=== PATIENT | male | born 1970 | race Caucasian/White ===

== ENCOUNTER 2022-07-26 07:35 | Outpatient (REF) | payer OTHER, SELFPAY ==
[2022-07-26 11:38] LABS: Hemoglobin 18.6 g/dl (14.0-18.0); Mean Corpuscular HGB Conc 34.6 g/dl (31.0-36.0); SCAN SMEAR FLAG 1
[2022-07-26 11:39] LABS: Appearance Urine Turbid; Color Urine Yellow; Glucose Urine UA >=1000 mg/dL (Negative); Leukocyte Esterase Urine Negative (Negative); Nitrite Urine Negative (Negative); PH 5.5 (5.0-9.0); Specific Gravity - Urine 1.025 (1.005-1.025); UMIC TRIGGER UACC YES; Urine Blood Small (1+) (Negative); Urine Ketones Negative (Negative); Urine Protein 300 (3+) mg/dL (Neg-Trace)
[2022-07-26 11:40] LABS: Basophils Absolute Auto 0.1 X10*3/uL (0.0-0.2); Eosinophils Absolute Auto 0.3 X10*3/uL (0.0-0.4); Eosinophils Percent Auto 3.8 % (0-4); Hematocrit 53.8 % (42.0-52.0); Imm Gran Abs Auto 0.02 X10*3/uL (0.00-0.03); Imm Gran Pct Auto 0.3 % (0.0-0.4); Lymphocytes Absolute Auto 1.8 X10*3/uL (1.2-4.9); Lymphocytes Percent Auto 25.5 % (20-40); MANUAL DIFF FLAG SCAN; Mean Corpuscular Hemoglobin 31.7 pg (27.0-33.0); Mean Corpuscular Volume 91.7 fL (80.0-98.0); Mean Platelet Volume 13.7 fL (9.4-12.4); Monocytes Absolute Auto 0.5 X10*3/uL (0.1-1.2); Monocytes Percent Auto 7.2 % (2-11); Neutrophils Absolute Auto 4.4 x10*3/uL (2.0-8.3); Neutrophils Percent Auto 62.2 % (45-73); PLT ABN DIST 1; Red Blood Count 5.87 X10*6/uL (4.60-5.80); Red Cell Distribution Width 12.5 % (11.0-16.0); White Blood Count 7.1 X10*3/uL (4.8-10.8)
[2022-07-26 11:57] LABS: Bacteria Urine None Seen (None Seen); Hyaline Casts Urine 0-2 /LPF (0-2); Squamous Epithelial Cell Urine 0-2 /HPF (0-2); WBC Urine 0-5 /HPF (0-5)
[2022-07-26 12:00] LABS: Alanine Aminotransferase 26 U/L (0-40); Albumin Level 3.7 g/dL (3.5-5.0); Alkaline Phosphatase 102 U/L (39-117); Anion Gap 11 (12-20); Aspartate Amino Transferase 29 U/L (5-37); Bilirubin Total 0.6 mg/dL (0.0-1.0); Blood Urea Nitrogen 12 mg/dL (9-16); Calcium 8.4 mg/dL (8.4-10.2); Carbon Dioxide 27 mmol/L (22-29); Chloride 104 mmol/L (96-108); Cholesterol 245 mg/dL; Estimated Glomerular Filt Rate > 60; Glucose Fasting 275 mg/dL (60-99); HDL Cholesterol 38 mg/dL; LDL Cholesterol Calculated 136 mg/dl; Potassium 4.5 mmol/L (3.3-5.1); Sodium 137 mmol/L (135-145); Total Protein 6.1 g/dL (6.5-8.0); Triglycerides 359 mg/dL
[2022-07-26 12:01] LABS: Platelet Count 65 X10*3/uL (160-400)
[2022-07-26 12:02] LABS: SLIDE REVIEW VERIFIED
[2022-07-26 12:06] LABS: Estimated Average Glucose 289 mg/dL; Hemoglobin A1c % 11.7 %
[2022-07-26 12:22] LABS: Prostate Specific Antigen Scr 0.45 ng/mL (<0.05-4.0); TSH reflex Free T4 1.68 uIU/mL (0.32-4.0)
[2022-07-26 12:26] LABS: Creatinine Urine 138.64 mg/dL
[2022-07-26 12:43] LABS: Microalbum/Creatinine Ratio Ur 1442.5 ug/mg cr; Microalbumin Urine > 2000.0 mg/L
== END 2022-07-26 07:36 | disposition home or self-care (01) ==
LOC: HO.HMGCLDS 07:35
PROVIDERS: PCP Nurse Practitioner Family; Visit Provider Nurse Practitioner Family
DX: E11.65 Type 2 diabetes mellitus with hyperglycemia (principal); D58.2 Other hemoglobinopathies; R31.29 Other microscopic hematuria; Z12.5 Encounter for screening for malignant neoplasm of prostate
CPT/HCPCS: 36415; 80053; 80061; 81001; 82043; 83036; 84153; 84443; 85025

== ENCOUNTER 2022-08-06 11:18 | Outpatient (REF) | payer OTHER, SELFPAY ==
--- NOTE | ~2022-08-06 | US_ITS ---
EXAMINATION: US RETROPERITONEAL LIMITED (RENAL ONLY) CLINICAL INFORMATION: Other microscopic hematuria. COMPARISON: None TECHNIQUE: Real-time imaging of the kidneys. FINDINGS: RIGHT KIDNEY: 13.2 x 5.2 x 5.8 cm (SAG x AP x TRV). The kidney is normal in size, contour, and echogenicity. Renal cortical thickness is normal. No calculi or focal parenchymal lesions. No hydronephrosis. Mild right-sided pelviectasis without caliectasis. LEFT KIDNEY: 11.7 x 6.4 x 6.1 cm (SAG x AP x TRV). The kidney is normal in size, contour, and echogenicity. Renal cortical thickness is normal. No calculi or focal parenchymal lesions. No hydronephrosis. BLADDER: Bladder is under distended with suggestion of diffuse wall thickening and trabeculation. ADDITIONAL FINDINGS: Prostate volume 40.3 mL. There are at least 2 cystic appearing observations in the prostate gland measuring 0.9 x 0.8 x 0.7 cm and 0.3 x 0.5 x 0.6 cm. US/US renal BI IMPRESSION: 1. No nephrolithiasis or hydronephrosis. 2. Mild right-sided pelviectasis without caliectasis. 3. The urinary bladder is under distended with suggestion of diffuse wall thickening and trabeculation which could be related with chronic outlet obstruction in the setting of prostatomegaly. 4. There are at least 2 cystic appearing observations in the prostate gland, which are nonspecific and incompletely characterized in this examination. Correlation with PSA and physical examination recommended, and if indicated further evaluation with prostatic MRI or biopsy could be obtained.
== END 2022-08-06 11:19 | disposition home or self-care (01) ==
LOC: HO.HMGCX 11:18
PROVIDERS: PCP Nurse Practitioner Family; Visit Provider Nurse Practitioner Family
DX: R31.29 Other microscopic hematuria (principal)
CPT/HCPCS: 76775

== ENCOUNTER 2022-08-09 12:58 | Outpatient (REF) | payer OTHER, SELFPAY ==
--- NOTE | ~2022-08-09 | US_ITS ---
EXAMINATION: US PELVIS LIMITED (BLADDER) CLINICAL INFORMATION: Microscopic hematuria. COMPARISON: Ultrasound retroperitoneal limited (renal only) 08/06/2022. TECHNIQUE: Real-time imaging of the bladder. FINDINGS: BLADDER: The bladder wall appears slightly trabeculated and slightly irregular. No discrete bladder masses are seen. No bladder calculi are noted. Left ureteral jet is demonstrated; right is not. Prevoid bladder volume is 169 mL. Postvoid bladder volume is 13.1 mL. US/US bladder IMPRESSION: Bladder wall appears slightly trabeculated and slightly irregular. No stones or masses. Given the history of hematuria with no known cause, cystoscopy may be of value.
== END 2022-08-09 12:59 | disposition home or self-care (01) ==
LOC: HO.HMGCX 12:58
PROVIDERS: PCP Nurse Practitioner Family; Visit Provider Nurse Practitioner Family
DX: R31.29 Other microscopic hematuria (principal)
CPT/HCPCS: 76857

== ENCOUNTER → 2022-08-16 14:22 | Outpatient (BNVA) | payer OTHER, SELFPAY | PROVIDERS: PCP Nurse Practitioner Family; Visit Provider Urology | DX: Z13.9 Encounter for screening, unspecified (principal); N40.0 Benign prostatic hyperplasia without lower urinary tract symptoms; N32.89 Other specified disorders of bladder; R31.29 Other microscopic hematuria | CPT/HCPCS: 51798; 99202 ==

== ENCOUNTER 2022-11-01 10:32 | Outpatient (REF) | payer OTHER, SELFPAY ==
[2022-11-01 17:12] LABS: Urine Cytology See Pathology rpt
== END 2022-11-01 10:33 | disposition home or self-care (01) ==
LOC: HO.LAB 10:32
PROVIDERS: PCP Nurse Practitioner Family; Visit Provider Urology
DX: N40.0 Benign prostatic hyperplasia without lower urinary tract symptoms (principal); R31.29 Other microscopic hematuria; N32.9 Bladder disorder, unspecified; F17.290 Nicotine dependence, other tobacco product, uncomplicated; N52.9 Male erectile dysfunction, unspecified; N32.89 Other specified disorders of bladder; Z79.899 Other long term (current) drug therapy
CPT/HCPCS: 52000; 88112; 99212

== ENCOUNTER → 2022-11-13 09:02 | Day surgery (SDC) | payer OTHER, SELFPAY ==
[2022-11-08 13:15] VITALS: BMI 27.0
--- NOTE | 2022-11-12 09:53 | HO.ANESPROP2 ---
HPI - Anesthesia Eval Consult details Narrative: 52yo M for Cystoscopy & Bladder Biopsy [facility] Active Problems Active Problems: All Active Problems (Updated 11/08/22 @ 13:15 by Patrizia Brown RN) Physical exam (Acute) Screening PSA (prostate specific antigen) (Acute) Uncontrolled diabetes mellitus (Acute) Diabetic retinopathy (Acute) Microhematuria (Acute) Elevated hemoglobin (Acute) Microalbuminuria (Acute) Abnormal ultrasound of prostate (Acute) Abnormal radiologic findings on diagnostic imaging of renal pelvis, ureter, or bladder (Acute) Bladder wall thickening (Acute) BPH (benign prostatic hyperplasia) (Acute) Lesion of bladder (Acute) Hypertension (Acute) Past Medical History Medical History BPH (benign prostatic hyperplasia) Diabetic retinopathy Elevated cholesterol Hypertension Retinal hemorrhage Smoking history Type 2 diabetes mellitus Family History Family History Father Leukemia Mother No problems noted. Surgical History Surgical History Hx of tonsillectomy Social History Social History (Updated 11/08/22 @ 13:21 by Patrizia Brown RN) Are you a primary direct care provider to a significant other at home: No Do you presently have visiting nurse or other home services: No Alcohol intake: current Alcohol intake frequency: 3 or more drinks per day Alcohol type: beer and hard liquor Patient Tobacco Use Status: Current everyday Tobacco user Tobacco use type: Cigar Cigarettes Per Day: 0 (quit cigarettes ~ age 37-current cigars daily) Years Smoked: 25 Smoked in Last 30 Days: Yes e-Cigarette/Vaping Use: Never Used Use of substances other than those prescribed or required for medical reasons: No Have you been hit, kicked, punched, or otherwise hurt by someone within the past year? If so, by whom?: No Are you DNR?: No Advance Directives: No Advance Directives Information Provided: Yes (brochure mailed) Advance Directives on File: No Recently lost weight without trying: No Eating poorly because of decreased appetite: No Nutrition Risks: No Nutritional Risk Poor oral hygiene: No (upper full denture) service: No Current occupational status: employed Current occupation: [employer] Current occupational exposures/hazards: Yes Cognitive needs: No Hearing needs: No Vision needs: No Meds Allergies Allergy/AdvReac Type Severity Reaction Status Date / Time No Known Allergies Allergy Verified 11/13/22 09:16 Home Medications Medication Instructions Recorded Confirmed Last Taken Type metformin 500 mg tablet 1,000 mg PO BID 10/31/20 11/08/22 Unknown History Exam Exam Date and Time: November 12, 2022 0953 Height,Weight and Vital Signs: Height 5 ft 10 in Weight 85.275 kg Pertinent Lab Results Pertinent Lab Results: Laboratory Tests 07/26/22 07/26/22 07:45 07:45 WBC 7.1 Hgb 18.6 H Hct 53.8 H Plt Count 65 L Sodium 137 Potassium 4.5 Chloride 104 Carbon Dioxide 27 BUN 12 Creatinine 0.77 Assessment and Plan Assessment Anesthesia Assessment: Chart Reviewed
[2022-11-13] MEDS: Lactated Ringers 1,000 ML 100 ML IVCONT (09:31)
[2022-11-13 09:33] LABS: Glucose, Whole Blood 201 mg/dL (60-115)
[2022-11-13 09:34] LABS: Mean Corpuscular HGB Conc 36.1 g/dl (31.0-36.0); Mean Corpuscular Hemoglobin 32.3 pg (27.0-33.0); Mean Corpuscular Volume 89.6 fL (80.0-98.0); Red Blood Count 6.34 X10*6/uL (4.60-5.80); White Blood Count 7.8 X10*3/uL (4.8-10.8)
[2022-11-13 09:35] LABS: Hematocrit 56.8 % (42.0-52.0); Hemoglobin 20.5 g/dl (14.0-18.0); Platelet Count 69 X10*3/uL (160-400)
[2022-11-13 09:39] VITALS: BP 171/98; PULSE 83; RESP 18; TEMP 36.7; O2SAT 95
[2022-11-13 09:47] VITALS: BP 141/91
--- NOTE | 2022-11-13 09:54 | PC.NURSE ---
dr. figueredo updated that poc was 201 this a.m. no interventions at this time.
--- NOTE | 2022-11-13 10:26 | PC.NURSE ---
patient drinks alcohol daily. Had 2 beers and 2 hots hs. asymptomatic of withdrawal symptoms.
--- NOTE | 2022-11-13 12:17 | MHC.SHP ---
Pre-Procedural Eval Section A Date of Service: 11/13/22 The patient is an INPATIENT: No The History & Physical has been completed within 30 days and I have reviewed it.: Yes Section B Chief Complaint: Bladder disorder, unspecified Allergies: Allergies Allergy/AdvReac Type Severity Reaction Status Date / Time No Known Allergies Allergy Verified 11/13/22 09:16 Plan Diagnosis/Plan: Unchanged I have reviewed the history and physical and performed a pertinent physical examination on my patient. No changes have occurred unless specified. Cystoscopy bladder biopsies Time Spent With Patient Time: Total time managing care of this patient today ____ minutes.
--- NOTE | 2022-11-13 12:22 | PC.NURSE ---
dr. noriega reviewed labs that were drawn this a.m. given copy at bedside.
--- NOTE | 2022-11-13 12:44 | PC.NURSE ---
dr. louise morocho reviewed labs and decision was made to cancel procedure today. IV removed. patient aware to f/u with office as ordered by surgeon.
== END ==
PROVIDERS: Nurse Practitioner; PCP Nurse Practitioner Family; Visit Provider Urology
DX: N32.9 Bladder disorder, unspecified (principal); Z53.8 Procedure and treatment not carried out for other reasons; R79.89 Other specified abnormal findings of blood chemistry
CPT/HCPCS: 36415; 82947; 85027; J0690; J2250; J3010

== ENCOUNTER → 2022-11-19 09:17 | Outpatient (BNV) | payer OTHER, SELFPAY | PROVIDERS: PCP Nurse Practitioner Family; Visit Provider Internal Medicine Medical Oncology | DX: D75.1 Secondary polycythemia (principal) | CPT/HCPCS: 99204; 99213 ==

== ENCOUNTER 2022-11-20 09:06 | Outpatient (REF) | payer OTHER, SELFPAY | END 2022-11-20 09:07 | disposition home or self-care (01) | LOC: HO.BBR 09:06 | PROVIDERS: Visit Provider Internal Medicine Medical Oncology | DX: D75.1 Secondary polycythemia (principal) | CPT/HCPCS: 85018; 99195 ==

== ENCOUNTER 2022-12-20 09:56 | Outpatient (REF) | payer OTHER, SELFPAY | END 2022-12-20 09:57 | disposition home or self-care (01) | LOC: HO.BBR 09:56 | PROVIDERS: PCP Nurse Practitioner Family; Visit Provider Internal Medicine Medical Oncology | DX: D75.1 Secondary polycythemia (principal) | CPT/HCPCS: 85018; 99195 ==

== ENCOUNTER 2023-01-03 09:31 | Outpatient (AMB) | payer OTHER, SELFPAY ==
--- NOTE | 2023-01-03 09:37 | A.OFFPC_ITS ---
Vital Signs 01/03/23 09:38 Height 5 ft 10 in Weight 184 lb 4 oz BMI 26.4 BP 142/100 H Blood Pressure Location Lt brachial Position Sitting Pulse 93 Pulse Source Pulse Oximeter Pulse Oximetry (%) 98 Oxygen Delivery Method Room Air Intake Visit Reasons: 3 Month follow up Allergies No Known Allergies Allergy (Verified 01/03/23 09:43) Medication List - Last Reconciled 01/03/23 by BRIAN Sandoval atorvastatin 80 mg PO DAILY dapagliflozin propanediol (Farxiga) 5 mg PO DAILY 30 days FreeStyle Kayode 2 [place] (flash glucose scanning reader) tid NS FreeStyle Kayode 2 Sensor (flash glucose sensor) TID NS insulin glargine (Lantus Solostar U-100 Insulin) 60 units (0.6 mL) subcut QPM 50 days MDD 60 units lisinopril 20 mg PO BID 30 days metformin 1,000 mg PO BID metoprolol tartrate 100 mg PO BID semaglutide (Ozempic) 0.25 mg (0.368 mL) subcut QWEEK Tobacco use date assessed: 05/31/22 HPI 3 Month follow up HPI Details Pt is a diabetic, on an SASHA and a statin. A1c in office today is 11.7. Microalbumin is up to date (has been referred to nephrology, see notes). Denies polyuria, polydipsia, does report neuropathy. Pt denies any signs and symptoms of hypoglycemia and does know how to correct it. Will start farxiga 5mg. He reports not taking his insulin everyday, and has not started the ozempic. Explained to pt multiple times the risks of his uncontrolled diabetes, including the risk of . pt reported understanding this. He reports he knows how to get his sugars down, some days i feel like taking my meds, and sometimes i dont . See optometry, urology, and hematology. Bp meds not taken today, elevated. [facility] Medical History BPH (benign prostatic hyperplasia) Cervical spinal stenosis Degenerative disc disease, cervical Diabetic retinopathy Elevated cholesterol Hypertension Neuropathy Retinal hemorrhage Smoking history Type 2 diabetes mellitus Surgical History Hx of tonsillectomy Family History Father Leukemia Mother No problems noted. Social History Are you a primary primary care provider to a significant other at home: No Do you presently have visiting nurse or other home services: No Alcohol intake: current Alcohol intake frequency: 3 or more drinks per day Alcohol type: beer and hard liquor Patient Tobacco Use Status: Current everyday Tobacco user Tobacco use type: Cigar Years Smoked: 25 e-Cigarette/Vaping Use: Never Used service: No Current occupational status: employed Current occupation: [employer] Current occupational exposures/hazards: Yes Cognitive needs: No Hearing needs: No Vision needs: No Questionnaire Thrive Questionnaire Date Thrive assessed: 05/31/22 GIBSON-7 AMB Questionnaire GIBSON-7 Date GIBSON - 7 assessed: 05/31/22 Source: Developed by Drs. Solis Moore, Светлана Christy, Anant Romano and colleagues, with an educational kandy from [employer]. Review of Systems Const Reports as per HPI Physical exam (Primary Care) Vital Signs: Last Vital Signs Pulse 93 01/03/23 09:38 BP 142/100 H 01/03/23 09:38 Pulse Ox 98 01/03/23 09:38 Oxygen Delivery Method Room Air 01/03/23 09:38 BMI result Body Mass Index 26.4 Tobacco/Smoking Status: Tobacco use Status Tobacco use date assessed 05/31/22 01/03/23 09:37 Patient Tobacco Use Status Current everyday Tobacco 01/03/23 09:37 Tobacco use type Cigar 01/03/23 09:37 e-Cigarette/Vaping Use Never Used 01/03/23 09:37 Thrive Assessment: Date of Thrive Assessment Date Thrive assessed 05/31/22 01/03/23 09:37 Const General: cooperative Orientation/consciousness: patient oriented x3 Resp Other: lungs coarse Effort & Inspection: normal respiratory effort Cardio Rate: regular rate Rhythm: regular rhythm Heart sounds: S1 normal heart sound present and S2 normal heart sound present Neuro Other: refused foot exam General: patient oriented x3 Extrem Other: refused foot exam Psych Appearance: grossly normal Mental Status: mental status grossly normal Speech and movement: Normal speech and movement present Affect: normal affect Attitude: cooperative Thought process: Normal thought process present Thought content: Normal thought content present Insight: Good insight present (Psych) Judgement: Good judgement present (Psych) Results AMB Hemoglobin A1c AMB Hemoglobin A1c 11.7 % Last Edit by Nelli Kearney CMA on 01/03/23 10 :11 Results Reviewed Results Reviewed: Laboratory Last Values Hgb A1c (Clinic) 11.7 % (4.0-6.0) H 01/03/23 10:04 Assessment and Plan Assessment & Plan (1) Uncontrolled diabetes mellitus: Code(s): E11.65 - Type 2 diabetes mellitus with hyperglycemia Plan: Labs ordered, starting farxiga, reinforced severity of uncontrolled diabetes to pt multiple times. Plan The patient agreed to the use of a medical device assembler for this encounter. Scribed for BRIAN [place] by Nerissa Uriostegui medical device assembler, on 01/03/2023 at 10:20 EST. Orders: Orders Lipid Panel Today E11.65 - Type 2 diabetes mellitus with hyperglycemia AMB Hemoglobin A1c Today E11.65 - Type 2 diabetes mellitus with hyperglycemia Medications: New dapagliflozin propanediol (Farxiga) 5 mg PO DAILY 30 tabs 2RF 30 days Coding Level of Care Code Est Pt Level 3 (55222) Diagnoses Uncontrolled diabetes mellitus E11.65
[2023-01-03 09:38] VITALS: BP 142/100; PULSE 93; O2SAT 98; BMI 26.4
== END 2023-01-03 10:59 | disposition home or self-care (01) ==
PROVIDERS: Visit Provider Nurse Practitioner Family
DX: E11.65 Type 2 diabetes mellitus with hyperglycemia (principal)
CPT/HCPCS: 83036; 99213

== ENCOUNTER 2023-01-17 12:02 | Outpatient (REF) | payer OTHER, SELFPAY | END 2023-01-17 12:03 | disposition home or self-care (01) | LOC: HO.BBR 12:02 | PROVIDERS: PCP Nurse Practitioner Family; Visit Provider Internal Medicine Medical Oncology | DX: D75.1 Secondary polycythemia (principal) | CPT/HCPCS: 85018; 99195 ==

== ENCOUNTER 2023-12-25 09:53 | Inpatient (IN) | payer OTHER, SELFPAY ==
[2023-12-25] VITALS (9 sets, daily range): BP systolic 114–157; BP diastolic 78–100; PULSE 63–74; RESP 14–18; TEMP 36.8–37.2; O2SAT 88–95; BMI 30.5
--- NOTE | ~2023-12-25 | XR_ITS ---
EXAMINATION: XR CHEST CLINICAL INFORMATION: Chest pain and shortness of breath COMPARISON: None available. TECHNIQUE: Frontal view of the chest was obtained. FINDINGS: Abnormal. There is mild cardiomegaly with slight distention of the pulmonary vessels. Diffuse interstitial infiltrates likely reflect edema, although a viral pneumonitis superimposed could have such an appearance. XR/XR chest 1V IMPRESSION: Congestive changes with or without edema and/or interstitial infiltrate.
--- NOTE | ~2023-12-25 | CT_ITS ---
EXAMINATION: CT ANGIOGRAM OF THE CHEST WITH AND WITHOUT CONTRAST (CT PULMONARY ANGIOGRAM FOR PE) CLINICAL INFORMATION: Reason for Exam leg swelling positive ddimer COMPARISON: Chest x-ray 12/25/2023. TECHNIQUE: Prior to contrast administration, noncontrast localization images were obtained. Subsequently, multidetector volumetric imaging was performed from the thoracic inlet to below the diaphragms following the administration of 65 mL Omnipaque 350 intravenous contrast. No contrast reaction reported Sagittal, coronal, and MIP oblique sagittal reformatted images were obtained on the CT workstation, uploaded to PACS, and reviewed. This CT examination was performed using dose optimization techniques as appropriate, variously including the following: *Automated exposure control *Adjustment of mA and/or kV according to patient size (this includes techniques or standardized protocols for targeted exams where dose is matched to indication/reason for exam; i.e. extremities or head) *Use of iterative reconstruction technique Total exam dose-length product 331 mGy-cm FINDINGS: QUALITY OF STUDY/CONTRAST BOLUS: Satisfactory. PULMONARY ARTERIES: No filling defects are seen to suggest pulmonary embolism. AI concordance. THORACIC AORTA: No aneurysm. There is a 60% stenosis of the proximal left subclavian artery due to mixed soft and hard plaque proximal to the vertebral artery origin which may predispose to subclavian steal syndrome. LUNG: Diffuse airway wall thickening. Mosaic attenuation suggesting some degree of air trapping. There may be mild edema. There are scattered micronodules as well as a 6 mm nodule right upper lobe series 7 image 109 which is nonspecific. PLEURA: Small bilateral pleural effusions measuring simple density. MEDIASTINUM: The main pulmonary artery is dilated measuring 3.7 cm with a MPA to AO ratio of 1.1 consistent with pulmonary arterial hypertension. There is no reflux of contrast into the hepatic IVC or septal bowing. Adenopathy with right upper paratracheal node measuring 1.1 cm, right lower paratracheal node measuring 1.8 cm, right lower paratracheal node measuring 2.6 cm, AP window node measuring 2.3 cm, left lower paratracheal node measuring 2.2 cm. Findings are nonspecific. CORONARY ARTERY CALCIFICATION: Significant LAD, LCx, RCA calcium. CHEST WALL/AXILLA: Left axillary node measures 1.9 cm. OSSEOUS STRUCTURES: Severe degenerative disc disease at T9-T10. UPPER ABDOMEN: Unremarkable. No reflux of contrast into the hepatic veins to suggest elevated right heart pressures. CT/CT angio chest PE protocol IMPRESSION: Negative for pulmonary embolism. Mosaic attenuation and airway wall thickening suggesting airways disease with some degree of air trapping. There may be also be mild superimposed pulmonary edema. Small bilateral pleural effusions. Three-vessel coronary artery disease. Mediastinal and left axillary adenopathy, potentially reactive however the imaging appearance is nonspecific. Clinical correlation is necessary. 60% stenosis proximal left subclavian artery. This location could predispose to subclavian steal syndrome. This can be correlated clinically. 6 mm right upper lobe pulmonary nodule and additional scattered micronodules. 2017 Fleischner Society Recommendations for Lung Nodule(s): Follow-Up based on size (average of long- and short-axis diameters). Use most suspicious nodule for followup. Multiple Solid lung nodules 6-8 mm: Follow up management based on most suspicious nodule. In a low-risk patient, recommend a non-contrast Chest CT at 3-6 months, then consider another non-contrast Chest CT at 18-24 months. In a high-risk patient, recommend a non-contrast Chest CT at 3-6 months, then another non-contrast Chest CT at 18-24 months. These guidelines do not apply to patients younger than 35 years, immunocompromised patients, and patients with cancer. Follow up in patients with significant comorbidities as clinically warranted. For lung cancer screening, adhere to Lung-RADS guidelines. Reference: Radiology. 2017 Eren; 284(1):228-243
--- NOTE | 2023-12-25 09:54 | ECG_ITS ---
Test Reason : sob Blood Pressure : / mmHG Vent. Rate : 075 BPM Atrial Rate : 075 BPM P-R Int : 118 ms QRS Dur : 104 ms QT Int : 426 ms P-R-T Axes : 024 068 050 degrees QTc Int : 475 ms Normal sinus rhythm Anterior infarct , age undetermined Abnormal ECG No previous ECGs available Referred By: Generic ED Physician Electronically Signed By:Javier Estevez
[2023-12-25] MEDS: Furosemide 20 MG/2 ML VIAL IVPUSH (10:14)
[2023-12-25 10:15] LABS: MANUAL DIFF FLAG NO
[2023-12-25 10:19] LABS: Basophils Absolute Auto 0.1 X10*3/uL (0.0-0.2); Basophils Percent Auto 1.2 % (0-2); Eosinophils Absolute Auto 0.2 X10*3/uL (0.0-0.4); Eosinophils Percent Auto 3.6 % (0-4); Hematocrit 50.4 % (42.0-52.0); Hemoglobin 17.4 g/dl (14.0-18.0); Imm Gran Abs Auto 0.03 X10*3/uL (0.00-0.03); Imm Gran Pct Auto 0.5 % (0.0-0.4); Lymphocytes Absolute Auto 1.4 X10*3/uL (1.2-4.9); Lymphocytes Percent Auto 23.2 % (20-40); Mean Corpuscular HGB Conc 34.5 g/dl (31.0-36.0); Mean Corpuscular Hemoglobin 33.3 pg (27.0-33.0); Mean Corpuscular Volume 96.4 fL (80.0-98.0); Mean Platelet Volume 11.5 fL (9.4-12.4); Monocytes Absolute Auto 0.5 X10*3/uL (0.1-1.2); Neutrophils Absolute Auto 3.7 x10*3/uL (2.0-8.3); Neutrophils Percent Auto 62.5 % (45-73); Red Blood Count 5.23 X10*6/uL (4.60-5.80); Red Cell Distribution Width 13.2 % (11.0-16.0); White Blood Count 5.9 X10*3/uL (4.8-10.8)
--- NOTE | 2023-12-25 10:22 | PC.NURSE ---
a&ox4. vss and up to date aside from being hypertensive. nsr on the threat monitoring analyst. pt presents from triage d/t chest pain/sob/bilateral LE swelling/weakness x 3 weeks. sx increase when laying flat. crackles noted throughout upon auscultation. 2+ pitting edema in the LE bilaterally. pt verbalizes being noncompliant w/ meds - stating, i take them sometimes. ekg performed by tech. 18gIV placed in the right AC - labs obtained/sent to lab. no sob/sob noted. pt positioned upright to promote patent airway. medication administered per provider order. urinal placed bedside for convenience. chest xray being performed. family bedside for support. plan of care ongoing. call pérez placed within reach.
[2023-12-25 10:24] LABS: D Dimer High Sensitivity 332 NG/ML; Platelet Count 81 X10*3/uL (160-400)
[2023-12-25 10:43] LABS: Alanine Aminotransferase 26 U/L (0-40); Albumin Level 3.5 g/dL (3.5-5.0); Alkaline Phosphatase 106 U/L (39-117); Anion Gap 11 (12-20); Aspartate Amino Transferase 27 U/L (5-37); Bilirubin Total 0.9 mg/dL (0.0-1.0); Blood Urea Nitrogen 14 mg/dL (9-16); Calcium 9.4 mg/dL (8.4-10.2); Carbon Dioxide 30 mmol/L (22-29); Chloride 103 mmol/L (96-108); Creatinine Clr Calc Pharmacy 128.9; Estimated Glomerular Filt Rate > 60; Glucose Random 120 mg/dL (60-115); Potassium 4.2 mmol/L (3.3-5.1); Sodium 140 mmol/L (135-145); Total Protein 6.2 g/dL (6.5-8.0)
[2023-12-25 10:46] LABS: B Type Natriuretic Peptide 365 pg/mL (<100)
[2023-12-25 10:54] LABS: Troponin-I High Sensitivity 137.2 ng/L (<3.5-35.0)
[2023-12-25] MEDS: Nitroglycerin 2 % Oint 1 GM Packet 1 INCH TRANSDERMA (11:09)
[2023-12-25] MEDS: Aspirin Enteric Coated 325 MG TABLET.DR PO (11:09)
--- NOTE | 2023-12-25 11:16 | PC.NURSE ---
medication administered per provider order. pt to CT at this time.
[2023-12-25] MEDS: iohexoL 350 MG/ML 100 ML INFUS..BTL IV (11:28)
--- NOTE | 2023-12-25 12:22 | ED.SOB ---
HPI - SOB/Dyspnea General Chief Complaint: Dyspnea Stated Complaint: chest pain SOB Swelling Time Seen by Provider: 12/25/23 10:00 Source: patient and family Mode of arrival: ambulatory Limitations: no limitations History of Present Illness ED Provider: Dr. Dudley HPI Narrative: 10 days ago patient had a syncopal event and since then has had increasing leg swelling and shortness of breath. Patient denies chest pain MD elicited complaint: shortness of breath Pertinent past history: congestive heart failure Related Data Home Medications ?Medication ?Instructions ?Recorded ?Confirmed metformin 500 mg tablet 1,000 mg PO BID 10/31/20 01/31/23 Previous Rx's ?Medication ?Instructions ?Recorded lisinopril 20 mg tablet 20 mg PO BID 30 days #60 tabs 06/29/20 metoprolol tartrate 100 mg tablet 100 mg PO BID #180 tabs 09/07/20 insulin glargine 100 unit/mL (3 60 unit (0.6 mL) subcut QPM 02/21/22 mL) subcutaneous pen (Lantus diabetes 50 days #30 mL Solostar U-100 Insulin) FreeStyle Kayode 2 [place] (flash #1 ea 04/25/22 glucose scanning reader) atorvastatin 80 mg tablet 80 mg PO DAILY #90 tabs 07/26/22 semaglutide 0.25 mg or 0.5 mg (2 0.25 mg (0.368 mL) subcut QWEEK #3 09/27/22 mg/3 mL) subcutaneous pen injector mL (Ozempic) dapagliflozin propanediol 5 mg 5 mg PO DAILY 30 days #30 tabs 01/03/23 tablet (Farxiga) amoxicillin 875 mg-potassium 1 tab PO Q12H 10 days #20 tabs 01/30/23 clavulanate 125 mg tablet insulin lispro 100 unit/mL 8 unit (0.08 mL) subcut TID 01/31/23 subcutaneous pen diabetes 30 days #7.2 mL pen needle, diabetic 32 gauge x #100 ea 01/31/23 (Microdot Insulin Pen Needle) FreeStyle Kayode 2 Sensor (flash #6 ea 02/19/23 glucose sensor) amoxicillin 875 mg-potassium 1 tab PO BID 10 days #20 tabs 04/22/23 clavulanate 125 mg tablet Allergies Allergy/AdvReac Type Severity Reaction Status Date / Time No Known Allergies Allergy Verified 12/25/23 10:03 Review of Systems Review of Systems: Yes all other systems are reviewed and are negative Neurologic: Denies Sensory deficit (Neuro) [facility] Past Medical History Medical History Nicotine dependence, cigarettes, uncomplicated Degenerative disc disease, cervical Cervical spinal stenosis Neuropathy Smoking history Elevated cholesterol Diabetic retinopathy BPH (benign prostatic hyperplasia) Retinal hemorrhage Type 2 diabetes mellitus Hypertension Surgical History Hx of tonsillectomy Family History Family History Father Leukemia Mother No problems noted. Social History Social History Are you a primary home care aide to a significant other at home: No Do you presently have visiting nurse or other home services: No Alcohol intake: current Alcohol intake frequency: 3 or more drinks per day Alcohol type: beer and hard liquor Patient Tobacco Use Status: Current everyday Tobacco user Tobacco use type: Cigar Years Smoked: 25 e-Cigarette/Vaping Use: Never Used Advance Directives: No Do you have a plan to hurt others: No Plan service: No Current occupational status: employed Current occupation: [employer] Current occupational exposures/hazards: Yes Cognitive needs: No Hearing needs: No Vision needs: No Physical Exam Vital Signs: Vital Signs: Last Vital Signs Temp 98.9 F 12/25/23 12:45 Pulse 63 12/25/23 12:45 Resp 18 12/25/23 12:45 BP 114/78 12/25/23 12:45 Pulse Ox 92 12/25/23 12:45 O2 Del Method Room Air 12/25/23 12:45 BMI result Body Mass Index 30.5 Const: Other: Chronically ill appearing Nutritional Appearance: average body habitus Orientation/consciousness: oriented to person and patient oriented x3 Limitations: no limitations HEENT: Head: Yes normal to inspection Ears: external ears normal General nose exam: Normal external nose present Mouth: Normal oral and palatal mucosa present and oropharynx normal Throat: Yes posterior oropharynx normal Eyes: General: appearance normal, both eyes and all related structures Neck: Other: supple Neck: Yes normal visual inspection Chest: Chest palpation & inspection: normal inspection of the chest Resp: Other: bilateral rales Cardio: Jugular venous distension: no JVD Rate: regular rate Rhythm: regular rhythm Heart sounds: S1 normal heart sound present and S2 normal heart sound present GI: Inspection: Yes normal to inspection Palpation (GI): Soft to palpation, nontender and No hepatosplenomegaly present Auscultation: normal bowel sounds : General: Yes no CVA tenderness Back/Spine/Pelvis: Back: no CVA tenderness Skin: General skin exam: no rashes or lesions noted Neuro: General: oriented to person and patient oriented x3 Cranial nerves: Yes CN's II-XII intact bilaterally Motor exam (neuro): 5/5 motor strength present throughout Sensory Exam: No Sensory deficit (Neuro) Extrem: Other: bilateral edema 3+ Psych: Appearance: grossly normal Course Reevaluation(s) Reevaluation #1: Patient with increasing troponins and evidence of pulmonary edema, discussed with Herb will admit Time: 13:38 Reevaluation #2: I spent 60 minutes of critical care, with interventions, assessments, speaking to patient, consultants, and family. Time: 13:38 Medications Administered Discontinued Medications Generic Name Dose Route Start Last Admin Trade Name Freq PRN Reason Stop Dose Admin Aspirin 325 mg 12/25/23 11:03 12/25/23 11:09 Aspirin Enteric Coated 325 Mg Tablet.Dr ARMENTA 12/25/23 11:04 325 mg ONCE ONE Administration Furosemide 20 mg 12/25/23 10:02 12/25/23 10:14 Furosemide 20 Mg/2 Ml Vial IVPUSH 12/25/23 10:03 20 mg ONCE ONE Administration Protocol Iohexol 100 ml 12/25/23 11:27 12/25/23 11:28 Iohexol 350 Mg/Ml 100 Ml Infus..Btl IV 12/25/23 11:28 65 ml ONCE ONE Administration Nitroglycerin 1 inch 12/25/23 11:02 12/25/23 11:09 Nitroglycerin 2 % Oint 1 Gm Packet TRANSDERMA 12/25/23 11:03 1 inch ONCE ONE Administration Medical Decision Making Differential Diagnosis Differential Diagnoses: The differential diagnosis associated with the presentation includes (cardiac ischemia, pulmonary edema, pulmonary embolus, chf) Admission/Observation Consideration of admission/observation: Escalation of care including admission/observation considered (upon arrival patient considered for admission) Consult Healthcare Provider Management of the patient was discussed with: Hospitalist and Car Pincher (Dr. Estevez cardiology) Lab Data 12/25/23 10:08 12/25/23 10:08 Labs: Lab Results 12/25/23 12/25/23 Range/Units 10:08 12:32 WBC 5.9 (4.8-10.8) X10*3/uL RBC 5.23 (4.60-5.80) X10*6/uL Hgb 17.4 (14.0-18.0) g/dl Hct 50.4 (42.0-52.0) % MCV 96.4 (80.0-98.0) fL MCH 33.3 H (27.0-33.0) pg MCHC 34.5 (31.0-36.0) g/dl RDW 13.2 (11.0-16.0) % Plt Count 81 L (160-400) X10*3/uL MPV 11.5 (9.4-12.4) fL Immature Gran % (Auto) 0.5 H (0.0-0.4) % Neut % (Auto) 62.5 (45-73) % Lymph % (Auto) 23.2 (20-40) % Mccracken % (Auto) 9.0 (2-11) % Eos % (Auto) 3.6 (0-4) % Baso % (Auto) 1.2 (0-2) % Lymph # (Auto) 1.4 (1.2-4.9) X10*3/uL M[place]racken # (Auto) 0.5 (0.1-1.2) X10*3/uL Eos # (Auto) 0.2 (0.0-0.4) X10*3/uL Baso # (Auto) 0.1 (0.0-0.2) X10*3/uL Abs Immat Gran (auto) 0.03 (0.00-0.03) X10*3/uL Absolute Neuts (auto) 3.7 (2.0-8.3) x10*3/uL Absolute Nucleated RBC 0.000 (0.0-0.012) X10*3/uL Nucleated RBC % (auto) 0.0 (0.0-0.2) /100WBC D-Dimer High Sensitivty 332 NG/ML Sodium 140 (135-145) mmol/L Potassium 4.2 (3.3-5.1) mmol/L Chloride 103 (96-108) mmol/L Carbon Dioxide 30 H (22-29) mmol/L Anion Gap 11 L (12-20) BUN 14 (9-16) mg/dL Creatinine 0.74 (0.5-1.4) mg/dL Estim Creat Clear Calc 128.9 Estimated GFR > 60 Random Glucose 120 H (60-115) mg/dL Calcium 9.4 (8.4-10.2) mg/dL Total Bilirubin 0.9 (0.0-1.0) mg/dL AST 27 (5-37) U/L ALT 26 (0-40) U/L Alkaline Phosphatase 106 (39-117) U/L Troponin I High Sens 137.2 H* 152.3 H* (<3.5-35.0) ng/L B-Natriuretic Peptide 365 H (<100) pg/mL Total Protein 6.2 L (6.5-8.0) g/dL Albumin 3.5 (3.5-5.0) g/dL Independent Interpretation I performed an independent interpretation of an: EKG (sinus 75, poor r wave progression vs old anterior UT no acute st or twave changes) Independent Historian Clinical information obtained from an independent historian. History obtained from or confirmed by: Spouse Prescription Management I considered prescription management with: Antibiotic (no evidence of pneumonia will not start antibiotics) Chronic Conditions Patient?s care impacted by: Diabetes and Hypertension Discharge Plan Discharge Clinical Impression: Congestive heart failure, Elevated troponin Patient Disposition: Admitted As Inpatient Prescriptions: No Action lisinopril 20 mg tablet 20 mg PO BID 30 Days Qty: 60 4RF metoprolol tartrate 100 mg tablet 100 mg PO BID Qty: 180 0RF insulin glargine [Lantus Solostar U-100 Insulin] 100 unit/mL (3 mL) insulin pen 60 unit subcut QPM MDD 60 units 50 Days Qty: 30 4RF Rx Instructions: 60 units at night (DME) FreeStyle Kayode 2 [place] Misc See Rx Instructions .Route Qty: 1 2RF Rx Instructions: tid atorvastatin 80 mg tablet 80 mg PO DAILY Qty: 90 0RF amoxicillin-pot clavulanate 875-125 mg tablet 1 tab PO Q12H 10 Days Qty: 20 0RF insulin lispro 100 unit/mL insulin pen 8 unit subcut TID 30 Days Qty: 7.2 0RF Rx Instructions: please administer 8 units 15 minutes before a meal (DME) pen needle, diabetic [Microdot Insulin Pen Needle] 32 gauge x 5/32 needle See Rx Instructions .Route Qty: 100 0RF Rx Instructions: TID (DME) FreeStyle Kayode 2 Sensor Kit See Rx Instructions .Route Qty: 6 1RF Rx Instructions: test blood sugar 4 times per day amoxicillin-pot clavulanate 875-125 mg tablet 1 tab PO BID 10 Days Qty: 20 0RF metformin 500 mg tablet 1,000 mg PO BID Ozempic 0.25 mg or 0.5 mg (2 mg/3 mL) pen injector 0.25 mg subcut QWEEK Qty: 3 0RF Rx Instructions: for 4 weeks Farxiga 5 mg tablet 5 mg PO DAILY 30 Days Qty: 30 2RF Print Language: Indian
--- NOTE | 2023-12-25 12:40 | PC.NURSE ---
repeat troponin obtained/sent to lab.
[2023-12-25 13:04] LABS: Troponin-I High Sensitivity 152.3 ng/L (<3.5-35.0)
--- NOTE | 2023-12-25 14:03 | CA_ITS ---
Transthoracic Echocardiogram Patient (Last, First, Middle): Solis Casas, Gender: Male Date of : 1970 Age: 53 Procedure Date: 12/25/2023 Procedure Type: Transthoracic Echocardiogram Location: ER Height: 175.26 cm Weight: 92.08 kg BSA: 2.08 m2 Heart Rate: bpm BP: 138 / 87 mmHg Supervisor Drying And Softening: JADON Referring MD: Manpreet Dudley MD Symptoms: congestive heart failure Study Quality: Fair, contrast Conclusions: - Normal left ventricular cavity size. There is mildly increased left ventricular wall thickness. The left ventricular systolic function is moderately decreased. The visually estimated ejection fraction is between 30-35%. - E/E prime ratio is >15, consistent with elevated filling pressures. - The inferior wall, inferolateral wall, and mid anterolateral segment are akinetic. - Normal right ventricular cavity size. There is low normal right ventricular systolic function. - Significantly elevated right atrial pressure. Findings Procedure Information Contrast agent, definity, is being given per protocol without apparent complications. Left Ventricle Normal left ventricular cavity size. There is mildly increased left ventricular wall thickness. The left ventricular systolic function is moderately decreased. The visually estimated ejection fraction is between 30 35%. There is evidence of regional wall motion abnormalities. Abnormal diastolic function is noted. Spectral Doppler is indicative of a pseudonormal filling pattern. E/E prime ratio is >15, consistent with elevated filling pressures. Wall Motion Rest Echo Findings The inferior wall, inferolateral wall, and mid anterolateral segment are akinetic. Right Ventricle Normal right ventricular cavity size. There is low normal right ventricular systolic function. Atria The left atrium is mildly dilated. The right atrium is normal in size. Aortic Valve Normal aortic valve structure and function. There is no aortic valve stenosis. There is no aortic valve regurgitation. Mitral Valve The mitral valve appears normal. There is trace mitral valve regurgitation. There is no mitral valve stenosis. Pulmonic Valve Normal pulmonic valve structure and function. There is no pulmonic valve regurgitation. Tricuspid Valve Normal tricuspid valve structure. There is no tricuspid valve regurgitation. Tricuspid regurgitation envelope is inadequate for calculation of right ventricular systolic pressure. Significantly elevated right atrial pressure. Great Vessels All visible segments of the aorta are normal in size. The visualized portions of the pulmonary artery and branches are normal. Venous The inferior vena cava is dilated and collapses less than 50% with inspiration. Pericardium/Pleural There is no evidence of pericardial effusion. Measurements 2D Linear Measurements IVSd: 1.33 0.6-0.9/0.6-1.0 cm LVIDd: 4.86 3.9-5.3/4.2-5.9 cm LVIDd Index: 2.34 2.4-3.2/2.2-3.1 cm/m2 LVIDs: 3.72 2.0-3.6 cm LVPWd: 1.19 0.7-1.1 cm LA Diam: 4.30 2.7-3.8/3.0-4.0 cm LAIDs Index: 2.07 1.5-2.3 cm/m2 LV Mass: 298.64 67-162/88-224 g LV Mass Index: 143.58 43-95/49-115 g/m2 LVOT Diam: 2.10 3.0+(-)1.3 cm Mitral Valve MV Pk E: 1.11 MV PK A: 0.84 MV Decel Time: 258.00 E/A: 1.30 E'Lateral: 7.18 E'Medial: 5.11 E/E' Med: 21.70 E/E' Lat: 15.50 PHT: 75.00 MVA PHT: 2.93 Decel [place]: 4.32 Aortic Valve AoV Pk [place]: 1.21 AoV Mn [place]: 0.85 AoV VTI: 0.23 AoV Pk Grad: 6.00 Aov Mn Grad: 3.00 OSMAN Cont.VTI: 3.00 LVOT LVOT Pk [place]: 1.06 LVOT Mn [place]: 0.74 LVOT VTI: 0.20 LVOT Pk Grad: 4.00 LVOT Mn Grad: 2.00 LVOT Diam: 2.10 LVOT Area: 3.46 Diastolic Function MV Pk E: 1.11 MV Pk A: 0.84 E/A: 1.30 E'Medial: 5.11 E/E' Med: 21.70 E' Laterial: 7.18 E/E' Lat: 15.50 Right Ventricle TAPSE (mm): 19.40 TVS' [place]: 9.03 Tricuspid Valve TR Pk [place]: 2.84 TR Pk Grad: 32.00 Great Vessels Aorta Sinus of Valsalva: 3.50 2.0-3.5 cm Ao Asc: 3.40 2.1-3.4 cm Ao Arch: 3.60 Updated in Other Vendor System with Status of Final Javier Estevez MD electronically signed on 12/25/2023 6:27:54 PM with status of Final
--- NOTE | 2023-12-25 14:08 | P.CONCA_ITS ---
History of Present Illness History of Present Illness Date of Service: 12/25/23 Requesting physician: Manpreet Dudley Chief complaint: Chest pain, CHF Narrative: 53 year gentleman with known history of diabetes-uncontrolled, hypertension, erythrocytosis due to tobacco abuse and significant smoking history presenting for lower extremity edema, shortness of breath and chest discomfort ongoing for few weeks. He had a syncopal episode approximately 3-4 weeks ago. At that time he has sugars were 600. He said he was not taking his medication insulin regularly but started taking medications at that time. Subsequent to that he started noticing lower extremity edema and shortness of breath. He also has been experiencing chest tightness with activity and even carrying laundry gives him chest discomfort. He has shortness of breath but also has been a heavy smoker. He has orthopnea and PND. He underwent CTA to rule out PE. No pulmonary embolism was noted but there was pulmonary edema seen, 60% left subclavian stenosis was noted as well as multivessel calcification in the coronary arteries. He is currently pain-free. EKGs reviewed-concern for anterior infarct with Q-waves. No dynamic changes. [facility] Past Medical History Medical History Nicotine dependence, cigarettes, uncomplicated Degenerative disc disease, cervical Cervical spinal stenosis Neuropathy Smoking history Elevated cholesterol Diabetic retinopathy BPH (benign prostatic hyperplasia) Retinal hemorrhage Type 2 diabetes mellitus Hypertension Family History Family History Father Leukemia Mother No problems noted. Surgical History Surgical History Hx of tonsillectomy Social History Social History Are you a primary eye care professional to a significant other at home: No Do you presently have visiting nurse or other home services: No Alcohol intake: current Alcohol intake frequency: 3 or more drinks per day Alcohol type: beer and hard liquor Patient Tobacco Use Status: Current everyday Tobacco user Tobacco use type: Cigar Years Smoked: 25 e-Cigarette/Vaping Use: Never Used Advance Directives: No Do you have a plan to hurt others: No Plan service: No Current occupational status: employed Current occupation: [employer] Current occupational exposures/hazards: Yes Cognitive needs: No Hearing needs: No Vision needs: No Meds Allergies Allergy/AdvReac Type Severity Reaction Status Date / Time No Known Allergies Allergy Verified 12/25/23 10:03 Active Medications: Current Medications Heparin Sodium (Porcine) (Heparin Sodium,Porcine 5,000 Unit/Ml Vial) 3,700 unit 40 unit/kg (3700 unit) IVPUSH PROTOCOL BOLUS PRN; Protocol PRN Reason: 40 unit/kg - Heparin Protocol Heparin Sodium (Porcine) (Heparin Sodium,Porcine 5,000 Unit/Ml Vial) 7,500 unit 80 unit/kg (7500 unit) IVPUSH PROTOCOL BOLUS PRN; Protocol PRN Reason: 80 unit/kg - Heparin Protocol Heparin Sodium/Sodium Chloride (Heparin Sodium,Porcine/1/2ns) 25,000 unit in 250 mls @ 0 mls/hr IVCONT .Q0M CHITRA; Protocol Home Medications ?Medication ?Instructions ?Recorded ?Confirmed ?Last Taken ?Type metformin 500 mg tablet 1,000 mg PO BID 10/31/20 01/31/23 Unknown History ibuprofen 800 mg tablet 800 mg PO DAILY PRN paim 12/25/23 Unknown History insulin glargine 100 unit/mL (3 60 unit subcut BEDTIME diabetes 12/25/23 12/24/23 History mL) subcutaneous pen (Lantus Solostar U-100 Insulin) Physical Exam 2 Vital Signs: Vital Signs: Last Vital Signs Temp 98.9 F 12/25/23 12:45 Pulse 63 12/25/23 12:45 Resp 18 12/25/23 12:45 BP 114/78 12/25/23 12:45 Pulse Ox 92 12/25/23 12:45 O2 Del Method Room Air 12/25/23 12:45 BMI result Body Mass Index 30.5 GENERAL APPEARANCE: in no acute distress, pleasant. NECK: no carotid bruit, ++ jugular venous distention. SKIN: no suspicious lesions, warm and dry. HEART: no murmurs, regular rate and rhythm. LUNGS: Bibasilar crackles. ABDOMEN: soft, nontender. EXTREMITIES: +1 edema bilaterally. PERIPHERAL PULSES: equal. NEUROLOGIC: No gross deficits, AAO X 3 Objective Labs and Meds 12/25/23 10:08 12/25/23 10:08 Lab results: Laboratory Results - last 24 hr 12/25/23 12/25/23 10:08 12:32 WBC 5.9 RBC 5.23 Hgb 17.4 Hct 50.4 MCV 96.4 MCH 33.3 H MCHC 34.5 RDW 13.2 Plt Count 81 L MPV 11.5 Immature Gran % (Auto) 0.5 H Neut % (Auto) 62.5 Lymph % (Auto) 23.2 [place] % (Auto) 9.0 Eos % (Auto) 3.6 Baso % (Auto) 1.2 Lymph # (Auto) 1.4 [place] # (Auto) 0.5 Eos # (Auto) 0.2 Baso # (Auto) 0.1 Abs Immat Gran (auto) 0.03 Absolute Neuts (auto) 3.7 Absolute Nucleated RBC 0.000 Nucleated RBC % (auto) 0.0 D-Dimer High Sensitivty 332 Sodium 140 Potassium 4.2 Chloride 103 Carbon Dioxide 30 H Anion Gap 11 L BUN 14 Creatinine 0.74 Estim Creat Clear Calc 128.9 Estimated GFR > 60 Random Glucose 120 H Calcium 9.4 Total Bilirubin 0.9 AST 27 ALT 26 Alkaline Phosphatase 106 Troponin I High Sens 137.2 H* 152.3 H* B-Natriuretic Peptide 365 H Total Protein 6.2 L Albumin 3.5 Imaging Radiologist's impression: Impressions Chest X-Ray 12/25/23 10:25 IMPRESSION: Congestive changes with or without edema and/or interstitial infiltrate. Chest CTA 12/25/23 11:33 IMPRESSION: Negative for pulmonary embolism. Mosaic attenuation and airway wall thickening suggesting airways disease with some degree of air trapping. There may be also be mild superimposed pulmonary edema. Small bilateral pleural effusions. Three-vessel coronary artery disease. Mediastinal and left axillary adenopathy, potentially reactive however the imaging appearance is nonspecific. Clinical correlation is necessary. 60% stenosis proximal left subclavian artery. This location could predispose to subclavian steal syndrome. This can be correlated clinically. 6 mm right upper lobe pulmonary nodule and additional scattered micronodules. 2017 Fleischner Society Recommendations for Lung Nodule(s): Follow-Up based on size (average of long- and short-axis diameters). Use most suspicious nodule for followup. Multiple Solid lung nodules 6-8 mm: Follow up management based on most suspicious nodule. In a low-risk patient, recommend a non-contrast Chest CT at 3-6 months, then consider another non-contrast Chest CT at 18-24 months. In a high-risk patient, recommend a non-contrast Chest CT at 3-6 months, then another non-contrast Chest CT at 18-24 months. These guidelines do not apply to patients younger than 35 years, immunocompromised patients, and patients with cancer. Follow up in patients with significant comorbidities as clinically warranted. For lung cancer screening, adhere to Lung-RADS guidelines. Reference: Radiology. 2017 Nov; 284(1):228-243 Assessment and Plan (1) Elevated troponin: Status: Acute (2) Congestive heart failure: Status: Acute (3) Hypertension: Status: Acute Plan [age] gentleman with background history of erythrocytosis secondary to tobacco abuse, hypertension, uncontrolled diabetes who is now presenting with shortness of breath, chest pain and lower extremity edema. Clinically he is volume overloaded. Lasix 40 mg IV b.i.d.. Metoprolol should be held for now till we have blood pressure rechecked from the right arm. Please do not use left arm blood pressures because he has a 60% left subclavian stenosis based on the CT scan. Losartan 25 mg daily. Continue dapagliflozin 5 mg daily. Check echocardiogram to assess LV function. I suspect he has underlying ischemic cardiomyopathy. He has been experiencing chest discomfort with minimal activity, has triple- vessel calcification and mildly elevated troponin levels-we will treat him as NSTEMI for now. Start heparin drip. Continue baby aspirin. Complex issues and noncompliance for long time. I had a detailed discussion with the patient that I suspect he has underlying coronary disease and cardiomyopathy and he needs to take care of himself if he wants things to improve in the future. As he gets euvolemic he will need diagnostic cardiac catheterization. I am anticipating we do it by Saturday. Thank you for allowing me to participate in the care of your patient. Please feel free to contact me if you have any questions. Procedures Date of Service Date of Service: 12/25/23
--- NOTE | 2023-12-25 14:13 | PC.NURSE ---
height/weight updated for heparin drip to be initiated. glenna samayoa, pharmacist notified at this time.
--- NOTE | 2023-12-25 14:14 | PHA.MEDREC ---
Addendum entered by Daylin Jennings [facility] 12/25/23 14:29: had medication list from provider office that was seen by Nancie. Provider made aware Original Note: Pharmacy Consult ? Medication Reconciliation Pharmacy has completed the medication reconciliation. Spoke to patient and at bedside to confirm med list. Patient states he no longer takes Humalog 100mg/ml 8 units tid, and Trulicaty 0.25 mg QWEEK. patient says he is taking lantus 60 units at bedtime, Atorvastatin 80 mg daily, Farxiga 5 mg daily, Metformin 1,000 mg bid, and metoprolol tart 100 mg bid, however could not verify because there is no claims for patient filled this year. called [facility] for a med list, however they confirmed patient hasn't filled any medication with them since May and that was for pain medication.
[2023-12-25 14:28] LABS: Hematocrit 46.8 % (42.0-52.0); Hemoglobin 16.1 g/dl (14.0-18.0); Mean Corpuscular HGB Conc 34.4 g/dl (31.0-36.0); Mean Corpuscular Hemoglobin 33.3 pg (27.0-33.0); Mean Corpuscular Volume 96.9 fL (80.0-98.0); Mean Platelet Volume 11.6 fL (9.4-12.4); Platelet Count 80 X10*3/uL (160-400); Red Blood Count 4.83 X10*6/uL (4.60-5.80); Red Cell Distribution Width 13.2 % (11.0-16.0); White Blood Count 5.4 X10*3/uL (4.8-10.8)
[2023-12-25] MEDS: Heparin Sodium,Porcine 5,000 UNIT/ML VIAL 7500 UNIT IVPUSH (14:28)
[2023-12-25 14:35] LABS: Prothrombin Time 12.2 SEC (11.1-13.3)
[2023-12-25 14:37] LABS: PTT Heparin Drip 31.9 SEC (53-77.9)
[2023-12-25] MEDS: Empagliflozin 10 MG TABLET PO (14:39)
--- NOTE | 2023-12-25 14:50 | P.HPHOSP_ITS ---
<Statement entered by Mika Bowden MD - 01/01/24 17:10> the patient was seen and evaluated with ORLANDO Carter. I agree with her note, assessment and plan with the following. In summary, A 53-year-old male with history of alcohol use disorder, nicotine dependence, uncontrolled insulin-dependent type 2 diabetes, hypertension, hyperlipidemia with new CHF and ACS. # NSTEMI complicated with CHF EKG showing waves in anterior leads CTA showing pulm edema heparin drip per protocol Aspirin 81 mg daily , Atorvastatin 80 mg metoprolol 100 mg b.i.d. To do echo IV Lasix cardiology consult Rest of evaluations by ORLANDO note. History of Present Illness Date of Service: 12/25/23 Attending physician on admission: Mika Bowden Chief Complaint: sob, edema 53-year-old male with history of alcohol use disorder, nicotine dependence, uncontrolled insulin-dependent type 2 diabetes, hypertension, hyperlipidemia presented to the ED earlier today for evaluation of dyspnea on exertion, orthopnea, and bilateral lower extremity edema that has been worsening over the last 10 days. He reports 10 days ago had a syncopal episode witnessed by his with loss of consciousness lasting several seconds. He did have head strike but on a soft bag. Denies any prodrome leading up to the syncopal episode. He does also describe a general chest tightness that is nonradiating but denies any retrosternal chest pressure. He does follow regularly with PCP but has not had a hemoglobin A1c drawn in over 2 years and reports poorly controlled glucose levels. Following the syncopal episode, his glucose was checked and was registering greater than 600. He does report compliance with medications but not compliance with diabetic diet. He also reports sodium loading. Reports consuming at least 10 nips of fireball along with 4-5 beers on a daily basis. Denies any known history of alcohol withdrawal or withdrawal seizure. He smokes 5 cigarillos per day. Denies illicit substance or marijuana use. Since arrival, has been hypertensive with blood pressure 150/87 on admission, vitals otherwise stable. Hematology studies unremarkable except for [place] [id number] [place]. Renal function is normal, electrolyte levels normal set for CO2 30. Glucose 120. Initial troponin 137.2, repeat 152.3. BNP 365. D-dimer was also noted to be elevated at 332. Subsequent CTA of the chest negative for pulmonary embolism. However there is evidence of airways disease with some degree of air trapping and mild superimposed pulmonary edema with small bilateral pleural effusions. There is also noted to be three-vessel coronary artery disease and 60% stenosis of the proximal left subclavian artery. Incidentally noted is also mediastinal and left axillary adenopathy with nonspecific appearance but there is also 6 mm right upper lobe pulmonary nodule as well as scattered micro nodules and multiple other solid lung nodules measuring 6-8 mm. EKG shows NSR, rate 75 with possible q waves in anterior leads. In the ED, has been given 325 mg aspirin, 1 in nitroglycerin paste, 20 mg IV Lasix, 10 mg Jardiance and is being loaded with heparin with bolus and will have drip initiated. Case discussed with Cardiology and patient will be admitted for further management of new onset CHF with ACS. Review of Systems 2 Review of Systems: Yes all other systems are reviewed and are negative [facility] Medical History Nicotine dependence, cigarettes, uncomplicated Degenerative disc disease, cervical Cervical spinal stenosis Neuropathy Smoking history Elevated cholesterol Diabetic retinopathy BPH (benign prostatic hyperplasia) Retinal hemorrhage Type 2 diabetes mellitus Hypertension Family History Father Leukemia Mother No problems noted. Surgical History Hx of tonsillectomy Social History Are you a primary healthcare receptionist to a significant other at home: No Do you presently have visiting nurse or other home services: No Alcohol intake: current Alcohol intake frequency: 3 or more drinks per day Alcohol type: beer and hard liquor Patient Tobacco Use Status: Current everyday Tobacco user Tobacco use type: Cigar Years Smoked: 25 e-Cigarette/Vaping Use: Never Used Advance Directives: No Do you have a plan to hurt others: No Plan service: No Current occupational status: employed Current occupation: [employer] Current occupational exposures/hazards: Yes Cognitive needs: No Hearing needs: No Vision needs: No Meds Allergies Allergy/AdvReac Type Severity Reaction Status Date / Time No Known Allergies Allergy Verified 12/25/23 10:03 Active Medications: Current Medications Aspirin (Aspirin 81 Mg Tab.Chew) 81 mg PO DAILY [facility] Atorvastatin Calcium (Atorvastatin Calcium 80 Mg Tablet) 80 mg PO DAILY [facility] Empagliflozin (Empagliflozin 10 Mg Tablet) 10 mg PO DAILY [facility] Last Admin: 12/25/23 14:39 Dose: 10 mg Furosemide (Furosemide 40 Mg/4 Ml Vial) 40 mg IVPUSH BID CHITRA; Protocol Heparin Sodium (Porcine) (Heparin Sodium,Porcine 5,000 Unit/Ml Vial) 3,700 unit 40 unit/kg (3700 unit) IVPUSH PROTOCOL BOLUS PRN; Protocol PRN Reason: 40 unit/kg - Heparin Protocol Heparin Sodium (Porcine) (Heparin Sodium,Porcine 5,000 Unit/Ml Vial) 7,400 unit 80 unit/kg (7400 unit) IVPUSH PROTOCOL BOLUS PRN; Protocol PRN Reason: 80 unit/kg - Heparin Protocol Heparin Sodium/Sodium Chloride (Heparin Sodium,Porcine/1/2ns) 25,000 unit in 250 mls @ 0 mls/hr IVCONT .Q0M CHITRA; Protocol Home Medications ?Medication ?Instructions ?Recorded ?Confirmed ?Last Taken ?Type metformin 500 mg tablet 1,000 mg PO BID 10/31/20 12/25/23 12/25/23 History ibuprofen 800 mg tablet 800 mg PO DAILY PRN paim 12/25/23 12/25/23 Unknown History insulin glargine 100 unit/mL (3 60 unit subcut BEDTIME diabetes 12/25/23 12/25/23 12/24/23 History mL) subcutaneous pen (Lantus Solostar U-100 Insulin) Physical Exam 2 Vital Signs and Narrative: Vital Signs: Last Vital Signs Temp 98.3 F 12/25/23 14:43 Pulse 72 12/25/23 14:43 Resp 18 12/25/23 14:43 BP 150/87 H 12/25/23 14:43 Pulse Ox 92 12/25/23 14:43 O2 Del Method Room Air 12/25/23 14:43 BMI result Body Mass Index 30.0 Constitutional - Awake and Alert, No apparent distress Eyes - PERRLA, EOMI Cardiovascular - S1S2, RRR, 3+ ble edema Respiratory - Normal lung expansion, Normal respiratory effort, No respiratory distress, scattered crackles bilaterally Gastrointestinal - NT / ND; +BS; No rebound or guarding : +scrotal edema Extremities - no calf tenderness bilaterally, no swelling Skin - Warm/Dry Neurological - Alert & oriented x3 Psychological - Appropriate affect Results Labs 12/25/23 14:19 12/25/23 10:08 Labs: Laboratory Results - last 24 hr 12/25/23 12/25/23 12/25/23 10:08 12:32 14:19 MCV 96.4 96.9 MCH 33.3 H 33.3 H MCHC 34.5 34.4 RDW 13.2 13.2 Plt Count 81 L 80 L MPV 11.5 11.6 Immature Gran % (Auto) 0.5 H Neut % (Auto) 62.5 Lymph % (Auto) 23.2 [place] % (Auto) 9.0 Eos % (Auto) 3.6 Baso % (Auto) 1.2 Lymph # (Auto) 1.4 [place] # (Auto) 0.5 Eos # (Auto) 0.2 Baso # (Auto) 0.1 Abs Immat Gran (auto) 0.03 Absolute Neuts (auto) 3.7 Absolute Nucleated RBC 0.000 0.000 Nucleated RBC % (auto) 0.0 0.0 PT 12.2 INR 1.0 aPTT Heparin Protocol 31.9 L D-Dimer High Sensitivty 332 Anion Gap 11 L Estim Creat Clear Calc 128.9 Estimated GFR > 60 Random Glucose 120 H Calcium 9.4 Total Bilirubin 0.9 AST 27 ALT 26 Alkaline Phosphatase 106 Troponin I High Sens 137.2 H* 152.3 H* B-Natriuretic Peptide 365 H Total Protein 6.2 L Albumin 3.5 Imaging Radiologist's Impressions: Impressions Chest X-Ray 12/25/23 10:25 IMPRESSION: Congestive changes with or without edema and/or interstitial infiltrate. Chest CTA 12/25/23 11:33 IMPRESSION: Negative for pulmonary embolism. Mosaic attenuation and airway wall thickening suggesting airways disease with some degree of air trapping. There may be also be mild superimposed pulmonary edema. Small bilateral pleural effusions. Three-vessel coronary artery disease. Mediastinal and left axillary adenopathy, potentially reactive however the imaging appearance is nonspecific. Clinical correlation is necessary. 60% stenosis proximal left subclavian artery. This location could predispose to subclavian steal syndrome. This can be correlated clinically. 6 mm right upper lobe pulmonary nodule and additional scattered micronodules. 2017 Fleischner Society Recommendations for Lung Nodule(s): Follow-Up based on size (average of long- and short-axis diameters). Use most suspicious nodule for followup. Multiple Solid lung nodules 6-8 mm: Follow up management based on most suspicious nodule. In a low-risk patient, recommend a non-contrast Chest CT at 3-6 months, then consider another non-contrast Chest CT at 18-24 months. In a high-risk patient, recommend a non-contrast Chest CT at 3-6 months, then another non-contrast Chest CT at 18-24 months. These guidelines do not apply to patients younger than 35 years, immunocompromised patients, and patients with cancer. Follow up in patients with significant comorbidities as clinically warranted. For lung cancer screening, adhere to Lung-RADS guidelines. Reference: Radiology. 2017 Nov; 284(1):228-243 Assessment and Plan (1) Congestive heart failure: Status: Acute (2) ACS (acute coronary syndrome): Status: Acute Plan 53-year-old male with history of alcohol use disorder, nicotine dependence, uncontrolled insulin-dependent type 2 diabetes, hypertension, hyperlipidemia admitted for further management of acs and new onset chf #ACS -initial trop 137, repeat 152. Repeat q6 until peak -EKG with possible q waves in anterior leads -has nitro paste in place -heparin drip per protocol with boluses as ordered -given 325 mg aspirin in the ED, continue 81 mg daily -continue metoprolol 100 mg b.i.d. -lipid panel pending. Continue atorvastatin 80 mg daily -echo -cardiac diet, monitor on telemetry -cardiology consult #New onset congestive heart failure -BNP 365, chest CTA with pulmonary edema and bilateral pleural effusions -IV lasix 40mg BID per cardiology -strict I&O -cardiac diet -daily weights -echo -cardiology consult # alcohol use disorder with impending withdrawal -monitor on CIWA q.4h -initiate phenobarbital per protocol -IV thiamine and IV folic acid -addiction medicine consult # poorly controlled insulin-dependent type 2 diabetes -hemoglobin A1c pending -dose adjusted basal insulin, Humalog sliding scale -POC glucose, diabetic diet # hypertension -continue lisinopril, metoprolol # hyperlipidemia -lipid panel pending, continue atorvastatin #? Underlying COPD -CTA chest shows airways disease with air trapping -albuterol p.r.n. -outpatient follow-up # left subclavian artery stenosis -seen on CTA chest, blood pressure is right arm only # pulmonary nodules/mediastinal and left axillary adenopathy -outpatient follow-up # chronic thrombocytopenia -due to alcohol use disorder -monitor platelets closely # nicotine dependence -smokes 5 cigarillos daily. cessation strongly advised -patch and gum for nrt DVT prophylaxis-on heparin drip/boluses per protocol in setting of ACS Full code Patient requires inpatient stay at least 2 midnights for management of new onset CHF with significant volume overload which will require IV diuresis and close monitoring of renal function electrolyte levels as well as monitoring of intake and output. He will also be managed with heparin drip per protocol for coexisting ACS with expert consultation and eventual transfer to tertiary care facility for cardiac catheterization Quality Stroke Does the patient have a stroke diagnosis?: No VTE Prior VTE?: No VTE Risk Level:: Medical - moderate - high VTE Device Contraindication: Treatment Not Indicated VTE Drug Contraindication: N/A - Med Ordered
[2023-12-25] MEDS: Heparin Sodium,Porcine/1/2NS 25,000 UNIT/250 ML IV.SOLN 12.92 UNIT IVCONT (14:57)
--- NOTE | 2023-12-25 15:11 | PC.NURSE ---
heparin drip started at 14units/kg/hr (12.92mls/hr) at this time. ptt heparin drip redraw due at 2056. new 20gIV placed in the pt's right hand in case anything else needs to be administered. pt currently having echocardiogram completed. pt noted to be at 88% on RA - unaware if he has a hx of asthma/copd. pt placed on 2L via NC - 92%. pt tolerating well. no sob/wob noted. respirations even/unlabored. repositioned upright to promote patent airway. pt waiting for bed assignment at this time. plan of care ongoing. call pérez placed within reach.
[2023-12-25 15:23] LABS: Cholesterol 166 mg/dL (<200); HDL Cholesterol 56 mg/dL (>40); LDL Cholesterol Calculated 92 mg/dL (<100); Triglycerides 91 mg/dL (<150)
[2023-12-25] MEDS: PHENobarbitaL sodium 130 MG/ML IM ONCE 340 MG IM (15:46)
--- NOTE | 2023-12-25 15:51 | PC.NURSE ---
CIWA = 1. phenobarbitol protocol initiated. medication administered at this time. plan of care ongoing.
--- NOTE | 2023-12-25 16:09 | PC.NURSE ---
pt verbalizes feeling increasingly diaphoretic. POC obtained displaying 56mg/dL. pt provided w/ pb &j, crackers & gingerale. will reassess POC shortly. admitting provider notified/aware of POC.
[2023-12-25 16:16] LABS: Estimated Average Glucose 260 mg/dL; Hemoglobin A1c % 10.7 % (<6.0)
[2023-12-25 16:25] LABS: Glucose, Whole Blood 56 mg/dL (60-115)
--- NOTE | 2023-12-25 16:27 | PC.NURSE ---
critical lab value - troponin of 139.2 received at this time. admitting provider (ORLANDO Prakash) notified/aware at this time.
[2023-12-25 16:29] LABS: Troponin-I High Sensitivity 139.2 ng/L (<3.5-35.0)
--- NOTE | 2023-12-25 16:33 | PC.NURSE ---
repeat POC = 72 mg/dL. admitting provider notified/aware. per ORLANDO Prakash, no insulin coverage until after dinner when pt is due for lantus.
[2023-12-25 16:36] LABS: Glucose, Whole Blood 72 mg/dL (60-115)
[2023-12-25] MEDS: PHENobarbitaL sodium 130 MG/ML VIAL IM Q3Hx2 254 MG IM ×2 (19:00→21:29)
[2023-12-25 21:15] LABS: PTT Heparin Drip 51.8 SEC (53-77.9)
[2023-12-25 21:20] LABS: Glucose, Whole Blood 154 mg/dL (60-115)
[2023-12-25] MEDS: Insulin Lispro 100 UNIT/ML 3 ML VIAL SUBCUT (21:26)
[2023-12-25] MEDS: Insulin Glargine,Hum.rec.anlog 100 UNIT/ML 10 ML VIAL 45 UNIT SUBCUT (21:26)
[2023-12-25] MEDS: Furosemide 40 MG/4 ML VIAL IVPUSH (21:27)
[2023-12-25] MEDS: Metoprolol Tartrate 50 MG TABLET PO (21:28)
[2023-12-25] MEDS: Atorvastatin Calcium 80 MG TABLET PO (21:29)
[2023-12-25] MEDS: Heparin Sodium,Porcine 5,000 UNIT/ML VIAL 3700 UNIT IVPUSH (21:57)
--- NOTE | 2023-12-25 22:01 | PC.NURSE ---
Patient is alert and oriented x3. He denies chest pain/SOB. Patient medicated per JUL. PTT HD 51.8, heparin drip flow increased to 16 units/kg/hr with bolus of 3,700 units of heparin IV. Patient tolerated well, no s/s of active bleeding noted. Patient currently resting in a stretcher bed, call pérez in reach, plan of care ongoing.
[2023-12-26] VITALS (8 sets, daily range): BP systolic 116–152; BP diastolic 75–91; PULSE 60–70; RESP 16–20; TEMP 36.2–36.9; O2SAT 94–96
[2023-12-26] MEDS: Dextrose 10 % 250 ML 750 ML IV (03:43)
[2023-12-26 04:03] LABS: Glucose, Whole Blood 48 mg/dL (60-115)
[2023-12-26 04:03] LABS: Glucose, Whole Blood 113 mg/dL (60-115)
--- NOTE | 2023-12-26 04:03 | PC.NURSE ---
Patient noted to be diaphoretic, POC 48. Patient given 10% dextrose IV with improvement noted, repeat POC 113 in 15 min. VSS P 63, RR 20, BP 130/85. Patient placed on O2 at 2 LPM NC, O2 Sat has been dropping to 88-89 on RA while asleep. Patient maintaining stable O2 Sat 93-96% supplemental O2.
[2023-12-26 04:20] LABS: Glucose, Whole Blood 124 mg/dL (60-115)
[2023-12-26 04:41] LABS: Imm Gran Abs Auto 0.02 X10*3/uL (0.00-0.03); Imm Gran Pct Auto 0.3 % (0.0-0.4); MANUAL DIFF FLAG SCAN; Mean Corpuscular HGB Conc 35.2 g/dl (31.0-36.0); Mean Corpuscular Hemoglobin 33.5 pg (27.0-33.0); PLT CLUMP 1; Red Cell Distribution Width 13.2 % (11.0-16.0); SCAN SMEAR FLAG 1
[2023-12-26 04:43] LABS: Basophils Percent Auto 0.7 % (0-2); Eosinophils Absolute Auto 0.2 X10*3/uL (0.0-0.4); Eosinophils Percent Auto 2.8 % (0-4); Hematocrit 44.6 % (42.0-52.0); Hemoglobin 15.7 g/dl (14.0-18.0); Lymphocytes Absolute Auto 1.3 X10*3/uL (1.2-4.9); Lymphocytes Percent Auto 21.9 % (20-40); Mean Corpuscular Volume 95.3 fL (80.0-98.0); Mean Platelet Volume 11.5 fL (9.4-12.4); Monocytes Absolute Auto 0.7 X10*3/uL (0.1-1.2); Monocytes Percent Auto 10.8 % (2-11); Neutrophils Absolute Auto 3.8 x10*3/uL (2.0-8.3); Neutrophils Percent Auto 63.5 % (45-73); Red Blood Count 4.68 X10*6/uL (4.60-5.80)
[2023-12-26 04:44] LABS: Platelet Count 71 X10*3/uL (160-400)
[2023-12-26 04:46] LABS: Prothrombin Time 11.9 SEC (11.1-13.3)
[2023-12-26 04:49] LABS: PTT Heparin Drip 59.3 SEC (53-77.9)
[2023-12-26 04:53] LABS: Anion Gap 12 (12-20); Blood Urea Nitrogen 14 mg/dL (9-16); Carbon Dioxide 27 mmol/L (22-29); Chloride 106 mmol/L (96-108); Creatinine Clr Calc Pharmacy 150.4; Estimated Glomerular Filt Rate > 60; Glucose Random 115 mg/dL (60-115); Potassium 3.2 mmol/L (3.3-5.1); Sodium 142 mmol/L (135-145)
[2023-12-26 05:12] LABS: SLIDE REVIEW VERIFIED
[2023-12-26 07:24] LABS: Glucose, Whole Blood 65 mg/dL (60-115)
[2023-12-26] MEDS: Nicotine 21 MG PATCH.TD24 TRANSDERMA (08:02)
[2023-12-26] MEDS: Potassium Chloride Packet 20 MEQ PACKET 40 MEQ PO (08:02)
[2023-12-26] MEDS: Metoprolol Tartrate 50 MG TABLET PO (08:03)
[2023-12-26] MEDS: Empagliflozin 10 MG TABLET PO (08:03)
[2023-12-26] MEDS: Aspirin 81 MG TAB.CHEW PO (08:03)
[2023-12-26] MEDS: Losartan Potassium 25 MG TABLET PO (08:04)
[2023-12-26] MEDS: PHENobarbitaL 15 MG TABLET 45 MG PO (08:05)
[2023-12-26] MEDS: Thiamine HCL 100 MG in 0.9 % Sodium Chloride 100 ML 202 MG IV (08:05)
[2023-12-26] MEDS: Furosemide 40 MG/4 ML VIAL IVPUSH (08:06)
[2023-12-26] MEDS: 0.9 % Sodium Chloride Flush 3 ML SYRINGE IVFLUSH (08:08)
[2023-12-26 08:18] LABS: Magnesium 1.8 mg/dL (1.6-2.6)
--- NOTE | 2023-12-26 08:29 | PC.NURSE ---
Upon arrival Heparin bag was almost empty; this RN checked with pharmacy as too soon to hang another bag. Rate is the same at 16ux/kg/hr. pharmacy verified that if bag is empty to hang another bag now. verified with another rn.
[2023-12-26] MEDS: Atorvastatin Calcium 80 MG TABLET PO (08:33)
--- NOTE | 2023-12-26 08:55 | PC.NURSE ---
700cc of clear yellow urine obtained.
--- NOTE | 2023-12-26 09:12 | MHC.CM.PN ---
CM met with Patient and his /Wanda at bedside. Patient lives in an apartment with his and 2 Sons ages 16 & 17 years of age. Home/self care is the goal and CM has initiated and will follow for dc planning. PCP is Dr. Kobi Day.
[2023-12-26] MEDS: Heparin Sodium,Porcine/1/2NS 25,000 UNIT/250 ML IV.SOLN 14.77 UNIT IVCONT (09:30)
[2023-12-26] MEDS: Folic Acid 1 MG in 0.9 % Sodium Chloride 50 ML 100.4 MG IV (09:58)
[2023-12-26 11:05] LABS: PTT Heparin Drip 52.7 SEC (53-77.9)
[2023-12-26 11:10] LABS: Glucose, Whole Blood 82 mg/dL (60-115)
[2023-12-26] MEDS: Heparin Sodium,Porcine 5,000 UNIT/ML VIAL 3700 UNIT IVPUSH (11:46)
[2023-12-26] MEDS: Spironolactone 25 MG TABLET PO (11:54)
--- NOTE | 2023-12-26 12:31 | PM.DS ---
DS: Providers Provider Date of Service: 12/26/23 Date of admission: 12/25/23 14:46 Date of discharge: 12/26/23 Primary care physician: KASSY Alvarado Consults: 12/25/23 13:44 Consult to Cardiology Routine Consulting Provider: [facility] Reason for consultation: CHF 12/25/23 14:44 Addiction Medicine Routine Consulting Provider: Addiction Covering Reason for consultation: etoh dependence Consult to Cardiology Routine Consulting Provider: [facility] Reason for consultation: acs, chf Attending physician on discharge: Cam Dawson Discharging clinician: Nelli Petersen DS: Diagnosis Discharge Diagnosis (1) Congestive heart failure: Status: Acute (2) ACS (acute coronary syndrome): Status: Acute DS: Summary Hospital Course Hospital Course: From H&P on the day of admission 53-year-old male with history of alcohol use disorder, nicotine dependence, uncontrolled insulin-dependent type 2 diabetes, hypertension, hyperlipidemia presented to the ED earlier today for evaluation of dyspnea on exertion, orthopnea, and bilateral lower extremity edema that has been worsening over the last 10 days. He reports 10 days ago had a syncopal episode witnessed by his with loss of consciousness lasting several seconds. He did have head strike but on a soft bag. Denies any prodrome leading up to the syncopal episode. He does also describe a general chest tightness that is nonradiating but denies any retrosternal chest pressure. He does follow regularly with PCP but has not had a hemoglobin A1c drawn in over 2 years and reports poorly controlled glucose levels. Following the syncopal episode, his glucose was checked and was registering greater than 600. He does report compliance with medications but not compliance with diabetic diet. He also reports sodium loading. Reports consuming at least 10 nips of fireball along with 4-5 beers on a daily basis. Denies any known history of alcohol withdrawal or withdrawal seizure. He smokes 5 cigarillos per day. Denies illicit substance or marijuana use. Since arrival, has been hypertensive with blood pressure 150/87 on admission, vitals otherwise stable. Hematology studies unremarkable except for [place] [id number] [place]. Renal function is normal, electrolyte levels normal set for CO2 30. Glucose 120. Initial troponin 137.2, repeat 152.3. BNP 365. D-dimer was also noted to be elevated at 332. Subsequent CTA of the chest negative for pulmonary embolism. However there is evidence of airways disease with some degree of air trapping and mild superimposed pulmonary edema with small bilateral pleural effusions. There is also noted to be three-vessel coronary artery disease and 60% stenosis of the proximal left subclavian artery. Incidentally noted is also mediastinal and left axillary adenopathy with nonspecific appearance but there is also 6 mm right upper lobe pulmonary nodule as well as scattered micro nodules and multiple other solid lung nodules measuring 6-8 mm. EKG shows NSR, rate 75 with possible q waves in anterior leads. In the ED, has been given 325 mg aspirin, 1 in nitroglycerin paste, 20 mg IV Lasix, 10 mg Jardiance and is being loaded with heparin with bolus and will have drip initiated. Case discussed with Cardiology and patient will be admitted for further management of new onset CHF with ACS. #ACS initial trop 137, has remained flat EKG with possible q waves in anterior leads heparin drip started given 325 mg aspirin in the ED, continue 81 mg daily continue metoprolol 50 mg b.i.d. lipid panel pending, LDL 92 Continue atorvastatin 80 mg daily echo - EF 30-35% with inferior wall, inferolateral wall and mid anterolateral segment akinesis cardiology following #New onset congestive heart failure -BNP 365, chest CTA with pulmonary edema and bilateral pleural effusions -IV lasix 40mg BID per cardiology Echo as above # alcohol use disorder with impending withdrawal started on phenobarbital per protocol -IV thiamine and IV folic acid -addiction medicine consult # poorly controlled insulin-dependent type 2 diabetes -hemoglobin A1c 10.7 -dose adjusted basal insulin, Humalog sliding scale -POC glucose, diabetic diet # hypertension -continue losartan, metoprolol # hyperlipidemia -lipid panel pending, continue atorvastatin #? Underlying COPD -CTA chest shows airways disease with air trapping -albuterol p.r.n. -outpatient follow-up # left subclavian artery stenosis -seen on CTA chest, blood pressure is right arm only # pulmonary nodules/mediastinal and left axillary adenopathy -outpatient follow-up # chronic thrombocytopenia -due to alcohol use disorder -monitor platelets closely # nicotine dependence -smokes 5 cigarillos daily. cessation strongly advised -patch and gum for nrt Time Attestation Discharge Coordination Time (in mins): 40 Quality: Safe Use of Opioids Does Pt have an Active Cancer Diagnosis on the Problem List?: No Quality: Stroke Does the patient have a stroke diagnosis?: No Physical Exam Vital Signs: Vital Signs: Last Vital Signs Temp 97.1 F 12/26/23 11:08 Pulse 60 12/26/23 11:08 Resp 20 12/26/23 11:08 BP 127/75 12/26/23 11:08 Pulse Ox 96 12/26/23 11:08 O2 Del Method Nasal Cannula 12/26/23 11:08 O2 Flow Rate 4 12/26/23 11:08 BMI result Body Mass Index 30.0 Const: General: cooperative, no acute distress, alert and awake Nutritional Appearance: average body habitus Orientation/consciousness: patient oriented x3 Resp: Effort & Inspection: normal respiratory effort and able to speak in complete sentences Cardio: Rate: regular rate GI: Inspection: No distended Palpation (GI): Soft to palpation and nontender Neuro: General: patient oriented x3 Extrem: Other: 1+ b/l leg edema DS: Data Data Completed and Pending Labs on day of discharge: Laboratory Results - last 24 hr 12/25/23 12/25/23 12/25/23 10:08 12:32 14:19 WBC 5.4 RBC 4.83 Hgb 16.1 Hct 46.8 MCV 96.9 MCH 33.3 H MCHC 34.4 RDW 13.2 Plt Count 80 L MPV 11.6 Immature Gran % (Auto) Neut % (Auto) Lymph % (Auto) [place] % (Auto) Eos % (Auto) Baso % (Auto) Lymph # (Auto) [place] # (Auto) Eos # (Auto) Baso # (Auto) Abs Immat Gran (auto) Absolute Neuts (auto) Absolute Nucleated RBC 0.000 Nucleated RBC % (auto) 0.0 Smear Tech's Comments Hold Purple Top PT 12.2 INR 1.0 aPTT Heparin Protocol 31.9 L Sodium Potassium Chloride Carbon Dioxide Anion Gap BUN Creatinine Estim Creat Clear Calc Estimated GFR POC Glucose Random Glucose Estimat Average Glucose Hemoglobin A1c % Calcium Magnesium Troponin I High Sens 152.3 H* Triglycerides 91 Cholesterol 166 LDL Cholesterol, Calc 92 HDL Cholesterol 56 Hold Yellow Top 12/25/23 12/25/23 12/25/23 15:55 16:00 16:32 WBC RBC Hgb Hct MCV MCH MCHC RDW Plt Count MPV Immature Gran % (Auto) Neut % (Auto) Lymph % (Auto) [place] % (Auto) Eos % (Auto) Baso % (Auto) Lymph # (Auto) [place] # (Auto) Eos # (Auto) Baso # (Auto) Abs Immat Gran (auto) Absolute Neuts (auto) Absolute Nucleated RBC Nucleated RBC % (auto) Smear Tech's Comments Hold Purple Top PT INR aPTT Heparin Protocol Sodium Potassium Chloride Carbon Dioxide Anion Gap BUN Creatinine Estim Creat Clear Calc Estimated GFR POC Glucose 56 L* 72 Random Glucose Estimat Average Glucose 260 Hemoglobin A1c % 10.7 H Calcium Magnesium Troponin I High Sens 139.2 H* Triglycerides Cholesterol LDL Cholesterol, Calc HDL Cholesterol Hold Yellow Top 12/25/23 12/25/23 12/26/23 20:58 21:15 03:40 WBC RBC Hgb Hct MCV MCH MCHC RDW Plt Count MPV Immature Gran % (Auto) Neut % (Auto) Lymph % (Auto) [place] % (Auto) Eos % (Auto) Baso % (Auto) Lymph # (Auto) [place] # (Auto) Eos # (Auto) Baso # (Auto) Abs Immat Gran (auto) Absolute Neuts (auto) Absolute Nucleated RBC Nucleated RBC % (auto) Smear Tech's Comments Hold Purple Top PT INR aPTT Heparin Protocol 51.8 L D Sodium Potassium Chloride Carbon Dioxide Anion Gap BUN Creatinine Estim Creat Clear Calc Estimated GFR POC Glucose 154 H 48 L* Random Glucose Estimat Average Glucose Hemoglobin A1c % Calcium Magnesium Troponin I High Sens Triglycerides Cholesterol LDL Cholesterol, Calc HDL Cholesterol Hold Yellow Top 12/26/23 12/26/23 12/26/23 03:52 04:14 04:35 WBC 6.0 RBC 4.68 Hgb 15.7 Hct 44.6 MCV 95.3 MCH 33.5 H MCHC 35.2 RDW 13.2 Plt Count 71 L MPV 11.5 Immature Gran % (Auto) 0.3 Neut % (Auto) 63.5 Lymph % (Auto) 21.9 [place] % (Auto) 10.8 Eos % (Auto) 2.8 Baso % (Auto) 0.7 Lymph # (Auto) 1.3 [place] # (Auto) 0.7 Eos # (Auto) 0.2 Baso # (Auto) 0.0 Abs Immat Gran (auto) 0.02 Absolute Neuts (auto) 3.8 Absolute Nucleated RBC 0.000 Nucleated RBC % (auto) 0.0 Smear Tech's Comments VERIFIED Hold Purple Top PT 11.9 INR 1.0 aPTT Heparin Protocol 59.3 Sodium 142 Potassium 3.2 L D Chloride 106 Carbon Dioxide 27 Anion Gap 12 BUN 14 Creatinine 0.63 Estim Creat Clear Calc 150.4 Estimated GFR > 60 POC Glucose 113 124 H Random Glucose 115 Estimat Average Glucose Hemoglobin A1c % Calcium 9.0 Magnesium 1.8 Troponin I High Sens Triglycerides Cholesterol LDL Cholesterol, Calc HDL Cholesterol Hold Yellow Top 12/26/23 12/26/23 12/26/23 07:21 10:39 11:01 WBC RBC Hgb Hct MCV MCH MCHC RDW Plt Count MPV Immature Gran % (Auto) Neut % (Auto) Lymph % (Auto) [place] % (Auto) Eos % (Auto) Baso % (Auto) Lymph # (Auto) [place] # (Auto) Eos # (Auto) Baso # (Auto) Abs Immat Gran (auto) Absolute Neuts (auto) Absolute Nucleated RBC Nucleated RBC % (auto) Smear Tech's Comments Hold Purple Top SEE NOTE PT INR aPTT Heparin Protocol 52.7 L Sodium Potassium Chloride Carbon Dioxide Anion Gap BUN Creatinine Estim Creat Clear Calc Estimated GFR POC Glucose 65 82 Random Glucose Estimat Average Glucose Hemoglobin A1c % Calcium Magnesium Troponin I High Sens Triglycerides Cholesterol LDL Cholesterol, Calc HDL Cholesterol Hold Yellow Top See Note Discharge Plan Discharge Anticipated Discharge Date/Time: 12/26/23 12:51 Patient Disposition: Xfer Acute Care Hospital Discharge Diagnosis: ACS acute CHF etoh use disorder Referrals: Kobi Day, [facility] [Primary Care Provider] - 1 Week Discharge Medications: New furosemide 10 mg/mL Solution 40 mg IVPUSH BID Qty: 40 0RF Protocol: Hold for SBP< HOLD for SBP < : 90 aspirin 81 mg Tablet,Delayed Release (Dr/Ec) 81 mg PO DAILY Qty: 1 0RF spironolactone 25 mg Tablet 25 mg PO DAILY Qty: 1 0RF Protocol: Hold for SBP< HOLD for SBP < : 90 losartan 25 mg Tablet 25 mg PO BID Qty: 1 0RF Protocol: Hold for SBP< HOLD for SBP < : 90 metoprolol tartrate 50 mg Tablet 50 mg PO BID Qty: 1 0RF Protocol: Hold for SBP/HR < HOLD for SBP < : 90 HOLD for HR < : 60 folic acid 1 mg Tablet 1 mg PO DAILY Qty: 30 0RF heparin(porcine) in 0.45% NaCl 25,000 unit/250 mL Parenteral Solution 25,000 unit continuous IV infusion .Q0M Qty: 6000 0RF thiamine mononitrate (vit B1) 100 mg Tablet 100 mg PO DAILY Qty: 1 0RF Continued atorvastatin 80 mg tablet 80 mg PO DAILY Qty: 90 0RF insulin glargine [Lantus Solostar U-100 Insulin] 100 unit/mL (3 mL) insulin pen 60 unit subcut BEDTIME MDD 60 units Rx Instructions: 60 units at night Farxiga 5 mg tablet 5 mg PO DAILY 30 Days Qty: 30 2RF Held metformin 500 mg tablet 1,000 mg PO BID Hold Instructions: held during hospitalization Discontinued lisinopril 20 mg tablet 20 mg PO BID 30 Days Qty: 60 4RF metoprolol tartrate 100 mg tablet 100 mg PO BID Qty: 180 0RF ibuprofen [Motrin] 800 mg Tablet 800 mg PO DAILY PRN (Reason: paim) No Action (DME) FreeStyle Kayode 2 Willis Misc See Rx Instructions .Route Qty: 1 2RF Rx Instructions: tid (DME) pen needle, diabetic [Microdot Insulin Pen Needle] 32 gauge x 5/32 needle See Rx Instructions .Route Qty: 100 0RF Rx Instructions: TID (DME) FreeStyle Kayode 2 Sensor Kit See Rx Instructions .Route Qty: 6 1RF Rx Instructions: test blood sugar 4 times per day Discharge Orders: Discharge Order (Routine); Ordered 12/26/23 Ordered By: Nelli Petersen Activity on Discharge: As tolerated Stand Alone Forms: Patient Portal Discharge page Print Language: Slovenian Care Plan Goals: See below Health Concerns: ACS Acute CHF Alcohol use disorder with high risk for withdrawal Tobacco use disorder Plan of Treatment: Transfer to tertiary care facility for cardiac catheterization Started on heparin drip, metoprolol 50 b.i.d. (decreased from home dose 100 bid), aspirin, high-dose statin Lisinopril stopped transitioned to losartan 25 b.i.d. Started on thiamine, folic acid, phenobarbital protocol, has completed IM dosing, currently on oral dosing Assessment: See discharge summary
--- NOTE | 2023-12-26 12:50 | P.PNCA_ITS ---
Subjective Subjective Date of Service: 12/26/23 Interval history: Seen and examined at bedside. Clinically improving. Diuresing well. Physical Exam Vital Signs: Last Vital Signs Temp 97.1 F 12/26/23 11:08 Pulse 60 12/26/23 11:08 Resp 20 12/26/23 11:08 BP 127/75 12/26/23 11:08 Pulse Ox 96 12/26/23 11:08 O2 Del Method Nasal Cannula 12/26/23 11:08 O2 Flow Rate 4 12/26/23 11:08 BMI result Body Mass Index 30.0 GENERAL APPEARANCE: in no acute distress, pleasant. NECK: no carotid bruit, + jugular venous distention. SKIN: no suspicious lesions, warm and dry. HEART: no murmurs, regular rate and rhythm. LUNGS: Clear to auscultation. ABDOMEN: soft, nontender. EXTREMITIES: +1 edema bilaterally. PERIPHERAL PULSES: equal. NEUROLOGIC: No gross deficits, AAO X 3 Objective Labs and Meds 12/26/23 04:35 12/26/23 04:35 Lab results: Laboratory Results - last 24 hr 12/25/23 12/25/23 12/25/23 10:08 12:32 14:19 WBC 5.4 RBC 4.83 Hgb 16.1 Hct 46.8 MCV 96.9 MCH 33.3 H MCHC 34.4 RDW 13.2 Plt Count 80 L MPV 11.6 Immature Gran % (Auto) Neut % (Auto) Lymph % (Auto) [place] % (Auto) Eos % (Auto) Baso % (Auto) Lymph # (Auto) [place] # (Auto) Eos # (Auto) Baso # (Auto) Abs Immat Gran (auto) Absolute Neuts (auto) Absolute Nucleated RBC 0.000 Nucleated RBC % (auto) 0.0 Smear Tech's Comments Hold Purple Top PT 12.2 INR 1.0 aPTT Heparin Protocol 31.9 L Sodium Potassium Chloride Carbon Dioxide Anion Gap BUN Creatinine Estim Creat Clear Calc Estimated GFR POC Glucose Random Glucose Estimat Average Glucose Hemoglobin A1c % Calcium Magnesium Troponin I High Sens 152.3 H* Triglycerides 91 Cholesterol 166 LDL Cholesterol, Calc 92 HDL Cholesterol 56 Hold Yellow Top 12/25/23 12/25/23 12/25/23 15:55 16:00 16:32 WBC RBC Hgb Hct MCV MCH MCHC RDW Plt Count MPV Immature Gran % (Auto) Neut % (Auto) Lymph % (Auto) [place] % (Auto) Eos % (Auto) Baso % (Auto) Lymph # (Auto) [place] # (Auto) Eos # (Auto) Baso # (Auto) Abs Immat Gran (auto) Absolute Neuts (auto) Absolute Nucleated RBC Nucleated RBC % (auto) Smear Tech's Comments Hold Purple Top PT INR aPTT Heparin Protocol Sodium Potassium Chloride Carbon Dioxide Anion Gap BUN Creatinine Estim Creat Clear Calc Estimated GFR POC Glucose 56 L* 72 Random Glucose Estimat Average Glucose 260 Hemoglobin A1c % 10.7 H Calcium Magnesium Troponin I High Sens 139.2 H* Triglycerides Cholesterol LDL Cholesterol, Calc HDL Cholesterol Hold Yellow Top 12/25/23 12/25/23 12/26/23 20:58 21:15 03:40 WBC RBC Hgb Hct MCV MCH MCHC RDW Plt Count MPV Immature Gran % (Auto) Neut % (Auto) Lymph % (Auto) [place] % (Auto) Eos % (Auto) Baso % (Auto) Lymph # (Auto) [place] # (Auto) Eos # (Auto) Baso # (Auto) Abs Immat Gran (auto) Absolute Neuts (auto) Absolute Nucleated RBC Nucleated RBC % (auto) Smear Tech's Comments Hold Purple Top PT INR aPTT Heparin Protocol 51.8 L D Sodium Potassium Chloride Carbon Dioxide Anion Gap BUN Creatinine Estim Creat Clear Calc Estimated GFR POC Glucose 154 H 48 L* Random Glucose Estimat Average Glucose Hemoglobin A1c % Calcium Magnesium Troponin I High Sens Triglycerides Cholesterol LDL Cholesterol, Calc HDL Cholesterol Hold Yellow Top 12/26/23 12/26/23 12/26/23 03:52 04:14 04:35 WBC 6.0 RBC 4.68 Hgb 15.7 Hct 44.6 MCV 95.3 MCH 33.5 H MCHC 35.2 RDW 13.2 Plt Count 71 L MPV 11.5 Immature Gran % (Auto) 0.3 Neut % (Auto) 63.5 Lymph % (Auto) 21.9 [place] % (Auto) 10.8 Eos % (Auto) 2.8 Baso % (Auto) 0.7 Lymph # (Auto) 1.3 [place] # (Auto) 0.7 Eos # (Auto) 0.2 Baso # (Auto) 0.0 Abs Immat Gran (auto) 0.02 Absolute Neuts (auto) 3.8 Absolute Nucleated RBC 0.000 Nucleated RBC % (auto) 0.0 Smear Tech's Comments VERIFIED Hold Purple Top PT 11.9 INR 1.0 aPTT Heparin Protocol 59.3 Sodium 142 Potassium 3.2 L D Chloride 106 Carbon Dioxide 27 Anion Gap 12 BUN 14 Creatinine 0.63 Estim Creat Clear Calc 150.4 Estimated GFR > 60 POC Glucose 113 124 H Random Glucose 115 Estimat Average Glucose Hemoglobin A1c % Calcium 9.0 Magnesium 1.8 Troponin I High Sens Triglycerides Cholesterol LDL Cholesterol, Calc HDL Cholesterol Hold Yellow Top 12/26/23 12/26/23 12/26/23 07:21 10:39 11:01 WBC RBC Hgb Hct MCV MCH MCHC RDW Plt Count MPV Immature Gran % (Auto) Neut % (Auto) Lymph % (Auto) [place] % (Auto) Eos % (Auto) Baso % (Auto) Lymph # (Auto) [place] # (Auto) Eos # (Auto) Baso # (Auto) Abs Immat Gran (auto) Absolute Neuts (auto) Absolute Nucleated RBC Nucleated RBC % (auto) Smear Tech's Comments Hold Purple Top SEE NOTE PT INR aPTT Heparin Protocol 52.7 L Sodium Potassium Chloride Carbon Dioxide Anion Gap BUN Creatinine Estim Creat Clear Calc Estimated GFR POC Glucose 65 82 Random Glucose Estimat Average Glucose Hemoglobin A1c % Calcium Magnesium Troponin I High Sens Triglycerides Cholesterol LDL Cholesterol, Calc HDL Cholesterol Hold Yellow Top See Note Imaging Radiologist's impression: Impressions Chest X-Ray 12/25/23 10:25 IMPRESSION: Congestive changes with or without edema and/or interstitial infiltrate. Chest CTA 12/25/23 11:33 IMPRESSION: Negative for pulmonary embolism. Mosaic attenuation and airway wall thickening suggesting airways disease with some degree of air trapping. There may be also be mild superimposed pulmonary edema. Small bilateral pleural effusions. Three-vessel coronary artery disease. Mediastinal and left axillary adenopathy, potentially reactive however the imaging appearance is nonspecific. Clinical correlation is necessary. 60% stenosis proximal left subclavian artery. This location could predispose to subclavian steal syndrome. This can be correlated clinically. 6 mm right upper lobe pulmonary nodule and additional scattered micronodules. 2017 Fleischner Society Recommendations for Lung Nodule(s): Follow-Up based on size (average of long- and short-axis diameters). Use most suspicious nodule for followup. Multiple Solid lung nodules 6-8 mm: Follow up management based on most suspicious nodule. In a low-risk patient, recommend a non-contrast Chest CT at 3-6 months, then consider another non-contrast Chest CT at 18-24 months. In a high-risk patient, recommend a non-contrast Chest CT at 3-6 months, then another non-contrast Chest CT at 18-24 months. These guidelines do not apply to patients younger than 35 years, immunocompromised patients, and patients with cancer. Follow up in patients with significant comorbidities as clinically warranted. For lung cancer screening, adhere to Lung-RADS guidelines. Reference: Radiology. 2017 Nov; 284(1):228-243 Progress Note: A&P Assessment and plan (1) ACS (acute coronary syndrome): Status: Acute (2) Congestive heart failure: Status: Acute (3) Ischemic cardiomyopathy: Status: Acute Plan Pleasant 53-year-old gentleman who is presenting for congestive heart failure. This is a new diagnosis. Clinically volume overloaded and is being diuresed. Responding well to treatment. He also has been experiencing chest discomfort with activity and has elevated troponin levels. Echocardiography is showing EF of 30 35% with inferior wall motion abnormality. He has uncontrolled diabetes and hypertension and has been a heavy smoker. They are also concerned about left subclavian stenosis on the CTA which was done to rule out PE. We will monitor right arm blood pressures only. He is on heparin drip for acute coronary syndrome. He is able to lay flat and can not tolerate angiography. I have discussed this with him in detail and he is agreeable. We will transfer to [facility] and potentially do this by tomorrow. Thank you for allowing me to participate in the care of your patient. Please feel free to contact me if you have any questions. Time Spent With Patient Time: Total time managing care of this patient today ____ minutes. Progress Note: Quality Stroke Does the patient have a stroke diagnosis?: No Procedures Date of Service Date of Service: 12/26/23
--- NOTE | 2023-12-26 13:36 | MHC.CM.PN ---
Patient will be transferred to [facility] today.
--- NOTE | 2023-12-26 14:28 | MHC.RECOVRN ---
AUDIT-C Brief Intervention Pt had positive screen for unhealthy alcohol use on admission, subsequently attempted to meet with t/w to discuss alcohol use and recovery supports/options. Pt however, currently being transferred to [facility]. Pt was provided with written resources as he was being discharged from [facility].
== END 2023-12-26 13:53 | disposition short-term general hospital (02) | DRG 194 ==
LOC: HO.ED 14:09 → HO.EDOVER 14:54 → HO.IMC 12-26 07:27
PROVIDERS: Student in an Organized Health Care Education/Training Program; Admitting Provider Physician Assistant; Emergency Provider Emergency Medicine; PCP Nurse Practitioner Family; Visit Provider Physician Assistant Medical
DX: I11.0 Hypertensive heart disease with heart failure (principal); D69.59 Other secondary thrombocytopenia; I24.9 Acute ischemic heart disease, unspecified; E11.40 Type 2 diabetes mellitus with diabetic neuropathy, unspecified; D75.1 Secondary polycythemia; E11.65 Type 2 diabetes mellitus with hyperglycemia; F17.210 Nicotine dependence, cigarettes, uncomplicated; I50.9 Heart failure, unspecified; F10.90 Alcohol use, unspecified, uncomplicated; J44.9 Chronic obstructive pulmonary disease, unspecified; I77.1 Stricture of artery; R59.0 Localized enlarged lymph nodes; R91.8 Other nonspecific abnormal finding of lung field; I25.5 Ischemic cardiomyopathy; Z71.6 Tobacco abuse counseling; Z79.4 Long term (current) use of insulin; Z79.82 Long term (current) use of aspirin; Z79.899 Other long term (current) drug therapy
CPT/HCPCS: 36415; 71045; 71275; 80048; 80053; 80061; 82947; 83036; 83735; 83880; 84484; 85025; 85027; 85379; 85610; 85730; 93005; 93306; 99285; J1644; J1940; J2560; J3411; Q9957; Q9967

== ENCOUNTER → 2023-12-25 10:29 | Outpatient (BNV) | payer OTHER, SELFPAY | PROVIDERS: Emergency Provider Emergency Medicine; PCP Nurse Practitioner Family; Visit Provider Internal Medicine Cardiovascular Disease | DX: I11.0 Hypertensive heart disease with heart failure (principal); I50.9 Heart failure, unspecified; R79.89 Other specified abnormal findings of blood chemistry; R94.31 Abnormal electrocardiogram [ECG] [EKG]; R93.1 Abnormal findings on diagnostic imaging of heart and coronary circulation | CPT/HCPCS: 93010; 93306; 99223; 99233 ==

== ENCOUNTER → 2023-12-25 14:46 | Outpatient (BNV) | payer OTHER, SELFPAY | PROVIDERS: Admitting Provider Physician Assistant; Emergency Provider Emergency Medicine; PCP Nurse Practitioner Family; Visit Provider Physician Assistant Medical | DX: I50.9 Heart failure, unspecified (principal); I24.9 Acute ischemic heart disease, unspecified | CPT/HCPCS: 99223; 99239 ==

== ENCOUNTER → 2023-12-27 23:59 | Outpatient (BNV) | payer OTHER, SELFPAY | PROVIDERS: PCP Nurse Practitioner Family; Visit Provider Internal Medicine Cardiovascular Disease | DX: I21.4 Non-ST elevation (NSTEMI) myocardial infarction (principal); I77.1 Stricture of artery | CPT/HCPCS: 36215; 75710; 93458; 99152 ==

== ENCOUNTER 2024-01-15 13:54 | Outpatient (AMB) | payer OTHER, SELFPAY ==
--- NOTE | 2024-01-15 13:59 | MHC.PC.OV ---
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 Required: No Accompanied by: Self / Same As Patient Allergies No Known Allergies Allergy (Verified 01/15/24 14:01) Medication List - Last Reviewed 01/15/24 by Dereck Caba CMA aspirin 81 mg PO DAILY atorvastatin 80 mg PO DAILY clopidogrel 75 mg PO DAILY dapagliflozin propanediol (Farxiga) 5 mg PO DAILY 90 days folic acid 1 mg PO DAILY FreeStyle Kayode 2 [place] (flash glucose scanning reader) tid NS FreeStyle Kayode 2 Sensor (flash glucose sensor) test blood sugar 4 times per day NS furosemide 40 mg PO DAILY insulin glargine 60 units subcut QPM insulin lispro 8 units subcut TID losartan 25 mg See Protocol PO BID metformin 1,000 mg PO BID metoprolol tartrate 50 mg See Protocol PO BID nicotine apply 1-21 mg NICOTINE PATCH daily for 28 days; follow with 1-14 mg PATCH daily for 14 days, then 1-7mg PATCH daily for 14 days transdermal pen needle, diabetic (Microdot Insulin Pen Needle) TID spironolactone 25 mg See Protocol PO DAILY thiamine mononitrate (vit B1) 100 mg PO DAILY Tobacco use date assessed: 01/15/24 Dental Screening Dental Screen Date: 01/15/24 Did you have a dental visit in the last 12 months?: Yes Did you have a dental problem in the last 6 months where you did not have access to dental care?: No Was dental information given to patient?: Patient has dentist HPI PE HPI Details Pt was seen in the ER on 12/24 after a syncopal event with shortness of breath and leg swelling. Labs were unremarkable except [place] [id number]. Renal function was normal, electrolyte levels were normal, CO2 30. Glucose 120. Initial troponin 137.2, repeat 152.3. BNP 365. D-dimer was also noted to be elevated at 332. Chest CTA was negative for PE. There was evidence of airways disease with some degree of air trapping and mild superimposed pulmonary edema with small bilateral pleural effusions. There was also noted to be three-vessel coronary artery disease and 60% stenosis of the proximal left subclavian artery. Incidentally noted is also mediastinal and left axillary adenopathy with nonspecific appearance but there is also 6 mm right upper lobe pulmonary nodule as well as scattered micro nodules and multiple other solid lung nodules measuring 6-8 mm. EKG showed NSR, rate 75 with possible q waves in anterior leads. He was given aspirin, nitroglycerin paste, IV lasix, and jardiance. Pt was started on a heparin drip. Echo showed EF 30-35% with inferior wall, inferolateral wall and mid anterolateral segment akinesis. Pt was also admitted to [facility] recently, missing discharge summary. Pt reportedly had 2 heart attacks. He is being followed by cardiology. Pt is a diabetic, on an ARB and a statin. A1C in office today is 10.4, this is going down. Due for microalbumin. Denies polyuria, polydipsia, does report neuropathy. Pt denies any signs and symptoms of hypoglycemia and does know how to correct it. Pt's blood sugar at home is ranging from 70-110 on average (see photocopy of BS). Due for eye exam, will refer. [facility] Medical History NSTEMI (non-ST elevated myocardial infarction) Nicotine dependence, cigarettes, uncomplicated Degenerative disc disease, cervical Cervical spinal stenosis Neuropathy Smoking history Elevated cholesterol Diabetic retinopathy BPH (benign prostatic hyperplasia) Retinal hemorrhage Type 2 diabetes mellitus Hypertension Surgical History Hx of tonsillectomy Family History Father Leukemia Mother No problems noted. Social History Household Members: Family Housing: Apartment Are you a primary property caretaker to a significant other at home: No Do you presently have visiting nurse or other home services: No Alcohol intake: current Alcohol intake frequency: 3 or more drinks per day Alcohol type: beer and hard liquor Patient Tobacco Use Status: Current everyday Tobacco user Tobacco use type: Cigar Years Smoked: 25 e-Cigarette/Vaping Use: Never Used service: No Current occupational status: employed Current occupation: [employer] Current occupational exposures/hazards: Yes Cognitive needs: No Hearing needs: No Vision needs: No Questionnaire PHQ-9 Over the last 2 weeks, how often have you been bothered by any of the following problems? 1. Little interest or pleasure in doing things: not at all 2. Feeling down, depressed, or hopeless: not at all 3. Trouble falling or staying asleep, or sleeping too much: not at all 4. Feeling tired or having little energy: several days 5. Poor appetite or overeating: not at all 6. Feeling bad about yourself - or that you are a failure or have let yourself or your family down: not at all 7. Trouble concentrating on things, such as reading the newspaper or watching television: not at all 8. Moving or speaking so slowly that other people could have noticed. Or the opposite - being so fidgety or restless that you have been moving around a lot more than usual: not at all 9. Thoughts that you would be better off or of hurting yourself in some way: not at all Total score: 1 Depression Screening Interpretation: Negative Depression Screening Done: Yes 31972 - PHQ-9 Billing: Yes Source: Developed by Drs. Solis Moore, Светлана Christy, Anant Romano and colleagues, with an educational kandy from [employer]. Thrive Questionnaire Date Thrive assessed: 01/15/24 I am a: Patient What is your living situation today?: I have a steady place to live Within the past 12 months, did the food you bought not last and you didn't have the money to get more?: Never true Within the past 12 months, did you worry whether your food would run out before you got money to buy more?: Never true Do you have trouble paying for medicines?: No Do you have trouble getting transportation to medical appointments?: No Do you have trouble paying your heating and electricity bill?: No Do you have trouble taking care of your child, family member or friend?: No Do you have trouble with day-to-day activities such as bathing, preparing meals, shopping, managing finances, etc.?: No Are you currently unemployed and looking for a job?: No Are you interested in more education?: No Please select the resources that you would like help with: None Currently or been in a relationship where the following occur: No concerns reported THRIVE Score: 0 AUDIT C Alcohol Use Questionnaire (AUDIT-C) 1. How often do you have a drink containing alcohol?: Never 3. How often do you have six or more drinks on one occasion?: Never Total Score: 0 Score Reviewed/Action Taken: Yes GIBSON-7 AMB Questionnaire GIBSON-7 Date GIBSON - 7 assessed: 01/15/24 Feeling nervous, anxious, or on edge: 1 = Several days Not being able to stop or control worryin = Several days Worrying too much about different things: 0 = Not at all Trouble relaxin = Several days Being so restless that it is hard to sit still: 0 = Not at all Becoming easily annoyed or irritable: 0 = Not at all Feeling afraid as if something awful might happen: 0 = Not at all Total GIBSON-7 score (0-4 normal; 5-9 mild; 10-14 moderate; 15-21 severe): 3 Source: Developed by Drs. Solis Moore, Светлана Christy, Anant Romano and colleagues, with an educational kandy from [employer]. GIBSON-7 Assessment Billing GIBSON-7 Assessment Tool: GIBSON-7 Assessment 11660 Review of Systems Const Reports as per HPI Physical exam (Primary Care) Vital Signs: Last Vital Signs Pulse 72 01/15/24 14:01 BP 122/76 01/15/24 14:01 Pulse Ox 95 01/15/24 14:01 Oxygen Delivery Method Room Air 01/15/24 14:01 BMI result Body Mass Index 25.7 Tobacco/Smoking Status: Tobacco use Status Tobacco use date assessed 01/15/24 01/15/24 14:06 Patient Tobacco Use Status Current everyday Tobacco 01/15/24 14:06 Tobacco use type Cigar 01/15/24 14:06 e-Cigarette/Vaping Use Never Used 01/15/24 14:06 PHQ-9: PHQ-9 Score PHQ-9: Total score 1 01/15/24 16:48 Depression Screening Interpretation: Negative Thrive Assessment: Date of Thrive Assessment Date Thrive assessed 01/15/24 01/15/24 14:06 Currently or been in a relationship where the following occur: No concerns reported Const General: cooperative Orientation/consciousness: patient oriented x3 Resp Other: lungs clear, slightly diminished Effort & Inspection: normal respiratory effort Cardio Rate: regular rate Rhythm: regular rhythm Heart sounds: S1 normal heart sound present and S2 normal heart sound present Neuro General: patient oriented x3 Extrem Other: bilat feet: no sensation with use of monofilament, feet intact Psych Appearance: grossly normal Mental Status: mental status grossly normal Speech and movement: Normal speech and movement present Affect: normal affect Attitude: cooperative Thought process: Normal thought process present Thought content: Normal thought content present Insight: Good insight present (Psych) Judgement: Good judgement present (Psych) Results AMB Hemoglobin A1c AMB Hemoglobin A1c 10.4 % Last Edit by Dereck Caba CMA on 01/15/24 14:46 Results Reviewed Results Reviewed: Laboratory Last Values Hgb A1c (Clinic) 10.4 % (4.0-6.0) H 01/15/24 14:46 Assessment and Plan Assessment & Plan (1) Diabetic retinopathy: Code(s): E11.319 - Type 2 diabetes mellitus with unspecified diabetic retinopathy without macular edema Plan: Referred for eye exam (2) Uncontrolled diabetes mellitus: Code(s): E11.65 - Type 2 diabetes mellitus with hyperglycemia Plan: Labs ordered (3) Lung nodules: Code(s): R91.8 - Other nonspecific abnormal finding of lung field Plan: follow up ct scan ordered for 3 months from now. Plan The patient agreed to the use of a medical stenographer for this encounter. Scribed for BRIAN [place] by Nerissa Uriostegui medical stenographer, on 01/15/2024 at 14:30 EST. Orders: Orders AMB Hemoglobin A1c Today Z13.9 - Encounter for screening, unspecified Complete Blood Count Auto Diff Today E11.319 - Type 2 diabetes mellitus with unspecified diabetic retinopathy without macular edema, E11.65 - Type 2 diabetes mellitus with hyperglycemia Comprehensive [place]. Panel Fast Today E11.319 - Type 2 diabetes mellitus with unspecified diabetic retinopathy without macular edema, E11.65 - Type 2 diabetes mellitus with hyperglycemia TSH reflex Free T4 Today E11.319 - Type 2 diabetes mellitus with unspecified diabetic retinopathy without macular edema, E11.65 - Type 2 diabetes mellitus with hyperglycemia UA CC w/rflx Micro + Cult Today E11.319 - Type 2 diabetes mellitus with unspecified diabetic retinopathy without macular edema, E11.65 - Type 2 diabetes mellitus with hyperglycemia CT chest wo IV con 3 Months R91.8 - Other nonspecific abnormal finding of lung field Lipid Panel Today E11.319 - Type 2 diabetes mellitus with unspecified diabetic retinopathy without macular edema, E11.65 - Type 2 diabetes mellitus with hyperglycemia Microalbumin, Random (w Creat) Today E11.319 - Type 2 diabetes mellitus with unspecified diabetic retinopathy without macular edema, E11.65 - Type 2 diabetes mellitus with hyperglycemia Coding Level of Care Code Est Pt Level 4 (89136) Diagnoses Diabetic retinopathy E11.319 Uncontrolled diabetes mellitus E11.65 Lung nodules R91.8 Additional Codes GIBSON-7 Assessment Billing - GIBSON-7 Assessment Tool: GIBSON-7 Assessment 68206 ([id number])
[2024-01-15 14:01] VITALS: BP 122/76; PULSE 72; O2SAT 95; BMI 25.7
== END 2024-01-15 15:04 | disposition home or self-care (01) ==
PROVIDERS: PCP Nurse Practitioner Family; Visit Provider Nurse Practitioner Family
DX: Z00.00 Encounter for general adult medical examination without abnormal findings (principal); E11.65 Type 2 diabetes mellitus with hyperglycemia; E11.319 Type 2 diabetes mellitus with unspecified diabetic retinopathy without macular edema; R91.8 Other nonspecific abnormal finding of lung field
CPT/HCPCS: 83036; 99214; 99396

== ENCOUNTER 2024-03-19 11:28 | Outpatient (AMB) | payer OTHER, SELFPAY ==
[2024-03-19 11:29] VITALS: BP 120/70; PULSE 71; BMI 26.6
--- NOTE | 2024-03-19 11:29 | MHC.OFFVIS ---
Vital Signs 03/19/24 11:29 Height 5 ft 9 in Weight 179 lb 14.355 oz BMI 26.6 BP 120/70 Blood Pressure Location Rt brachial Position Sitting Pulse 71 Pulse Source Pulse Oximeter Intake Visit Reasons: [facility] f/u Intake Note: [facility] F/up Regional Account Executive Required: No Accompanied by: Spouse Allergies No Known Allergies Allergy (Verified 01/15/24 14:01) Medication List - Last Reconciled 03/19/24 by Javier Estevez MD aspirin 81 mg PO DAILY atorvastatin 80 mg PO DAILY blood-glucose sensor (Dexcom G7 Sensor device) Test blood sugar 3 times per day and PRN, change sensor every 10 days clopidogrel 75 mg PO DAILY dapagliflozin propanediol (Farxiga) 10 mg PO DAILY FreeStyle Kayode 2 [place] (flash glucose scanning reader) tid NS FreeStyle Kayode 2 Sensor (flash glucose sensor) test blood sugar 4 times per day NS furosemide 40 mg PO DAILY insulin glargine (Lantus Solostar U-100 Insulin) 35 units subcut QPM insulin lispro 8 units subcut TID losartan 25 mg PO BID metoprolol tartrate 25 mg PO BID pen needle, diabetic (Microdot Insulin Pen Needle) TID spironolactone 25 mg See Protocol PO DAILY HPI Comments Details: [age] year gentleman who is here for follow-up. He was seen in the hospital when he presented with NSTEMI and heart failure. He was transferred to [facility] and underwent cardiac catheterization which showed severe multivessel disease. He was referred for surgery. Given elevated hemoglobin A1c he was advised to make some lifestyle changes and be compliant with medications and subsequently underwent surgery. He successfully has gone undergone surgery at this point. He has been doing well. No chest pains or any significant shortness of breath. He is starting cardiac rehabilitation soon. Taking medications regularly. [facility] Medical History (Updated 03/19/24 @ 11:35 by Fiona Johnson CMA) Bypass graft stenosis NSTEMI (non-ST elevated myocardial infarction) Nicotine dependence, cigarettes, uncomplicated Degenerative disc disease, cervical Cervical spinal stenosis Neuropathy Smoking history Elevated cholesterol Diabetic retinopathy BPH (benign prostatic hyperplasia) Retinal hemorrhage Type 2 diabetes mellitus Hypertension Surgical History Hx of tonsillectomy Family History Father Leukemia Mother No problems noted. Social History Household Members: Family Housing: Apartment Are you a primary assisted living care manager to a significant other at home: No Do you presently have visiting nurse or other home services: No Alcohol intake: current Alcohol intake frequency: 3 or more drinks per day Alcohol type: beer and hard liquor Patient Tobacco Use Status: Current everyday Tobacco user Tobacco use type: Cigar Years Smoked: 25 e-Cigarette/Vaping Use: Never Used service: No Current occupational status: employed Current occupation: [employer] Current occupational exposures/hazards: Yes Cognitive needs: No Hearing needs: No Vision needs: No Review of Systems Const Denies chills, Denies fatigue, Denies fever(s), Denies frequent falls, Denies weakness, Denies weight gain and Denies weight loss ENT Denies dizziness Card Denies chest pain, Denies leg edema, Denies lightheadedness, Denies palpitations, Denies dyspnea and Denies dyspnea on exertion Resp Denies cough, Denies dyspnea and Denies dyspnea on exertion GI Denies hematochezia Musc Denies abnormal gait, Denies muscle weakness, Denies numbness, Denies radiating pain into limb and Denies tingling Neuro Denies abnormal gait, Denies dizziness, Denies frequent falls, Denies numbness, Denies tingling and Denies weakness Endo Denies fatigue and Denies palpitations Physical Exam Vital Signs: Last Vital Signs Pulse 71 03/19/24 11:29 BP 120/70 03/19/24 11:29 BMI result Body Mass Index 26.6 GENERAL APPEARANCE: in no acute distress, pleasant. NECK: no carotid bruit, no jugular venous distention. SKIN: no suspicious lesions, warm and dry. HEART: no murmurs, regular rate and rhythm. LUNGS: clear to auscultation bilaterally. ABDOMEN: soft, nontender. EXTREMITIES: no edema. PERIPHERAL PULSES: equal. NEUROLOGIC: No gross deficits, AAO X 3 Assessment & Plan Assessment & Plan (1) Ischemic cardiomyopathy: Code(s): I25.5 - Ischemic cardiomyopathy Category: Medical (2) Status post coronary artery bypass graft: Code(s): Z95.1 - Presence of aortocoronary bypass graft Category: Medical Plan Pleasant 53 year gentleman who is here for follow-up. He has history of ischemic cardiomyopathy underwent coronary artery bypass surgery. He has done well with surgery and is doing well at this point. He is starting cardiac rehabilitation soon. He is taking guideline directed medical therapy. Clinically euvolemic and stable. Same medications for now. He will be starting cardiac rehabilitation. We will repeat echocardiography before his next visit. Thank you for allowing me to participate in the care of your patient. Please feel free to contact me if you have any questions. Orders: Orders CA echo transthoracic complete 2 Months Javier Estevez MD I25.5 - Ischemic cardiomyopathy Medications: New dapagliflozin propanediol (Farxiga) 10 mg (2 x 5 mg) PO DAILY 100 tabs 4RF Javier Estevez MD I25.5 - Ischemic cardiomyopathy metoprolol succinate ER (Toprol XL) 50 mg PO DAILY 90 tabs 4RYary Estevez MD I25.5 - Ischemic cardiomyopathy spironolactone 25 mg PO DAILY 90 tabs 4RYary Estevez MD I25.5 - Ischemic cardiomyopathy clopidogrel 75 mg PO DAILY 90 tabs 4RYary Estevez MD I25.5 - Ischemic cardiomyopathy furosemide 40 mg PO DAILY 90 tabs 4RF Javier Estevez MD I25.5 - Ischemic cardiomyopathy Changed From Lantus Solostar U-100 Insulin (insulin glargine) 60 units (0.6 mL) subcut QPM 60 mL 1RF NS To insulin glargine (Lantus Solostar U-100 Insulin) 35 units subcut QPM Kobi Day, [facility]- Refilled atorvastatin 80 mg PO DAILY 90 tabs JANA Estevez MD losartan 25 mg PO BID 180 tabs JANA Estevez MD I25.5 - Ischemic cardiomyopathy Coding Level of Care Code Est Pt Level 4 (82892) Diagnoses Ischemic cardiomyopathy I25.5 Status post coronary artery bypass graft Z95.1
== END 2024-03-19 11:51 | disposition home or self-care (01) ==
PROVIDERS: PCP Nurse Practitioner Family; Visit Provider Internal Medicine Cardiovascular Disease
DX: I25.5 Ischemic cardiomyopathy (principal); Z95.1 Presence of aortocoronary bypass graft
CPT/HCPCS: 99214

== ENCOUNTER → 2024-03-19 11:28 | Outpatient (BNVA) | payer OTHER, SELFPAY | PROVIDERS: PCP Nurse Practitioner Family; Visit Provider Internal Medicine Cardiovascular Disease | DX: I25.5 Ischemic cardiomyopathy (principal); I25.2 Old myocardial infarction; I50.9 Heart failure, unspecified; Z95.1 Presence of aortocoronary bypass graft | CPT/HCPCS: 99212 ==

== ENCOUNTER 2024-04-17 12:56 | Outpatient (REF) | payer OTHER, SELFPAY ==
--- NOTE | ~2024-04-17 | CT_ITS ---
EXAMINATION: CT CHEST WITHOUT CONTRAST CLINICAL INFORMATION: Prior abnormal imaging. COMPARISON: CTA chest December 25, 2023 TECHNIQUE: Multidetector volumetric CT imaging of the chest was done. Axial MIP volume rendering provided. Sagittal and coronal reformatted images were obtained. This CT examination was performed using dose optimization techniques as appropriate, variously including the following: *Automated exposure control *Adjustment of mA and/or kV according to patient size (this includes techniques or standardized protocols for targeted exams where dose is matched to indication/reason for exam; i.e. extremities or head) *Use of iterative reconstruction technique DLP: 181 mGy-cm FINDINGS: LUNGS: 5 mm nodule right upper lobe on image 162 of series 5. 3 mm nodule along the right major fissure on image 233 of series 5. 3 mm lingular nodule on image 350 of series 5. 4 mm lingular nodule on image 255 of series 5. 3 mm lingular nodule on image 372 of series 5. MEDIASTINUM: Imaged thyroid gland is unremarkable. Stable pretracheal lymph node measures 1.9 x 2.0 cm. Heart is enlarged. Moderate pericardial effusion. CORONARY ARTERY CALCIFICATION: Severe. PLEURA: Small bilateral pleural effusions, left greater than right. AXILLA: No axillary lymphadenopathy. UPPER ABDOMEN: Unremarkable. OSSEOUS STRUCTURES: Median sternotomy. CT/CT chest wo IV con IMPRESSION: Stable bilateral pulmonary nodules measuring up to 5 mm. If patient is considered low risk for malignancy, no routine follow-up imaging is required. If patient is considered high risk for malignancy, noncontrast chest CT in 12 months is optional. Moderate pericardial effusion. Small bilateral pleural effusions decreased from prior. Fleischner guidelines were followed. Electronically signed by: Ramon Vaca MD 04/20/2024 10:40 AM MICHELLE
== END 2024-04-17 12:57 | disposition home or self-care (01) ==
LOC: HO.CT 12:56
PROVIDERS: PCP Nurse Practitioner Family; Visit Provider Nurse Practitioner Family
DX: R91.8 Other nonspecific abnormal finding of lung field (principal)
CPT/HCPCS: 71250

== ENCOUNTER 2024-04-21 10:53 | Outpatient (AMB) | payer OTHER, SELFPAY ==
--- NOTE | 2024-04-21 11:54 | AM.OFFWIN_ITS ---
Intake Vital Signs 04/21/24 11:55 Height 5 ft 9 in Weight 192 lb BMI 28.4 BP 126/88 Blood Pressure Location Lt brachial Position Sitting Pulse 86 Pulse Source Pulse Oximeter Temp 98.6 F Temp Source Oral Pulse Oximetry (%) 96 Oxygen Delivery Method Room Air Intake Visit Reasons: EP-rt ear infection Intake Note: Patient here for right ear pain that has been present for about 3 weeks. Patient Tobacco Use Status: Current everyday Tobacco user Allergies No Known Allergies Allergy (Verified 04/21/24 11:56) Do you need a note to return to daycare/school/sports/work: No HPI HPI Comments History of Present Illness Details Patient is a 53-year-old male complaining of bilateral ear pain for the last 3 weeks. He denies any fevers, head congestion sinus pain or cough. And denies any change in his hearing. He tells me he got ear infections as a child but he has not had 1 in many years. [facility] Medical History (Updated 04/21/24 @ 12:49 by Netta Duval PA-C) Bypass graft stenosis NSTEMI (non-ST elevated myocardial infarction) Nicotine dependence, cigarettes, uncomplicated Degenerative disc disease, cervical Cervical spinal stenosis Neuropathy Smoking history Elevated cholesterol Diabetic retinopathy BPH (benign prostatic hyperplasia) Retinal hemorrhage Type 2 diabetes mellitus Hypertension Surgical History Hx of tonsillectomy Family History Father Leukemia Mother No problems noted. Social History Household Members: Family Housing: Apartment Are you a primary progressive care manager to a significant other at home: No Do you presently have visiting nurse or other home services: No Alcohol intake: current Alcohol intake frequency: 3 or more drinks per day Alcohol type: beer and hard liquor Patient Tobacco Use Status: Current everyday Tobacco user Tobacco use type: Cigar Years Smoked: 25 e-Cigarette/Vaping Use: Never Used service: No Current occupational status: employed Current occupation: [employer] Current occupational exposures/hazards: Yes Cognitive needs: No Hearing needs: No Vision needs: No Review of Systems Const All systems reviewed & are unremarkable except as noted in HPI and below Physical Exam Vital Signs: Last Vital Signs Temp 98.6 F 04/21/24 11:55 Pulse 86 04/21/24 11:55 BP 126/88 04/21/24 11:55 Pulse Ox 96 04/21/24 11:55 Oxygen Delivery Method Room Air 04/21/24 11:55 BMI result Body Mass Index 28.4 Const General: cooperative, healthy appearing, comfortable and no acute distress Orientation/consciousness: patient oriented x3 HEENT Head: Yes normal to inspection, Yes No palpable skull fracture present and Yes normocephalic Ears: hearing grossly normal bilaterally, external ears normal, EAC's normal, mastoids normal (no TTP) bilaterally and TM abnormal General nose exam: Normal external nose present Face and sinus: Yes normal facial exam Eyes General: appearance normal, both eyes and all related structures Neck Neck: Yes normal visual inspection, Yes full ROM, Yes no lymphadenopathy, Yes no meningeal signs, Yes trachea midline and Yes supple Resp Effort & Inspection: normal respiratory effort and able to speak in complete sentences Skin General skin exam: no rashes or lesions noted Neuro General: patient oriented x3 and no meningeal signs Assessment & Plan Assessment & Plan (1) Otitis media: Code(s): H66.90 - Otitis media, unspecified, unspecified ear Qualifiers: Otitis media type: suppurative Chronicity: acute Laterality: left Recurrence: non-recurrent Spontaneous tympanic membrane rupture: without spontaneous rupture Qualified Code(s): H66.002 - Acute suppurative otitis media without spontaneous rupture of ear drum, left ear Plan: Sent antibiotics to pharmacy, recommended [id number] eardrops with itch relief. Medications: New amoxicillin 875 mg PO Q12H 10 tabs 0RF Coding Level of Care Code Est Pt Level 3 (33445) Diagnoses Non-recurrent acute suppurative otitis media of left ear without spontaneous rupture of tympanic membrane H66.002 Otitis media type: suppurative Chronicity: acute Laterality: left Recurrence: non-recurrent Spontaneous tympanic membrane rupture: without spontaneous rupture
[2024-04-21 11:55] VITALS: BP 126/88; PULSE 86; TEMP 37; O2SAT 96; BMI 28.4
== END 2024-04-21 13:52 | disposition home or self-care (01) ==
PROVIDERS: PCP Nurse Practitioner Family; Visit Provider Physician Assistant
DX: H66.002 Acute suppurative otitis media without spontaneous rupture of ear drum, left ear (principal)

== ENCOUNTER → 2024-04-21 10:53 | Outpatient (BNVA) | payer OTHER, SELFPAY | PROVIDERS: PCP Nurse Practitioner Family; Visit Provider Physician Assistant | DX: H66.002 Acute suppurative otitis media without spontaneous rupture of ear drum, left ear (principal) | CPT/HCPCS: 99212 ==

== ENCOUNTER 2024-06-01 14:10 | Outpatient (REF) | payer OTHER, SELFPAY ==
[2024-06-01 15:17] LABS: MANUAL DIFF FLAG NO
--- NOTE | 2024-06-01 15:23 | CA_ITS ---
Transthoracic Echocardiogram Patient (Last, First, Middle): Solis Casas, Gender: Male Date of : 1970 Age: 53 Procedure Date: 06/01/2024 Procedure Type: Transthoracic Echocardiogram Location: OP Height: 177.8 cm Weight: 86.18 kg BSA: 2.04 m2 Heart Rate: bpm BP: 150 / 100 mmHg Electric Golf Cart Repairers: KENDRA/JAMEY Referring MD: Javier Estevez MD Symptoms: I25.5 - Ischemic cardiomyopathy Study Quality: Fair ECG Rhythm: Sinus Conclusions: - Normal left ventricular cavity size. There is mildly increased left ventricular wall thickness. The left ventricular systolic function is borderline reduced. The visually estimated ejection fraction is between 45-50%. - Elevated filling pressures. Findings Procedure Information Contrast agent, definity, is being given per protocol without apparent complications. Left Ventricle Normal left ventricular cavity size. There is mildly increased left ventricular wall thickness. The left ventricular systolic function is borderline reduced. The visually estimated ejection fraction is between 45 50%. There is evidence of regional wall motion abnormalities. There is paradoxical septal motion consistent with post-operative status. Abnormal diastolic function is noted. Spectral Doppler is indicative of an impaired relaxation filling pattern. Elevated filling pressures. Wall Motion Rest Echo Findings The basal inferior and mid inferior segments are hypokinetic. Right Ventricle Normal right ventricular cavity size and systolic function. Atria The left atrium is normal in size. The right atrium is normal in size. Aortic Valve Normal aortic valve structure and function. There is no aortic valve stenosis. There is no aortic valve regurgitation. Mitral Valve The posterior mitral leaflet has restricted mobility. There is trace mitral valve regurgitation. There is no mitral valve stenosis. Pulmonic Valve The pulmonic valve is likely normal. Tricuspid Valve Normal tricuspid valve structure. There is trace tricuspid valve regurgitation. Normal right atrial pressure. There is no evidence of pulmonary hypertension. Great Vessels All visible segments of the aorta are normal in size. Venous The inferior vena cava is normal in size and collapses greater than 50% with inspiration. Pericardium/Pleural Prominent epicardial adipose tissue noted. There is no evidence of pericardial effusion. Prior Study Comparison Changes noted compared to prior study dated: 12/25/2023. EF improved 45 to 50% Measurements 2D Linear Measurements IVSd: 1.25 0.6-0.9/0.6-1.0 cm LVIDd: 5.50 3.9-5.3/4.2-5.9 cm LVIDd Index: 2.70 2.4-3.2/2.2-3.1 cm/m2 LVIDs: 4.75 2.0-3.6 cm LVPWd: 1.04 0.7-1.1 cm Ao Root: 3.30 2.1-3.5 cm LA Diam: 4.00 2.7-3.8/3.0-4.0 cm LAIDs Index: 1.96 1.5-2.3 cm/m2 LV Mass: 318.61 67-162/88-224 g LV Mass Index: 156.18 43-95/49-115 g/m2 LVOT Diam: 2.10 3.0+(-)1.3 cm 2D Systolic Function EF 4C: 46.70 >55% EF 2C: 44.30 >55% EF BiP: 45.30 >55% Mitral Valve MV Pk E: 0.75 MV PK A: 1.00 MV Decel Time: 172.00 E/A: 0.70 E'Lateral: 5.33 E'Medial: 4.35 E/E' Med: 17.10 E/E' Lat: 14.00 PHT: 50.00 MVA PHT: 4.40 Decel Knox: 4.34 Aortic Valve AoV Pk Jarocho: 1.11 AoV Mn Jarocho: 0.77 AoV VTI: 0.24 AoV Pk Grad: 5.00 Aov Mn Grad: 3.00 OSMAN Cont.VTI: 2.93 LVOT LVOT Pk Jarocho: 0.99 LVOT Mn Jarocho: 0.63 LVOT VTI: 0.20 LVOT Pk Grad: 4.00 LVOT Mn Grad: 2.00 LVOT Diam: 2.10 LVOT Area: 3.46 Diastolic Function MV Pk E: 0.75 MV Pk A: 1.00 E/A: 0.70 E'Medial: 4.35 E/E' Med: 17.10 E' Laterial: 5.33 E/E' Lat: 14.00 Right Ventricle TAPSE (mm): 22.00 Tricuspid Valve TR Pk Jarocho: 1.78 TR Pk Grad: 13.00 RA Press: 3.00 RVSP: 16.00 Great Vessels Aorta Ao Root-2D: 3.30 2.0-3.7 cm Ao Asc: 3.40 2.1-3.4 cm Pulmonary Valve PV Pk Jarocho: 0.60 Peak PV Grad: 1.00 Updated in Other Vendor System with Status of Final Javier Estevez MD electronically signed on 06/02/2024 8:54:59 PM with status of Final
[2024-06-01 15:41] LABS: Basophils Absolute Auto 0.1 X10*3/uL (0.0-0.2); Basophils Percent Auto 1.5 % (0-2); Eosinophils Absolute Auto 0.2 X10*3/uL (0.0-0.4); Eosinophils Percent Auto 3.8 % (0-4); Hematocrit 45.6 % (42.0-52.0); Imm Gran Abs Auto 0.02 X10*3/uL (0.00-0.03); Imm Gran Pct Auto 0.4 % (0.0-0.4); Lymphocytes Absolute Auto 1.8 X10*3/uL (1.2-4.9); Lymphocytes Percent Auto 33.1 % (20-40); Mean Corpuscular HGB Conc 35.1 g/dl (31.0-36.0); Mean Corpuscular Hemoglobin 30.4 pg (27.0-33.0); Mean Corpuscular Volume 86.5 fL (80.0-98.0); Monocytes Absolute Auto 0.6 X10*3/uL (0.1-1.2); Monocytes Percent Auto 11.3 % (2-11); Neutrophils Absolute Auto 2.7 x10*3/uL (2.0-8.3); Neutrophils Percent Auto 49.9 % (45-73); Red Blood Count 5.27 X10*6/uL (4.60-5.80); Red Cell Distribution Width 14.7 % (11.0-16.0); White Blood Count 5.5 X10*3/uL (4.8-10.8)
[2024-06-01 15:42] LABS: Platelet Count 91 X10*3/uL (160-400)
[2024-06-01 15:52] LABS: B Type Natriuretic Peptide 106 pg/mL (<100)
[2024-06-01 16:11] LABS: Albumin Level 4.2 g/dL (3.5-5.0); Anion Gap 12 (12-20); Aspartate Amino Transferase 39 U/L (5-37); Bilirubin Total 0.6 mg/dL (0.0-1.0); Blood Urea Nitrogen 24 mg/dL (9-16); Calcium 9.7 mg/dL (8.4-10.2); Carbon Dioxide 29 mmol/L (22-29); Chloride 100 mmol/L (96-108); Cholesterol 216 mg/dL (<200); Estimated Glomerular Filt Rate > 60; Glucose Fasting 202 mg/dL (60-99); Glucose Random 201 mg/dL (60-115); HDL Cholesterol 41 mg/dL (>40); Potassium 4.8 mmol/L (3.3-5.1); Sodium 136 mmol/L (135-145); Total Protein 7.6 g/dL (6.5-8.0); Triglycerides 429 mg/dL (<150)
[2024-06-01 16:17] LABS: Appearance Urine Clear; Color Urine Yellow; Glucose Urine UA >=1000 mg/dL (Negative); Leukocyte Esterase Urine Negative (Negative); Nitrite Urine Negative (Negative); UMIC TRIGGER UACC YES; Urine Blood Trace (Negative); Urine Ketones Negative (Negative); Urine Protein 100 (2+) mg/dL (Neg-Trace)
[2024-06-01 16:22] LABS: Alanine Aminotransferase 54 U/L (0-40); TSH reflex Free T4 1.84 uIU/mL (0.32-4.0)
[2024-06-01 16:49] LABS: Creatinine Urine 62.72 mg/dL; Microalbum/Creatinine Ratio Ur 623.4 ug/mg cr (<30)
[2024-06-01 16:50] LABS: Alkaline Phosphatase 134 U/L (39-117)
[2024-06-01 16:55] LABS: Bacteria Urine None Seen (None Seen); Hyaline Casts Urine 0-2 /LPF (0-2); RBC Urine 0-2 /HPF (0-2); Squamous Epithelial Cell Urine 0-2 /HPF (0-2); WBC Urine 0-5 /HPF (0-5)
[2024-06-01 16:57] LABS: Specific Gravity - Urine >= 1.030 (1.005-1.025)
--- OUTSIDE RECORDS SUMMARY | 2024-06-01 17:04 | XMS_ITS | Continuity of Care Document ---
Author Organization [facility] ter Address [address] [place] [id number]- Care Team Providers Care Hammer Fitter Name Role Phone Shay ELLIS, Kobi Randall Primary Care Physician [phone] [facility] ACCT R [id number] Date(s): 03/23/24 - 05/21/[address] [address] Encounter Diagnosis Atherosclerotic heart disease of [place] coronary artery without angina pectoris (Final) - Presence of aortocoronary bypass graft(Final) - Discharge Disposition: A-D/C Home Attending Physician: Luis E Powell MD Admitting Physician: Luis E Powell MD Referring Physician: Luis E Powell MD Encounter Type: Disch Recurring OP Allergies, Adverse Reactions, Alerts No Known Allergies Immunizations Given and Recorded Vaccine Date Status Refusal Reason influenza virus vaccine, inactivated 03/19/14 Give n influenza virus vaccine, inactivated 06/05/13 Give n diphtheria-tetanus toxoids (DT) 1 11/19/09 Given 1Admin Note: [facility] Medications amiodarone 200 mg oral tablet 200 mg, By Mouth, 2 times a day, # 30 tablet, Refills 0, Tot. Refills 0, Maintenance, 03/03/24 2:46:00 PM EDT, Route to Pharmacy Electronically, [facility], Partial fill upon patient request if the prescription is for a schedule II opioid drug., 178, cm, 03/03/24 11:40:00 EDT, Height, 80.5, kg, 02/17/24 10:19:00 EDT, Dry Weight Start Date: 03/03/24 Stop Date: 03/18/24 Status: Ordered Quantity: 30.0 Unit: tablet Repeat number: 1 aspirin 81 mg oral delayed release tablet 81 mg, By Mouth, Daily, # 30 tablet, Refills 0, Tot. Refills 0, Maintenance, 03/03/24 2:38:00 PM EDT, Route to Pharmacy Electronically, [facility], Partial fill upon patient request if the prescription is for a schedule II opioid drug., 178, cm, 03/03/24 11:40:00 EDT, Height, 80.5, kg,02/17/24 10:19:00 EDT, Dry Weight Start Date: 03/03/24 Status: Ordered Quantity: 30.0 Unit: tablet Repeat number: 1 atorvastatin 80 mg oral tablet 1 tablet = 80 mg, By Mouth, Daily, # 30 tablet, 0 Refills, Maintenance, 03/03/24 2:39:00 PM EDT, [facility] upon patient request if the prescription is for a schedule II opioid drug., 178, cm, 03/03/24 11:40:00 EDT, Height, 80.5, kg, 02/17/24 10:19:00 EDT, Dry Weight Start Date: 03/03/24 Status: Ordered Quantity: 30.0 Unit: tablet Repeat number: 1 dapagliflozin 10 mg oral tablet = 10 mg, By Mouth, Daily, # 30 tablet, 0 Refills, Maintenance, 03/03/24 2:39:00 PM EDT, [facility] upon patient request if the prescription is for a schedule II opioid drug., 178, cm, 03/03/24 11:40:00 EDT, Height, 80.5, kg, 02/17/24 10:19:00 EDT, Dry Weight Start Date: 03/03/24 Status: Ordered Quantity: 30.0 Unit: tablet Repeat number: 1 insulin lispro 100 u/ml subcutaneous injection 5-10 units, Subcutaneous Injection, 3 times a day before meals, << Sliding Scale Comments >> 150 - 199 2 units Call if less than 70 200 - 249 4 units 250 - 299 6 units 300 - 349 8 units 350 - 399 10 units Call if greater than 400 << Sliding Scale Comments >>, # 15 mL, 0 Refills, Maintenance, 01/01/24 12:33:00 PM EDT, Injection, [facility], Partial fill upon patient request if the prescription is for a schedule II opioid drug., 177, cm, 01/01/24 11:19:00 EDT, Height, 77.9, kg, 12/31/23 4:25:00 EDT, Dry Weight Start Date: 01/01/24 Status: Ordered Quantity: 15.0 Unit: mL Repeat number: 1 Lantus Solostar Pen 100 units/mL subcutaneous solution = 35 units, Subcutaneous Injection, Daily at bedtime, # 15 mL, 4 Refills, Maintenance, 05/06/15 12:15:56 PM EST, [facility] Start Date: 05/06/15 Stop Date: 10/03/15 Status: Ordered Quantity: 15.0 Unit: mL Repeat number: 5 Lasix 40 mg oral tablet 40 mg, By Mouth, Daily, # 30 tablet, Refills 0, Tot. Refills 0, Maintenance, 03/03/24 2:39:00 PM EDT, Route to Pharmacy Electronically, [facility], Partial fill upon patient request if the prescription is for a schedule II opioid drug., 178, cm, 03/03/24 11:40:00 EDT, Height, 80.5, kg,02/17/24 10:19:00 EDT, Dry Weight Start Date: 03/03/24 Status: Ordered Quantity: 30.0 Unit: tablet Repeat number: 1 losartan 25 mg oral tablet 25 mg, By Mouth, Daily, # 30 tablet, Refills 0, Tot. Refills 0, Maintenance, 03/03/24 2:44:00 PM EDT, Route to Pharmacy Electronically, [facility], Partial fill upon patient request if the prescription is for a schedule II opioid drug., 178, cm, 03/03/24 11:40:00 EDT, Height, 80.5, kg,02/17/24 10:19:00 EDT, Dry Weight Start Date: 03/03/24 Status: Ordered Quantity: 30.0 Unit: tablet Repeat number: 1 metoprolol 25 mg oral tablet 25 mg, By Mouth, 2 times a day, # 60 tablet, Refills 0, Tot. Refills 0, Maintenance, 03/03/24 2:45:00 PM EDT, Route to Pharmacy Electronically, [facility], Partial fill upon patient request if the prescription is for a schedule II opioid drug., 178, cm, 03/03/24 11:40:00 EDT, Height, 80.5, kg, 02/17/24 10:19:00 EDT, Dry Weight Start Date: 03/03/24 Status: Ordered Quantity: 60.0 Unit: tablet Repeat number: 1 spironolactone 25 mg oral tablet 25 mg, By Mouth, Daily, # 30 tablet, Refills 0, Tot. Refills 0, Maintenance, 03/03/24 2:46:00 PM EDT, [facility], Partial fill upon patient request if the prescription is for a schedule II opioid drug., 178, cm, 03/03/24 11:40:00 EDT, Height, 80.5, kg,02/17/24 10:19:00 EDT, Dry Weight Start Date: 03/03/24 Status: Ordered Quantity: 30.0 Unit: tablet Repeat number: 1 Vashe Topical Solution 475 mL, Topically, Every 12 hours, 0 Refills, Maintenance, Solution Start Date: 03/03/24 Status: Ordered Repeat number: 1 Problem List Condition Confirmation Course Effective Dates Status Health Status Informant Clinical depression Confirmed Active DM (diabetes mellitus) type 2, uncontrolled, with ketoacidosis Confirmed Active S/P CABG x 2 Confirmed Active HTN, goal below 130/80 Confirmed Active Hypercholesterolemia Confirmed Active Social History Social History Type Response Smoking Status Current every day sm dominik entered on: 12/17/17 Sex Sex Representation Male (finding) Note * Event Display: Cardiac Rehab Telemetry Report Authored Date: * Event Display: Cardiac Rehab Telemetry Report Authored Date: * Event Display: Cardiac Rehab Telemetry Report Authored Date: Patient Care team information Care Team Personnel Name: Maisha Dickey Position: [facility] Supv Member Role: Primary Care Nurse Name: Mignon Self RN Position: S RN Member Role: Primary Care Nurse Name: Kobi Day NP Position: Reference Physician Member Role: PCP Address: [address] [place] [address]- Telecom: Name: Evon Gonzalez RN Position: S RN Member Role: Primary Care Nurse Name: Socorro Sue RN Position: S RN Member Role: Primary Care Nurse Name: Gianni Romero MD Position: [facility] Renal MD Member Role: Lifetime Consulting Physician Address: [address] [facility] [place] [place] [address]- Telecom: Name: Enma Orozco RN Position: [facility] RN Grecia Member Role: Primary Care Nurse Name: Nigel Azul RN Position: [facility] Rad RN Member Role: Primary Care Nurse Name: Yola Barnett RN Position: S RN Member Role: Primary Care Nurse Name: Diaz Pollock RN Position: S RN Member Role: Primary Care Nurse Name: Aminta Ramos RN Position: S RN Member Role: Primary Care Nurse Name: Agus Jeffery RN Position: S RN Member Role: Primary Care Nurse Care Team Related Persons Name: SAUNDRA HERNANDEZ Insurance Providers Guarantor name: SAUNDRA HERNANDEZ Health Plan Information #: 1 Payer: [employer] Member Number: [id number] Policy Number: NA Group Number: NA Health Plan Information #: 2 Payer: [employer] Member Number: [id number] Policy Number: NA Group Number: NA
== END 2024-06-01 14:11 | disposition home or self-care (01) ==
LOC: HO.LAB 14:10
PROVIDERS: PCP Nurse Practitioner Family; Referring Provider Nurse Practitioner Family; Visit Provider Internal Medicine Cardiovascular Disease
DX: I25.5 Ischemic cardiomyopathy (principal); E11.319 Type 2 diabetes mellitus with unspecified diabetic retinopathy without macular edema; E11.65 Type 2 diabetes mellitus with hyperglycemia
CPT/HCPCS: 36415; 80048; 80053; 80061; 81001; 81003; 82043; 82570; 83880; 84443; 85025; 85027; 93306

== ENCOUNTER 2024-06-01 14:10 | Outpatient (AMB) | payer OTHER, SELFPAY ==
[2024-06-01 14:22] VITALS: BP 130/62; PULSE 60; BMI 28.1
--- NOTE | 2024-06-01 14:22 | MHC.OFFVIS ---
Vital Signs 06/01/24 14:22 Height 5 ft 9 in Weight 190 lb 7.67 oz BMI 28.1 BP 130/62 Blood Pressure Location Lt brachial Position Sitting Pulse 60 Pulse Source Pulse Oximeter Intake Visit Reasons: [id number] Allergies No Known Allergies Allergy (Verified 04/21/24 11:56) Medication List - Last Reconciled 06/01/24 by Javier Estevez MD amoxicillin 875 mg PO Q12H aspirin 81 mg PO DAILY atorvastatin 80 mg PO DAILY blood-glucose meter,continuous (Dexcom G7 Supervisor Last Model Department) As directed blood-glucose sensor (Dexcom G7 Sensor device) Test blood sugar 3 times per day and PRN, change sensor every 10 days clopidogrel 75 mg PO DAILY dapagliflozin propanediol (Farxiga) 10 mg (2 x 5 mg) PO DAILY FreeStyle Kayode 2 [place] (flash glucose scanning reader) tid NS FreeStyle Kayode 2 Sensor (flash glucose sensor) test blood sugar 4 times per day NS furosemide 40 mg PO DAILY insulin glargine (Lantus Solostar U-100 Insulin) 35 units subcut QPM insulin lispro 8 units subcut TID losartan 25 mg PO BID metoprolol succinate ER (Toprol XL) 50 mg PO DAILY pen needle, diabetic (Microdot Insulin Pen Needle) TID spironolactone 25 mg PO DAILY HPI Comments Details: [age] year gentleman who is here for follow-up. He was seen in the hospital when he presented with NSTEMI and heart failure. He was transferred to [facility] and underwent cardiac catheterization which showed severe multivessel disease. He was referred for surgery. Given elevated hemoglobin A1c he was advised to make some lifestyle changes and be compliant with medications and subsequently underwent surgery. He successfully has gone undergone surgery at this point. He has been doing well. No chest pains or any significant shortness of breath. He is starting cardiac rehabilitation soon. Taking medications regularly. 06/01/2024. He returns after 3 months. He is c/o SOB over the last few weeks. No CP. No orthopnea or PND. He has been taken off the oxygen 1 month ago. [facility] Medical History (Updated 06/02/24 @ 16:42 by Javier Estevez MD) Bypass graft stenosis NSTEMI (non-ST elevated myocardial infarction) Nicotine dependence, cigarettes, uncomplicated Degenerative disc disease, cervical Cervical spinal stenosis Neuropathy Smoking history Elevated cholesterol Diabetic retinopathy BPH (benign prostatic hyperplasia) Retinal hemorrhage Type 2 diabetes mellitus Hypertension Surgical History Hx of tonsillectomy Family History Father Leukemia Mother No problems noted. Social History Household Members: Family Housing: Apartment Are you a primary intensive care ambulance paramedic to a significant other at home: No Do you presently have visiting nurse or other home services: No Alcohol intake: current Alcohol intake frequency: 3 or more drinks per day Alcohol type: beer and hard liquor Patient Tobacco Use Status: Current everyday Tobacco user Tobacco use type: Cigar Years Smoked: 25 e-Cigarette/Vaping Use: Never Used service: No Current occupational status: employed Current occupation: [employer] Current occupational exposures/hazards: Yes Cognitive needs: No Hearing needs: No Vision needs: No Review of Systems Const Denies chills, Denies fatigue, Denies fever(s), Denies frequent falls, Denies weakness, Denies weight gain and Denies weight loss ENT Denies dizziness Card Denies chest pain, Denies leg edema, Denies lightheadedness, Denies palpitations, Denies dyspnea and Denies dyspnea on exertion Resp Denies cough, Denies dyspnea and Denies dyspnea on exertion GI Denies hematochezia Musc Denies abnormal gait, Denies muscle weakness, Denies numbness, Denies radiating pain into limb and Denies tingling Neuro Denies abnormal gait, Denies dizziness, Denies frequent falls, Denies numbness, Denies tingling and Denies weakness Endo Denies fatigue and Denies palpitations Physical Exam Vital Signs: Last Vital Signs Pulse 60 06/01/24 14:22 BP 130/62 06/01/24 14:22 BMI result Body Mass Index 28.1 GENERAL APPEARANCE: in no acute distress, pleasant. NECK: no carotid bruit, no jugular venous distention. SKIN: no suspicious lesions, warm and dry. HEART: no murmurs, regular rate and rhythm. LUNGS: clear to auscultation bilaterally. ABDOMEN: soft, nontender. EXTREMITIES: no edema. PERIPHERAL PULSES: equal. NEUROLOGIC: No gross deficits, AAO X 3 Assessment & Plan Assessment & Plan (1) Pericardial effusion: Code(s): I31.39 - Other pericardial effusion (noninflammatory) Category: Medical (2) Ischemic cardiomyopathy: Code(s): I25.5 - Ischemic cardiomyopathy Category: Medical (3) HAYNES (dyspnea on exertion): Code(s): R06.09 - Other forms of dyspnea Category: Medical Plan 53 male with cardiomyopathy s/p CABG. He had moderate pericardial effusion before and was referred for echo but he has not done it yet. We will try to do it today. Will do basic labs including CBC and BNP. Clinically not overloaded. No obvious signs of infection. f/u in few months. Orders: Orders Complete Blood Count no Diff 06/01/24 I25.5 - Ischemic cardiomyopathy Basic Metabolic Panel 06/01/24 I25.5 - Ischemic cardiomyopathy B Type Natriuretic Peptide 06/01/24 I25.5 - Ischemic cardiomyopathy Coding Level of Care Code Est Pt Level 4 (44284) Diagnoses Pericardial effusion I31.39 Ischemic cardiomyopathy I25.5 HAYNES (dyspnea on exertion) R06.09
== END 2024-06-01 14:55 | disposition home or self-care (01) ==
PROVIDERS: PCP Nurse Practitioner Family; Visit Provider Internal Medicine Cardiovascular Disease
DX: I25.5 Ischemic cardiomyopathy (principal); I31.39 Other pericardial effusion (noninflammatory); Z98.890 Other specified postprocedural states; R06.09 Other forms of dyspnea
CPT/HCPCS: 93306; 99214

== ENCOUNTER → 2024-06-01 | Outpatient (REF) | payer OTHER, SELFPAY ==
--- OUTSIDE RECORDS SUMMARY | 2024-07-13 10:15 | XMS_ITS | CCD ---
Author Name Interface, [id number] lity Address [address] [facility] [address] [place] [address] [facility] Address [address] [facility] [address] [place] [address] Care Team Providers Care Chemical Reclamation Equipment Operator Name Role Phone CatKobi Unavailable Allergies and Adverse Reactions Medication/Group Name Reaction Severity Date No known allergies Reason for Visit OV Encounters Date Name 05/16/2021 Thrombocytopenia Functional Status Date Name Score 05/16/2021 ECOG performance status - grade 0 0 Medications Date Name Route Dose Frequency Instructions Start Date End Date Status Atorvastatin Oral active Insulin Glargine Subcutaneous 100 unit/mL active Metformin Oral ac tive Lisinopril Oral a ctive Semaglutide Subcutaneous Pen Injector active Social History Date Name Value 05/03/2021 Sex Male
--- OUTSIDE RECORDS SUMMARY | 2024-07-13 10:15 | XMS_ITS | Encounter Summary ---
Author Organization [facility] Address [address] [place] [address] Phone Care Team Providers Care Cotton Opener Name Role Phone Kobi Day NP Primary Care Provider [phone] Encounter Details Date Type Department Care Team (Late st Contact Info) Description 08/15/2022 Documentation Only [facility] [place], [address] [place] [address] Kobi aDy NP [address] [place] [address] Social History Tobacco Use Types Packs/Day Years [...] on filedocumented in this encounter Care Teams Cotton Opener Relationship Specialty Start Date End Date Kobi Day NP [address] [place] [address] PCP - General Nurse Practitioner 08/15/22 documented as of this encounter
--- OUTSIDE RECORDS SUMMARY | 2024-07-13 10:15 | XMS_ITS ---
Author Name Interface, [id number] lity Address [address] [facility] [address] [place] [address] [facility] Address [address] [facility] [address] [place] [address] Care Team Providers Care Visual Designer Name Role Phone Cat, Kobi Navarro Unavailable [...]
--- OUTSIDE RECORDS SUMMARY | 2024-07-13 10:15 | XMS_ITS | Clinical Summary ---
Author Organization [facility], Address [address] [place] [address] [place] [address] Phone Care Team Providers Care Revenue Accounting Manager Name Role Phone Kobi Day NP Primary Care Provider Allergies No known active allergies Medications atorvastatin [...] Vaccine (#1) 2024 Insurance ) Care Teams Revenue Accounting Manager Relationship Specialty Start Date End Date Kobi Day NP [address] [facility] [place] [address] PCP - General Nurse Practitioner 08/15/22
--- OUTSIDE RECORDS SUMMARY | 2024-07-13 10:15 | XMS_ITS ---
Author Name Interface, [id number] lity Address [address] [facility] [address] [place] [address] [facility] Address [address] [facility] [address] [place] [address] Care Team Providers Care Summer Law Associate Name Role Phone Cat, Kobi Navarro Unavailable [...]
--- OUTSIDE RECORDS SUMMARY | 2024-07-13 10:16 | XMS_ITS | CCD ---
Author Name Interface, [id number] lity Address [address] [facility] [address] [place] [address] [facility] Address [address] [facility] [address] [place] [address] Care Team Providers Care Development Engineer Name Role Phone CatKobi Unavailable Allergies and [...]
== END ==
LOC: HO.CARD
PROVIDERS: Visit Provider Internal Medicine Cardiovascular Disease
DX: I25.5 Ischemic cardiomyopathy (principal); I31.39 Other pericardial effusion (noninflammatory); R06.09 Other forms of dyspnea
CPT/HCPCS: 99212; Q9957

== ENCOUNTER 2024-06-04 13:06 | Outpatient (AMB) | payer OTHER, SELFPAY ==
[2024-06-04 13:16] VITALS: BP 120/72; PULSE 94; O2SAT 97; BMI 28.6
--- NOTE | 2024-06-04 13:16 | A.OFFPC_ITS ---
Vital Signs 06/04/24 13:16 Height 5 ft 9 in Weight 194 lb BMI 28.6 BP 120/72 Blood Pressure Location Rt brachial Position Sitting Pulse 94 Pulse Source Pulse Oximeter Pulse Oximetry (%) 97 Oxygen Delivery Method Room Air Intake Visit Reasons: 4 months Intake Note: pt is here for 4 month f/up Specimen Processor Required: No Accompanied by: Self / Same As Patient Allergies No Known Allergies Allergy (Verified 06/04/24 15:25) Medication List - Last Reconciled 06/04/24 by LISA Sandoval-RUBI aspirin 81 mg PO DAILY atorvastatin 80 mg PO DAILY blood-glucose meter,continuous (Dexcom G7 Ops Manager) As directed blood-glucose sensor (Dexcom G7 Sensor device) Test blood sugar 3 times per day and PRN, change sensor every 10 days clopidogrel 75 mg PO DAILY dapagliflozin propanediol (Farxiga) 10 mg (2 x 5 mg) PO DAILY fenofibrate 54 mg PO DAILY FreeStyle Kayode 2 Berry (flash glucose scanning reader) tid NS FreeStyle Kayode 2 Sensor (flash glucose sensor) test blood sugar 4 times per day NS furosemide 40 mg PO DAILY insulin glargine (Lantus Solostar U-100 Insulin) 45 units subcut QPM insulin lispro 10 units (0.1 mL) subcut TID losartan 25 mg PO BID metoprolol succinate ER (Toprol XL) 50 mg PO DAILY pen needle, diabetic (Microdot Insulin Pen Needle) TID spironolactone 25 mg PO DAILY Tobacco use date assessed: 06/04/24 Dental Screening Dental Screen Date: 06/04/24 Did you have a dental visit in the last 12 months?: Yes Did you have a dental problem in the last 6 months where you did not have access to dental care?: No Was dental information given to patient?: Patient has dentist HPI 4 months HPI Details Chief Complaint The patient presents for management of uncontrolled diabetes and evaluation of associated complications. History of Present Illness The patient is a 53-year-old male presenting with diabetes follow-up. He has a history of uncontrolled Diabetes Mellitus currently managed with Lantus insulin, adjusted from 35 to 45 units at night (today), and Lispro insulin, increased from 8 units to 10 units three times a day (today). The patient's hemoglobin A1c value of 11.1%. He experiences severe diabetic neuropathy, also weak/absent pedal pulses in both extremities, as well as a dusky hue to bilateral feet. There are also changes of onychomycosis on the toenails. Neuropathy was noted with the absence of sensation using a monofilament test on both feet. The patient reports a history of diabetic retinopathy for which surgery was performed, and he notes slight improvement in vision since the procedure (missing notes on this). Additionally, there is a history of microalbuminuria, hyperlipidemia with elevated triglycerides, and depression. The patient is on Farxiga and atorvastatin, with atorvastatin adjusted to 80 mg at night rather than during the day. He reports past consultations with a liver specialist regarding elevated liver enzymes, but details are unavailable. The patient denies symptoms such as increased dyspnea, nausea, vomiting, and constipation but reports chest discomfort which has been communicated to his flight radio operator. Social History - The patient no longer smokes cigarette s. Health Maintenance - Evaluate and manage diabetes with insu lane adjustments and monitoring of glucose levels. - Cholesterol management with atorvastat in, fenofibrate, and adding ezetimibe. - Address diabetic complications includi ng neuropathy, retinopathy, and nephropathy. - Follow-up with podiatry for foot care including onychomycosis. - Follow-up with nephrology for microalb uminuria. - Adjustment of mental health medication with the initiation of citalopram. Review of Systems - Cardiovascular: Reports intermittent c hest discomfort. Denies increased shortness of breath. - Gastrointestinal: Denies nausea, vomit ing, diarrhea, and constipation. Physical Exam General: Cooperative, healthy appearing, comfortable, no acute distress and well developed Orientation: Patient oriented x3 Limitations: No limitations Head: Normal to inspection Ears: Hearing grossly normal bilaterally Nose: Normal external nose present Face and sinus: Normal facial exam Neck: Normal visual inspection and Yes full ROM Respiratory: Slightly diminished lung sounds, but fairly clear bilaterally. Able to speak in complete sentences. Cardiovascular: Regular rate and rhythm. Normal S1 and S2. Reports intermittent chest discomfort. GI: Normal to inspection. Soft to palpation and nontender. Denies any nausea, vomiting, diarrhea, or constipation. Skin: Dusky hue noted on bilateral extremities. Onychomycosis and elongated toenails observed. Neuro: Severe neuropathy noted. No sensation with use of monofilament to bilateral feet and toes. Extremities: Dusky hue noted on bilateral feet. weak/Absent pedal pulses. Positive capillary refill. Results - Labs: Hemoglobin A1C at 11.1%. - Imaging/Test orders: Arterial ultrasou nds of bilateral extremities pending. Plan - Adjust Lantus to 45 units at night for diabetes management. - Increase Lispro to 10 units three time s daily. - Initiate arterial ultrasound for asses sing peripheral artery disease. - Refer to bookkeeping clerks supervisor for foot care conc erning neuropathic changes and overgrown toenails. - Schedule referral to nephrology to man age microalbuminuria. - Adjust atorvastatin regimen to nightti me dosing and add fenofibrate and ezetimibe for hyperlipidemia. - Start citalopram at 10 mg for depressi on. - Plan abdominal ultrasound regarding el evated liver enzymes. - Encourage diabetes follow-up in two mo nths with repeated labs for cholesterol, liver, and kidney function. Patient was informed and verbally consented to the use of an ambient scribe for clinic note documentation during this visit. Discussion Notes I discussed with the patient the importance of optimizing his glycemic control through adjustments in both basal and mealtime insulin. We explored the continuation of foot care emphasizing neuropathy monitoring and the necessity of arterial ultrasound due to weak pedal pulses. Regarding his hyperlipidemia, I explained the rationale for starting fenofibrate and adding ezetimibe and the adjustment of atorvastatin to nighttime dosing for better cholesterol control. I stressed the significance of consulting with the nephrology and podiatry services for the comprehensive management of his complications. The potential side effects and risk-benefit profile of starting citalopram were also communicated. Highly encouraged continuous follow ups with cardiology Patient Instructions - Continue with the adjusted insulin dos ing and monitor blood glucose levels regularly. - Attend scheduled follow-up appointment s with the bookkeeping clerks supervisor and salmon gillnet vessel operator. - Take atorvastatin at night and add alessia timibe as directed. - Begin citalopram as prescribed for dep ression. - Undergo ordered abdominal ultrasound f or liver assessment and arterial ultrasound for leg examination. - Report any new or worsening symptoms t o medical personnel. - Follow up in two months with repeated laboratory studies for cholesterol and organ function monitoring. [facility] Medical History Bypass graft stenosis NSTEMI (non-ST elevated myocardial infarction) Nicotine dependence, cigarettes, uncomplicated Degenerative disc disease, cervical Cervical spinal stenosis Neuropathy Smoking history Elevated cholesterol Diabetic retinopathy BPH (benign prostatic hyperplasia) Retinal hemorrhage Type 2 diabetes mellitus Hypertension Surgical History Hx of tonsillectomy Family History Father Leukemia Mother No problems noted. Social History Household Members: Family Housing: Apartment Are you a primary hemodialysis patient care specialist to a significant other at home: No Do you presently have visiting nurse or other home services: No Alcohol intake: current Alcohol intake frequency: 3 or more drinks per day Alcohol type: beer and hard liquor Patient Tobacco Use Status: Current everyday Tobacco user Tobacco use type: Cigar Years Smoked: 25 e-Cigarette/Vaping Use: Never Used service: No Current occupational status: employed Current occupation: [employer] Current occupational exposures/hazards: Yes Cognitive needs: No Hearing needs: No Vision needs: No Questionnaire PHQ-9 Over the last 2 weeks, how often have you been bothered by any of the following problems? 1. Little interest or pleasure in doing things: more than half the days 2. Feeling down, depressed, or hopeless: nearly every day 3. Trouble falling or staying asleep, or sleeping too much: more than half the days 4. Feeling tired or having little energy: more than half the days 5. Poor appetite or overeating: not at all 6. Feeling bad about yourself - or that you are a failure or have let yourself or your family down: not at all 7. Trouble concentrating on things, such as reading the newspaper or watching television: not at all 8. Moving or speaking so slowly that other people could have noticed. Or the opposite - being so fidgety or restless that you have been moving around a lot more than usual: not at all 9. Thoughts that you would be better off or of hurting yourself in some way: not at all Total score: 9 Depression Screening Interpretation: Positive Depression Screening Done: Yes 42795 - PHQ-9 Billing: Yes Source: Developed by Drs. Solis Moore, Светлана B.WAnant Garcia and colleagues, with an educational kandy from [email or web address]. Thrive Questionnaire Date Thrive assessed: 06/04/24 I am a: Patient What is your living situation today?: I have a steady place to live Within the past 12 months, did the food you bought not last and you didn't have the money to get more?: Never true Within the past 12 months, did you worry whether your food would run out before you got money to buy more?: Never true Do you have trouble paying for medicines?: No Do you have trouble getting transportation to medical appointments?: No Do you have trouble paying your heating and electricity bill?: No Do you have trouble taking care of your child, family member or friend?: No Do you have trouble with day-to-day activities such as bathing, preparing meals, shopping, managing finances, etc.?: No Are you currently unemployed and looking for a job?: I choose not to answer this question Are you interested in more education?: No Please select the resources that you would like help with: None Currently or been in a relationship where the following occur: No concerns reported THRIVE Score: 0 AUDIT C Alcohol Use Questionnaire (AUDIT-C) 1. How often do you have a drink containing alcohol?: Monthly or less 2. How many drinks containing alcohol do you have on a typical day when you are drinking?: 1 or 2 3. How often do you have six or more drinks on one occasion?: Never Total Score: 1 Score Reviewed/Action Taken: Yes GIBSON-7 AMB Questionnaire GIBSON-7 Date GIBSON - 7 assessed: 06/04/24 Feeling nervous, anxious, or on edge: 1 = Several days Not being able to stop or control worryin = Several days Worrying too much about different things: 1 = Several days Trouble relaxin = Several days Being so restless that it is hard to sit still: 1 = Several days Becoming easily annoyed or irritable: 1 = Several days Feeling afraid as if something awful might happen: 1 = Several days Total GIBSON-7 score (0-4 normal; 5-9 mild; 10-14 moderate; 15-21 severe): 7 Source: Developed by Drs. Solis Moore, Anant Hampton and colleagues, with an educational kandy from [email or web address]. GIBSON-7 Assessment Billing GIBSON-7 Assessment Tool: GIBSON-7 Assessment 81731 Physical exam (Primary Care) Vital Signs: Last Vital Signs Pulse 94 06/04/24 13:16 BP 120/72 06/04/24 13:16 Pulse Ox 97 06/04/24 13:16 Oxygen Delivery Method Room Air 06/04/24 13:16 BMI result Body Mass Index 28.6 Tobacco/Smoking Status: Tobacco use Status Tobacco use date assessed 06/04/24 06/04/24 13:21 Patient Tobacco Use Status Current everyday Tobacco 06/04/24 13:21 Tobacco use type Cigar 06/04/24 13:21 e-Cigarette/Vaping Use Never Used 06/04/24 13:21 PHQ-9: PHQ-9 Score PHQ-9: Total score 9 06/04/24 13:55 Depression Screening Interpretation: Positive Thrive Assessment: Date of Thrive Assessment Date Thrive assessed 06/04/24 06/04/24 13:21 Currently or been in a relationship where the following occur: No concerns reported Office Procedures Flu Questionnaire Does the patient have a severe egg allergy?: No Does the patient have severe life threatening allergies?: No Does the patient have a fever or illness today?: No Has the patient ever had Guillain-Mccarley Syndrome?: No Has the patient ever had any past reaction to a flu shot?: No Results AMB Hemoglobin A1c AMB Hemoglobin A1c 11.1 % Last Edit by Dereck Caba CMA on 06/04/24 13 :51 Immunizations Fluarix Triv [id number] (PF) 45 mcg (15 mcg x 3)/0.5 mL IM syringe Performing Provider: BRINA Sandoval Performing Location: [facility] Administered by: Dereck Caba CMA on 06/04/24 14:21 Dose Route Admin Location Dispensed Lot Number Expiration Date [facility] Tax Services Specialist 0.5 mL IM Right Deltoid 0.5 mL [id number] 11/23/24 [id number] Vendormate VIS Given Date VIS Provided VIS Publication Date 06/04/24 Single Vaccine 20 Eligibility Eligibility Date Funding Source Not [facility] Eligible 06/04/24 Private pneumoc 20-vinay conj-dip cr(PF) 0.5 mL IM syringe Performing Provider: KASSY Sandoval Performing Location: [facility] Administered by: Dereck Caba CMA on 06/04/24 14:21 Dose Route Admin Location Dispensed Lot Number Expiration Date [place] Tax Services Specialist 0.5 mL IM Left Deltoid 0.5 mL [id number] 09/13/25 [id number] WYETH/PFIZER VIS Given Date VIS Provided VIS Publication Date 06/04/24 Single Vaccine 21 Eligibility Eligibility Date Funding Source Not [facility] Eligible 06/04/24 Private Results Reviewed Results Reviewed: Laboratory Last Values Hgb A1c (Clinic) 11.1 % (4.0-6.0) H 06/04/24 13:51 Coding Level of Care Code Est Pt Level 4 (66013) Diagnoses Elevated liver enzymes R74.8 Dusky feet R23.8 Absent pedal pulses R09.89 Uncontrolled diabetes mellitus E11.65 Overgrown toenails L60.2 Microhematuria R31.29 Diabetic retinopathy E11.319 Additional Codes GIBSON-7 Assessment Billing - GIBSON-7 Assessment Tool: GIBSON-7 Assessment 24895 ([id number]) PHQ-9 - 24222 - PHQ-9 Billing: Yes ([id number]) Assessment & Plan Assessment & Plan (1) Elevated liver enzymes: Code(s): R74.8 - Abnormal levels of other serum enzymes Category: Medical (2) Dusky feet: Code(s): R23.8 - Other skin changes Category: Medical (3) Absent pedal pulses: Code(s): R09.89 - Other specified symptoms and signs involving the circulatory and resp iratory systems Category: Medical (4) Uncontrolled diabetes mellitus: Code(s): E11.65 - Type 2 diabetes mellitus with hyperglycemia Category: Medical (5) Overgrown toenails: Code(s): L60.2 - Onychogryphosis Category: Medical (6) Microhematuria: Code(s): R31.29 - Other microscopic hematuria Category: Medical (7) Uncontrolled diabetes mellitus: Code(s): E11.65 - Type 2 diabetes mellitus with hyperglycemia Category: Medical (8) Diabetic retinopathy: Code(s): E11.319 - Type 2 diabetes mellitus with unspecified diabetic retinopathy without macular edema Category: Medical Plan . Orders: Orders AMB Hemoglobin A1c Today Z13.9 - Encounter for screening, unspecified Hepatitis A,B,C Profile Today R74.8 - Abnormal levels of other serum enzymes Comprehensive Curtis. Panel Fast 2 Months E11. - Type 2 diabetes mellitus with hyperglycemia TSH reflex Free T4 2 Months E11. - Type 2 diabetes mellitus with hyp erglycemia UA CC w/rflx Micro + Cult 2 Months E11. - Type 2 diabetes mellitus with hyperglycemia US abdomen complete Today R74.8 - Abnormal levels of other serum enzymes US arterial duplex LE BI Today R09.89 - Other specified symptoms and signs involving the circulatory and respiratory systems, R23.8 - Other skin changes Complete Blood Count Auto Diff 2 Months E11. - Type 2 diabetes mellitus with hyperglycemia Lipid Panel 2 Months E11. - Type 2 diabetes mellitus with hyperglycemia Influenza [id number] Immunization Today Z23 - Encounter for immunization Pneumococcal 20 Immunization Today Z23 - Encounter for immunization Referrals Podiatry Referral E11. - Type 2 diabetes mellitus with hyperglycemia, L60.2 - Onychogryphosis Nephrology Referral R31.29 - Other microscopic hematuria Medications: New insulin lispro 10 units (0.1 mL) subcut TID 15 mL 0RF diabetes mellitus ezetimibe 10 mg PO DAILY 90 days 90 tabs 0RF fenofibrate 54 mg PO DAILY 90 tabs 0RF citalopram 10 mg PO DAILY 90 tabs 0RF Refilled FreeStyle Kayode 2 Berry (flash glucose scanning reader) tid 1 ea 2RF NS E11.65 - Type 2 diabetes mellitus with hyperglycemia FreeStyle Kayode 2 Sensor (flash glucose sensor) test blood sugar 4 times per day 6 ea 1RF NS E11.65 - Type 2 diabetes mellitus with hyperglycemia
--- OUTSIDE RECORDS SUMMARY | 2024-06-04 14:35 | XMS_ITS | Continuity of Care Document ---
Author Organization [facility] Address [address] [place] [address]- Care Team Providers Care Computer Console Operator Name Role Phone Shay ELLIS, Kobi Randall Primary Care Physician Encounter [facility] NBR [id number] Date(s): 05/04/24 - 06/03/24 [facility] [address] [place] [id number] Attending Physician: AdmLois edmondson Admitting Physician: AdmtrLois Referring Physician: Admtr, Ar8 Encounter Type: Triage Allergies, Adverse Reactions, Alerts No Known Allergies Immunizations Given and Recorded Vaccine Date Status Refusal Reason influenza virus vaccine, inactivated 03/19/14 Give n influenza virus vaccine, inactivated 06/05/13 Give n diphtheria-tetanus toxoids (DT) 1 11/19/09 Given 1Admin Note: [facility] amiodarone 200 mg oral tablet 200 mg, By Mouth, 2 times a day, # 30 tablet, Refills 0, Tot. Refills 0, Maintenance, 03/03/24 2:46:00 PM EDT, Route to Pharmacy Electronically, [facility], Partial fill upon patient [...] 2:38:00 PM EDT, Route to Pharmacy Electronically, [facility], Partial fill upon patient request [...] Refills, Maintenance, 03/03/24 2:39:00 PM EDT, Tablet, [facility] 3, Partial fill upon patient request [...] Refills, Maintenance, 03/03/24 2:39:00 PM EDT, Tablet, [facility] 3, Partial fill upon patient request [...] Refills, Maintenance, 01/01/24 12:33:00 PM EDT, Injection, [facility], Partial fill upon patient request if the prescription is for a schedule II opioid drug., 177, cm, 01/01/24 11:19:00 EDT, Height, 77.9, kg, 12/31/23 4:25:00 EDT, Dry Weight Start Date: 01/01/24 Status: Ordered Quantity: 15.0 Unit: mL Repeat number: 1 Lant Solostar Pen 100 units/mL subcutaneous solution = 35 units, Subcutaneous Injection, Daily at bedtime, # 15 mL, 4 Refills, Maintenance, 05/06/15 12:15:56 PM [facility] 5278 Start Date: 05/06/15 Stop Date: 10/03/15 Status: Ordered Quantity: 15.0 Unit: mL Repeat number: 5 Lasix 40 mg oral tablet 40 mg, By Mouth, Daily, # 30 tablet, Refills 0, Tot. Refills 0, Maintenance, 03/03/24 2:39:00 PM EDT, Route to Pharmacy Electronically, [facility], Partial fill upon patient request if [...] 2:44:00 PM EDT, Route to Pharmacy Electronically, [facility], Partial fill upon patient request [...] 2:45:00 PM EDT, Route to Pharmacy Electronically, [facility], Partial fill upon patient request [...] 2:46:00 PM EDT, Route to Pharmacy Electronically, [facility], Partial fill upon patient [...] Type Response Smoking Status Current every day tea dominik entered on: 12/17/17 Sex Sex Representation Male (finding) Laboratory * Event Display: Non Lab Results Authored Date: Patient Care team information Care Team Personnel Name: Maisha Dickey Position: S RN Supv Member Role: Primary Care Nurse Name: Mignon Self RN Position: S RN Member Role: Primary Care Nurse Name: Kobi Day NP Position: Reference Physician Member Role: PCP Address: [address] [place] [id number] Telecom: Name: Evon Gonzalez RN Position: S RN Member Role: Primary Care Nurse Name: Socorro Sue RN Position: S RN Member Role: Primary Care Nurse Name: Gianni Romero MD Position: [facility] Renal MD Member Role: Lifetime Consulting Physician Address: [address] [place], [place] [address] [place], [place] [id number] Telecom: Name: Enma Orozco RN Position: [facility] RN Supv Member Role: Primary Care Nurse Name: Nigel Azul RN Position: [facility] Rad RN Member Role: Primary Care Nurse Name: Yola Barnett RN Position: [facility] RN Member Role: Primary Care Nurse Name: Diaz Pollock RN Position: S RN Member Role: Primary Care Nurse Name: Aminta Ramos RN Position: [facility] RN Member Role: Primary Care Nurse Name: Agus Jeffery RN Position: [facility] RN Member Role: Primary Care Nurse Care Team Related Persons Name: SAUDNRA HERNANDEZ Insurance Providers Guarantor name: SAUNDRA HuffYLER Health Plan Information #: 1 Payer: [employer] Member Number: NA Policy Number: NA Group Number: NA
== END 2024-06-04 14:27 | disposition home or self-care (01) ==
PROVIDERS: PCP Nurse Practitioner Family; Visit Provider Nurse Practitioner Family
DX: E11.65 Type 2 diabetes mellitus with hyperglycemia (principal); E11.319 Type 2 diabetes mellitus with unspecified diabetic retinopathy without macular edema; R74.8 Abnormal levels of other serum enzymes; R23.8 Other skin changes; R09.89 Other specified symptoms and signs involving the circulatory and respiratory systems; L60.2 Onychogryphosis; R31.29 Other microscopic hematuria; Z23 Encounter for immunization

== ENCOUNTER → 2024-06-04 13:06 | Outpatient (BNVA) | payer OTHER, SELFPAY | PROVIDERS: PCP Nurse Practitioner Family; Visit Provider Nurse Practitioner Family | DX: Z23 Encounter for immunization (principal); R74.8 Abnormal levels of other serum enzymes; R23.8 Other skin changes; R09.89 Other specified symptoms and signs involving the circulatory and respiratory systems; E11.65 Type 2 diabetes mellitus with hyperglycemia; L60.2 Onychogryphosis; R31.29 Other microscopic hematuria; E11.319 Type 2 diabetes mellitus with unspecified diabetic retinopathy without macular edema | CPT/HCPCS: 83036; 90471; 90472; 90656; 90677; 96127; 99212 ==

== ENCOUNTER 2024-06-17 09:02 | Outpatient (REF) | payer OTHER, SELFPAY ==
--- NOTE | ~2024-06-17 | US_ITS ---
CLINICAL HISTORY: R74.8 - Abnormal levels of other serum enzymes US abdomen complete Comparison: None Findings: The visualized pancreas is normal. The aorta and inferior vena cava are normal caliber. Increased echotexture throughout the liver without focal lesion or intrahepatic biliary ductal dilatation. The common duct is 3.3 mm in diameter. Echogenic sludge within the gallbladder. Small gallstone is also evident. No gallbladder wall thickening or pericholecystic fluid. There is no sonographic Silva sign. The right kidney is 11.5 cm in length. The left kidney is 11.9 cm in length. Spleen is enlarged measuring 15.2 cm in long axis. No focal splenic lesions. No ascites. IMPRESSION: 1. Echogenic liver. This can be seen with fatty infiltration or medical liver disease. 2. Stones and sludge within the gallbladder without findings of cholecystitis. 3. Splenomegaly. This document has been electronically signed by: Randal Storm MD on 06/17/2024 10:20:38
--- OUTSIDE RECORDS SUMMARY | 2024-06-17 09:25 | XMS_ITS | CCD ---
Author Name Interface, [id number] lity Address [address] [facility] [address] [place] [address] [facility] Address [address] [facility] [address] [facility] [address] [place] [address] Care Team Providers Care Aircraft Log Clerk Name Role Phone CatKobi Unavailable Allergies and Adverse Reactions Reason for Visit Encounters Functional Status Medications Social History
--- OUTSIDE RECORDS SUMMARY | 2024-06-17 09:25 | XMS_ITS ---
Author Name Interface, [id number] lity Address [address] [facility] [address] [place] [address] [facility] Address [address] [facility] [address] [place] [address] Care Team Providers Care Head And Neck Surgeon Name Role Phone Cat, Kobi Navarro Unavailable Allergies and Adverse Reactions Medication/Group Name Reaction Severity Date No known allergies Plan Date Type Value 05/16/2021 APPOINTMENT OV Reason for Visit OV Encounters Date Name 05/16/2021 Erythrocytosis 05/16/2021 Thrombocytopenia Medications Date Name Route Dose Frequency Instructions Start Date End Date Status Insulin Glargine Subcutaneous 100 unit/mL active Atorvastatin Oral active Metformin Oral ac tive Lisinopril Oral a ctive Semaglutide Subcutaneous Pen Injector active Problems Diagnosis Status Date of Diagnosi s Thrombocytopenia Active 2020 Erythrocytosis Active 2020 Vital Signs Date Type Value 05/16/2021 Body Temperature 96.80 05/16/2021 Heart Beat 87.00 05/16/2021 Oxygen Saturation 97.00 05/16/2021 Intravascular Systolic 190 05/16/2021 Intravascular Diastolic 117 05/16/2021 BSA 2.11 05/16/2021 Weight 199.80 05/16/2021 Height 70.00 05/16/2021 BMI 28.67 05/16/2021 Pain Scale 0.00
--- OUTSIDE RECORDS SUMMARY | 2024-06-17 09:25 | XMS_ITS | CCD ---
Author Name Interface, [id number] lity Address [address] [facility] [address] [place] [address] [facility] Address [address] [facility] [address] [place] [address] Care Team Providers Care Video Presentation Operator Name Role Phone CatKobi Unavailable Allergies and Adverse Reactions Reason for Visit Encounters Functional Status Medications Social History
--- OUTSIDE RECORDS SUMMARY | 2024-06-17 09:25 | XMS_ITS | Encounter Summary ---
Author Organization [facility] Address [address] [place] [address] Phone Care Team Providers Care Control Panel Assembler Name Role Phone Kobi Day NP Primary Care Provider [phone] Encounter Details Date Type Department Care Team (Late st Contact Info) Description 08/15/2022 Documentation Only [facility] [place], [address] [place] [address] Kobi Day NP [address] [place] [address] Social History Tobacco Use Types Packs/Day Years Used Date Smoking Tobacco: Smoker, Current Status Unknown Alcohol Use Standard Drinks/Week Comments Yes 0 (1 standard drink = 0.6 oz pure alcohol) Alcoholic Drinks/day: 1-2 drinks per day Sex and Gender Information Value Date Recorded Sex Assigned at Not on file Legal Sex Male 4:43 PM EST Gender Identity Not on file Sexual Orientation Not on file documented as of this encounter Plan of Treatment Not on file documented as of this encounter Visit Diagnoses Not on filedocumented in this encounter Care Teams Control Panel Assembler Relationship Specialty Start Date End Date Kobi Day NP [address] [place] [address] PCP - General Nurse Practitioner 08/15/22 documented as of this encounter
--- OUTSIDE RECORDS SUMMARY | 2024-06-17 09:25 | XMS_ITS ---
Author Name Interface, [id number] lity Address [address] [facility] [address] [place] [address] [facility] Address [address] [facility] [address] [place] [address] Care Team Providers Care Foot Worker Name Role Phone Cat, Kobi Navarro Unavailable [...]
--- OUTSIDE RECORDS SUMMARY | 2024-06-17 09:25 | XMS_ITS | Clinical Summary ---
Author Organization [facility], Address [address] [place] [address] [place] [address] Phone Care Team Providers Care Solution Coordinator Name Role Phone Kobi Day NP Primary Care Provider [phone] Allergies No known active allergies Medications atorvastatin (LIPITOR) 80 MG tablet Take 80 mg by mouth 1 (one) time each day 3 Active diazePAM (VALIUM) 5 MG tablet TAKE 1 TABLET BY MOUTH AT THE OFFICE 15 MINUTES PRIOR TO CYSTOSCOPY PROCEDURE 3 Active Lantus SoloStar 100 UNIT/ML injection 3 Active lisinopril 40 MG tablet Take 1 tablet (40 mg total) by mouth 1 (one) time each day 30 tablet 11 3 Active Active Problems Problem Noted Date Diagnosed Date Hypertensive heart and renal disease with (congestive) heart failure 09/27/2022 Microalbuminuria 09/27/2022 Renal disorder due to type 2 diabetes mellitus 0 09/27/2022 Family History Relation Status Comments Father Mother Social History Tobacco Use Types Packs/Day Years [...] on file Sexual Orientation Not on file Plan of Treatment Health Maintenance Due Date Last Done Comments Pneumococcal Vaccine: Pediat rics (0 to 5 Years) and At-Risk Patients (6 to 64 Years) (1 of 2 - PCV) 08/05/1975 Hepatitis B Vaccine (1 of 3 - 19+ 3-dose series) 08/04 Colorectal Cancer Screening: Annual FOBT 2018 Colorectal Cancer Screening: Colonoscopy 2018 Colorectal Cancer Screening: Sigmoidoscopy 2018 Diabetes: Hemoglobin A1C 06/26/2020 Diabetes: Ophthalmology Exam 06/26/2020 09/17/2008 Diabetes: Pedal Pulse Checked 06/26/2020 Diabetes: Sensory Foot Exam 06/26/2020 Diabetes: Visual Foot Exam 06/26/2020 Influenza Vaccine (#1) 2024 Insurance ) Care Teams Solution Coordinator Relationship Specialty Start Date End Date Kobi Day NP [address] [place] [address] PCP - General Nurse Practitioner 08/15/22
== END 2024-06-17 09:03 | disposition home or self-care (01) ==
LOC: HO.HMGCX 09:02
PROVIDERS: PCP Nurse Practitioner Family; Visit Provider Nurse Practitioner Family
DX: R74.8 Abnormal levels of other serum enzymes (principal)
CPT/HCPCS: 76700

== ENCOUNTER → 2024-06-17 09:04 | Outpatient (BNV) | payer OTHER, SELFPAY | PROVIDERS: PCP Nurse Practitioner Family; Visit Provider Radiology Diagnostic Radiology | DX: R74.01 Elevation of levels of liver transaminase levels (principal) | CPT/HCPCS: 76700 ==

== ENCOUNTER 2024-06-24 14:28 | Outpatient (REF) | payer OTHER, SELFPAY ==
--- NOTE | ~2024-06-24 | US_ITS ---
EXAMINATION: COLOR-FLOW DUPLEX IMAGING OF THE BILATERAL LOWER EXTREMITY ARTERIAL SYSTEM. VELOCITY MEASUREMENTS THROUGHOUT THE FEMORAL ARTERIES. CLINICAL INFORMATION: Skin changes lower extremities. Absent dorsalis pedis pulses. FINDINGS: -Plaque seen bilaterally, moderate in degree. RIGHT FEMORAL RUNOFF PEAK SYSTOLIC VELOCITIES: The right common femoral artery measures 185 cm/s with biphasic waveforms. The right profunda femoral artery is 65 cm/s with biphasic waveforms. Right proximal superficial femoral artery measures 125 cm/s with triphasic waveforms. Mid superficial femoral artery is 133 cm/s with triphasic waveforms. Distal right superficial femoral artery measures 148 cm/s with triphasic waveforms. An Arterial collateral is also present measuring 178 cm/s. Right popliteal velocity measures 68 cm/s with biphasic waveforms. The posterior tibial artery velocity measures 62 cm/s with biphasic waveforms. The right anterior tibial artery demonstrates mildly diminished flow velocity of 53 cm/s with monophasic waveform. The right peroneal artery demonstrates diminished flow with velocity measurements of 26 cm/s, with monophasic waveform. The dorsalis pedis artery demonstrates complete reversal of diastolic and arterial flow. LEFT FEMORAL RUNOFF PEAK SYSTOLIC VELOCITIES: The left common femoral artery measures 1.8 cm/s and is biphasic. The left profunda femoral artery is 105 cm/s and is biphasic. Left proximal superficial femoral artery measures 125 cm/s and is triphasic. Mid superficial femoral artery is 142 cm/s and is triphasic. Distal left superficial femoral artery measures 123 cm/s and is triphasic. Left popliteal velocity measures 126 cm/s and is biphasic. The posterior tibial artery velocity measures 104 cm/s and is biphasic. The left anterior tibial artery demonstrates diminished flow velocity with measurements of 33 cm/s, and monophasic waveforms. The left peroneal artery demonstrates diminished flow velocity with measurements of 44 cm/s, and monophasic waveforms. The left dorsalis pedis velocity demonstrates complete reversal of arterial and diastolic flow. US/US arterial duplex LE BI IMPRESSION: 1. Findings consistent with moderate peripheral arterial vascular disease. Scattered moderate predominantly soft atherosclerotic disease is present. 2. Monophasic waveforms and diminished flow velocities bilaterally in the anterior tibial arteries and peroneal arteries. 2. Complete reversal of systolic and diastolic arterial flow in the dorsalis pedis arteries bilaterally. This typically indicates a high-grade stenosis causing collateral supply to the dorsalis pedis arteries. Consider further investigation with CTA runoff. 3. No definite occlusion is identified. Electronically signed by: Rahul Vargas MD 06/25/2024 08:[address] [facility]
--- OUTSIDE RECORDS SUMMARY | 2024-06-24 16:42 | XMS_ITS | CCD ---
Author Name Interface, [id number] lity Address [address] [facility] [address] [place] [address] [facility] Address [address] [facility] [address] [place] [address] Care Team Providers Care Briquette Maker Name Role Phone CatKobi duncan Unavailable Allergies and Adverse Reactions Reason for Visit Encounters Functional Status Medications Social History
--- OUTSIDE RECORDS SUMMARY | 2024-06-24 16:42 | XMS_ITS | CCD ---
Author Name Interface, [id number] lity Address [address] [facility] [address] [place] [address] [facility] Address [address] [facility] [address] [place] [address] Care Team Providers Care Etl Lead Name Role Phone CatKobi Unavailable Allergies and Adverse Reactions Medication/Group Name Reaction Severity Date No known allergies Reason for Visit OV Encounters Date Name 05/16/2021 Erythrocytosis Functional Status Date Name Score 05/16/2021 ECOG performance status - grade 0 0 Medications Date Name Route Dose Frequency Instructions Start Date End Date Status Atorvastatin Oral active Insulin Glargine Subcutaneous 100 unit/mL active Metformin Oral ac tive Lisinopril Oral a ctive Semaglutide Subcutaneous Pen Injector active Social History Date Name Value 05/03/2021 Sex Male
--- OUTSIDE RECORDS SUMMARY | 2024-06-24 16:42 | XMS_ITS | Encounter Summary ---
Author Organization [facility] Address [address] [place] [address] Phone Care Team Providers Care Service Tester Name Role Phone Kobi Day NP Primary Care Provider [phone] Encounter Details Date Type Department Care Team (Late st Contact Info) Description 08/15/2022 Documentation Only [facility] [place], [address] [place] [address] Kobi Day NP [address] [place] [address] Social History Tobacco Use Types Packs/Day Years [...] on filedocumented in this encounter Care Teams Service Tester Relationship Specialty Start Date End Date Kobi Day NP [address] [place] [address] PCP - General Nurse Practitioner 08/15/22 documented as of this encounter
--- OUTSIDE RECORDS SUMMARY | 2024-06-24 16:42 | XMS_ITS ---
Author Name Interface, [id number] lity Address [address] [facility] [address] [place] [address] [facility] Address [address] [facility] [address] [place] [address] Care Team Providers Care Manager Store Name Role Phone Cat, Kobi Navarro Unavailable [...]
--- OUTSIDE RECORDS SUMMARY | 2024-06-24 16:42 | XMS_ITS ---
Author Name Interface, [id number] lity Address [address] [facility] [address] [place] [address] [facility] Address [address] [facility] [address] [place] [address] Care Team Providers Care Steward/Stewardess Third Class Name Role Phone Cat, Kobi Navarro Unavailable [...]
--- OUTSIDE RECORDS SUMMARY | 2024-06-24 16:42 | XMS_ITS | Clinical Summary ---
Author Organization [facility], Address [address] [place] [address] [place] [address] Phone Care Team Providers Care Budget Officer Name Role Phone Kobi Day NP Primary Care Provider [phone] Allergies No known active allergies Medications atorvastatin [...] Vaccine (#1) 2024 Insurance ) Care Teams Budget Officer Relationship Specialty Start Date End Date Kobi Day NP [address] [place] [address] PCP - General Nurse Practitioner 08/15/22
== END 2024-06-24 14:29 | disposition home or self-care (01) ==
LOC: HO.US 14:28
PROVIDERS: PCP Nurse Practitioner Family; Visit Provider Nurse Practitioner Family
DX: R23.8 Other skin changes (principal); R09.89 Other specified symptoms and signs involving the circulatory and respiratory systems
CPT/HCPCS: 93925

== ENCOUNTER → 2024-06-24 14:32 | Outpatient (BNV) | payer OTHER, SELFPAY | PROVIDERS: PCP Nurse Practitioner Family; Visit Provider Radiology Diagnostic Radiology | DX: I73.9 Peripheral vascular disease, unspecified (principal); R09.89 Other specified symptoms and signs involving the circulatory and respiratory systems | CPT/HCPCS: 93925 ==

== ENCOUNTER 2024-07-14 11:59 | Outpatient (AMB) | payer OTHER, SELFPAY ==
--- NOTE | 2024-07-14 12:06 | HO.NEPHOV_ITS ---
Vital Signs 07/14/24 12:10 Height 5 ft 9 in Weight 203 lb BMI 30.0 BP 118/70 Blood Pressure Location Rt brachial Position Sitting Intake Visit Reasons: INP: Other microscopic hematuria/ Conf [place] Required: No Accompanied by: Spouse Allergies No Known Allergies Allergy (Verified 07/14/24 12:09) HPI Comments Details: Thank you for referring [facility] for CKD with proteinuria. He is a 53-year-old male with H/O uncontrolled diabetes in the past. His hemoglobin A1c was 11.1%. He experiences severe diabetic neuropathy, also weak/absent pedal pulses in both extremities, as well as a dusky hue to bilateral feet. He has H/O retinopathy, CAD needing CABG. He also has hyperlipidemia with elevated triglycerides, and depression. The patient is on Farxiga as well as ARB in addition to his regular medications. He denies symptoms such as increased dyspnea, nausea, vomiting, PND, orthopnea, chest pain or syncope. He has H/O alcohol use disorder and has been abstinent for a long time. He has H/O thrombocytopenia( ? bone marrow suppression from alcohol vs hypersplenism/increased portal pressure- even though he does not carry a diagnosis of cirrhosis). He has H/O microscopic hematuria and has seen Urology. His serum creatinine has been fairly stable [facility] Medical History Bypass graft stenosis NSTEMI (non-ST elevated myocardial infarction) Nicotine dependence, cigarettes, uncomplicated Degenerative disc disease, cervical Cervical spinal stenosis Neuropathy Smoking history Elevated cholesterol Diabetic retinopathy BPH (benign prostatic hyperplasia) Retinal hemorrhage Type 2 diabetes mellitus Hypertension Surgical History Hx of tonsillectomy Family History Father Leukemia Mother No problems noted. Social History Household Members: Family Housing: Apartment Are you a primary transition of care specialist to a significant other at home: No Do you presently have visiting nurse or other home services: No Alcohol intake: current Alcohol intake frequency: 3 or more drinks per day Alcohol type: beer and hard liquor Patient Tobacco Use Status: Current everyday Tobacco user Tobacco use type: Cigar Years Smoked: 25 e-Cigarette/Vaping Use: Never Used service: No Current occupational status: employed Current occupation: [employer] Current occupational exposures/hazards: Yes Cognitive needs: No Hearing needs: No Vision needs: No Review of Systems Const All systems reviewed & are unremarkable except as noted in HPI and below Physical Exam Vital Signs: Last Vital Signs BP 118/70 07/14/24 12:10 BMI result Body Mass Index 30.0 Const General: comfortable and no acute distress Orientation/consciousness: patient oriented x3 HEENT Head: Yes normocephalic Mouth: Normal oral and palatal mucosa present Eyes EOM: EOMs intact bilaterally Neck Neck: Yes supple Resp Auscultation: clear to auscultation bilaterally Cardio Jugular venous distension: no JVD Rate: regular rate GI Palpation (GI): Soft to palpation Auscultation: normal bowel sounds General: Yes no CVA tenderness Back/Spine/Pelvis Back: no CVA tenderness Skin General skin exam: no rashes or lesions noted Neuro General: patient oriented x3 and moves all extremities Extrem General: Yes no pedal edema Results Reviewed Nephrology Results: Hgb 16.0 g/dl (14.0-18.0) 06/01/24 WBC 5.5 X10*3/uL (4.8-10.8) 06/01/24 Plt Count 91 X10*3/uL (160-400) L 06/01/24 Sodium 136 mmol/L (135-145) 06/01/24 Potassium 4.8 mmol/L (3.3-5.1) 06/01/24 Chloride 100 mmol/L (96-108) 06/01/24 Carbon Dioxide 29 mmol/L (22-29) 06/01/24 BUN 24 mg/dL (9-16) H 06/01/24 Creatinine 1.16 mg/dL (0.5-1.4) 06/01/24 Calcium 9.7 mg/dL (8.4-10.2) 06/01/24 Urine Protein 100 (2+) mg/dL (Neg-Trace) H 06/01/24 Urine Creatinine 62.72 mg/dL 06/01/24 Assessment & Plan Assessment & Plan (1) Hypertension: Code(s): I10 - Essential (primary) hypertension Category: Medical Qualifiers: Hypertension type: primary hypertension Qualified Code(s): I10 - Essential (primary) hypertension (2) CKD stage 2 due to type 2 diabetes mellitus: Code(s): E11.22 - Type 2 diabetes mellitus with diabetic chronic kidney disease; N18.2 - Chronic kidney disease, stage 2 (mild) Category: Medical Plan [facility] has Diabetic nephropathy. He has CKD due to DM with likely contribution from vascular disease given H/O CAD needing CABG as well as PAD. He will need Doppler of renal arteries . He is on ARB as well as SGLT2i. I shall increase ARB with time depending on evolving data. He needs to keep his blood sugar better. His BP is at goal. All these have been explained in detail. Answered all his and his 's questions. F/U labs ordered Orders: Orders Immunofixation, Random Urine 3 Months E11.21 - Type 2 diabetes mellitus with diabetic nephropathy, E11.22 - Type 2 diabetes mellitus with diabetic chronic kidney disease, I10 - Essential (primary) hypertension, N18.2 - Chronic kidney disease, stage 2 (mild) Immunofixation Pnl, Serum 3 Months E11.21 - Type 2 diabetes mellitus with diabetic nephropathy, E11.22 - Type 2 diabetes mellitus with diabetic chronic kidney disease, I10 - Essential (primary) hypertension, N18.2 - Chronic kidney disease, stage 2 (mild) Blood Urea Nitrogen 3 Months E11.21 - Type 2 diabetes mellitus with diabetic nephropathy, E11.22 - Type 2 diabetes mellitus with diabetic chronic kidney disease, I10 - Essential (primary) hypertension, N18.2 - Chronic kidney disease, stage 2 (mild) Electrolytes 3 Months E11.21 - Type 2 diabetes mellitus with diabetic nephropathy, E11.22 - Type 2 diabetes mellitus with diabetic chronic kidney disease, I10 - Essential (primary) hypertension, N18.2 - Chronic kidney disease, stage 2 (mild) Protein Creatinine Ratio, Ur 3 Months E11.21 - Type 2 diabetes mellitus with diabetic nephropathy, E11.22 - Type 2 diabetes mellitus with diabetic chronic kidney disease, I10 - Essential (primary) hypertension, N18.2 - Chronic kidney disease, stage 2 (mild) Creatinine 3 Months E11.21 - Type 2 diabetes mellitus with diabetic nephropathy, E11.22 - Type 2 diabetes mellitus with diabetic chronic kidney disease, I10 - Essential (primary) hypertension, N18.2 - Chronic kidney disease, stage 2 (mild) Calcium 3 Months E11.21 - Type 2 diabetes mellitus with diabetic nephropathy, E11.22 - Type 2 diabetes mellitus with diabetic chronic kidney disease, I10 - Essential (primary) hypertension, N18.2 - Chronic kidney disease, stage 2 (mild) Coding Level of Care Code New Pt Level 4 (39933) Diagnoses Primary hypertension I10 Hypertension type: primary hypertension CKD stage 2 due to type 2 diabetes mellitus E11.22; N18.2
[2024-07-14 12:10] VITALS: BP 118/70
--- OUTSIDE RECORDS SUMMARY | 2024-07-14 13:06 | XMS_ITS | CCD ---
Author Name Interface, [id number] lity Address [address] [facility] [address] [place] [address] [facility] Address [address] [facility] [address] [place] [address] Care Team Providers Care Band Head Saw Operator Name Role Phone CatKobi duncan Unavailable Allergies and Adverse Reactions Reason for Visit Encounters Functional Status Medications Social History
--- OUTSIDE RECORDS SUMMARY | 2024-07-14 13:06 | XMS_ITS ---
Author Name Interface, [id number] lity Address [address] [facility] [address] [place] [address] [facility] Address [address] [facility] [address] [place] [address] Care Team Providers Care Job Molder Name Role Phone Cat, Kobi Navarro Unavailable [...]
--- OUTSIDE RECORDS SUMMARY | 2024-07-14 13:06 | XMS_ITS | Clinical Summary ---
Author Organization [facility], Address [address] [place] [address] [place] [address] Phone Care Team Providers Care Computer Installation Engineer Name Role Phone Kobi Day NP Primary Care Provider [phone] Allergies No known active allergies Medications atorvastatin [...] Vaccine (#1) 2024 Insurance ) Care Teams Computer Installation Engineer Relationship Specialty Start Date End Date Kobi Day NP [address] [facility] [place] [address] PCP - General Nurse Practitioner 08/15/22
--- OUTSIDE RECORDS SUMMARY | 2024-07-14 13:06 | XMS_ITS | Encounter Summary ---
Author Organization [facility] Address [address] [place] [address] Phone Care Team Providers Care Senior Credit Officer Name Role Phone Kobi Day NP Primary Care Provider [phone] Encounter Details Date Type Department Care Team (Late st Contact Info) Description 08/15/2022 Documentation Only [facility] [place], [address] [place] [address] Kobi Day NP [address] [place] [address] Social History Tobacco Use Types Packs/Day Years [...] on filedocumented in this encounter Care Teams Senior Credit Officer Relationship Specialty Start Date End Date Kobi Day NP [address] [place] [address] PCP - General Nurse Practitioner 08/15/22 documented as of this encounter
--- OUTSIDE RECORDS SUMMARY | 2024-07-14 13:06 | XMS_ITS ---
Author Name Interface, [id number] lity Address [address] [facility] [address] [place] [address] [facility] Address [address] [facility] [address] [place] [address] Care Team Providers Care Visitor Services Technician Name Role Phone Cat, Kobi Navarro Unavailable [...]
--- OUTSIDE RECORDS SUMMARY | 2024-07-14 13:07 | XMS_ITS | CCD ---
Author Name Interface, [id number] lity Address [address] [facility] [address] [place] [address] [facility] Address [address] [facility] [address] [place] [address] Care Team Providers Care Job Captain Name Role Phone CatKobi Unavailable Allergies and [...]
== END 2024-07-14 12:41 | disposition home or self-care (01) ==
PROVIDERS: PCP Nurse Practitioner Family; Referring Provider Nurse Practitioner Family; Visit Provider Internal Medicine Nephrology
DX: I12.9 Hypertensive chronic kidney disease with stage 1 through stage 4 chronic kidney disease, or unspecified chronic kidney disease (principal); E11.22 Type 2 diabetes mellitus with diabetic chronic kidney disease; N18.2 Chronic kidney disease, stage 2 (mild)
CPT/HCPCS: 99204

== ENCOUNTER → 2024-07-14 11:59 | Outpatient (BNVA) | payer OTHER, SELFPAY | PROVIDERS: PCP Nurse Practitioner Family; Referring Provider Nurse Practitioner Family; Visit Provider Internal Medicine Nephrology | DX: E11.22 Type 2 diabetes mellitus with diabetic chronic kidney disease (principal); E11.40 Type 2 diabetes mellitus with diabetic neuropathy, unspecified; E11.21 Type 2 diabetes mellitus with diabetic nephropathy; I12.9 Hypertensive chronic kidney disease with stage 1 through stage 4 chronic kidney disease, or unspecified chronic kidney disease; R80.9 Proteinuria, unspecified; N18.2 Chronic kidney disease, stage 2 (mild) | CPT/HCPCS: 99202 ==

== ENCOUNTER 2024-07-21 09:19 | Outpatient (AMB) | payer OTHER, SELFPAY ==
--- NOTE | 2024-07-21 09:22 | MHC.OFFVIS ---
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 Does have diabetic neuropathy but does notice cramping at nighttime. States it has been happening for years. States PCP and circuits engineer had difficulty palpating pedal pulses. Also had recent cardiac bypass surgery. 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 He had been seen and examined by his primary care team along with his circuits engineer who was unable to really appreciate any pedal pulses. He reports that he has had significant pain and numbness in both lower extremities. Can not walk any significant distances. Upon discussion with him he quit smoking approximately 6 months ago. He has been a diabetic for greater than 18 years. reports that he has been fairly poorly controlled. Last hemoglobin A1c was 11.1. Of note he most recently underwent CABG in January of 2024. He now presents for vascular evaluation. [facility] Medical History Bypass graft stenosis NSTEMI (non-ST elevated myocardial infarction) Nicotine dependence, cigarettes, uncomplicated Degenerative disc disease, cervical Cervical spinal stenosis Neuropathy Smoking history Elevated cholesterol Diabetic retinopathy BPH (benign prostatic hyperplasia) Retinal hemorrhage Type 2 diabetes mellitus Hypertension Surgical History Hx of tonsillectomy Family History Father Leukemia Mother No problems noted. Social History (Updated 07/21/24 @ 09:32 by BELKYS Ellsworth) Household Members: Family Housing: Apartment Are you a primary manager care management to a significant other at home: No Do you presently have visiting nurse or other home services: No Alcohol intake: current Alcohol intake frequency: 0-2 drinks per day Alcohol type: beer and hard liquor Patient Tobacco Use Status: Former Tobacco user Tobacco use type: Cigar Years Smoked: 25 e-Cigarette/Vaping Use: Never Used service: No Current occupational status: employed Current occupation: [employer] Current occupational exposures/hazards: Yes Cognitive needs: No Hearing needs: No Vision needs: No Review of Systems Const All systems reviewed & are unremarkable except as noted in HPI and below Reports no additional complaints ENT Reports Normal hearing present Card Denies chest pain, Denies chest pain at rest, Denies chest pain with activity and Denies pedal edema Resp Denies cough GI Denies abdominal pain Musc Denies abnormal gait, Denies muscle cramps and Denies radiating pain into limb Skin/Breast Denies skin ulcer and Denies wounds Neuro Reports Normal hearing present and Denies abnormal gait Psych Reports no additional complaints Physical Exam Vital Signs: BMI result Body Mass Index 30.0 Const General: cooperative, healthy appearing and comfortable Orientation/consciousness: oriented to person, oriented to place and oriented to time HEENT Head: Yes normal to inspection Neck Neck: Yes normal visual inspection Carotids: no bruits Chest Chest palpation & inspection: normal inspection of the chest Resp Effort & Inspection: normal respiratory effort and able to speak in complete sentences Auscultation: clear to auscultation bilaterally, no crackles, no rales, no rhonchi and no wheezes Cardio Other: Bilateral DP signals Rate: regular rate Rhythm: regular rhythm Heart sounds: S1 normal heart sound present and S2 normal heart sound present Bruits: no carotid bruits Peripheral pulses: Peripheral pulses 2+ throughout GI Inspection: Yes normal to inspection Skin Wounds: no wounds Hair: normal Neuro General: oriented to person, oriented to place and oriented to time Cranial nerves: Yes CN's II-XII intact bilaterally and Yes Normal hearing present Cognition (Neuro): normal cognition Motor exam (neuro): 5/5 motor strength present throughout Extrem Other: venous exam: No significant superficial varicosities or spider telangiectasias, minimal edema General: No clubbing, No cyanosis and No edema Psych Appearance: grossly normal Mental Status: mental status grossly normal Speech and movement: Normal speech and movement present Results Reviewed Results Reviewed: Lower extremity ultrasound performed 06/24/2024 demonstrates bilateral tibial disease. Assessment & Plan Assessment & Plan (1) PAD (peripheral artery disease): Code(s): I73.9 - Peripheral vascular disease, unspecified Category: Medical Plan: Patient notes leg pain when walking distances. I have discussed the pathophysiology of peripheral vascular disease with the patient. I have also discussed risk factor modification. I have reviewed the patient's arterial testing which reveals left leg tibial disease. the patient would benefit from a left leg endovascular peripheral angiogram with possible angioplasty, stent, and/or atherectomy. This has been discussed in detail with the patient along with risks, benefits, and complications. This includes but is not limited to bleeding, infection, heart attack, need for emergent surgical repair, limb ischemia, blood vessel damage, bleeding, puncture, kidney injury, bruising, allergic reaction, and skin reaction. The patient demonstrates a clear understanding. We will schedule for tomorrow. Thank you for allowing us to assist in this patient's care. Patient is on Farxiga. Risk of being on this was discussed with the patient and due to the pain he would like to move forward as quickly as possible. We will schedule for tomorrow. Coding Level of Care Code New Pt Level 4 (01057) Complex EM visit Add On G2211 Diagnoses PAD (peripheral artery disease) I73.9
--- OUTSIDE RECORDS SUMMARY | 2024-07-21 10:15 | XMS_ITS | CCD ---
Author Name Interface, [id number] lity Address [address] [facility] [address] [place] [address] [facility] Address [address] [facility] [address] [place] [address] Care Team Providers Care Surveillance Sensor Officer Name Role Phone CatKobi duncan Unavailable Allergies and Adverse Reactions Reason for Visit Encounters Functional Status Medications Social History
--- OUTSIDE RECORDS SUMMARY | 2024-07-21 10:15 | XMS_ITS ---
Author Name Interface, [id number] lity Address [address] [facility] [address] [place] [address] [facility] Address [address] [facility] [address] [place] [address] Care Team Providers Care Lead Database Administrator Name Role Phone Cat, Kobi Navarro Unavailable [...]
--- OUTSIDE RECORDS SUMMARY | 2024-07-21 10:15 | XMS_ITS | Clinical Summary ---
Author Organization [facility], Address [address] [place] [address] [place] [address] Phone Care Team Providers Care Straddle Carrier Operator Name Role Phone Kobi Day NP Primary Care Provider [phone] Allergies No known active allergies Medications atorvastatin [...] Vaccine (#1) 2024 Insurance ) Care Teams Straddle Carrier Operator Relationship Specialty Start Date End Date Kobi Day NP 1962 [facility] [place] [address] PCP - General Nurse Practitioner 08/15/22
--- OUTSIDE RECORDS SUMMARY | 2024-07-21 10:15 | XMS_ITS | Encounter Summary ---
Author Organization [facility] Address [address] [place] [address] Phone Care Team Providers Care Manager Medical Name Role Phone Kobi Day NP Primary Care Provider [phone] Encounter Details Date Type Department Care Team (Late st Contact Info) Description 08/15/2022 Documentation Only [facility], [address] [place] [address] Kobi Day NP 1962 [place] [address] Social History Tobacco Use Types Packs/Day Years [...] on filedocumented in this encounter Care Teams Manager Medical Relationship Specialty Start Date End Date Kobi Day NP 1962 [place] [address] PCP - General Nurse Practitioner 08/15/22 documented as of this encounter
== END 2024-07-21 10:11 | disposition home or self-care (01) ==
PROVIDERS: PCP Nurse Practitioner Family; Visit Provider Surgery Vascular Surgery
DX: I73.9 Peripheral vascular disease, unspecified (principal)
CPT/HCPCS: 99204; G2211

== ENCOUNTER → 2024-07-21 09:19 | Outpatient (BNVA) | payer OTHER, SELFPAY | PROVIDERS: PCP Nurse Practitioner Family; Visit Provider Surgery Vascular Surgery | DX: I73.9 Peripheral vascular disease, unspecified (principal) | CPT/HCPCS: 99202 ==

== ENCOUNTER 2024-07-22 07:54 | Day surgery (SDC) | payer OTHER, SELFPAY ==
--- OUTSIDE RECORDS SUMMARY | 2024-07-21 12:16 | XMS_ITS | CCD ---
Author Name Interface, [id number] lity Address [address] [facility] [address] [place] [address] [facility] Address [address] [facility] [address] [place] [address] Care Team Providers Care Tick Sewer Name Role Phone CatKobi duncan Unavailable Allergies and Adverse Reactions Reason for Visit Encounters Functional Status Medications Social History
--- OUTSIDE RECORDS SUMMARY | 2024-07-21 12:16 | XMS_ITS ---
Author Name Interface, [id number] lity Address [address] [facility] [address] [place] [address] [facility] Address [address] [facility] [address] [place] [address] Care Team Providers Care Bartender Server Name Role Phone Act, Kobi Navarro Unavailable Allergies and Adverse Reactions [...]
--- OUTSIDE RECORDS SUMMARY | 2024-07-21 12:16 | XMS_ITS | CCD ---
Author Name Interface, [id number] lity Address [address] [facility] [address] [place] [address] [facility] Address [address] [facility] [address] [place] [address] Care Team Providers Care Publicity Expert Name Role Phone CatKobi duncan Unavailable Allergies and Adverse Reactions Reason for Visit Encounters Functional Status Medications Social History
--- OUTSIDE RECORDS SUMMARY | 2024-07-21 12:16 | XMS_ITS | Clinical Summary ---
Author Organization [facility], Address [address] [place] [address] [place] [phone] Phone Care Team Providers Care Firesetter Name Role Phone Kobi Day NP Primary Care Provider [phone] Allergies No known active allergies Medications atorvastatin [...] Vaccine (#1) 2024 Insurance ) Care Teams Firesetter Relationship Specialty Start Date End Date Kobi Day NP [address] [place] [id number] PCP - General Nurse Practitioner 08/15/22
--- OUTSIDE RECORDS SUMMARY | 2024-07-21 12:16 | XMS_ITS | Encounter Summary ---
Author Organization [facility] Address [address] [place] [address] Phone Care Team Providers Care School Bus Operator Name Role Phone Kobi Day NP Primary Care Provider [phone] Encounter Details Date Type Department Care Team (Late st Contact Info) Description 08/15/2022 Documentation Only [facility] [place], [address] [place] [address] Kobi Day NP 1962 [place] [address] Social History Tobacco Use Types Packs/Day Years [...] on filedocumented in this encounter Care Teams School Bus Operator Relationship Specialty Start Date End Date Kobi Day NP 1962 [place] [address] PCP - General Nurse Practitioner 08/15/22 documented as of this encounter
--- OUTSIDE RECORDS SUMMARY | 2024-07-21 12:16 | XMS_ITS ---
Author Name Interface, [id number] lity Address [address] [facility] [address] [place] [address] [facility] Address [address] [facility] [address] [place] [address] Care Team Providers Care Process Technician Name Role Phone Cat, Kobi Navarro [...]
[2024-07-22] VITALS (25 sets, daily range): BP systolic 104–178; BP diastolic 68–104; PULSE 78–86; RESP 12–19; TEMP 36–36.6; O2SAT 93–100; BMI 29.5
[2024-07-22 08:50] LABS: Glucose, Whole Blood 153 mg/dL (60-115)
[2024-07-22 08:52] LABS: MANUAL DIFF FLAG NO
[2024-07-22 08:56] LABS: Basophils Absolute Auto 0.1 X10*3/uL (0.0-0.2); Eosinophils Absolute Auto 0.2 X10*3/uL (0.0-0.4); Eosinophils Percent Auto 2.8 % (0-4); Hematocrit 42.7 % (42.0-52.0); Hemoglobin 15.2 g/dl (14.0-18.0); Imm Gran Abs Auto 0.03 X10*3/uL (0.00-0.03); Imm Gran Pct Auto 0.5 % (0.0-0.4); Lymphocytes Absolute Auto 1.4 X10*3/uL (1.2-4.9); Lymphocytes Percent Auto 22.9 % (20-40); Mean Corpuscular HGB Conc 35.6 g/dl (31.0-36.0); Mean Corpuscular Hemoglobin 32.3 pg (27.0-33.0); Mean Corpuscular Volume 90.7 fL (80.0-98.0); Mean Platelet Volume 12.1 fL (9.4-12.4); Monocytes Absolute Auto 0.8 X10*3/uL (0.1-1.2); Monocytes Percent Auto 13.7 % (2-11); Neutrophils Absolute Auto 3.6 x10*3/uL (2.0-8.3); Neutrophils Percent Auto 59.1 % (45-73); Red Blood Count 4.71 X10*6/uL (4.60-5.80); Red Cell Distribution Width 13.4 % (11.0-16.0); White Blood Count 6.1 X10*3/uL (4.8-10.8)
[2024-07-22 08:57] LABS: Platelet Count 83 X10*3/uL (160-400)
[2024-07-22 09:08] LABS: Blood Urea Nitrogen 22 mg/dL (9-16); Creatinine Clr Calc Pharmacy 81.7; Estimated Glomerular Filt Rate > 60
[2024-07-22] MEDS: Midazolam HCl 2 MG/2 ML VIAL 0.5 MG IVPUSH (09:38)
[2024-07-22] MEDS: fentaNYL citrate/PF 100 MCG/2 ML VIAL 25 MCG IVPUSH (09:38)
[2024-07-22] MEDS: Heparin Sodium,Porcine 10,000 UNIT/10 ML VIAL 7000 UNIT IVPUSH (09:59)
--- NOTE | 2024-07-22 11:50 | P.OP_ITS ---
Operative Note Operative Note Date of Service: 07/22/24 Narrative: Angiogram report from [facility] Preoperative diagnosis: Atherosclerosis of left lower extremity with activity limiting claudication Postoperative diagnosis: Same Procedure: 1. Ultrasound-guided right common femoral access 2. Aortogram with bilateral lower extremity runoff 3. Left distal SFA atherectomy and plasty Surgeon:Grey Ansari M.D., FACS, RPVI Certification And Selection Specialist:None Anesthesia: Local with moderate conscious sedation. Total intraservice moderate sedation time was 60 minutes. I monitored the patient's level of consciousness and physiologic status continuously throughout the procedure. Specimens:none Drains:none Estimated blood loss: Less than 10 ml Implant: Medtronic Impact DCB 6 x 40 Indications: Very pleasant 53-year-old gentleman presents for evaluation regarding peripheral vascular disease. Had noninvasive testing that was concerning. He now presents for endovascular intervention. The patient has signed the informed consent after reviewing risks, complications, benefits, and alternatives previously discussed with the patient. The patient was given the opportunity to ask any additional questions or voice any concerns. All questions were answered to the patient's satisfaction. Procedure in detail: Patient was brought to the angiography suite prior to which a time-out was called for patient identification and site verification. Bilateral groins were prepped and draped in the standard surgical fashion. Under ultrasound guidance right common femoral was punctured with micro puncture needle and wire. Subsequently a precision 5 Qatari sheath was then placed. Bentson wire was advanced to the level of the aorta. 5 Qatari Flush catheter was brought up and parked at the level of the renal arteries. Aortogram was then undertaken. Catheter was brought down to the level of the iliac bifurcation. Iliacs were subsequently imaged. We did a runoff study with a power injection from the iliac bifurcation. Catheter was then brought in up and over to the left side SFA. Runoff study was then undertaken. It was recognized that he had a moderate stenosis in the distal SFA P1 segment of the popliteal. At this time 8000 units of systemic heparin was administered. After 5 minutes of circulation time up and over 6 Qatari sheath was then placed. We placed a Glidewire advantage through this lesion and confirmed true lumen with a trail Blazer catheter. Once this was accomplished we exchanged out for a 6 Qatari spider wire. And over this we did a Hawk 1 atherectomy device on the distal SFA lesion. Multiple unidirectional passes was then undertaken. Patient did extremely well with this. There was some residual stenosis. At this time decision was made to place a 6 by 40 drug coated balloon. This was brought into position in under 3 minutes and insufflated for a total of 3 minutes in duration. Once this was accomplished completion angiogram demonstrated excellent result. We then exchanged out for a short 6 Qatari sheath. Through this right lower extremity study was then undertaken. A CELT closure device was then placed. Patient tolerated the procedure well. Returned to recovery with stable vitals. Interpretation of films: 1. Ultrasound demonstrates appropriate femoral access site. Vessel was patent with minimal stenosis. Needle entry was visualized. Image of ultrasound was saved. 2. Aortogram demonstrates appropriate caliber aorta. Minimal disease. Appropriate take-off of the renals. 3. Iliac images demonstrate no significant disease 4. Left Leg Common femoral artery: No significant disease Profundus Femoris: No significant disease Superficial femoral artery: Moderate stenosis at the distal ask Popliteal artery (p1,p2,p3): Moderate stenosis at the P1 segment collaterals noted Anterior tibial artery: Occludes Peroneal artery: No significant disease Posterior tibial artery: No significant disease Dorsalis pedis/plantar arch: Incomplete 4. Right Leg Common femoral artery: No significant disease Profundus Femoris: No significant disease Superficial femoral artery: No significant Popliteal artery (p1,p2,p3): No significant disease Anterior tibial artery: Occludes Peroneal artery: No significant disease Posterior tibial artery: No significant disease Dorsalis pedis/plantar arch: Incomplete Conclusion: 1. Successful left SFA atherectomy and plasty. 2. Anticoagulation status: 6 months of aspirin and Plavix This note is constructed using voice recognition software. While every effort has been made to ensure accuracy, global regulatory affairs manager errors may have been included. Thank you for allowing me to participate in the care of your patient. Yours sincerely, Grey Ansari MD, FACS, R.P.V.I.
[2024-07-24 08:12] LABS: ACT 293 Celite s (79-173)
== END 2024-07-22 13:05 | disposition home or self-care (01) ==
PROVIDERS: PCP Nurse Practitioner Family; Visit Provider Surgery Vascular Surgery
DX: E11.51 Type 2 diabetes mellitus with diabetic peripheral angiopathy without gangrene (principal); I70.212 Atherosclerosis of native arteries of extremities with intermittent claudication, left leg; E11.40 Type 2 diabetes mellitus with diabetic neuropathy, unspecified; M79.662 Pain in left lower leg; R26.2 Difficulty in walking, not elsewhere classified; Z79.84 Long term (current) use of oral hypoglycemic drugs
CPT/HCPCS: 36415; 37225; 76937; 82565; 82947; 84520; 85025; 85347; 99152; 99153; C1714; C1760; C1769; C1887; C1894; C2623; J1644; J2250; J3010; Q9967

== ENCOUNTER → 2024-07-22 07:54 | Outpatient (BNV) | payer OTHER, SELFPAY | PROVIDERS: PCP Nurse Practitioner Family; Visit Provider Surgery Vascular Surgery | DX: I70.212 Atherosclerosis of native arteries of extremities with intermittent claudication, left leg (principal) | CPT/HCPCS: 37225; 75625; 75716; 76937; 99152 ==

== ENCOUNTER 2024-08-06 08:56 | Outpatient (AMB) | payer OTHER, SELFPAY ==
--- NOTE | 2024-08-06 08:58 | MHC.OFFVIS ---
Intake Visit Reasons: 2 week follow up L leg angio 07/22/24 Intake Note: 2 week follow up Left Leg angio 07/22/24. Pt states he is starting to get feeling in his foot. Accompanied by: Spouse Allergies No Known Allergies Allergy (Verified 08/06/24 09:06) HPI HPI 2 week follow up L leg angio 07/22/24: Details: Solis is presenting today for a 2 week follow up status post left leg angio on 07/22/2024. He states he is feeling much better. He is having less numbness in his left foot. He denies any pain at this time. He does continue with a daily aspirin and Plavix. He has no new concerns today. [facility] Medical History (Updated 08/06/24 @ 09:09 by BELKYS Ellsworth) S/P angiogram of extremity (07/22/24) Bypass graft stenosis NSTEMI (non-ST elevated myocardial infarction) Nicotine dependence, cigarettes, uncomplicated Degenerative disc disease, cervical Cervical spinal stenosis Neuropathy Smoking history Elevated cholesterol Diabetic retinopathy BPH (benign prostatic hyperplasia) Retinal hemorrhage Type 2 diabetes mellitus Hypertension Surgical History Hx of heart bypass surgery Hx of tonsillectomy Family History Father Leukemia Mother No problems noted. Social History Household Members: Family Housing: Apartment Are you a primary health care legal assistant to a significant other at home: No Do you presently have visiting nurse or other home services: No Alcohol intake: current Alcohol intake frequency: 0-2 drinks per day Alcohol type: beer and hard liquor Patient Tobacco Use Status: Former Tobacco user Tobacco use type: Cigar Years Smoked: 25 e-Cigarette/Vaping Use: Never Used service: No Current occupational status: employed Current occupation: [employer] Current occupational exposures/hazards: Yes Cognitive needs: No Hearing needs: No Vision needs: No Review of Systems Const Reports as per HPI and Denies weakness ENT Reports Normal hearing present and Denies dizziness Card Reports as per HPI, Denies chest pain, Denies chest pain at rest, Denies chest pain with activity, Denies dyspnea and Denies dyspnea on exertion Resp Reports as per HPI, Denies cough, Denies dyspnea and Denies dyspnea on exertion GI Reports as per HPI, Denies abdominal pain, Denies nausea and Denies vomiting Musc Denies numbness Skin/Breast Reports as per HPI, Denies erythema and Denies wounds Neuro Reports Normal hearing present, Denies dizziness, Denies numbness, Denies Sensory deficit (Neuro) and Denies weakness Psych Reports no additional complaints Endo Reports no additional complaints Physical Exam Const General: healthy appearing and no acute distress Orientation/consciousness: patient oriented x3 HEENT Head: Yes normal to inspection Ears: hearing grossly normal bilaterally Mouth: Normal oral and palatal mucosa present Resp Effort & Inspection: normal respiratory effort and able to speak in complete sentences Auscultation: clear to auscultation bilaterally Cardio Jugular venous distension: no JVD Rate: regular rate Rhythm: regular rhythm Heart sounds: S1 normal heart sound present and S2 normal heart sound present Bruits: no abdominal aortic bruits, no carotid bruits, no femoral bruits and no renal bruits Peripheral pulses: Peripheral pulses 2+ throughout GI Inspection: Yes normal to inspection Palpation (GI): No Abdominal aortic bruit present Skin General skin exam: no rashes or lesions noted Wounds: no wounds Hair: normal Neuro General: patient oriented x3 Cranial nerves: Yes Normal hearing present Cognition (Neuro): normal cognition Gait exam (Neuro): Normal gait present Motor exam (neuro): 5/5 motor strength present throughout Sensory Exam: No Sensory deficit (Neuro) Extrem Other: Bilateral lower extremities: Palpable DP pulses. Feet warm to the touch. Right groin: Incision clean, dry, and intact General: Yes normal to inspection, Yes full ROM, Yes capillary refill normal and Yes normal gait Assessment & Plan Assessment & Plan (1) PAD (peripheral artery disease): Code(s): I73.9 - Peripheral vascular disease, unspecified Category: Medical Plan: Victor Manuel is presenting today status post left lower extremity angio on 07/22/2024. He states he has been doing well since. He says the incision site in his groin has healed and the scab fell off yesterday. He states he is having some decreased numbness in his bilateral feet. He states the pain has gone away as well. We will have him follow up in 3 months with an arterial duplex with ABIs. We discussed that it can take a while for the pain and numbness to completely go away, if it does go away. We discussed the importance of continuing with a healthy well-balanced diet. We discussed if he has any other concerns or worsening symptoms to reach back out to our office. He states he is going in for a dental extraction at some point and the surgeon is concerned about the aspirin and Plavix. I did discuss with him that he can continue with Plavix with the dental extraction. Thank you for allowing us participate in the patient's care. If there are any questions or concerns, please do not hesitate to reach out to us. Please note a longitudinal relationship has been created with the patient and we have been following and surveillance this chronic condition. Orders: Orders US SAGRARIO complete 3 Months I73.9 - Peripheral vascular disease, unspecified Coding Level of Care Code Est Pt Level 4 (83638) Global (49622) Diagnoses PAD (peripheral artery disease) I73.9
== END 2024-08-06 09:21 | disposition home or self-care (01) ==
LOC: HO.HVS 08:56
PROVIDERS: PCP Nurse Practitioner Family; Visit Provider Physician Assistant Surgical
DX: I73.9 Peripheral vascular disease, unspecified (principal)
CPT/HCPCS: 99214

== ENCOUNTER → 2024-08-06 08:56 | Outpatient (BNVA) | payer SELFPAY | PROVIDERS: PCP Nurse Practitioner Family; Visit Provider Physician Assistant Surgical | DX: I73.9 Peripheral vascular disease, unspecified (principal); Z87.891 Personal history of nicotine dependence | CPT/HCPCS: 99212 ==

== ENCOUNTER 2024-09-28 14:09 | Outpatient (AMB) | payer OTHER, SELFPAY ==
[2024-09-28 14:27] VITALS: BP 112/74; PULSE 84; O2SAT 94; BMI 32.0
--- NOTE | 2024-09-28 14:27 | A.OFFPC_ITS ---
Vital Signs 09/28/24 14:27 Height 5 ft 9 in Weight 217 lb BMI 32.0 BP 112/74 Blood Pressure Location Lt brachial Position Sitting Pulse 84 Pulse Source Pulse Oximeter Pulse Oximetry (%) 94 Oxygen Delivery Method Room Air Intake Visit Reasons: 4 month follow up Intake Note: a1c attempted to be done but reading was to high for machine to read Tail Ripper Required: No Accompanied by: Self / Same As Patient Allergies No Known Allergies Allergy (Verified 09/28/24 14:27) Medication List - Last Reconciled 09/28/24 by Kobi Day CATERPILLAR OPERATOR- aspirin 81 mg PO DAILY atorvastatin 80 mg PO DAILY blood-glucose sensor (Dexcom G7 Sensor device) Test blood sugar 3 times per day and PRN, change sensor every 10 days blood-glucose,occupancy specialist,cont (Dexcom G7 Supervisor Landscape) As directed citalopram 10 mg PO DAILY clopidogrel 75 mg PO DAILY dapagliflozin propanediol (Farxiga) 10 mg (2 x 5 mg) PO DAILY ezetimibe 10 mg PO DAILY 90 days fenofibrate 54 mg PO DAILY FreeStyle Kayode 2 Kimper (flash glucose scanning reader) tid NS FreeStyle Kayode 2 Sensor (flash glucose sensor) test blood sugar 4 times per day NS furosemide 40 mg PO DAILY insulin glargine (Lantus Solostar U-100 Insulin) 55 units (0.55 mL) subcut QPM insulin lispro 10 units (0.1 mL) subcut TID losartan 25 mg PO BID metoprolol succinate ER (Toprol XL) 50 mg PO DAILY pen needle, diabetic (Microdot Insulin Pen Needle) TID spironolactone 25 mg PO DAILY Tobacco use date assessed: 06/04/24 Dental Screening Dental Screen Date: 06/04/24 HPI 4 month follow up HPI Details Chief Complaint Missed diabetes medication for a prolonged period History of Present Illness The patient is a 54-year-old male presenting for a diabetes follow-up. He has not taken his diabetes medications for approximately six to eight weeks, which has resulted in elevated blood glucose levels. When previously stable, he used up to 65 units of insulin but recently reduced to 45 units. His insulin dosage has been adjusted to 55 units to address morning blood glucose levels in the 200s. The patient shows an awareness of hypoglycemia symptoms and management. Significant neuropathy has been confirmed by objective testing and affects both legs. In addition, the patient has a continuous history of congestive heart failure under a dehydrator tender's care and had coronary artery bypass surgery in 2023, reporting overall wellness with no new cardiac symptoms. Although he is non- compliant with colorectal cancer screening, he does follow-up regularly with eye examinations for his retinopathy with a specialist. He declined administration of the pneumonia vaccine during this visit, consistent with past refusals. Social History Health Maintenance - Declined pneumonia vaccination - Not compliant with colorectal cancer s creenings; declined Cologuard and colon oscopy Review of Systems - Cardiovascular: Denies chest pain or i ncreased shortness of breath. - Gastrointestinal: Denies colorectal ca ncer screening, refuses Cologuard and colonoscopy. - Hematologic: Declined pneumonia vaccin ation. - Neurologic: Reports significant neurop athy in bilateral extremities. - Ophthalmologic: Reports regular visits with a retinal specialist. Physical Exam General: Cooperative, healthy appearing, comfortable, no acute distress and well developed Orientation: Patient oriented x3 Limitations: No limitations Head: Normal to inspection Ears: Hearing grossly normal bilaterally Nose: Normal external nose present Face and sinus: Normal facial exam Eyes: Appearance normal, both eyes and all related structures Neck: Normal visual inspection and Yes full ROM Respiratory: Normal respiratory effort and able to speak in complete sentences. Diminished though clear to auscultation bilaterally Cardiovascular: Regular rate and rhythm. Diminished S1 and S2 GI: Normal to inspection. Soft to palpation and nontender Skin: No rashes or lesions noted Neuro: Patient oriented x3 Extremities: Clubbing to fingernails, significant neuropathy to bilateral extremities, no sensation with use of monofilament, though intact. No edema noted Results Plan I have increased the patient's insulin dosage from 45 to 55 units to manage the elevated morning glucose levels reported. Blood work, particularly for A1c, is planned shortly to assess diabetes control, and the patient is advised to remain compliant with medication and lab testing. There are no changes to the current m anagement of congestive heart failure, with regular follow-up with their dehydrator tender in place, and the same applies to retinopathy, with consistent follow-ups with the retinal specialist. Despite the current refusal for colorectal screening and pneumonia vaccination, I will continue discussions about these preventative measures in future visits. Discussion Notes During the visit, I discussed the current uncontrolled diabetes due to a lapse in medication. The increase in insulin dosage was explained as necessary to bring blood glucose levels under tighter control. I emphasized the importance of returning for blood work to assess the A1c level and adjust treatment plans as needed. For congestive heart failure, I acknowledged the patient's current stability under cardiology care and reinforced the need for continued regular follow-ups. Regarding retinopathy, I endorsed the ongoing evaluation by a retinal specialist. We discussed the significance of colorectal cancer screening and pneumonia vaccination, although the patient declined these at this time. I will revisit these discussions in future appointments for preventative health measures. Patient Instructions - Increase insulin dosage to 55 units. - Schedule and complete lab work, especi ally A1c, as soon as possible. - Follow up with a laboratory visit for blood work. - Continue routine dehydrator tender appointm ents. - Keep retinal specialist appointment fo eye care. - Consider future discussions on colorec ankit screening and pneumonia vaccination. - Report any signs of hypoglycemia or ne w symptoms promptly. [facility] Medical History S/P angiogram of extremity (07/22/24) Bypass graft stenosis NSTEMI (non-ST elevated myocardial infarction) Nicotine dependence, cigarettes, uncomplicated Degenerative disc disease, cervical Cervical spinal stenosis Neuropathy Smoking history Elevated cholesterol Diabetic retinopathy BPH (benign prostatic hyperplasia) Retinal hemorrhage Type 2 diabetes mellitus Hypertension Surgical History Hx of heart bypass surgery Hx of tonsillectomy Family History Father Leukemia Mother No problems noted. Social History Household Members: Family Housing: Apartment Are you a primary care transitions manager to a significant other at home: No Do you presently have visiting nurse or other home services: No Alcohol intake: current Alcohol intake frequency: 0-2 drinks per day Alcohol type: beer and hard liquor Patient Tobacco Use Status: Former Tobacco user Tobacco use type: Cigar Years Smoked: 25 e-Cigarette/Vaping Use: Never Used service: No Current occupational status: employed Current occupation: [employer] Current occupational exposures/hazards: Yes Cognitive needs: No Hearing needs: No Vision needs: No Questionnaire Thrive Questionnaire Date Thrive assessed: 09/28/24 I am a: Patient What is your living situation today?: I have a steady place to live Within the past 12 months, did the food you bought not last and you didn't have the money to get more?: Never true Within the past 12 months, did you worry whether your food would run out before you got money to buy more?: Never true Do you have trouble paying for medicines?: No Do you have trouble getting transportation to medical appointments?: No Do you have trouble paying your heating and electricity bill?: No Do you have trouble taking care of your child, family member or friend?: No Do you have trouble with day-to-day activities such as bathing, preparing meals, shopping, managing finances, etc.?: No Are you currently unemployed and looking for a job?: I choose not to answer this question Are you interested in more education?: No Please select the resources that you would like help with: None Currently or been in a relationship where the following occur: No concerns re ported THRIVE Score: 0 GIBSON-7 AMB Questionnaire GIBSON-7 Date GIBSON - 7 assessed: 06/04/24 Source: Developed by Drs. Solis Moore, Светлана Christy, Anant Romano and colleagues, with an educational kandy from [employer]. Physical exam (Primary Care) Vital Signs: Last Vital Signs Pulse 84 09/28/24 14:27 BP 112/74 09/28/24 14:27 Pulse Ox 94 09/28/24 14:27 Oxygen Delivery Method Room Air 09/28/24 14:27 BMI result Body Mass Index 32.0 Tobacco/Smoking Status: Tobacco use Status Tobacco use date assessed 06/04/24 09/28/24 14:28 Patient Tobacco Use Status Former Tobacco user 09/28/24 14:28 Tobacco use type Cigar 09/28/24 14:28 e-Cigarette/Vaping Use Never Used 09/28/24 14:28 Thrive Assessment: Date of Thrive Assessment Date Thrive assessed 09/28/24 09/28/24 14:28 Currently or been in a relationship where the following occur: No concerns reported Coding Level of Care Code Est Pt Level 4 (59365) Diagnoses Diabetic nephropathy associated with type 2 diabetes mellitus E11.21 Screening PSA (prostate specific antigen) Z12.5 Uncontrolled diabetes mellitus E11.65 Assessment & Plan Assessment & Plan (1) Diabetic nephropathy associated with type 2 diabetes mellitus: Code(s): E11.21 - Type 2 diabetes mellitus with diabetic nephropathy Category: Medical (2) Screening PSA (prostate specific antigen): Code(s): Z12.5 - Encounter for screening for malignant neoplasm of prostate Category: Medical (3) Uncontrolled diabetes mellitus: Code(s): E11.65 - Type 2 diabetes mellitus with hyperglycemia Category: Medical Plan . Orders: Orders Hemoglobin A1c Today E11.21 - Type 2 diabetes mellitus with diabetic nephropathy Complete Blood Count Auto Diff Today E11.65 - Type 2 diabetes mellitus with hyperglycemia Comprehensive [place]. Panel Fast Today E11.65 - Type 2 diabetes mellitus with hyperglycemia Lipid Panel Today E11.65 - Type 2 diabetes mellitus with hyperglycemia Prostate Specific Antigen Scr Today Z12.5 - Encounter for screening for malignant neoplasm of prostate TSH reflex Free T4 Today E11.65 - Type 2 diabetes mellitus with hyperglycemia UA CC w/rflx Micro + Cult Today E11.65 - Type 2 diabetes mellitus with hyperglycemia Medications: New insulin glargine (Lantus Solostar U-100 Insulin) 55 units (0.55 mL) subcut QPM 15 mL 0RF Changed From citalopram 10 mg PO DAILY 90 tabs 0RF To citalopram 20 mg PO DAILY 90 tabs 0RF
--- OUTSIDE RECORDS SUMMARY | 2024-09-28 15:42 | XMS_ITS | CCD ---
Author Name Interface, N3Fevtgyb lity Address [address] [facility] [address] [place] [address] [facility] Address [address] [facility] [address] [place] [address] Care Team Providers Care Cable Operator Name Role Phone CatKobi Unavailable Allergies and Adverse Reactions Reason for Visit Encounters Functional Status Medications Social History
--- OUTSIDE RECORDS SUMMARY | 2024-09-28 15:42 | XMS_ITS | Clinical Summary ---
Author Organization [facility], Address [address] [place] [address] [place] [address] Phone Care Team Providers Care Manager Training And Development Name Role Phone Kobi Day NP Primary Care Provider [phone] Allergies No known active allergies Medications atorvastatin [...] Health Maintenance Due Date Last Done Comments Hepatitis B Vaccine (1 of 3 - 19+ 3-dose series) 08/04 Pneumococcal Vaccine: 50+ Years (1 of 2 - PCV) 989 Colorectal Cancer Screening: Annual FOBT 2018 Colorectal Cancer Screening: Colonoscopy 2018 Colorectal Cancer Screening: Sigmoidoscopy 2018 Diabetes: Hemoglobin A1C 06/26/2020 Diabetes: Ophthalmology Exam 06/26/2020 09/17/2008 Diabetes: Pedal Pulse Checked 06/26/2020 Diabetes: Sensory Foot Exam 06/26/2020 Diabetes: Visual Foot Exam 06/26/2020 Influenza Vaccine (Season Ended) 2025 Insurance [facility] Plan ([id number]) Care Teams Manager Training And Development Relationship Specialty Start Date End Date Kobi Day NP [address] [place] [address] PCP - General Nurse Practitioner 08/15/22
--- OUTSIDE RECORDS SUMMARY | 2024-09-28 15:42 | XMS_ITS | CCD ---
Author Name Interface, S4Xquacpr lity Address [address] [facility] [address] [place] [address] [facility] Address [address] [facility] [address] [place] [address] Care Team Providers Care Stress Test Technician Name Role Phone CatKobi Unavailable Allergies and Adverse Reactions Reason for Visit Encounters Functional Status Medications Social History
--- OUTSIDE RECORDS SUMMARY | 2024-09-28 15:42 | XMS_ITS | Encounter Summary ---
Author Organization [facility] Address [address] [place] [address] Phone Care Team Providers Care Bridge Manager Name Role Phone Kobi Day NP Primary Care Provider [phone] Encounter Details Date Type Department Care Team (Late st Contact Info) Description 08/15/2022 Documentation Only [facility], [address] [place] [address] Kobi Day NP [address] [place] [address] Social History Tobacco Use Types Packs/Day Years [...] on filedocumented in this encounter Care Teams Bridge Manager Relationship Specialty Start Date End Date Kobi Day NP [address] [place] [address] PCP - General Nurse Practitioner 08/15/22 documented as of this encounter
--- OUTSIDE RECORDS SUMMARY | 2024-09-28 15:42 | XMS_ITS ---
Author Name Interface, N3Wmojzks lity Address [address] [facility] [address] [place] [address] [facility] Address [address] [facility] [address] [place] [address] Care Team Providers Care Real Estate Administrative Assistant Name Role Phone Cat, Kobi Navarro Unavailable [...]
--- OUTSIDE RECORDS SUMMARY | 2024-09-28 15:42 | XMS_ITS ---
Author Name Interface, [id number] lity Address [address] [facility] [address] [place] [address] [facility] Address [address] [facility] [address] [place] [address] Care Team Providers Care Sales Agent Fire Insurance Name Role Phone Cta, Kobi Navarro Unavailable Allergies and Adverse Reactions [...]
== END 2024-09-28 15:45 | disposition home or self-care (01) ==
PROVIDERS: PCP Nurse Practitioner Family; Visit Provider Nurse Practitioner Family
DX: E11.21 Type 2 diabetes mellitus with diabetic nephropathy (principal); Z12.5 Encounter for screening for malignant neoplasm of prostate; E11.65 Type 2 diabetes mellitus with hyperglycemia

== ENCOUNTER → 2024-09-28 14:09 | Outpatient (BNVA) | payer OTHER, SELFPAY | PROVIDERS: PCP Nurse Practitioner Family; Visit Provider Nurse Practitioner Family | DX: E11.21 Type 2 diabetes mellitus with diabetic nephropathy (principal); E11.65 Type 2 diabetes mellitus with hyperglycemia; I50.9 Heart failure, unspecified; Z79.4 Long term (current) use of insulin; Z95.1 Presence of aortocoronary bypass graft | CPT/HCPCS: 99212 ==

== ENCOUNTER 2024-10-07 10:36 | Outpatient (AMB) | payer OTHER, SELFPAY ==
[2024-10-07 11:09] VITALS: BP 116/78; PULSE 84; RESP 16; TEMP 36.8; O2SAT 96; BMI 32.2
--- NOTE | 2024-10-07 11:09 | MHC.PC.OV ---
Vital Signs 10/07/24 11:09 Height 5 ft 9 in Weight 218 lb BMI 32.2 BP 116/78 Blood Pressure Location Rt brachial Position Sitting Respiration 16 Pulse 84 Pulse Source Pulse Oximeter Temp 98.2 F Temp Source Oral Pulse Oximetry (%) 96 Oxygen Delivery Method Room Air Intake Visit Reasons: Diabetic foot visit, Priyanka pt Intake Note: Pt is here today for his DM foot visit (Priyanka G patient) Allergies No Known Allergies Allergy (Verified 10/19/24 15:43) Medication List - Last Reconciled 10/07/24 by Jody Gomes MD aspirin 81 mg PO DAILY atorvastatin 80 mg PO DAILY blood-glucose sensor ([employer] G7 Sensor device) Test blood sugar 3 times per day and PRN, change sensor every 10 days blood-glucose,bridal gown fitter,cont (Dexcom G7 Building Carpenter Helper) As directed citalopram 20 mg PO DAILY clopidogrel 75 mg PO DAILY dapagliflozin propanediol (Farxiga) 10 mg (2 x 5 mg) PO DAILY ezetimibe 10 mg PO DAILY 90 days fenofibrate 54 mg PO DAILY FreeStyle Kayode 2 Jackson (flash glucose scanning reader) tid NS FreeStyle Kayode 2 Sensor (flash glucose sensor) test blood sugar 4 times per day NS furosemide 40 mg PO DAILY insulin glargine (Lantus Solostar U-100 Insulin) 55 units (0.55 mL) subcut QPM insulin lispro 10 units (0.1 mL) subcut TID losartan 25 mg PO BID metoprolol succinate ER (Toprol XL) 50 mg PO DAILY pen needle, diabetic (Microdot Insulin Pen Needle) TID spironolactone 25 mg PO DAILY Tobacco use date assessed: 10/07/24 Dental Screening Dental Screen Date: 10/07/24 Did you have a dental visit in the last 12 months?: No Did you have a dental problem in the last 6 months where you did not have access to dental care?: No Was dental information given to patient?: No HPI Diabetic foot visit, Priyanka pt HPI Details 54-year-old male with history of chronic kidney disease, peripheral vascular disease, diabetes mellitus with neuropathy currently on Farxiga, Lantus insulin and insulin lispro, here today for his diabetes foot exam. He had a lapse in his medication causing his diabetes to be uncontrolled. Continues to have intermittent numbness tingling in both feet. [facility] Medical History Diabetic peripheral neuropathy associated with type 2 diabetes mellitus S/P angiogram of extremity (07/22/24) Bypass graft stenosis NSTEMI (non-ST elevated myocardial infarction) Nicotine dependence, cigarettes, uncomplicated Degenerative disc disease, cervical Cervical spinal stenosis Neuropathy Smoking history Elevated cholesterol Diabetic retinopathy BPH (benign prostatic hyperplasia) Retinal hemorrhage Type 2 diabetes mellitus Hypertension Surgical History Hx of heart bypass surgery Hx of tonsillectomy Family History Father Leukemia Mother No problems noted. Social History Household Members: Family Housing: Apartment Are you a primary day care director to a significant other at home: No Do you presently have visiting nurse or other home services: No Alcohol intake: current Alcohol intake frequency: 0-2 drinks per day Alcohol type: beer and hard liquor Patient Tobacco Use Status: Former Tobacco user Tobacco use type: Cigar Years Smoked: 25 e-Cigarette/Vaping Use: Never Used service: No Current occupational status: unemployed Current occupation: [employer] Current occupational exposures/hazards: Yes Cognitive needs: No Hearing needs: No Vision needs: Yes Questionnaire Thrive Questionnaire Date Thrive assessed: 06/01/24 I am a: Patient What is your living situation today?: I have a steady place to live Within the past 12 months, did the food you bought not last and you didn't have the money to get more?: Never true Within the past 12 months, did you worry whether your food would run out before you got money to buy more?: Never true Do you have trouble paying for medicines?: No Do you have trouble getting transportation to medical appointments?: No Do you have trouble paying your heating and electricity bill?: No Do you have trouble taking care of your child, family member or friend?: No Do you have trouble with day-to-day activities such as bathing, preparing meals, shopping, managing finances, etc.?: No Are you currently unemployed and looking for a job?: I choose not to answer this question Are you interested in more education?: No Please select the resources that you would like help with: None Currently or been in a relationship where the following occur: No concerns reported THRIVE Score: 0 GIBSON-7 AMB Questionnaire GIBSON-7 Date GIBSON - 7 assessed: 06/04/24 Source: Developed by Drs. Solis Moore, Светлана Christy, Anant Romano and colleagues, with an educational kandy from [employer]. Review of Systems Const All systems reviewed & are unremarkable except as noted in HPI and below Physical exam (Primary Care) Vital Signs: Last Vital Signs Temp 98.2 F 10/07/24 11:09 Pulse 84 10/07/24 11:09 Resp 16 10/07/24 11:09 BP 116/78 10/07/24 11:09 Pulse Ox 96 10/07/24 11:09 Oxygen Delivery Method Room Air 10/07/24 11:09 BMI result Body Mass Index 32.2 Tobacco/Smoking Status: Tobacco use Status Tobacco use date assessed 10/07/24 10/07/24 11:12 Patient Tobacco Use Status Former Tobacco user 10/07/24 11:12 Tobacco use type Cigar 10/07/24 11:12 e-Cigarette/Vaping Use Never Used 10/07/24 11:12 Thrive Assessment: Date of Thrive Assessment Date Thrive assessed 06/01/24 10/07/24 11:12 Currently or been in a relationship where the following occur: No concerns reported Const Other: Alert oriented x3, distress Neck Neck: Yes full ROM, Yes no lymphadenopathy and Yes supple Resp Auscultation: clear to auscultation bilaterally Cardio Other: S1-S2 present regular rate and rhythm Extrem Other: Unable to palpate dorsalis pedis or posterior tibial pulses bilaterally, plantar calluses noted bilaterally, absent sensation on monofilament testing, both feet cool to touch, thickened discolored toenails in both feet Coding Level of Care Code Est Pt Level 4 (88326) Diagnoses Diabetic peripheral neuropathy associated with type 2 diabetes mellitus E11.42 Diabetic nephropathy associated with type 2 diabetes mellitus E11.21 CKD stage 2 due to type 2 diabetes mellitus E11.22; N18.2 PAD (peripheral artery disease) I73.9 Ischemic cardiomyopathy I25.5 Diabetic retinopathy E11.319 Assessment & Plan Assessment & Plan (1) Diabetic peripheral neuropathy associated with type 2 diabetes mellitus: Code(s): E11.42 - Type 2 diabetes mellitus with diabetic polyneuropathy Category: Medical Plan: Currently on Farxiga, Lantus and insulin lispro, reinforced compliance with taking medications as directed and adherence to recommended diet. Currently being followed by at [facility], (2) Diabetic nephropathy associated with type 2 diabetes mellitus: Code(s): E11.21 - Type 2 diabetes mellitus with diabetic nephropathy Category: Medical Plan: Followed by Nephrology (3) CKD stage 2 due to type 2 diabetes mellitus: Code(s): E11.22 - Type 2 diabetes mellitus with diabetic chronic kidney disease; N18.2 - Chronic kidney disease, stage 2 (mild) Category: Medical Plan: Followed by Nephrology (4) PAD (peripheral artery disease): Code(s): I73.9 - Peripheral vascular disease, unspecified Category: Medical Plan: Currently followed by vascular surgery, currently on atorvastatin and clopidogrel (5) Ischemic cardiomyopathy: Code(s): I25.5 - Ischemic cardiomyopathy Category: Medical Plan: Followed by cardiology, sees Dr. Estevez (6) Diabetic retinopathy: Code(s): E11.319 - Type 2 diabetes mellitus with unspecified diabetic retinopathy without macular edema Category: Medical Plan: Up-to-date with diabetes retinopathy screening, sees Dr. Giron
--- OUTSIDE RECORDS SUMMARY | 2024-10-07 11:39 | XMS_ITS | CCD ---
Author Name Interface, P3Jsubknc lity Address [address] [facility] [address] [place] [address] [facility] Address [address] [facility] [address] [place] [address] Care Team Providers Care Backbreaker Name Role Phone CatKobi Unavailable Allergies and [...]
--- OUTSIDE RECORDS SUMMARY | 2024-10-07 11:39 | XMS_ITS ---
Author Name Interface, [id number] lity Address [address] [facility] [address] [place] [address] [facility] Address [address] [facility] [address] [place] [address] Care Team Providers Care Cad Administrator Name Role Phone Cat, Kobi Navarro [...]
--- OUTSIDE RECORDS SUMMARY | 2024-10-07 11:39 | XMS_ITS | Encounter Summary ---
Author Organization [facility] Address [address] [place] [address] Phone Care Team Providers Care Data Software Engineer Name Role Phone Kobi Day NP Primary Care Provider [phone] Encounter Details Date Type Department Care Team (Late st Contact Info) Description 08/15/2022 Documentation Only [facility] [place], [address] [place] [address] Kobi Day NP [address] [place] [address] Social History Tobacco Use Types Packs/Day Years [...] on filedocumented in this encounter Care Teams Data Software Engineer Relationship Specialty Start Date End Date Kobi Day NP [address] [place] [address] PCP - General Nurse Practitioner 08/15/22 documented as of this encounter
--- OUTSIDE RECORDS SUMMARY | 2024-10-07 11:39 | XMS_ITS | Clinical Summary ---
Author Organization [facility], Address [address] [place] [address] [place] [address] Phone Care Team Providers Care Creative Consultant Name Role Phone Kobi Day NP Primary Care Provider [phone] Allergies No known active allergies Medications atorvastatin [...] 06/26/2020 Influenza Vaccine (Season Ended) 2025 Insurance [facility] Plan ([id number]) Care Teams Creative Consultant Relationship Specialty Start Date End Date Kobi Day NP 1962 [place] [address] PCP - General Nurse Practitioner 08/15/22
--- OUTSIDE RECORDS SUMMARY | 2024-10-07 11:39 | XMS_ITS | CCD ---
Author Name Interface, [id number] lity Address [address] [facility] [address] [place] [address] [facility] Address [address] [facility] [address] [place] [address] Care Team Providers Care Insurance Broker Name Role Phone CatKobi Unavailable Allergies and [...]
--- OUTSIDE RECORDS SUMMARY | 2024-10-07 11:39 | XMS_ITS ---
Author Name Interface, [id number] lity Address [address] [facility] [address] [place] [address] [facility] Address [address] [facility] [address] [place] [address] Care Team Providers Care Journeyman Level Acoustic Analyst Name Role Phone Cat, Kobi Navarro Unavailable [...]
== END 2024-10-07 12:35 | disposition home or self-care (01) ==
LOC: HO.HMCC 10:36
PROVIDERS: PCP Nurse Practitioner Family; Visit Provider Internal Medicine
DX: E11.42 Type 2 diabetes mellitus with diabetic polyneuropathy (principal); E11.21 Type 2 diabetes mellitus with diabetic nephropathy; E11.22 Type 2 diabetes mellitus with diabetic chronic kidney disease; E11.319 Type 2 diabetes mellitus with unspecified diabetic retinopathy without macular edema; N18.2 Chronic kidney disease, stage 2 (mild); I73.9 Peripheral vascular disease, unspecified; I25.5 Ischemic cardiomyopathy

== ENCOUNTER → 2024-10-07 10:36 | Outpatient (BNVA) | payer OTHER, SELFPAY | PROVIDERS: PCP Nurse Practitioner Family; Visit Provider Internal Medicine | DX: E11.22 Type 2 diabetes mellitus with diabetic chronic kidney disease (principal); E11.42 Type 2 diabetes mellitus with diabetic polyneuropathy; E11.51 Type 2 diabetes mellitus with diabetic peripheral angiopathy without gangrene; E11.21 Type 2 diabetes mellitus with diabetic nephropathy; N18.2 Chronic kidney disease, stage 2 (mild); I25.5 Ischemic cardiomyopathy; E11.319 Type 2 diabetes mellitus with unspecified diabetic retinopathy without macular edema; Z76.89 Persons encountering health services in other specified circumstances; Z79.899 Other long term (current) drug therapy; Z79.4 Long term (current) use of insulin | CPT/HCPCS: 99212 ==

== ENCOUNTER 2024-10-10 06:50 | Outpatient (REF) | payer OTHER, SELFPAY ==
[2024-10-10 11:16] LABS: MANUAL DIFF FLAG NO
[2024-10-10 11:34] LABS: Basophils Absolute Auto 0.1 X10*3/uL (0.0-0.2); Basophils Percent Auto 1.9 % (0-2); Eosinophils Absolute Auto 0.2 X10*3/uL (0.0-0.4); Eosinophils Percent Auto 5.2 % (0-4); Hemoglobin 15.3 g/dl (14.0-18.0); Imm Gran Abs Auto 0.02 X10*3/uL (0.00-0.03); Imm Gran Pct Auto 0.5 % (0.0-0.4); Lymphocytes Absolute Auto 1.3 X10*3/uL (1.2-4.9); Lymphocytes Percent Auto 30.5 % (20-40); Mean Corpuscular HGB Conc 34.8 g/dl (31.0-36.0); Mean Corpuscular Hemoglobin 32.2 pg (27.0-33.0); Mean Corpuscular Volume 92.6 fL (80.0-98.0); Mean Platelet Volume 12.7 fL (9.4-12.4); Monocytes Absolute Auto 0.5 X10*3/uL (0.1-1.2); Monocytes Percent Auto 11.3 % (2-11); Neutrophils Absolute Auto 2.2 x10*3/uL (2.0-8.3); Neutrophils Percent Auto 50.6 % (45-73); Red Blood Count 4.75 X10*6/uL (4.60-5.80); Red Cell Distribution Width 13.5 % (11.0-16.0); White Blood Count 4.3 X10*3/uL (4.8-10.8)
[2024-10-10 11:35] LABS: Appearance Urine Clear; Color Urine Yellow; Glucose Urine UA >=1000 mg/dL (Negative); Leukocyte Esterase Urine Negative (Negative); Nitrite Urine Negative (Negative); PH 5.5 (5.0-9.0); Specific Gravity - Urine >= 1.030 (1.005-1.025); UMIC TRIGGER UACC YES; Urine Blood Trace (Negative); Urine Ketones Negative (Negative); Urine Protein 100 (2+) mg/dL (Neg-Trace)
[2024-10-10 11:36] LABS: Platelet Count 75 X10*3/uL (160-400)
[2024-10-10 11:39] LABS: Bacteria Urine None Seen (None Seen); Hyaline Casts Urine 0-2 /LPF (0-2); RBC Urine 0-2 /HPF (0-2); Squamous Epithelial Cell Urine 0-2 /HPF (0-2); WBC Urine 0-5 /HPF (0-5)
[2024-10-10 11:41] LABS: Estimated Average Glucose 249 mg/dL; Hemoglobin A1c % 10.3 % (<6.0); Total Hemoglobin (HGBA1C) 3961.9617 umol/L
[2024-10-10 11:55] LABS: Creatinine Urine 62.52 mg/dL; Protein/Creatinine Ratio, Ur 0.93 (<0.2); Total Protein Urine Random 58 mg/dL (<12)
[2024-10-10 11:56] LABS: HBc Num1 0.08 S/CO (0.00-0.79); HBsAGNum1 0.44 S/CO (0.00-0.99); Hepatitis A Antibody IgM 0.15 Index (0-0.79); Hepatitis B Core Antibody Nonreactive (Nonreactive); Hepatitis B Surface Antigen Negative (Negative); TSH reflex Free T4 2.13 uIU/mL (0.32-4.0); ~HepC Num1 0.12 S/CO (0.00-0.79); ~Hepatitis A Antibody IgM Nonreactive (Nonreactive); ~Hepatitis B Surface Antibody NONREACTIVE (Nonreactive); ~Hepatitis C Antibody Nonreactive (Nonreactive)
[2024-10-10 12:02] LABS: Alanine Aminotransferase 26 U/L (0-40); Albumin Level 4.3 g/dL (3.5-5.0); Alkaline Phosphatase 118 U/L (39-117); Anion Gap 15 (12-20); Aspartate Amino Transferase 32 U/L (5-37); Bilirubin Total 0.7 mg/dL (0.0-1.0); Blood Urea Nitrogen 25 mg/dL (9-16); Calcium 9.5 mg/dL (8.4-10.2); Carbon Dioxide 28 mmol/L (22-29); Chloride 101 mmol/L (96-108); Cholesterol 198 mg/dL (<200); Estimated Glomerular Filt Rate 54; Glucose Fasting 347 mg/dL (60-99); HDL Cholesterol 39 mg/dL (>40); Potassium 4.7 mmol/L (3.3-5.1); Sodium 139 mmol/L (135-145); Total Protein 7.3 g/dL (6.5-8.0); Triglycerides 458 mg/dL (<150)
[2024-10-13 15:33] LABS: IgA 380 mg/dL (47-310); IgG 965 mg/dL (600-1640); IgM 52 mg/dL (50-300)
== END 2024-10-10 06:51 | disposition home or self-care (01) ==
LOC: HO.HMGCLDS 06:50
PROVIDERS: Internal Medicine Nephrology; PCP Nurse Practitioner Family; Visit Provider Nurse Practitioner Family
DX: E11.22 Type 2 diabetes mellitus with diabetic chronic kidney disease (principal); N18.2 Chronic kidney disease, stage 2 (mild); I12.9 Hypertensive chronic kidney disease with stage 1 through stage 4 chronic kidney disease, or unspecified chronic kidney disease; E11.21 Type 2 diabetes mellitus with diabetic nephropathy; R74.8 Abnormal levels of other serum enzymes; E11.65 Type 2 diabetes mellitus with hyperglycemia; Z12.5 Encounter for screening for malignant neoplasm of prostate
CPT/HCPCS: 36415; 80053; 80061; 81001; 82570; 82784; 83036; 84153; 84156; 84443; 85025; 86334; 86335; 86704; 86706; 86709; 86803; 87340

== ENCOUNTER 2024-10-13 09:19 | Outpatient (AMB) | payer OTHER, SELFPAY ==
[2024-10-13 09:23] VITALS: BP 152/90; PULSE 82; O2SAT 91; BMI 31.9
--- NOTE | 2024-10-13 09:23 | HO.NEPHOV ---
Vital Signs 10/13/24 09:23 Height 5 ft 9 in Weight 216 lb BMI 31.9 BP 152/90 H Blood Pressure Location Lt brachial Position Sitting Pulse 82 Pulse Source Pulse Oximeter Pulse Oximetry (%) 91 L Oxygen Delivery Method Room Air Intake Visit Reasons: 3mon follow-up w/labs Gasoline Tractor Operator Required: No Accompanied by: Spouse Allergies No Known Allergies Allergy (Verified 10/13/24 09:25) HPI Comments Details: Solis was seen in follow up for CKD with proteinuria. He is a 54-year-old male with H/O uncontrolled diabetes in the past. His hemoglobin A1c was 11.1% which has improved , though not much. He experiences severe diabetic neuropathy, also weak/absent pedal pulses in both extremities, as well as a dusky hue to bilateral feet & underwent stenting on LLE. He has H/O retinopathy, CAD needing CABG. He also has hyperlipidemia with elevated triglycerides, and depression. The patient is on Farxiga as well as ARB in addition to his regular medications. He denies symptoms such as increased dyspnea, nausea, vomiting, PND, orthopnea, chest pain or syncope. He has H/O alcohol use disorder and has been abstinent for a long time. He has H/O thrombocytopenia( ? bone marrow suppression from alcohol vs hypersplenism/increased portal pressure- even though he does not carry a diagnosis of cirrhosis). He has H/O microscopic hematuria and has seen Urology. His serum creatinine has been fairly stable [facility] Medical History (Updated 10/13/24 @ 09:51 by Luis Tapia MD) Diabetic peripheral neuropathy associated with type 2 diabetes mellitus S/P angiogram of extremity (07/22/24) Bypass graft stenosis NSTEMI (non-ST elevated myocardial infarction) Nicotine dependence, cigarettes, uncomplicated Degenerative disc disease, cervical Cervical spinal stenosis Neuropathy Smoking history Elevated cholesterol Diabetic retinopathy BPH (benign prostatic hyperplasia) Retinal hemorrhage Type 2 diabetes mellitus Hypertension Surgical History Hx of heart bypass surgery Hx of tonsillectomy Family History Father Leukemia Mother No problems noted. Social History Household Members: Family Housing: Apartment Are you a primary acute care nurse practitioner to a significant other at home: No Do you presently have visiting nurse or other home services: No Alcohol intake: current Alcohol intake frequency: 0-2 drinks per day Alcohol type: beer and hard liquor Patient Tobacco Use Status: Former Tobacco user Tobacco use type: Cigar Years Smoked: 25 e-Cigarette/Vaping Use: Never Used service: No Current occupational status: unemployed Current occupation: [employer] Current occupational exposures/hazards: Yes Cognitive needs: No Hearing needs: No Vision needs: Yes Review of Systems Const All systems reviewed & are unremarkable except as noted in HPI and below Physical Exam Vital Signs: Last Vital Signs Pulse 82 10/13/24 09:23 BP 152/90 H 10/13/24 09:23 Pulse Ox 91 L 10/13/24 09:23 Oxygen Delivery Method Room Air 10/13/24 09:23 BMI result Body Mass Index 31.9 Const General: comfortable and no acute distress Orientation/consciousness: patient oriented x3 HEENT Head: Yes normocephalic Mouth: Normal oral and palatal mucosa present Eyes EOM: EOMs intact bilaterally Neck Neck: Yes supple Resp Auscultation: clear to auscultation bilaterally Cardio Jugular venous distension: no JVD Rate: regular rate GI Palpation (GI): Soft to palpation Auscultation: normal bowel sounds General: Yes no CVA tenderness Back/Spine/Pelvis Back: no CVA tenderness Skin General skin exam: no rashes or lesions noted Neuro General: patient oriented x3 and moves all extremities Results Reviewed Nephrology Results: Hgb 15.3 g/dl (14.0-18.0) 10/10/24 WBC 4.3 X10*3/uL (4.8-10.8) L 10/10/24 Plt Count 75 X10*3/uL (160-400) L 10/10/24 Sodium 139 mmol/L (135-145) 10/10/24 Potassium 4.7 mmol/L (3.3-5.1) 10/10/24 Chloride 101 mmol/L (96-108) 10/10/24 Carbon Dioxide 28 mmol/L (22-29) 10/10/24 BUN 25 mg/dL (9-16) H 10/10/24 Creatinine 1.37 mg/dL (0.5-1.4) 10/10/24 Calcium 9.5 mg/dL (8.4-10.2) 10/10/24 Urine Protein 100 (2+) mg/dL (Neg-Trace) H 10/10/24 Urine Creatinine 62.52 mg/dL 10/10/24 Protein/Creatinin Ratio 0.93 (<0.2) H 10/10/24 Assessment & Plan Assessment & Plan (1) CKD stage 3 secondary to diabetes: Code(s): E11.22 - Type 2 diabetes mellitus with diabetic chronic kidney disease; N18.30 - Chronic kidney disease, stage 3 unspecified Category: Medical (2) Diabetic nephropathy associated with type 2 diabetes mellitus: Code(s): E11.21 - Type 2 diabetes mellitus with diabetic nephropathy Category: Medical (3) Hypertension: Code(s): I10 - Essential (primary) hypertension Category: Medical Qualifiers: Hypertension type: primary hypertension Qualified Code(s): I10 - Essential (primary) hypertension Plan Solis has Diabetic nephropathy. He has CKD due to DM with likely contribution from vascular disease given H/O CAD needing CABG as well as PAD. He will need Doppler of renal arteries with time . He is on ARB as well as SGLT2i. I shall increase ARB with time depending on evolving data. He needs to keep his blood sugar better. His BP is at goal. All these have been explained in detail. Answered all his and his 's questions. F/U labs ordered Orders: Orders Blood Urea Nitrogen 4 Months E11.22 - Type 2 diabetes mellitus with diabetic chronic kidney disease, N18.30 - Chronic kidney disease, stage 3 unspecified Creatinine 4 Months E11.22 - Type 2 diabetes mellitus with diabetic chronic kidney disease, N18.30 - Chronic kidney disease, stage 3 unspecified Electrolytes 4 Months E11.22 - Type 2 diabetes mellitus with diabetic chronic kidney disease, N18.30 - Chronic kidney disease, stage 3 unspecified Protein Creatinine Ratio, Ur 4 Months E11.22 - Type 2 diabetes mellitus with diabetic chronic kidney disease, N18.30 - Chronic kidney disease, stage 3 unspecified Coding Level of Care Code Est Pt Level 4 (82299) Diagnoses CKD stage 3 secondary to diabetes E11.22; N18.30 Diabetic nephropathy associated with type 2 diabetes mellitus E11.21 Primary hypertension I10 Hypertension type: primary hypertension
--- OUTSIDE RECORDS SUMMARY | 2024-10-13 10:05 | XMS_ITS ---
Author Name Interface, [id number] lity Address [address] [facility] [address] [place] [address] [facility] Address [address] [facility] [address] [place] [address] Care Team Providers Care Jig Boring Machine Operator For Metal Name Role Phone Cat, Kobi Navarro Unavailable [...]
--- OUTSIDE RECORDS SUMMARY | 2024-10-13 10:05 | XMS_ITS | Encounter Summary ---
Author Organization [facility] Address [address] [place] [address] Phone Care Team Providers Care Traffic Safety Administrator Name Role Phone Kobi Day NP Primary Care Provider [phone] Encounter Details Date Type Department Care Team (Late st Contact Info) Description 08/15/2022 Documentation Only [facility] [place], [address] [place] [address] Kobi Day NP [address] [place] [address] Social History Tobacco Use Types Packs/Day Years [...] on filedocumented in this encounter Care Teams Traffic Safety Administrator Relationship Specialty Start Date End Date Kobi Day NP [address] [place] [address] PCP - General Nurse Practitioner 08/15/22 documented as of this encounter
--- OUTSIDE RECORDS SUMMARY | 2024-10-13 10:05 | XMS_ITS ---
Author Name Interface, [id number] lity Address [address] [facility] [address] [place] [address] [facility] Address [address] [facility] [address] [place] [address] Care Team Providers Care Bus Steward Name Role Phone Cat, Kobi Navarro Unavailable [...]
--- OUTSIDE RECORDS SUMMARY | 2024-10-13 10:05 | XMS_ITS | CCD ---
Author Name Interface, [id number] lity Address [address] [facility] [address] [place] [address] [facility] Address [address] [facility] [address] [place] [address] Care Team Providers Care Motorcycle Repair Shop Supervisor Name Role Phone CatKobi Unavailable Allergies and Adverse Reactions Reason for Visit Encounters Functional Status Medications Social History
--- OUTSIDE RECORDS SUMMARY | 2024-10-13 10:05 | XMS_ITS | CCD ---
Author Name Interface, [id number] lity Address [address] [facility] [address] [place] [address] [facility] Address [address] [facility] [address] [place] [address] Care Team Providers Care Underwear Finisher Name Role Phone CatKobi Unavailable Allergies and Adverse Reactions Reason for Visit Encounters Functional Status Medications Social History
--- OUTSIDE RECORDS SUMMARY | 2024-10-13 10:05 | XMS_ITS | Clinical Summary ---
Author Organization [facility], Address [address] [place] [address] [place] [address] Phone Care Team Providers Care Planning Manager Name Role Phone Kobi Day NP Primary Care Provider [phone] Allergies No known active allergies Medications atorvastatin [...] 06/26/2020 Influenza Vaccine (Season Ended) 2025 Insurance [facility] Plan ([id number]) Care Teams Planning Manager Relationship Specialty Start Date End Date Kobi Day NP 1962 [place] [address] PCP - General Nurse Practitioner 08/15/22
== END 2024-10-13 09:57 | disposition home or self-care (01) ==
LOC: HO.HKAS 09:20
PROVIDERS: PCP Nurse Practitioner Family; Visit Provider Internal Medicine Nephrology
DX: E11.22 Type 2 diabetes mellitus with diabetic chronic kidney disease (principal); N18.30 Chronic kidney disease, stage 3 unspecified; E11.21 Type 2 diabetes mellitus with diabetic nephropathy; I10 Essential (primary) hypertension
CPT/HCPCS: 99214

== ENCOUNTER → 2024-10-13 09:19 | Outpatient (BNVA) | payer OTHER, SELFPAY | PROVIDERS: PCP Nurse Practitioner Family; Visit Provider Internal Medicine Nephrology | DX: E11.22 Type 2 diabetes mellitus with diabetic chronic kidney disease (principal); I12.9 Hypertensive chronic kidney disease with stage 1 through stage 4 chronic kidney disease, or unspecified chronic kidney disease; N18.30 Chronic kidney disease, stage 3 unspecified; E11.21 Type 2 diabetes mellitus with diabetic nephropathy | CPT/HCPCS: 99212 ==

== ENCOUNTER 2024-10-23 08:25 | Outpatient (AMB) | payer OTHER, SELFPAY ==
--- NOTE | 2024-10-23 08:28 | A.OFFVIS_ITS ---
Vital Signs 10/23/24 08:31 Height 5 ft 9 in Weight 222 lb 10.67 oz BMI 32.9 BP 146/86 H Blood Pressure Location Rt brachial Position Sitting Pulse 82 Pulse Source Pulse Oximeter Pulse Oximetry (%) 96 Oxygen Delivery Method Room Air Intake Visit Reasons: Type 2 diabetes mellitus with diabetic polyneuro Intake Note: Patient present today for Type 2 Diabetes Mellitus Last Diabetic eye exam: Within the last 6-7 months, [facility] Last Podiatry Visit: October 20, [address]. [facility] Random Glucose: 101 mg/dl HgA1C: 10.3% 10/10/24 Kapok Machine Operator Required: No Accompanied by: Spouse Allergies No Known Allergies Allergy (Verified 10/23/24 08:33) Medication List - Last Reconciled 10/23/24 by Vee Mclaughlin PA-C aspirin 81 mg PO DAILY atorvastatin 80 mg PO DAILY citalopram 20 mg PO DAILY clopidogrel 75 mg PO DAILY empagliflozin (Jardiance) 10 mg PO QAM ezetimibe 10 mg PO DAILY 90 days fenofibrate 160 mg PO DAILY furosemide 40 mg PO DAILY glucagon 3 mg/actuation 3 mg intranasal ONCE PRN insulin glargine (Lantus Solostar U-100 Insulin) 55 units (0.55 mL) subcut QPM insulin lispro 10 units (0.1 mL) subcut TID lancets (CardioDx Delica Plus Lancet) As directed lancing device with lancets (CardioDx Delica Plus Lancing Device kit) As directed losartan 25 mg PO BID metoprolol succinate ER (Toprol XL) 50 mg PO DAILY omega-3 acid ethyl esters 1 cap PO BID 90 days pen needle, diabetic (Microdot Insulin Pen Needle) TID spironolactone 25 mg PO DAILY HPI HPI Type 2 diabetes mellitus with diabetic polyneuro: Details: Patient is a 54-year-old male with a significant past medical history of chronic kidney disease, peripheral are very disease, ischemic cardiomyopathy, CHF, hypertension, type 2 diabetes, microalbuminuria and retinopathy presenting today to establish care regarding his diabetes. Endo: He was diagnosed with diabetes 2005. He states 15 years ago he was dx with DKA and they did do antibody testing at that time that confirmed t2dm. His last A1c was 10.3. He is currently managed with Jardiance 10 mg, Lantus 55 units nightly, lispro 10 units 3 times a day with meals. -He has not started the jardiance yet. He just got the message as he was pulling in today from pharmacy that it was ready. States his A1c was high because he was off of medications due to insurance changes. In the past he has tried-farxiga (stopped due to insurance), metformin was d/c after PR, trulicity (caused n/v/d), ozempic (nausea then insurance declined) CGM- does not currently have due to moreno from insurance He did follow at one point with an boning room worker 10 years ago. He has had diabetic education and engine manager appointment. he follows with Podiatry and Ophthalmology CV: Blood pressure today in the office is 146/86. He is currently on losartan 25 mg twice a day, metoprolol 50 mg daily, spironolactone 25 mg daily, furosemide 40 mg daily. He is on Plavix and aspirin. Cholesterol is controlled with atorvastatin 80 mg, fenofibrate 160 mg and Zetia 10 mg. He follows with cardiology. Nephro: Has CKD and microalbuminuria. Follows with Nephrology and was last seen 10/13/24. Vasc: utd with visit for PAD, recent left leg angio 06/2024. [facility] Medical History Diabetic peripheral neuropathy associated with type 2 diabetes mellitus S/P angiogram of extremity (07/22/24) Bypass graft stenosis NSTEMI (non-ST elevated myocardial infarction) Nicotine dependence, cigarettes, uncomplicated Degenerative disc disease, cervical Cervical spinal stenosis Neuropathy Smoking history Elevated cholesterol Diabetic retinopathy BPH (benign prostatic hyperplasia) Retinal hemorrhage Type 2 diabetes mellitus Hypertension Surgical History Hx of heart bypass surgery Hx of tonsillectomy Family History Father Leukemia Mother No problems noted. Social History Household Members: Family Housing: Apartment Are you a primary client care consultant to a significant other at home: No Do you presently have visiting nurse or other home services: No Alcohol intake: current Alcohol intake frequency: 0-2 drinks per day Alcohol type: beer and hard liquor Patient Tobacco Use Status: Former Tobacco user Tobacco use type: Cigar Years Smoked: 25 e-Cigarette/Vaping Use: Never Used service: No Current occupational status: unemployed Current occupation: [employer] Current occupational exposures/hazards: Yes Cognitive needs: No Hearing needs: No Vision needs: Yes Physical Exam Vital Signs: Last Vital Signs Pulse 82 10/23/24 08:31 BP 146/86 H 10/23/24 08:31 Pulse Ox 96 10/23/24 08:31 Oxygen Delivery Method Room Air 10/23/24 08:31 BMI result Body Mass Index 32.9 Const Orientation/consciousness: patient oriented x3 Neck Neck: Yes no lymphadenopathy Thyroid: Thyroid normal Carotids: no bruits Resp Auscultation: clear to auscultation bilaterally Cardio Rate: regular rate Rhythm: regular rhythm Heart sounds: S1 normal heart sound present, S2 normal heart sound present and Murmur heart sound present Bruits: carotid bruit on the left Peripheral pulses: dorsalis pedis present (weak bilaterally, good cap refill) Neuro General: patient oriented x3, gait normal and no focal motor deficits Extrem Other: Monofilament sensation absent bilaterally. Vibratory sensation absent bilaterally. Skin intact. General: Yes normal to inspection Results Reviewed Results Reviewed: Laboratory Last Values Glucose (Clinic) 101 mg/dL (60-115) 10/23/24 08:42 Laboratory Tests 10/10/24 07:05 Estimated GFR 54 Fasting Glucose 347 H Estimat Average Glucose 249 Hemoglobin A1c % 10.3 H AST 32 ALT 26 Triglycerides 458 H Cholesterol 198 LDL Cholesterol, Calc TNP HDL Cholesterol 39 L Assessment & Plan Assessment & Plan (1) Diabetic nephropathy associated with type 2 diabetes mellitus: Code(s): E11.21 - Type 2 diabetes mellitus with diabetic nephropathy Category: Medical Plan: We spent 1 hour today in [id number] time reviewing the pathophysiology of diabetes, the differences between type 1 and type 2 diabetes, complications associated with diabetes including but not limited to blindness, heart attack, stroke, worsening kidney function, amputations etc.. starting jardiance today. We discussed risks and benefits and adverse effects of this medication at length. We will rechecked BMP in 2 weeks. Continue Lantus 55 units nightly and lispro 10 units before meals. Provided a Kayode 3+ today in office. I showed them the [place] that he would need to download. He does not have his phone with him and states that he will do this at home and that he has used the Kayode in the past and is familiar with this. We reviewed signs and symptoms of hyper and hypoglycemia that would require emergent medical treatment. Reviewed rule of 15. Glucagon spray ordered. Has glucose tabs at home. Advised short term follow up in 2-3 weeks with labs prior to appointment. (2) CKD stage 3 secondary to diabetes: Code(s): E11.22 - Type 2 diabetes mellitus with diabetic chronic kidney disease; N18.30 - Chronic kidney disease, stage 3 unspecified Category: Medical Plan: As above. Following with Nephrology (3) Hypertension: Code(s): I10 - Essential (primary) hypertension Category: Medical Qualifiers: Hypertension type: primary hypertension Qualified Code(s): I10 - Essential (primary) hypertension Plan: Elevated above goal today. Reports blood pressures are usually normal. (4) Left carotid bruit: Code(s): R09.89 - Other specified symptoms and signs involving the circulatory and respiratory systems Plan: Carotid ultrasound ordered. We will follow up pending test results. Orders: Orders C Peptide Today E11.21 - Type 2 diabetes mellitus with diabetic nephropathy, E11.22 - Type 2 diabetes mellitus with diabetic chronic kidney disease, N18.30 - Chronic kidney disease, stage 3 unspecified US carotid duplex BI Today R09.89 - Other specified symptoms and signs involving the circulatory and respiratory systems Glutamic acid decarboxylase Ab Today E11.21 - Type 2 diabetes mellitus with diabetic nephropathy, E11.22 - Type 2 diabetes mellitus with diabetic chronic kidney disease, N18.30 - Chronic kidney disease, stage 3 unspecified Islet Cell Antibody Scrn/Titer Today E11.21 - Type 2 diabetes mellitus with diabetic nephropathy, E11.22 - Type 2 diabetes mellitus with diabetic chronic kidney disease, N18.30 - Chronic kidney disease, stage 3 unspecified Basic Metabolic Panel Today E11.21 - Type 2 diabetes mellitus with diabetic nephropathy, E11.22 - Type 2 diabetes mellitus with diabetic chronic kidney disease, N18.30 - Chronic kidney disease, stage 3 unspecified Medications: New glucagon 3 mg/actuation 3 mg intranasal ONCE PRN 2 ea 0RF hypoglycemia blood-glucose sensor (FreeStyle Kayode 3 Plus Sensor device) Use daily As directed to monitor glucose 2 ea 5RF E08.29 - Diabetes mellitus due to underlying condition with other diabetic kidney complication, R80.9 - Proteinuria, unspecified, Z79.4 - intermediate frame tender (current) use of insulin Discontinued blood-glucose sensor (Dexcom G7 Sensor device) Discontinued Reason: Doctor's Order Test blood sugar 3 times per day and PRN, change sensor every 10 days 9 ea 1RF E11.65 - Type 2 diabetes mellitus with hyperglycemia blood-glucose,pl sql programmer,cont (Dexcom G7 Reeling Machine Setup Operator) Discontinued Reason: Doctor's Order As directed 1 ea 0RF E11.65 - Type 2 diabetes mellitus with hyperglycemia dapagliflozin propanediol (Farxiga) Discontinued Reason: Doctor's Order 10 mg (2 x 5 mg) PO DAILY 180 tabs 3RF I25.5 - Ischemic cardiomyopathy FreeStyle Kayode 2 [place] (flash glucose scanning reader) Discontinued Reason: Doctor's Order tid 1 ea 2RF NS E11.65 - Type 2 diabetes mellitus with hyperglycemia FreeStyle Kayode 2 Sensor (flash glucose sensor) Discontinued Reason: Doctor's Order test blood sugar 4 times per day 6 ea 1RF NS E11.65 - Type 2 diabetes mellitus with hyperglycemia Coding Level of Care Code New Pt Level 5 (21142) Complex EM visit Add On G2211 Diagnoses Diabetic nephropathy associated with type 2 diabetes mellitus E11.21 CKD stage 3 secondary to diabetes E11.22; N18.30 Primary hypertension I10 Hypertension type: primary hypertension Left carotid bruit R09.89
--- OUTSIDE RECORDS SUMMARY | 2024-10-23 08:28 | XMS_ITS | CCD ---
Author Name Interface, S1Iyiepve lity Address [address] [facility] [address] [place] [address] [facility] Address [address] [facility] [address] [place] [address] Care Team Providers Care Rn Complex Care Name Role Phone CatKobi Unavailable Allergies and Adverse Reactions Reason for Visit Encounters Functional Status Medications Social History
[2024-10-23 08:31] VITALS: BP 146/86; PULSE 82; O2SAT 96; BMI 32.9
[2024-10-23 08:45] LABS: Glucose, Whole Blood 101 mg/dL (60-115)
== END 2024-10-23 09:26 | disposition home or self-care (01) ==
LOC: HO.ENCR 08:26
PROVIDERS: PCP Nurse Practitioner Family; Visit Provider Physician Assistant
DX: E11.21 Type 2 diabetes mellitus with diabetic nephropathy (principal); E11.22 Type 2 diabetes mellitus with diabetic chronic kidney disease; N18.30 Chronic kidney disease, stage 3 unspecified; I10 Essential (primary) hypertension; R09.89 Other specified symptoms and signs involving the circulatory and respiratory systems

== ENCOUNTER → 2024-10-23 08:25 | Outpatient (BNVA) | payer OTHER, SELFPAY | PROVIDERS: PCP Nurse Practitioner Family; Visit Provider Physician Assistant | DX: E11.21 Type 2 diabetes mellitus with diabetic nephropathy (principal); E11.22 Type 2 diabetes mellitus with diabetic chronic kidney disease; I12.9 Hypertensive chronic kidney disease with stage 1 through stage 4 chronic kidney disease, or unspecified chronic kidney disease; N18.30 Chronic kidney disease, stage 3 unspecified; E11.319 Type 2 diabetes mellitus with unspecified diabetic retinopathy without macular edema; R09.89 Other specified symptoms and signs involving the circulatory and respiratory systems; Z79.4 Long term (current) use of insulin | CPT/HCPCS: 82947; 99202 ==

== ENCOUNTER 2024-10-26 08:08 | Outpatient (AMB) | payer OTHER, SELFPAY ==
--- OUTSIDE RECORDS SUMMARY | 2024-10-26 08:13 | XMS_ITS | Encounter Summary ---
Author Organization [facility] Address [address] [place] [address] Phone Care Team Providers Care Merchandising Execution Manager Name Role Phone Kobi Day NP Primary Care Provider [phone] Encounter Details Date Type Department Care Team (Late st Contact Info) Description 08/15/2022 Documentation Only [facility] [place], [address] [place] [address] Kobi Day NP [address] [place] [address] Social History Tobacco Use Types Packs/Day Years [...] on filedocumented in this encounter Care Teams Merchandising Execution Manager Relationship Specialty Start Date End Date Kobi Day NP [address] [place] [address] PCP - General Nurse Practitioner 08/15/22 documented as of this encounter
[2024-10-26 08:18] VITALS: BP 122/80; PULSE 78; BMI 31.9
--- NOTE | 2024-10-26 08:18 | A.OFFVIS_ITS ---
Vital Signs 10/26/24 08:18 Height 5 ft 9 in Weight 216 lb 0.848 oz BMI 31.9 BP 122/80 Blood Pressure Location Lt brachial Position Sitting Pulse 78 Intake Visit Reasons: R/s-4mth f/up echo Intake Note: Follow-up after echo still feeling weird with the breathing Cement Cutter Required: No Electronics Design Engineer: Electronics Design Engineer Present Accompanied by: Spouse Allergies No Known Allergies Allergy (Verified 10/23/24 08:33) Medication List - Last Reconciled 10/26/24 by TIMOTHY Cisneros aspirin 81 mg PO DAILY atorvastatin 80 mg PO DAILY blood-glucose sensor (TelxStyle Kayode 3 Plus Sensor device) Use daily As directed to monitor glucose citalopram 20 mg PO DAILY clopidogrel 75 mg PO DAILY empagliflozin (Jardiance) 10 mg PO QAM ezetimibe 10 mg PO DAILY 90 days fenofibrate 160 mg PO DAILY furosemide 40 mg PO DAILY glucagon 3 mg/actuation 3 mg intranasal ONCE PRN insulin glargine (Lantus Solostar U-100 Insulin) 55 units (0.55 mL) subcut QPM insulin lispro 10 units (0.1 mL) subcut TID lancets ([employer] Delica Plus Lancet) As directed lancing device with lancets ([employer] Delica Plus Lancing Device kit) As directed losartan 25 mg PO BID metoprolol succinate ER (Toprol XL) 50 mg PO DAILY omega-3 acid ethyl esters 1 cap PO BID 90 days pen needle, diabetic (Microdot Insulin Pen Needle) TID spironolactone 25 mg PO DAILY HPI HPI R/s-4mth f/up echo: Details: Solis is a 54-year-old male with past medical history of hypertension, hyperlipidemia, diabetes, prior smoking, heart failure with reduced EF, NSTEMI, coronary atherosclerosis, coronary artery bypass grafting x2 02/18/2024 who presents for follow-up. Today he reports he has been doing generally well since his last visit in May. He has not had any chest discomfort brought on by physical exertion. He does get periodic muscle soreness in his chest at times. He has some mild shortness of breath with activity. He says he has gained 30 lb since his surgery but admits to being mostly sedentary. He does light activities around the house but no routine exercises. He has no PND, orthopnea or edema. His tells me she has witnessed apnea during sleeping and he admits to taking a nap each daytime. No heart palpitations, lightheadedness, presyncope, syncope. Compliant with all medications. Has not smoked since diagnosis of CAD. Tells me his proof clerk has ordered a carotid ultrasound on him. He is working on good blood sugar control. is present. [facility] Medical History (Updated 10/26/24 @ 11:35 by Wanda Shi NP-C) Diabetic peripheral neuropathy associated with type 2 diabetes mellitus S/P angiogram of extremity (07/22/24) Bypass graft stenosis NSTEMI (non-ST elevated myocardial infarction) Nicotine dependence, cigarettes, uncomplicated Degenerative disc disease, cervical Cervical spinal stenosis Neuropathy Smoking history Elevated cholesterol Diabetic retinopathy BPH (benign prostatic hyperplasia) Retinal hemorrhage Type 2 diabetes mellitus Hypertension Surgical History (Updated 10/26/24 @ 12:09 by Wanda Shi NP-C) Hx of heart bypass surgery Hx of tonsillectomy Family History Father Leukemia Mother No problems noted. Social History Household Members: Family Housing: Apartment Are you a primary medicare insurance specialist to a significant other at home: No Do you presently have visiting nurse or other home services: No Alcohol intake: current Alcohol intake frequency: 0-2 drinks per day Alcohol type: beer and hard liquor Patient Tobacco Use Status: Former Tobacco user Tobacco use type: Cigar Years Smoked: 25 e-Cigarette/Vaping Use: Never Used service: No Current occupational status: unemployed Current occupation: [employer] Current occupational exposures/hazards: Yes Cognitive needs: No Hearing needs: No Vision needs: Yes Review of Systems Const All systems reviewed & are unremarkable except as noted in HPI and below Denies chills, Reports fatigue, Denies fever(s), Denies frequent falls, Denies weakness, Reports weight gain and Denies weight loss ENT Denies dizziness Card Denies chest pain, Denies leg edema, Denies lightheadedness, Denies palpitations, Reports dyspnea, Denies dyspnea on exertion, Denies orthopnea and Denies other (loss of consciousness) Resp Denies cough, Reports dyspnea and Denies dyspnea on exertion GI Denies hematochezia and Denies change in stool character Musc Denies abnormal gait, Denies muscle weakness, Denies numbness, Denies radiating pain into limb and Denies tingling Neuro Denies abnormal gait, Denies dizziness, Denies frequent falls, Denies numbness, Denies tingling and Denies weakness Endo Reports fatigue and Denies palpitations Physical Exam Vital Signs: Last Vital Signs Pulse 78 10/26/24 08:18 BP 122/80 10/26/24 08:18 BMI result Body Mass Index 31.9 Const General: cooperative, healthy appearing, comfortable and no acute distress Orientation/consciousness: patient oriented x3 Neck Neck: Yes normal visual inspection Resp Effort & Inspection: normal respiratory effort Auscultation: clear to auscultation bilaterally, no rales, no rhonchi and no wheezes Cardio Jugular venous distension: no JVD Rate: regular rate Rhythm: regular rhythm Heart sounds: S1 normal heart sound present, S2 normal heart sound present, no gallops, no murmurs and no rubs Neuro General: patient oriented x3 Extrem General: Yes normal to inspection, No no pedal edema and No calf tenderness Psych Appearance: grossly normal Mental Status: mental status grossly normal Speech and movement: Normal speech and movement present Assessment & Plan Assessment & Plan (1) Coronary atherosclerosis: Code(s): I25.10 - Atherosclerotic heart disease of [place] coronary artery without angina pectoris Category: Medical Plan: History of CAD, NSTEMI, cardiac catheterization 12/27/2023 with proximal RCA CARDIOPULMONARY SPECIALIST and severe mid LAD stenosis. He underwent a 2 vessel coronary artery bypass grafting on 02/18/2024. He has done generally well since that time and reports compliance with meds. Echocardiogram 06/01/2024 showed EF 45-50%, mild LVH. Continue aspirin indefinitely. Continue Plavix uninterrupted for 1 year following surgery. Continue high-dose atorvastatin and Zetia with ideal LDL goal less than 70. Continue metoprolol XL and losartan for neurohormonal modulation. Continue Lasix and Aldactone as diuretics. No med changes made at this time. Signs and symptoms of angina reviewed. Cardiology follow-up 4 months, sooner if needed. (2) Status post coronary artery bypass graft: Comment: 02/18/2024 mann to LAD, GSV to right PDA Code(s): Z95.1 - Presence of aortocoronary bypass graft Category: Surgical (3) Congestive heart failure: Code(s): I50.9 - Heart failure, unspecified Category: Medical Plan: Last EF 45-50%. No clinical signs of fluid overload on exam today. Signs and symptoms of heart failure reviewed with him. No med changes made. (4) Hypertension: Code(s): I10 - Essential (primary) hypertension Category: Medical Qualifiers: Hypertension type: primary hypertension Qualified Code(s): I10 - Essential (primary) hypertension Plan: Blood pressure goal less than 130/80, well controlled. Continue losartan, metoprolol, Aldactone, Lasix. (5) Hyperlipidemia: Code(s): E78.5 - Hyperlipidemia, unspecified Category: Medical Plan: [place] LDL goal less than 70. Recent labs show triglycerides 458 and LDL not performed. His hemoglobin A1c is 10.3. Discuss the importance of good blood sugar control and how it affects his cholesterol levels. Will have him continue atorvastatin and Zetia. Plan recheck of lipids once A1c is in a better range. (6) Uncontrolled diabetes mellitus: Code(s): E11.65 - Type 2 diabetes mellitus with hyperglycemia Category: Medical Plan: Hemoglobin A1c goal less than 7. Uncontrolled at 10.3. He is following with endocrinology. He admits to not using his injectable insulins as directed. (7) CKD stage 3 secondary to diabetes: Code(s): E11.22 - Type 2 diabetes mellitus with diabetic chronic kidney disease; N18.30 - Chronic kidney disease, stage 3 unspecified Category: Medical Plan: Following with Nephrology. Labs 10/10/2024 shows creatinine 1.37. (8) PAD (peripheral artery disease): Code(s): I73.9 - Peripheral vascular disease, unspecified Category: Medical Plan: History of PI CAD with left lower extremity stent placement. Follows with Dr. Ansari. (9) S/P angiogram of extremity: Onset Date: 07/22/24 Comment: Left LE plasty Code(s): Z98.890 - Other specified postprocedural states Category: Medical (10) Hypersomnia: Code(s): G47.10 - Hypersomnia, unspecified Category: Medical Plan: Reports of daily napping and fatigue. reports witnessed apnea. Sleep study being ordered. Plan I discussed with the patient the importance of closely managing his diabetes to prevent further complications related to his cardiovascular health. I elaborated on the potential link between poor glycemic control and elevated lipid levels, encouraging improvements in dietary habits and physical activity post-recovery from his infections. The risks of untreated obstructive sleep apnea were mentioned, suggesting a future diagnostic sleep study. The patient was informed of the rationale behind the upcoming carotid ultrasound to investigate any arterial blockages, with an understanding of the possible interventions contingent on the results. We stressed the need for adherence to medications, routine monitoring, and follow-up appointments. Orders: Orders RT home sleep study Today G47.10 - Hypersomnia, unspecified Patient Instructions: - Continue with prescribed diuretics and cardiovascular medications. - Follow insulin administration as discussed with the proof clerk. - Incorporate more physical activity as recovery allows. Begin with walking. - Monitor blood sugar regularly and maintain a consistent eating schedule. - Look out for signs of shortness of breath or unexplained fatigue and report them. - Attend upcoming carotid ultrasound appointment. - Home sleep study will be ordered - Return for follow-up in approximately four months or sooner if symptoms worsen. - Educate self on the impact of diabetes and make lifestyle adjustments accordingly. - Stay informed about potential symptoms of fluid overload. Patient was informed and verbally consented to the use of an ambient scribe for clinic note documentation during this visit. Visit time spent on chart review, interview, assessment, orders, documentation. Coding Level of Care Code Est Pt Level 4 (93232) Complex EM visit Add On G2211 Diagnoses Coronary atherosclerosis I25.10 Status post coronary artery bypass graft Z95.1 Congestive heart failure I50.9 Primary hypertension I10 Hypertension type: primary hypertension Hyperlipidemia E78.5 Uncontrolled diabetes mellitus E11.65 CKD stage 3 secondary to diabetes E11.22; N18.30 PAD (peripheral artery disease) I73.9 S/P angiogram of extremity Z98.890 Hypersomnia G47.10 Time Spent (min) 32
== END 2024-10-26 08:48 | disposition home or self-care (01) ==
LOC: HO.HCS 08:09
PROVIDERS: PCP Nurse Practitioner Family; Visit Provider Nurse Practitioner Family
DX: I25.10 Atherosclerotic heart disease of native coronary artery without angina pectoris (principal); Z95.1 Presence of aortocoronary bypass graft; I50.9 Heart failure, unspecified; I10 Essential (primary) hypertension; E78.5 Hyperlipidemia, unspecified; E11.65 Type 2 diabetes mellitus with hyperglycemia; E11.22 Type 2 diabetes mellitus with diabetic chronic kidney disease; N18.30 Chronic kidney disease, stage 3 unspecified; I73.9 Peripheral vascular disease, unspecified; Z98.890 Other specified postprocedural states; G47.10 Hypersomnia, unspecified
CPT/HCPCS: 99214; G2211

== ENCOUNTER → 2024-10-26 08:08 | Outpatient (BNVA) | payer OTHER, SELFPAY | PROVIDERS: PCP Nurse Practitioner Family; Visit Provider Nurse Practitioner Family | DX: I25.10 Atherosclerotic heart disease of native coronary artery without angina pectoris (principal); I13.0 Hypertensive heart and chronic kidney disease with heart failure and stage 1 through stage 4 chronic kidney disease, or unspecified chronic kidney disease; I50.9 Heart failure, unspecified; E11.22 Type 2 diabetes mellitus with diabetic chronic kidney disease; N18.30 Chronic kidney disease, stage 3 unspecified; E11.51 Type 2 diabetes mellitus with diabetic peripheral angiopathy without gangrene; E11.65 Type 2 diabetes mellitus with hyperglycemia; G47.10 Hypersomnia, unspecified; E78.5 Hyperlipidemia, unspecified; Z98.890 Other specified postprocedural states; Z95.1 Presence of aortocoronary bypass graft | CPT/HCPCS: 99212 ==

== ENCOUNTER 2024-11-02 09:55 | Outpatient (REF) | payer OTHER, SELFPAY ==
--- NOTE | ~2024-11-02 | US_ITS ---
EXAMINATION: Noninvasive assessment of the bilateral lower extremities with ARTERIAL DUPLEX, ANKLE BRACHIAL INDICES (ABIs), and PULSE VOLUME RECORDINGS (PVRs). CLINICAL INFORMATION: Peripheral vascular disease, unspecified. Status post endarterectomy and angioplasty left lower extremity. TECHNIQUE: Duplex Doppler techniques with waveform analysis and measurement of velocities in the bilateral common femoral, profunda femoris, superficial femoral, popliteal and tibial arteries were performed. Additionally, ankle pulse volume recordings, ankle pressure measurements and ankle brachial indices were obtained of the lower extremity arterial system bilaterally. The study was performed only at rest. COMPARISON: November 22, 2024. FINDINGS: DIRECT DUPLEX DOPPLER FINDINGS: RIGHT LEG: Common femoral artery: 224 cm/s, phasicity: Biphasic. Profunda femoris artery: 139 cm/s, phasicity: Biphasic. Superficial femoral artery (proximal): 137 cm/s, phasicity: Biphasic. Superficial femoral artery (mid): 135 cm/s, phasicity: Biphasic. Superficial femoral artery (distal): 85 cm/s, phasicity: Right face. Popliteal artery: 104 cm/s, phasicity: Biphasic. Posterior tibial artery: 84 cm/s, phasicity: Biphasic. Peroneal artery: No color Doppler flow registered. Anterior tibial artery: 24 cm/s, phasicity: Biphasic. Dorsalis pedis artery: 12 cm/s, phasicity:Reversed flow. LEFT LEG: Common femoral artery: 155 cm/s, phasicity: Triphasic. Profunda femoris artery: 63 cm/s, phasicity: Biphasic. Superficial femoral artery (proximal): 165 cm/s, phasicity: Biphasic. Superficial femoral artery (mid): 187 cm/s, phasicity: Biphasic. Superficial femoral artery (distal): 119 cm/s, phasicity: Biphasic. Popliteal artery: 75 cm/s, phasicity: Biphasic. Posterior tibial artery: 94 cm/s, phasicity: Biphasic. Peroneal artery: No color Doppler flow are registered. Anterior tibial artery: 14 cm/s, phasicity: Biphasic. Dorsalis pedis artery: 21 cm/s, phasicity: Reversed flow. BRACHIAL PRESSURES: Right: More than 200 Left: More than 200 ANKLE PRESSURES: Right: PT 178, DP 175 Left: PT more than 200, DP more than 200 ANKLE-BRACHIAL INDEX: Right: Not applicable Left: Not applicable ANKLE PVR WAVEFORMS: Right: Abnormal. Left: Abnormal US/US arterial duplex BI w/ SAGRARIO IMPRESSION: Right leg: Severe inflow disease/diseased dorsalis pedis artery. Mild to moderate inflow disease throughout the interrogated arteries. Concerning occluded peroneal artery. Left leg: Severe inflow disease/diseased dorsalis pedis artery. Mild to moderate inflow disease throughout the interrogated arteries. Concerning peroneal artery occlusion. SAGRARIO Reference: - >1.4 = calcified vessels - 0.9 - 1.4 = normal - no significant arterial disease - 0.7 - 0.89 = mild peripheral arterial disease - 0.51 - 0.69 = moderate peripheral arterial disease - d 0.50 = severe peripheral arterial disease - < .30 = critical arterial disease Electronically signed by: Jin Davis MD 11/05/2024 08:29 AM EDT
--- OUTSIDE RECORDS SUMMARY | 2024-11-02 10:44 | XMS_ITS ---
Author Name Interface, [id number] lity Address [address] [facility] [address] [place] [address] [facility] Address [address] [facility] [facility] [address] [place] [address] Care Team Providers Care Hot Car Operator Name Role Phone Cat, Kobi Navarro Unavailable [...]
== END 2024-11-02 09:56 | disposition home or self-care (01) ==
LOC: HO.US 09:55
PROVIDERS: PCP Nurse Practitioner Family; Visit Provider Physician Assistant Surgical
DX: I73.9 Peripheral vascular disease, unspecified (principal)
CPT/HCPCS: 93922; 93925

== ENCOUNTER → 2024-11-02 09:57 | Outpatient (BNV) | payer OTHER, SELFPAY | PROVIDERS: PCP Nurse Practitioner Family; Visit Provider Radiology Diagnostic Radiology | DX: I73.9 Peripheral vascular disease, unspecified (principal) | CPT/HCPCS: 93922; 93925 ==

== ENCOUNTER → 2024-11-09 13:58 | Outpatient (REF) | payer OTHER, SELFPAY ==
--- OUTSIDE RECORDS SUMMARY | 2024-11-09 15:38 | XMS_ITS | CCD ---
Author Name Interface, [id number] lity Address [address] [facility] [address] [place] [address] [facility] Address [address] [facility] [address] [place] [address] Care Team Providers Care Rougher For Cement Name Role Phone CatKobi Unavailable Allergies and [...]
== END ==
LOC: HO.SL 13:58
PROVIDERS: PCP Nurse Practitioner Family; Visit Provider Nurse Practitioner Family
DX: G47.33 Obstructive sleep apnea (adult) (pediatric) (principal); G47.10 Hypersomnia, unspecified
CPT/HCPCS: 95806

== ENCOUNTER → 2024-11-09 14:11 | Outpatient (BNV) | payer OTHER, SELFPAY | PROVIDERS: PCP Nurse Practitioner Family; Visit Provider Internal Medicine | DX: G47.33 Obstructive sleep apnea (adult) (pediatric) (principal) | CPT/HCPCS: 95806 ==

== ENCOUNTER 2024-11-11 09:11 | Outpatient (REF) | payer OTHER, SELFPAY ==
--- OUTSIDE RECORDS SUMMARY | 2024-11-11 09:59 | XMS_ITS | CCD ---
Author Name Interface, [id number] lity Address [address] [facility] [address] [place] [address] [facility] Address [address] [facility] [address] [place] [address] Care Team Providers Care Partner Cco Name Role Phone Kobi Shelton Unavailable Allergies and Adverse Reactions Reason for Visit Encounters Functional Status Medications Social History
[2024-11-11 10:21] LABS: Appearance Urine Clear; Color Urine Yellow; Glucose Urine UA >=1000 mg/dL (Negative); Leukocyte Esterase Urine Negative (Negative); Nitrite Urine Negative (Negative); PH 6.5 (5.0-9.0); Specific Gravity - Urine >= 1.030 (1.005-1.025); UMIC TRIGGER UACC YES; Urine Blood Trace (Negative); Urine Ketones Negative (Negative); Urine Protein 300 (3+) mg/dL (Neg-Trace)
[2024-11-11 10:26] LABS: Bacteria Urine None Seen (None Seen); Hyaline Casts Urine 0-2 /LPF (0-2); Squamous Epithelial Cell Urine 0-2 /HPF (0-2); WBC Urine 0-5 /HPF (0-5)
[2024-11-11 10:49] LABS: Alanine Aminotransferase 28 U/L (0-40); Albumin Level 4.4 g/dL (3.5-5.0); Alkaline Phosphatase 104 U/L (39-117); Anion Gap 14 (12-20); Aspartate Amino Transferase 32 U/L (5-37); Bilirubin Total 0.8 mg/dL (0.0-1.0); Blood Urea Nitrogen 24 mg/dL (9-16); Calcium 9.5 mg/dL (8.4-10.2); Carbon Dioxide 29 mmol/L (22-29); Chloride 103 mmol/L (96-108); Cholesterol 183 mg/dL (<200); Estimated Glomerular Filt Rate > 60; Glucose Fasting 166 mg/dL (60-99); HDL Cholesterol 43 mg/dL (>40); LDL Cholesterol Calculated 88 mg/dL (<100); Potassium 4.6 mmol/L (3.3-5.1); Sodium 141 mmol/L (135-145); Total Protein 7.1 g/dL (6.5-8.0); Triglycerides 263 mg/dL (<150)
[2024-11-11 13:02] LABS: Anion Gap 14 (12-20); Blood Urea Nitrogen 24 mg/dL (9-16); Calcium 9.5 mg/dL (8.4-10.2); Carbon Dioxide 28 mmol/L (22-29); Chloride 103 mmol/L (96-108); Estimated Glomerular Filt Rate > 60; Glucose Random 166 mg/dL (60-115); Potassium 4.6 mmol/L (3.3-5.1); Sodium 140 mmol/L (135-145)
[2024-11-11 13:19] LABS: TSH reflex Free T4 1.74 uIU/mL (0.32-4.0)
[2024-11-12 14:38] LABS: C Peptide 1.02 ng/mL (0.80-3.85)
[2024-11-12 17:09] LABS: LDL Cholesterol Direct 100 mg/dL (<100)
[2024-11-16 17:08] LABS: Glutamic acid decarboxylase Ab <5 IU/mL (<5)
[2024-11-17 23:18] LABS: Islet Cell Antibody Screen NEGATIVE (NEGATIVE)
== END 2024-11-11 09:12 | disposition home or self-care (01) ==
LOC: HO.HMGCLDS 09:11
PROVIDERS: Internal Medicine Nephrology; PCP Nurse Practitioner Family; Visit Provider Physician Assistant
DX: E78.1 Pure hyperglyceridemia (principal); N18.30 Chronic kidney disease, stage 3 unspecified; E11.65 Type 2 diabetes mellitus with hyperglycemia; E11.21 Type 2 diabetes mellitus with diabetic nephropathy; E11.22 Type 2 diabetes mellitus with diabetic chronic kidney disease
CPT/HCPCS: 36415; 80048; 80053; 80061; 81001; 83721; 84443; 84681; 86341

== ENCOUNTER 2024-11-13 08:24 | Outpatient (AMB) | payer OTHER, SELFPAY ==
[2024-11-13 08:27] VITALS: BP 114/80; PULSE 79; O2SAT 97; BMI 32.9
--- NOTE | 2024-11-13 08:27 | MHC.OFFVIS ---
Vital Signs 11/13/24 08:27 Height 5 ft 9 in Weight 222 lb 10.67 oz BMI 32.9 BP 114/80 Blood Pressure Location Lt brachial Position Sitting Pulse 79 Pulse Source Pulse Oximeter Pulse Oximetry (%) 97 Oxygen Delivery Method Room Air Intake Visit Reasons: T2DM Intake Note: Patient present today for Type 2 Diabetes Mellitus Last Diabetic eye exam: Within the last 6 months Last Podiatry Visit: 09/2024 Random Glucose: 150 mg/dl HgA1C: 10.3% 10/10/24 Structural Metal Worker Required: No Accompanied by: Spouse Allergies No Known Allergies Allergy (Verified 11/13/24 08:34) Medication List - Last Reconciled 11/13/24 by Vee Mclaughlin PA-C aspirin 81 mg PO DAILY atorvastatin 80 mg PO DAILY blood-glucose sensor ([employer] Kayode 3 Plus Sensor device) Use daily As directed to monitor glucose citalopram 20 mg PO DAILY clopidogrel 75 mg PO DAILY ezetimibe 10 mg PO DAILY 90 days fenofibrate 160 mg PO DAILY furosemide 40 mg PO DAILY glucagon 3 mg/actuation 3 mg intranasal ONCE PRN insulin lispro 10 units (0.1 mL) subcut TID lancets ([employer] Delica Plus Lancet) As directed lancing device with lancets ([employer] Delica Plus Lancing Device kit) As directed losartan 25 mg PO BID metoprolol succinate ER (Toprol XL) 50 mg PO DAILY omega-3 acid ethyl esters 1 cap PO BID 90 days pen needle, diabetic (Microdot Insulin Pen Needle) TID spironolactone 25 mg PO DAILY HPI HPI T2DM: Details: Patient is a 54-year-old male with a significant past medical history of chronic kidney disease, peripheral are very disease, ischemic cardiomyopathy, CHF, hypertension, type 2 diabetes, microalbuminuria and retinopathy presenting today For a follow up regarding his diabetes. Endo: He was diagnosed with diabetes 2005. He states 15 years ago he was dx with DKA and they did do antibody testing at that time that confirmed t2dm. His last A1c was 10.3. He is currently managed with Jardiance 10 mg, Lantus 55 units nightly, lispro 10 units 3 times a day with meals. he states that he is tolerating the Jardiance without difficulty. He does notice sometimes when he injects a Lantus he is getting bubbles /pain at the injection site. He does not want to split the dose to twice a day. He does not always remember to take the lispro. In the past he has tried-farxiga (stopped due to insurance), metformin was d/c after DC, trulicity (caused n/v/d), ozempic (nausea then insurance declined) CGM- Usage 95%, G mi 9.3%, average glucose 251, variability 30%. Very hyperglycemic 43%, hyperglycemic 37%, in range 20%, hypoglycemia 0% Has a lot of testing supplies from [employer] at home for one touch He did follow at one point with an tar distillation supervisor 10 years ago. He has had diabetic education and cnc specialist appointment. he follows with Podiatry and Ophthalmology CV: Blood pressure today in the office is 114/80. He is currently on losartan 25 mg twice a day, metoprolol 50 mg daily, spironolactone 25 mg daily, furosemide 40 mg daily. He is on Plavix and aspirin. Cholesterol is controlled with atorvastatin 80 mg, fenofibrate 160 mg and Zetia 10 mg. He follows with cardiology. Nephro: Has CKD and microalbuminuria. Follows with Nephrology and was last seen 10/13/24. Vasc: utd with visit for PAD, recent left leg angio 06/2024. [facility] Medical History (Updated 10/26/24 @ 11:35 by TIMOTHY Cisneros) Diabetic peripheral neuropathy associated with type 2 diabetes mellitus S/P angiogram of extremity (07/22/24) Bypass graft stenosis NSTEMI (non-ST elevated myocardial infarction) Nicotine dependence, cigarettes, uncomplicated Degenerative disc disease, cervical Cervical spinal stenosis Neuropathy Smoking history Elevated cholesterol Diabetic retinopathy BPH (benign prostatic hyperplasia) Retinal hemorrhage Type 2 diabetes mellitus Hypertension Surgical History Hx of heart bypass surgery Hx of tonsillectomy Family History Father Leukemia Mother No problems noted. Social History Household Members: Family Housing: Apartment Are you a primary rn transitional care to a significant other at home: No Do you presently have visiting nurse or other home services: No Alcohol intake: current Alcohol intake frequency: 0-2 drinks per day Alcohol type: beer and hard liquor Patient Tobacco Use Status: Former Tobacco user Tobacco use type: Cigar Years Smoked: 25 e-Cigarette/Vaping Use: Never Used service: No Current occupational status: unemployed Current occupation: [employer] Current occupational exposures/hazards: Yes Cognitive needs: No Hearing needs: No Vision needs: Yes Physical Exam Vital Signs: Last Vital Signs Pulse 79 11/13/24 08:27 BP 114/80 11/13/24 08:27 Pulse Ox 97 11/13/24 08:27 Oxygen Delivery Method Room Air 11/13/24 08:27 BMI result Body Mass Index 32.9 Const Orientation/consciousness: patient oriented x3 Neck Neck: Yes no lymphadenopathy Thyroid: Thyroid normal Carotids: no bruits Resp Auscultation: clear to auscultation bilaterally Cardio Rate: regular rate Rhythm: regular rhythm Heart sounds: S1 normal heart sound present and S2 normal heart sound present Peripheral pulses: dorsalis pedis present Neuro General: patient oriented x3, gait normal and no focal motor deficits Extrem Other: Monofilament sensation intact bilaterally. Vibratory sensation intact bilaterally. Skin intact. General: Yes normal to inspection Results Reviewed Results Reviewed: Laboratory Tests 11/11/24 11/13/24 09:21 08:36 Creatinine 1.07 Estimated GFR > 60 Glucose (Clinic) 150 H Fasting Glucose 166 H AST 32 ALT 28 Triglycerides 263 H Cholesterol 183 LDL Cholesterol Direct 100 H LDL Cholesterol, Calc 88 HDL Cholesterol 43 Assessment & Plan Assessment & Plan (1) Uncontrolled diabetes mellitus: Code(s): E11.65 - Type 2 diabetes mellitus with hyperglycemia Category: Medical Plan: we will start patient on Mounjaro. Discussed risks and benefits and adverse effects of this medication including nausea, vomiting, increased risk of pancreatitis. Increase Jardiance to 25 mg daily. Switch from Lantus to Toujeo. Increase Toujeo to 65 units daily continue with lispro 10 units with meals he has backup testing supplies he has treatment for hypoglycemia if needed at home he has had no issues picking up the sensors and has a access to one spare sensor short term follow up in 1 month or sooner if needed. Advised to repeat BMP prior to appointment. (2) Diabetic nephropathy associated with type 2 diabetes mellitus: Code(s): E11.21 - Type 2 diabetes mellitus with diabetic nephropathy Category: Medical Plan: As above. Reviewed labs today (3) Hypertension: Code(s): I10 - Essential (primary) hypertension Category: Medical Qualifiers: Hypertension type: primary hypertension Qualified Code(s): I10 - Essential (primary) hypertension Plan: wnl continue current plan (4) Hyperlipidemia: Code(s): E78.5 - Hyperlipidemia, unspecified Category: Medical Plan: continue with atorvastatin, Zetia and fenofibrate we will recheck in a couple months Medications: New insulin glargine U-300 conc (Toujeo Max U-300 SoloStar) 65 units (0.2167 mL) subcut DAILY 6 mL 5RF tirzepatide (Mounjaro) 2.5 mg (0.5 mL) subcut QWEEK 2 mL 3RF empagliflozin (Jardiance) 25 mg PO QAM 90 tabs 1RF pen needle, diabetic Use QID As directed 100 ea 3RF Refilled insulin lispro 10 units (0.1 mL) subcut TID 30 mL 1RF diabetes mellitus Discontinued pen needle, diabetic (Microdot Insulin Pen Needle) Discontinued Reason: Duplicate TID 100 ea 0RF E11.65 - Type 2 diabetes mellitus with hyperglycemia Coding Level of Care Code Est Pt Level 4 (20082) Complex EM visit Add On G2211 Diagnoses Uncontrolled diabetes mellitus E11.65 Diabetic nephropathy associated with type 2 diabetes mellitus E11.21 Primary hypertension I10 Hypertension type: primary hypertension Hyperlipidemia E78.5
--- OUTSIDE RECORDS SUMMARY | 2024-11-13 08:33 | XMS_ITS ---
Author Name Interface, [id number] lity Address [address] [facility] [address] [place] [address] [facility] Address [address] [facility] [address] [place] [address] Care Team Providers Care Swine Nutritionist Name Role Phone Cat, Kobi Navarro Unavailable [...]
[2024-11-13 08:41] LABS: Glucose, Whole Blood 150 mg/dL (60-115)
== END 2024-11-13 09:25 | disposition home or self-care (01) ==
LOC: HO.ENCR 08:25
PROVIDERS: PCP Nurse Practitioner Family; Visit Provider Physician Assistant
DX: E11.65 Type 2 diabetes mellitus with hyperglycemia (principal); E11.21 Type 2 diabetes mellitus with diabetic nephropathy; I10 Essential (primary) hypertension; E78.5 Hyperlipidemia, unspecified

== ENCOUNTER → 2024-11-13 08:24 | Outpatient (BNVA) | payer OTHER, SELFPAY | PROVIDERS: PCP Nurse Practitioner Family; Visit Provider Physician Assistant | DX: E11.65 Type 2 diabetes mellitus with hyperglycemia (principal); E11.22 Type 2 diabetes mellitus with diabetic chronic kidney disease; I12.9 Hypertensive chronic kidney disease with stage 1 through stage 4 chronic kidney disease, or unspecified chronic kidney disease; N18.9 Chronic kidney disease, unspecified; E78.5 Hyperlipidemia, unspecified; Z79.4 Long term (current) use of insulin; Z79.899 Other long term (current) drug therapy | CPT/HCPCS: 82947; 99212 ==

== ENCOUNTER 2024-11-23 14:29 | Outpatient (REF) | payer OTHER, SELFPAY ==
--- NOTE | ~2024-11-23 | US_ITS ---
EXAMINATION: US EXTRACRANIAL CAROTID DUPLEX, BILATERAL CLINICAL INFORMATION: Other specified symptoms and signs involving the circulation. COMPARISON: None available. TECHNIQUE: Real-time ultrasound and Doppler techniques (integrating B-mode 2-D vascular images, Doppler spectral analysis and color-flow Doppler imaging) were utilized to interrogate the extracranial carotid arteries, the vertebral arteries and proximal subclavian arteries bilaterally. The degree of stenosis is determined by criteria similar to NASCET. FINDINGS: Right Side: 1. There is smooth and calcified atherosclerotic plaque seen in the bifurcation/proximal ICA region. 2. The common carotid artery PSV proximally is 90 cm/s and distally 59 cm/s. 3. The proximal internal carotid artery velocities are 120 cm/s systolic and 36 cm/s diastolic. 4. The proximal external carotid artery PSV is 76 cm/s. 5. The vertebral artery shows antegrade flow. 6. The subclavian artery waveforms are triphasic. Left Side: 1. There is smooth and calcified atherosclerotic plaque seen in the bifurcation/proximal ICA region. 2. The common carotid artery PSV proximally is 85 cm/s and distally 71 cm/s. 3. The proximal internal carotid artery velocities are 65 cm/s systolic and 24 cm/s diastolic. 4. The proximal external carotid artery PSV is 117 cm/s. 5. The vertebral artery shows antegrade flow. 6. The subclavian artery waveforms are triphasic. US/US carotid duplex BI IMPRESSION: 1. RIGHT: 0-49% stenosis by ultrasound criteria. 2. LEFT: 0-49% stenosis by ultrasound criteria. Electronically signed by: Jin Davis MD 11/23/2024 03:21 PM EDT
--- OUTSIDE RECORDS SUMMARY | 2024-11-23 14:58 | XMS_ITS | Encounter Summary ---
Author Organization [facility] Address [address] [place] [address] Phone Care Team Providers Care Ticket Marker Name Role Phone Kobi Day NP Primary Care Provider [phone] Encounter Details Date Type Department Care Team (Late st Contact Info) Description 08/15/2022 Documentation Only [facility] [place], [address] [place] [address] Kobi Day NP [address] [place] [address] Social History Tobacco Use Types Packs/Day Years [...] on filedocumented in this encounter Care Teams Ticket Marker Relationship Specialty Start Date End Date Kobi Day NP [address] [place] [address] PCP - General Nurse Practitioner 08/15/22 documented as of this encounter
--- OUTSIDE RECORDS SUMMARY | 2024-11-23 14:58 | XMS_ITS ---
Author Name Interface, [id number] lity Address [address] [facility] [address] [place] [address] [facility] Address [address] [facility] [address] [place] [address] Allergies and Adverse Reactions Plan Reason for Visit Encounters Medications Problems Vital Signs
== END 2024-11-23 14:30 | disposition home or self-care (01) ==
LOC: HO.HMGCX 14:29
PROVIDERS: PCP Nurse Practitioner Family; Visit Provider Physician Assistant
DX: R09.89 Other specified symptoms and signs involving the circulatory and respiratory systems (principal)
CPT/HCPCS: 93880

== ENCOUNTER → 2024-11-23 14:34 | Outpatient (BNV) | payer OTHER, SELFPAY | PROVIDERS: PCP Nurse Practitioner Family; Visit Provider Radiology Diagnostic Radiology | DX: I65.23 Occlusion and stenosis of bilateral carotid arteries (principal) | CPT/HCPCS: 93880 ==

== ENCOUNTER 2024-12-01 14:05 | Outpatient (AMB) | payer OTHER, SELFPAY ==
--- NOTE | 2024-12-01 14:09 | MHC.OFFVIS ---
Intake Visit Reasons: 3m follow up s/p Arterial US 11/02/24 Intake Note: Patient presents for arterial US follow up . No complaints. Accompanied by: Spouse Allergies No Known Allergies Allergy (Verified 12/01/24 14:11) HPI HPI 3m follow up s/p Arterial US 11/02/24: Details: The patient is a 54-year-old male presenting for routine arterial surveillance follow-up after endovascular intervention. He underwent an endovascular intervention on July 22, 2024, which included left distal superficial femoral artery atherectomy and angioplasty. Post-procedure, he reports doing fairly well with noninvasive arterial ultrasound showing good results. The patient describes significant improvement in his ability to walk, noting that he was able to walk barefoot outside for the first time in 15 years, feeling warmth from the ground. He can walk one to two blocks but experiences leg fatigue and shortness of breath, which limits his walking distance. He is currently on aspirin and clopidogrel (Plavix), with the latter to be discontinued after six months from the procedure date. He will continue on aspirin indefinitely. [facility] Medical History Diabetic peripheral neuropathy associated with type 2 diabetes mellitus S/P angiogram of extremity (07/22/24) Bypass graft stenosis NSTEMI (non-ST elevated myocardial infarction) Nicotine dependence, cigarettes, uncomplicated Degenerative disc disease, cervical Cervical spinal stenosis Neuropathy Smoking history Elevated cholesterol Diabetic retinopathy BPH (benign prostatic hyperplasia) Retinal hemorrhage Type 2 diabetes mellitus Hypertension Surgical History Hx of heart bypass surgery Hx of tonsillectomy Family History Father Leukemia Mother No problems noted. Social History Household Members: Family Housing: Apartment Are you a primary school childcare attendant to a significant other at home: No Do you presently have visiting nurse or other home services: No Alcohol intake: current Alcohol intake frequency: 0-2 drinks per day Alcohol type: beer and hard liquor Patient Tobacco Use Status: Former Tobacco user Tobacco use type: Cigar Years Smoked: 25 e-Cigarette/Vaping Use: Never Used service: No Current occupational status: unemployed Current occupation: [employer] Current occupational exposures/hazards: Yes Cognitive needs: No Hearing needs: No Vision needs: Yes Review of Systems Const All systems reviewed & are unremarkable except as noted in HPI and below Reports no additional complaints ENT Reports Normal hearing present Card Denies chest pain, Denies chest pain at rest, Denies chest pain with activity and Denies pedal edema Resp Denies cough GI Denies abdominal pain Musc Denies abnormal gait, Denies muscle cramps and Denies radiating pain into limb Skin/Breast Denies skin ulcer and Denies wounds Neuro Reports Normal hearing present and Denies abnormal gait Psych Reports no additional complaints Physical Exam Const General: cooperative, healthy appearing and comfortable Orientation/consciousness: oriented to person, oriented to place and oriented to time HEENT Head: Yes normal to inspection Neck Neck: Yes normal visual inspection Carotids: no bruits Chest Chest palpation & inspection: normal inspection of the chest Resp Effort & Inspection: normal respiratory effort and able to speak in complete sentences Auscultation: clear to auscultation bilaterally, no crackles, no rales, no rhonchi and no wheezes Cardio Other: Bilateral DP signals Rate: regular rate Rhythm: regular rhythm Heart sounds: S1 normal heart sound present and S2 normal heart sound present Bruits: no carotid bruits GI Inspection: Yes normal to inspection Skin Wounds: no wounds Hair: normal Neuro General: oriented to person, oriented to place and oriented to time Cranial nerves: Yes CN's II-XII intact bilaterally and Yes Normal hearing present Cognition (Neuro): normal cognition Motor exam (neuro): 5/5 motor strength present throughout Extrem Other: venous exam: No significant superficial varicosities or spider telangiectasias, minimal edema General: No clubbing, No cyanosis and No edema Psych Appearance: grossly normal Mental Status: mental status grossly normal Speech and movement: Normal speech and movement present Results Reviewed Results Reviewed: Noninvasive arterial testing dated 11/02/2024 demonstrates biphasic and triphasic flow all the way down. Left SFA appears to be patent. Written report and images were reviewed. I disagree with radiology read Assessment & Plan Assessment & Plan (1) PAD (peripheral artery disease): Comment: 07/22/2024 left distal SFA atherectomy and plasty Code(s): I73.9 - Peripheral vascular disease, unspecified Category: Medical Plan: In short patient has stable claudication. I did review the pathophysiology of peripheral vascular disease with the patient. In addition we did discuss routine conservative measures including a healthy diet and the importance of exercise and ambulation. We did discuss risk factor modification. The patient will continue to to follow-up with surveillance follow-up in approximately 6 months. Thank you for allowing us to participate in this patient's care. If there are any questions or concerns please do not hesitate to contact us. Orders: Orders US arterial duplex LE BI 6 Months I73.9 - Peripheral vascular disease, unspecified Coding Level of Care Code Est Pt Level 4 (82764) Complex EM visit Add On G2211 Diagnoses PAD (peripheral artery disease) I73.9
--- OUTSIDE RECORDS SUMMARY | 2024-12-01 14:56 | XMS_ITS ---
Author Name Interface, [id number] lity Address [address] [facility] [address] [place] [address] [facility] Address [address] [facility] [address] [place] [address] Allergies and Adverse Reactions Medication/Group Name Reaction [...] Injector active Problems Diagnosis Status Date of Diagnosis Resolution Date Thrombocytopenia Active 2020 Erythrocytosis Active 2020 Vital Signs Date Type Value 05/16/2021 Body Temperature 96.80 05/16/2021 Heart Beat 87.00 05/16/2021 Oxygen Saturation 97.00 05/16/2021 Intravascular Systolic 190 05/16/2021 Intravascular Diastolic 117 05/16/2021 BSA 2.11 05/16/2021 Weight 199.80 05/16/2021 Height 70.00 05/16/2021 BMI 28.67 05/16/2021 Pain Scale 0.00
--- OUTSIDE RECORDS SUMMARY | 2024-12-01 14:56 | XMS_ITS | Encounter Summary ---
Author Organization [facility] Address [address] [place] [address] Phone Care Team Providers Care Sorter Operator Name Role Phone Kobi Day NP Primary Care Provider [phone] Encounter Details Date Type Department Care Team (Late st Contact Info) Description 08/15/2022 Documentation Only [facility] [place], [address] [place] [address] Kobi Day NP [address] [place] [address] Social History Tobacco Use Types Packs/Day Years [...] on filedocumented in this encounter Care Teams Sorter Operator Relationship Specialty Start Date End Date Kobi Day NP [address] [place] [address] PCP - General Nurse Practitioner 08/15/22 documented as of this encounter
== END 2024-12-01 14:33 | disposition home or self-care (01) ==
LOC: HO.HVS 14:06
PROVIDERS: PCP Nurse Practitioner Family; Visit Provider Surgery Vascular Surgery
DX: I73.9 Peripheral vascular disease, unspecified (principal)
CPT/HCPCS: 99214; G2211

== ENCOUNTER → 2024-12-01 14:05 | Outpatient (BNVA) | payer OTHER, SELFPAY | PROVIDERS: PCP Nurse Practitioner Family; Visit Provider Surgery Vascular Surgery | DX: Z71.2 Person consulting for explanation of examination or test findings (principal); I73.9 Peripheral vascular disease, unspecified | CPT/HCPCS: 99212 ==

== ENCOUNTER → 2024-12-10 19:30 | Outpatient (REF) | payer OTHER, SELFPAY ==
--- OUTSIDE RECORDS SUMMARY | 2024-12-10 20:53 | XMS_ITS | Encounter Summary ---
Author Organization [facility] Address [address] [place] [address] Phone Care Team Providers Care Produce Assistant Name Role Phone Kobi Day NP Primary Care Provider [phone] Encounter Details Date Type Department Care Team (Late st Contact Info) Description 08/15/2022 Documentation Only [facility] [place], [address] [place] [address] Kobi Day NP [address] [place] [address] Social History Tobacco Use Types Packs/Day Years [...] on filedocumented in this encounter Care Teams Produce Assistant Relationship Specialty Start Date End Date Kobi Day NP [address] [place], [place] PCP - General Nurse Practitioner 08/15/22 documented as of this encounter
== END ==
LOC: HO.SL 19:30
PROVIDERS: PCP Nurse Practitioner Family; Visit Provider Nurse Practitioner Family
DX: G47.33 Obstructive sleep apnea (adult) (pediatric) (principal)
CPT/HCPCS: 95811

== ENCOUNTER 2024-12-14 08:17 | Outpatient (AMB) | payer OTHER, SELFPAY ==
--- OUTSIDE RECORDS SUMMARY | 2024-12-14 08:22 | XMS_ITS | Encounter Summary ---
Author Organization [facility] Address [address] [place] [address] Phone Care Team Providers Care Mushroom Spawn Maker Name Role Phone Kobi Day NP Primary Care Provider [phone] Encounter Details Date Type Department Care Team (Late st Contact Info) Description 08/15/2022 Documentation Only [facility] [place], [address] [place] [address] Kobi Day NP [address] [place] [address] Social History Tobacco Use Types Packs/Day Years [...] on filedocumented in this encounter Care Teams Mushroom Spawn Maker Relationship Specialty Start Date End Date Kobi Day NP [address] [place], [place] PCP - General Nurse Practitioner 08/15/22 documented as of this encounter
--- OUTSIDE RECORDS SUMMARY | 2024-12-14 08:22 | XMS_ITS ---
Author Name Interface, [id number] lity Address [address] [facility] [address] [place] [address] [facility] Address [address] [facility] [address] [place] [address] Allergies and Adverse Reactions Plan Reason for Visit Encounters Medications Problems Vital Signs
[2024-12-14 08:23] VITALS: BP 166/96; PULSE 80; O2SAT 98; BMI 33.5
--- NOTE | 2024-12-14 08:23 | A.OFFVIS_ITS ---
Vital Signs 12/14/24 08:23 Height 5 ft 9 in Weight 227 lb 1.218 oz BMI 33.5 BP 166/96 H Blood Pressure Location Rt brachial Position Sitting Pulse 80 Pulse Source Pulse Oximeter Pulse Oximetry (%) 98 Oxygen Delivery Method Room Air Intake Visit Reasons: dm Intake Note: Patient present today for Type 2 Diabetes Mellitus Last Diabetic eye exam: 06/12/24 Last Podiatry Visit: 07/20/24 Random Glucose: 145 mg/dL HgA1C: 8.7%, 12/14/2024 Productivity Engineer Required: No Accompanied by: Significant Other Allergies No Known Allergies Allergy (Verified 12/14/24 08:41) Medication List - Last Reconciled 12/14/24 by Vee Mclaughlin PA-C aspirin 81 mg PO DAILY atorvastatin 80 mg PO DAILY blood-glucose sensor (Tira WirelessStyle Kayode 3 Plus Sensor device) Use daily As directed to monitor glucose citalopram 20 mg PO DAILY clopidogrel 75 mg PO DAILY empagliflozin (Jardiance) 25 mg PO QAM ezetimibe 10 mg PO DAILY 90 days fenofibrate 160 mg PO DAILY furosemide 40 mg PO DAILY glucagon 3 mg/actuation 3 mg intranasal ONCE PRN insulin glargine U-300 conc (Toujeo Max U-300 SoloStar) 65 units (0.2167 mL) subcut DAILY insulin lispro 10 units (0.1 mL) subcut TID lancets (Repairogen Delica Plus Lancet) As directed lancing device with lancets (Repairogen Delica Plus Lancing Device kit) As directed losartan 25 mg PO BID metoprolol succinate ER (Toprol XL) 50 mg PO DAILY omega-3 acid ethyl esters 1 cap PO BID 90 days pen needle, diabetic Use QID As directed spironolactone 25 mg PO DAILY HPI HPI dm: Details: Patient is a 54-year-old male with a significant past medical history of chronic kidney disease, peripheral are very disease, ischemic cardiomyopathy, CHF, hypertension, type 2 diabetes, microalbuminuria and retinopathy presenting today For a follow up regarding his diabetes. Endo: He was diagnosed with diabetes 2005. He states 15 years ago he was dx with DKA and they did do antibody testing at that time that confirmed t2dm. His A1c is 8.7. He is currently managed with Jardiance 25 mg, toujeo 65 units nightly, lispro 10 units 3 times a day with meals and mounjaro 2.5 mg weekly. he states that he is tolerating the Jardiance and Mounjaro without difficulty. He is still forgetting to take the lispro as directed In the past he has tried-farxiga (stopped due to insurance), metformin was d/c after ND, trulicity (caused n/v/d), ozempic (nausea then insurance declined), Lantus cause injection site pain CGM- Usage 85%, G mi 8%, average glucose 194, variability 30%. Very hyperglycemic 18%, hyperglycemic 39%, in range 43%, hypoglycemia 0% Has a lot of testing supplies from [employer] at home for one touch He did follow at one point with an drawing in hand 10 years ago. He has had diabetic education and dry end tester appointment. he follows with Podiatry and Ophthalmology CV: Blood pressure today in the office is 166/96- did not take his medication yet, asymptomatic. He is currently on losartan 25 mg twice a day, metoprolol 50 mg daily, spironolactone 25 mg daily, furosemide 40 mg daily. He is on Plavix and aspirin. Cholesterol is controlled with atorvastatin 80 mg, fenofibrate 160 mg and Zetia 10 mg. He follows with cardiology. Nephro: Has CKD and microalbuminuria. Follows with Nephrology and was last seen 10/13/24. Vasc: utd with visit for PAD, recent left leg angio 06/2024. [facility] Medical History Diabetic peripheral neuropathy associated with type 2 diabetes mellitus S/P angiogram of extremity (07/22/24) Bypass graft stenosis NSTEMI (non-ST elevated myocardial infarction) Nicotine dependence, cigarettes, uncomplicated Degenerative disc disease, cervical Cervical spinal stenosis Neuropathy Smoking history Elevated cholesterol Diabetic retinopathy BPH (benign prostatic hyperplasia) Retinal hemorrhage Type 2 diabetes mellitus Hypertension Surgical History Hx of heart bypass surgery Hx of tonsillectomy Family History Father Leukemia Mother No problems noted. Social History Household Members: Family Housing: Apartment Are you a primary hospice care transitions coordinator to a significant other at home: No Do you presently have visiting nurse or other home services: No Alcohol intake: current Alcohol intake frequency: 0-2 drinks per day Alcohol type: beer and hard liquor Patient Tobacco Use Status: Former Tobacco user Tobacco use type: Cigar Years Smoked: 25 e-Cigarette/Vaping Use: Never Used service: No Current occupational status: unemployed Current occupation: [employer] Current occupational exposures/hazards: Yes Cognitive needs: No Hearing needs: No Vision needs: Yes Physical Exam Vital Signs: Last Vital Signs Pulse 80 12/14/24 08:23 BP 166/96 H 12/14/24 08:23 Pulse Ox 98 12/14/24 08:23 Oxygen Delivery Method Room Air 12/14/24 08:23 BMI result Body Mass Index 33.5 Const Orientation/consciousness: patient oriented x3 HEENT Ears: hearing grossly normal bilaterally Neck Thyroid: Thyroid normal Lymphatic: no lymphadenopathy noted Resp Auscultation: clear to auscultation bilaterally Cardio Rate: regular rate Rhythm: regular rhythm Heart sounds: S1 normal heart sound present and S2 normal heart sound present Skin General skin exam: no rashes or lesions noted Neuro General: patient oriented x3, gait normal and no focal motor deficits Results AMB Hemoglobin A1c AMB Hemoglobin A1c 8.7 % Last Edit by BELKYS Hoover on 12/14/24 08:40 Results Reviewed Results Reviewed: Laboratory Last Values Glucose (Clinic) 145 mg/dL (60-115) H 12/14/24 08:31 Hgb A1c (Clinic) 8.7 % (4.0-6.0) H 12/14/24 08:38 US/US carotid duplex BI IMPRESSION: 1. RIGHT: 0-49% stenosis by ultrasound criteria. 2. LEFT: 0-49% stenosis by ultrasound criteria. Assessment & Plan Assessment & Plan (1) Diabetic nephropathy associated with type 2 diabetes mellitus: Code(s): E11.21 - Type 2 diabetes mellitus with diabetic nephropathy Category: Medical Plan: We will continue to monitor. Increase Mounjaro 2 5 mg weekly. Continue Toujeo to 65 units daily Encouraged compliance with the lispro as directed. His states that she will be better reminding him. Continue Jardiance 25 mg daily Return in 3 months. Labs prior. Follow up sooner if needed. Patient understands and agrees with the plan. (2) Hypertension: Code(s): I10 - Essential (primary) hypertension Category: Medical Qualifiers: Hypertension type: primary hypertension Qualified Code(s): I10 - Essential (primary) hypertension Plan: Advised to take medication once he is health. (3) Hyperlipidemia: Code(s): E78.5 - Hyperlipidemia, unspecified Category: Medical Plan: Continue current regimen Orders: Orders AMB Hemoglobin A1c Today E11.65 - Type 2 diabetes mellitus with hyperglycemia Hemoglobin A1c Today E11.21 - Type 2 diabetes mellitus with diabetic nephropathy, R73.01 - Impaired fasting glucose Microalbumin, Random (w Creat) Today E11.21 - Type 2 diabetes mellitus with di abetic nephropathy Medications: New tirzepatide (Mounjaro) 5 mg (0.5 mL) subcut QWEEK 2 mL 5RF lancets (OneTouch UltraSoft 2 Lancet) use daily As directed to monitor blood sugars 100 ea 2RF blood sugar diagnostic (OneTouch Ultra Test strips) Use daily As directed to monitor blood glucose 100 ea 3RF E11.65 - Type 2 diabetes mellitus with hyperglycemia Coding Level of Care Code Est Pt Level 4 (54093) Complex EM visit Add On G2211 Diagnoses Diabetic nephropathy associated with type 2 diabetes mellitus E11.21 Primary hypertension I10 Hypertension type: primary hypertension Hyperlipidemia E78.5
[2024-12-14 08:34] LABS: Glucose, Whole Blood 145 mg/dL (60-115)
== END 2024-12-14 09:00 | disposition home or self-care (01) ==
LOC: HO.ENCR 08:18
PROVIDERS: PCP Nurse Practitioner Family; Visit Provider Physician Assistant
DX: E11.21 Type 2 diabetes mellitus with diabetic nephropathy (principal); I10 Essential (primary) hypertension; E78.5 Hyperlipidemia, unspecified; E11.65 Type 2 diabetes mellitus with hyperglycemia

== ENCOUNTER → 2024-12-14 08:17 | Outpatient (BNVA) | payer OTHER, SELFPAY | PROVIDERS: PCP Nurse Practitioner Family; Visit Provider Physician Assistant | DX: G47.33 Obstructive sleep apnea (adult) (pediatric) (principal); I25.5 Ischemic cardiomyopathy; G47.34 Idiopathic sleep related nonobstructive alveolar hypoventilation; I11.0 Hypertensive heart disease with heart failure; I50.9 Heart failure, unspecified; E11.319 Type 2 diabetes mellitus with unspecified diabetic retinopathy without macular edema; E11.21 Type 2 diabetes mellitus with diabetic nephropathy; E78.5 Hyperlipidemia, unspecified; E11.65 Type 2 diabetes mellitus with hyperglycemia; Z99.81 Dependence on supplemental oxygen; Z99.89 Dependence on other enabling machines and devices | CPT/HCPCS: 82947; 83036; 99212 ==

== ENCOUNTER 2024-12-14 15:19 | Outpatient (AMB) | payer OTHER, SELFPAY ==
[2024-12-14 15:26] VITALS: BP 161/89; PULSE 90; O2SAT 94; BMI 33.5
--- NOTE | 2024-12-14 15:26 | MHC.OFFVIS ---
Vital Signs 12/14/24 15:26 Height 5 ft 9 in Weight 227 lb 1.218 oz BMI 33.5 BP 161/89 H Blood Pressure Location Rt brachial Position Sitting Pulse 90 Pulse Source Pulse Oximeter Pulse Oximetry (%) 94 Oxygen Delivery Method Room Air Intake Visit Reasons: Obstructive sleep apnea Intake Note: pt is here as a new patient for daryn/sleep study follow up. 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: No Allergies No Known Allergies Allergy (Verified 12/14/24 15:31) Medication List - Last Reconciled 12/14/24 by Timmy Sanchez MD aspirin 81 mg PO DAILY atorvastatin 80 mg PO DAILY blood sugar diagnostic (SolarEdgeuch Ultra Test strips) Use daily As directed to monitor blood glucose blood-glucose sensor (DisconnectStyle Kayode 3 Plus Sensor device) Use daily As directed to monitor glucose citalopram 20 mg PO DAILY clopidogrel 75 mg PO DAILY empagliflozin (Jardiance) 25 mg PO QAM ezetimibe 10 mg PO DAILY 90 days fenofibrate 160 mg PO DAILY furosemide 40 mg PO DAILY glucagon 3 mg/actuation 3 mg intranasal ONCE PRN insulin glargine U-300 conc (Toujeo Max U-300 SoloStar) 65 units (0.2167 mL) subcut DAILY insulin lispro 10 units (0.1 mL) subcut TID lancets (HoseannaTouch UltraSoft 2 Lancet) use daily As directed to monitor blood sugars losartan 25 mg PO BID metoprolol succinate ER (Toprol XL) 50 mg PO DAILY omega-3 acid ethyl esters 1 cap PO BID 90 days pen needle, diabetic Use QID As directed spironolactone 25 mg PO DAILY tirzepatide (Mounjaro) 5 mg (0.5 mL) subcut QWEEK Do you need a note to return to daycare/school/sports/work: No HPI HPI Obstructive sleep apnea: Details: Solis is a 54-year-old male referred for management of his severe sleep apnea and nocturnal hypoxemia. He has past medical history of hypertension, hyperlipidemia, diabetes, past H/O smoking, heart failure with reduced EF, NSTEMI, coronary atherosclerosis, coronary artery bypass grafting x2 02/18/2024 , followed by cardiac rehab which she completed only for a few weeks. During hospitalization he was noted to have nocturnal hypoxemia and needed O2 supplementation. Initially he had a home-based sleep study which showed very severe obstructive sleep apnea and persistent nocturnal hypoxemia. The so CPAP titration in the sleep lab was recommended which was done on 12/10/2024. The titration was difficult, with plain CPAP up to 14 cm he had significant obstructive apneas as well as chance of central apnea. Does the bilevel pressure was tried and optimal results obtained with pressure of 14/8 cm. However the results were still suboptimal. It was noted that increased pressure on that night resulted in emergence of central apneas. He was also hypoxemic and required O2 supplementation of 2 L/minute. Use of planes CPAP, bilevel CPAP as well as he ASV mode , all resulted in sub optimal results. As per as patient is concerned he said he had the best sleep, he woke up this morning very refreshed. And he is full of Fabio's for the ruling technician , who worked. On him that night This gentleman has been only moderately overweight, yet he does have very severe sleep apnea. He was a smoker of 1 pack a day but quit since last year after the cardiac surgery. He has been a drinker of alcohol and still consumes about 2-3 cans of beer. He denies use of any illicit/ narcotic meds. He has had extraction of his teeth and veers both upper and lower dentures. He is still weak, gets short of breath on minimal exertion like going up stairs or walking fast. Denies having cough or wheezing, especially since he has quit smoking. Echocardiogram showed EF of 40-45% He has peripheral neuropathy as well as peripheral vascular disease. Has diabetes mellitus, hyperlipidemia, PFSH reviewed. [facility] Medical History (Updated 12/14/24 @ 16:28 by Timmy Sanchez MD) Nocturnal hypoxemia Diabetic peripheral neuropathy associated with type 2 diabetes mellitus S/P angiogram of extremity (07/22/24) Bypass graft stenosis NSTEMI (non-ST elevated myocardial infarction) Nicotine dependence, cigarettes, uncomplicated Degenerative disc disease, cervical Cervical spinal stenosis Neuropathy Smoking history Elevated cholesterol Diabetic retinopathy BPH (benign prostatic hyperplasia) Retinal hemorrhage Type 2 diabetes mellitus Hypertension Surgical History Hx of heart bypass surgery Hx of tonsillectomy Family History Father Leukemia Mother No problems noted. Social History Household Members: Family Housing: Apartment Are you a primary lawn care technician to a significant other at home: No Do you presently have visiting nurse or other home services: No Alcohol intake: current Alcohol intake frequency: 0-2 drinks per day Alcohol type: beer and hard liquor Patient Tobacco Use Status: Former Tobacco user Tobacco use type: Cigar Years Smoked: 25 e-Cigarette/Vaping Use: Never Used service: No Current occupational status: unemployed Current occupation: [employer] Current occupational exposures/hazards: Yes Cognitive needs: No Hearing needs: No Vision needs: Yes Review of Systems Const All systems reviewed & are unremarkable except as noted in HPI and below Reports weakness (Lower extremities) Eyes Reports no additional complaints ENT Reports no additional complaints Card Reports as per HPI Resp Reports as per HPI GI Reports no additional complaints Reports no additional complaints Musc Reports muscle weakness (General especially in lower extremities) Skin/Breast Reports system reviewed and no additional complaints, except as documented Neuro Reports paresthesias (In the lower extremities) and Reports weakness (Lower extremities) Psych Reports no additional complaints Endo Reports other (Diabetes mellitus requiring insulin) Bryce/Lymph Reports no additional complaints Aller/Immun Reports no additional complaints Physical Exam Vital Signs: Last Vital Signs Pulse 90 12/14/24 15:26 BP 161/89 H 12/14/24 15:26 Pulse Ox 94 12/14/24 15:26 Oxygen Delivery Method Room Air 12/14/24 15:26 BMI result Body Mass Index 33.5 Const General: comfortable, no acute distress, alert and awake Orientation/consciousness: patient oriented x3 HEENT Head: Yes normal to inspection General nose exam: No nasal polyps present and No nasal discharge present Face and sinus: Yes sinuses nontender Mouth: oropharynx normal (There is a mild regression of the chin, tongue is placed back, Mallampati s) Teeth and gingiva: dentures (Both upper and lower jaws) Throat: Yes posterior oropharynx normal Eyes General: appearance normal, both eyes and all related structures Neck Neck: Yes normal visual inspection, Yes no lymphadenopathy, Yes trachea midline and Yes no JVD Thyroid: Thyroid normal Chest Chest palpation & inspection: abnormal inspection of the chest (Midline surgical scar well healed with mild keloid formation) and normal palpation of entire chest wall Resp Other: Percussion note is resonant breath sounds are equal on both sides slightly decreased over the basilar areas no wheezes or rhonchi are heard Cardio Palpation: normal PMI Rate: regular rate Rhythm: regular rhythm Heart sounds: no gallops and no murmurs GI Palpation (GI): Soft to palpation, nontender, No hepatosplenomegaly present, no masses and Other GI palpation findings present (Abdomen is moderately obese and protuberant) Auscultation: normal bowel sounds Back/Spine/Pelvis Thoracic/Lumbar Spine: thoracic and lumbar spine normal to inspection Skin Lesions: lesion noted (There are multiple scratches in front of the both legs) Neuro General: patient oriented x3 and no focal motor deficits Cranial nerves: Yes CN's II-XII intact bilaterally Extrem General: Yes normal to inspection, Yes no clubbing, cyanosis or edema and Yes no calf tenderness Psych Appearance: grossly normal and well kempt Speech and movement: Normal speech and movement present Results AMB Hemoglobin A1c AMB Hemoglobin A1c 8.7 % Last Edit by BELKYS Hoover on 12/14/24 08:40 Results Reviewed Results Reviewed: HOME-BASED SLEEP STUDY ON 11/18/2024, SHOWED SEVERE OBSTRUCTIVE SLEEP APNEA WITH NOCTURNAL HYPOXEMIA. CPAP TITRATION STUDY WAS RECOMMENDED TO BE DONE IN THE SLEEP LAB. CPAP TITRATION STUDY IN THE SLEEP LAB ON 12/10/2024. DIFFICULT TO ACHIEVE, OPTIMAL RESULTS BEST RESULTS OBTAINED WITH A BILEVEL PRESSURE OF 14/8 CM USING NASAL MASK. Assessment & Plan Assessment & Plan (1) Severe obstructive sleep apnea: Comment: PATIENT HAS VERY SEVERE OBSTRUCTIVE SLEEP APNEA WITH SEVERE NOCTURNAL HYPOXEMIA. STATUS POST CPAP TITRATION IN THE SLEEP LAB. REQUIRED USE OF BIPAP WITH OXYGEN. THE RESULTS WERE STILL SOMEWHAT SUBOPTIMAL. THERE WAS TREATMENT EMERGENT CENTRAL SLEEP APNEA. Code(s): G47.33 - Obstructive sleep apnea (adult) (pediatric) Category: Medical Plan: PATIENT REQUIRED USE OF BILEVEL CPAP ( BIPAP ) WITH PRESSURE SETTING OF 14/8 CM AND O2 2 L/MINUTE. PATIENT NOT A GOOD CANDIDATE FOR ASV MODE HE HAS ISCHEMIC CARDIOMYOPATHY WITH EJECTION FRACTION OF 40-45 % (2) Congestive heart failure: Comment: PATIENT WITH CORONARY ARTERY DISEASE STATUS POST 2 VESSEL BYPASS . HAS ISCHEMIC CARDIOMYOPATHY AND CONGESTIVE HEART FAILURE, NOW CONTROLLED WITH MEDS Code(s): I50.9 - Heart failure, unspecified Category: Medical Plan: BECAUSE OF CONGESTIVE HEART FAILURE, IT BECOMES MORE IMPERATIVE THAT HE SHOULD USE THE NONINVASIVE RESPIRATORY SUPPORT AT NIGHT ALONG WITH OXYGEN SUPPLEMENTATION. (3) Ischemic cardiomyopathy: Comment: PER ECHOCARDIOGRAM LV EJECTION FRACTION 40-45 THIS MAY ALL BE PARTLY DUE TO HIS CONSUMPTION OF ALCOHOL. Code(s): I25.5 - Ischemic cardiomyopathy Category: Medical Plan: PATIENT COUNSELED TO QUIT DRINKING ALCOHOL. EXPLAINED THAT IT IS VERY IMPORTANT FOR HIM TO USE BIPAP REGULARLY AT NIGHT (4) Nocturnal hypoxemia: Comment: MENTIONED ABOVE IN THE HISTORY , PATIENT HAD SEVERE NOCTURNAL HYPOXEMIA AND HE REQUIRED O2 SUPPLEMENTATION ALONG WITH THE BIPAP. Code(s): G47.34 - Idiopathic sleep related nonobstructive alveolar hypoventilation Category: Medical Plan: O2 2 L/MINUTE IS BEING ORDERED TO BE USED ALONG WITH THE BIPAP. Coding Level of Care Code New Pt Level 4 (64459) Diagnoses Severe obstructive sleep apnea G47.33 Congestive heart failure I50.9 Ischemic cardiomyopathy I25.5 Nocturnal hypoxemia G47.34
== END 2024-12-14 16:04 | disposition home or self-care (01) ==
PROVIDERS: PCP Nurse Practitioner Family; Referring Provider Nurse Practitioner Family; Visit Provider Internal Medicine
DX: G47.33 Obstructive sleep apnea (adult) (pediatric) (principal); G47.34 Idiopathic sleep related nonobstructive alveolar hypoventilation; I50.9 Heart failure, unspecified; I25.5 Ischemic cardiomyopathy
CPT/HCPCS: 99214

== ENCOUNTER 2025-01-06 08:51 | Outpatient (AMB) | payer OTHER, SELFPAY ==
[2025-01-06 08:53] VITALS: BP 140/94; PULSE 89; RESP 16; O2SAT 95; BMI 33.7
--- NOTE | 2025-01-06 08:53 | A.OFFPC_ITS ---
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 History of Present Illness The patient is a 54-year-old male presenting with hypertension management. He continues to see a market intelligence consultant for his cardiovascular health and an supervisor white sugar for diabetes management. He also regularly visits an associate media planner for eye care. The patient denies experiencing any chest pain, increased dyspnea, headaches, or visual disturbances. His blood pressure was noted to be elevated during the visit, attributed to not taking his medication that morning. He is advised to monitor his blood pressure at home and report the readings via the patient portal. A recent physical examination revealed diminished air movement in the lungs bilaterally, but no edema in the lower extremities. Carotid bruits were noted bilaterally, although recent ultrasound testing showed no significant stenosis. Social History Health Maintenance Review of Systems - Cardiovascular: Denies chest pain, den ies increased dyspnea - Neurological: Denies headaches - Ophthalmologic: Denies blurred vision or changes in vision Physical Exam General: Cooperative, healthy appearing, comfortable, no acute distress and well developed Orientation: Patient oriented x3 Limitations: No limitations Head: Normal to inspection Ears: Hearing grossly normal bilaterally Nose: Normal external nose present Face and sinus: Normal facial exam Eyes: Appearance normal, both eyes and all related structures Neck: Normal visual inspection and Yes full ROM Respiratory: Diminished though moving air bilaterally Cardiovascular: Regular rate and rhythm. Normal S1 and S2. Carotid bruits noted bilaterally GI: Normal to inspection. Soft to palpation and nontender Skin: No rashes or lesions noted Neuro: Patient oriented x3 Extremities: Normal to inspection. No edema to lower extremities Results - Ultrasound: No significant carotid fatuma nosis Plan The patient is advised to continue monitoring his blood pressure at home and report the readings via the patient portal. A follow-up appointment is scheduled in a few weeks for a comprehensive physical examination. The patient is reminded to adhere to his medication regimen to manage his hypertension effectively. Discussion Notes I discussed with the patient the importance of monitoring his blood pressure regularly and adhering to his medication regimen. We also talked about the need for a follow-up visit to assess his overall health and manage his hypertension effectively. Patient Instructions - Monitor your blood pressure at home re gularly and report the readings via the patient portal. - Take your prescribed medications as di rected to manage your blood pressure. - Attend the follow-up appointment in a few weeks for a comprehensive physical examination. [facility] Medical History Nocturnal hypoxemia Diabetic peripheral neuropathy associated with type 2 diabetes mellitus S/P angiogram of extremity (07/22/24) Bypass graft stenosis NSTEMI (non-ST elevated myocardial infarction) Nicotine dependence, cigarettes, uncomplicated Degenerative disc disease, cervical Cervical spinal stenosis Neuropathy Smoking history Elevated cholesterol Diabetic retinopathy BPH (benign prostatic hyperplasia) Retinal hemorrhage Type 2 diabetes mellitus Hypertension Surgical History Hx of heart bypass surgery Hx of tonsillectomy Family History Father Leukemia Mother No problems noted. Social History Household Members: Family Housing: Apartment Are you a primary intensive care ambulance paramedic to a significant other at home: No Do you presently have visiting nurse or other home services: No Alcohol intake: current Alcohol intake frequency: 0-2 drinks per day Alcohol type: beer and hard liquor Patient Tobacco Use Status: Former Tobacco user Tobacco use type: Cigar Years Smoked: 25 e-Cigarette/Vaping Use: Never Used service: No Current occupational status: unemployed Current occupation: [employer] Current occupational exposures/hazards: Yes Cognitive needs: No Hearing needs: No Vision needs: Yes Questionnaire PHQ-9 Over the last 2 weeks, how often have you been bothered by any of the following problems? 1. Little interest or pleasure in doing things: more than half the days 2. Feeling down, depressed, or hopeless: nearly every day 3. Trouble falling or staying asleep, or sleeping too much: more than half the days 4. Feeling tired or having little energy: more than half the days 5. Poor appetite or overeating: not at all 6. Feeling bad about yourself - or that you are a failure or have let yourself or your family down: not at all 7. Trouble concentrating on things, such as reading the newspaper or watching television: not at all 8. Moving or speaking so slowly that other people could have noticed. Or the opposite - being so fidgety or restless that you have been moving around a lot more than usual: not at all 9. Thoughts that you would be better off or of hurting yourself in some way: not at all Total score: 9 Depression Screening Interpretation: Positive Depression Screening Done: Yes [id number] - PHQ-9 Billing: Yes Source: Developed by Drs. Solis Moore, Светлана Christy, Anant Romano and colleagues, with an educational kandy from [employer]. Thrive Questionnaire Date Thrive assessed: 06/01/24 I am a: Patient What is your living situation today?: I have a steady place to live Within the past 12 months, did the food you bought not last and you didn't have the money to get more?: Never true Within the past 12 months, did you worry whether your food would run out before you got money to buy more?: Never true Do you have trouble paying for medicines?: No Do you have trouble getting transportation to medical appointments?: No Do you have trouble paying your heating and electricity bill?: No Do you have trouble taking care of your child, family member or friend?: No Do you have trouble with day-to-day activities such as bathing, preparing meals, shopping, managing finances, etc.?: No Are you currently unemployed and looking for a job?: I choose not to answer this question Are you interested in more education?: No Please select the resources that you would like help with: None Currently or been in a relationship where the following occur: No concerns reported THRIVE Score: 0 GIBSON-7 AMB Questionnaire GIBSON-7 Feeling nervous, anxious, or on edge: 1 = Several days Not being able to stop or control worryin = Several days Worrying too much about different things: 0 = Not at all Trouble relaxin = Not at all Being so restless that it is hard to sit still: 0 = Not at all Becoming easily annoyed or irritable: 0 = Not at all Feeling afraid as if something awful might happen: 0 = Not at all Total GIBSON-7 score (0-4 normal; 5-9 mild; 10-14 moderate; 15-21 severe): 2 Source: Developed by Drs. Solis Moore, Светлана Christy, Anant Romano and colleagues, with an educational kandy from [employer]. GIBSON-7 Assessment Billing GIBSON-7 Assessment Tool: GIBSON-7 Assessment 27994 Physical exam (Primary Care) Vital Signs: Last Vital Signs Pulse 89 01/06/25 08:53 Resp 16 01/06/25 08:53 BP 140/94 H 01/06/25 08:53 Pulse Ox 95 01/06/25 08:53 Oxygen Delivery Method Room Air 01/06/25 08:53 BMI result Body Mass Index 33.7 Tobacco/Smoking Status: Tobacco use Status Tobacco use date assessed 01/06/25 01/06/25 09:03 Patient Tobacco Use Status Former Tobacco user 01/06/25 09:03 Tobacco use type Cigar 01/06/25 09:03 e-Cigarette/Vaping Use Never Used 01/06/25 09:03 PHQ-9: PHQ-9 Score PHQ-9: Total score 9 01/06/25 09:25 Depression Screening Interpretation: Positive Thrive Assessment: Date of Thrive Assessment Date Thrive assessed 06/01/24 01/06/25 09:03 Currently or been in a relationship where the following occur: No concerns reported Coding Level of Care Code Est Pt Level 3 (77620) Diagnoses Primary hypertension I10 Hypertension type: primary hypertension Additional Codes GIBSON-7 Assessment Billing - GIBSON-7 Assessment Tool: GIBSON-7 Assessment 72211 ([id number]) PHQ-9 - 65213 - PHQ-9 Billing: Yes ([id number]) Assessment & Plan Assessment & Plan (1) Hypertension: Code(s): I10 - Essential (primary) hypertension Category: Medical Qualifiers: Hypertension type: primary hypertension Qualified Code(s): I10 - Essential (primary) hypertension Plan . Orders: Orders Complete Blood Count Auto Diff Today I10 - Essential (primary) hypertension TSH reflex Free T4 Today I10 - Essential (primary) hypertension Lipid Panel Today I10 - Essential (primary) hypertension Comprehensive [place]. Panel Fast Today I10 - Essential (primary) hypertension UA CC w/rflx Micro + Cult Today I10 - Essential (primary) hypertension
--- OUTSIDE RECORDS SUMMARY | 2025-01-06 09:10 | XMS_ITS ---
Author Name Interface, [email or web address] Address [address] [place] [address] [facility] Address [address] [place] [address] Allergies and Adverse Reactions Plan Reason for Visit Encounters Medications Problems Vital Signs
--- OUTSIDE RECORDS SUMMARY | 2025-01-06 09:10 | XMS_ITS | Encounter Summary ---
Author Organization [facility] Address [address] [place] [address] Phone Care Team Providers Care Vending Attendant Name Role Phone Kobi Day NP Primary Care Provider Encounter Details Date Type Department Care Team (Late st Contact Info) Description 08/15/2022 Documentation Only [facility], [address] [place] [address] Kobi Day NP [address] [place] [address] Social History Tobacco Use Types Packs/Day Years [...] on filedocumented in this encounter Care Teams Vending Attendant Relationship Specialty Start Date End Date Kobi Day NP [address] [place] [address] PCP - General Nurse Practitioner 08/15/22 documented as of this encounter
[2025-01-06 09:34] VITALS: BP 130/88
== END 2025-01-06 10:06 | disposition home or self-care (01) ==
LOC: HO.HMCC 08:52
PROVIDERS: PCP Nurse Practitioner Family; Visit Provider Nurse Practitioner Family
DX: I10 Essential (primary) hypertension (principal)

== ENCOUNTER → 2025-01-06 08:51 | Outpatient (BNVA) | payer OTHER, SELFPAY | PROVIDERS: PCP Nurse Practitioner Family; Visit Provider Nurse Practitioner Family | DX: I10 Essential (primary) hypertension (principal) | CPT/HCPCS: 96127; 99212 ==

== ENCOUNTER 2025-01-26 12:56 | Outpatient (AMB) | payer OTHER, SELFPAY ==
--- NOTE | 2025-01-26 13:04 | MHC.PC.OV ---
Vital Signs 01/26/25 13:08 Height 5 ft 9 in Weight 230 lb BMI 34.0 BP 124/80 Blood Pressure Location Lt brachial Position Sitting Respiration 16 Pulse 81 Pulse Source Pulse Oximeter Pulse Oximetry (%) 95 Oxygen Delivery Method Room Air Intake Visit Reasons: PE Atv Mechanic Required: No Accompanied by: Spouse Allergies No Known Allergies Allergy (Verified 01/26/25 13:13) Medication List - Last Reconciled 01/26/25 by GARETH SandovalP- aspirin 81 mg PO DAILY atorvastatin 80 mg PO DAILY blood sugar diagnostic (Robertson Global Health SolutionsTouch Ultra Test strips) Use daily As directed to monitor blood glucose blood-glucose sensor (Aperion BiologicsStyle Kayode 3 Plus Sensor device) Use daily As directed to monitor glucose citalopram 20 mg PO DAILY clopidogrel 75 mg PO DAILY empagliflozin (Jardiance) 25 mg PO QAM ezetimibe 10 mg PO DAILY 90 days fenofibrate 160 mg PO DAILY furosemide 40 mg PO DAILY glucagon 3 mg/actuation 3 mg intranasal ONCE PRN insulin glargine U-300 conc (Toujeo Max U-300 SoloStar) 65 units (0.2167 mL) subcut DAILY insulin lispro 10 units (0.1 mL) subcut TID lancets (Robertson Global Health SolutionsTouch UltraSoft 2 Lancet) use daily As directed to monitor blood sugars losartan 25 mg PO BID metoprolol succinate ER (Toprol XL) 50 mg PO DAILY omega-3 acid ethyl esters 1 cap PO BID 90 days pen needle, diabetic Use QID As directed spironolactone 25 mg PO DAILY tirzepatide (Mounjaro) 5 mg (0.5 mL) subcut QWEEK Tobacco use date assessed: 01/26/25 Dental Screening Dental Screen Date: 01/26/25 Did you have a dental visit in the last 12 months?: Yes Did you have a dental problem in the last 6 months where you did not have access to dental care?: No HPI PE HPI Details History of Present Illness The patient is a 54-year-old male presenting with a physical examination and management of chronic conditions. He has a history of diabetes mellitus and is currently under the care of an olive picker for management. He is also scheduled to see a continuous miner operator and regularly consults with a posting clerk and a retinal specialist for comprehensive care. Recently, the patient experienced an inversion injury to his left ankle approximately three to four days ago. He reports swelling and ecchymosis on the lateral malleolus and toes two, three, and partially four, with some limitation in range of motion due to swelling. Health Maintenance Social History Review of Systems Physical Exam General: Cooperative, healthy appearing, comfortable, no acute distress and well developed Orientation: Patient oriented x3 Limitations: No limitations Head: Normal to inspection Ears: Hearing grossly normal bilaterally Nose: Normal external nose present Face and sinus: Normal facial exam Eyes: Appearance normal, both eyes and all related structures Neck: Normal visual inspection and Yes full ROM Respiratory: Normal respiratory effort and able to speak in complete sentences. Clear to auscultation bilaterally Cardiovascular: Regular rate and rhythm. Normal S1 and S2. Carotid artery bruits noted GI: Normal to inspection. Soft to palpation and nontender : testicles without masses/lesions and no hernias appreciated Skin: No rashes or lesions noted Neuro: Patient oriented x3 Extremities: left ankle noted with swelling, especially to the dorsal aspect of the foot. Ecchymosis to toes two, three, and partially four. Range of motion noted to ankle, though it is swollen and slightly tender. Slightly edematous. Results Plan Patient was informed and verbally consented to the use of an ambient scribe for clinic note documentation during this visit. 1. Diabetes Mellitus The patient continues to manage diabetes mellitus under the care of an olive picker. 2. Carotid Artery Bruits Carotid artery bruits were noted during the examination, indicating the need for further vascular assessment. 3. Ankle Sprain The patient experienced an inversion injury to the left ankle, resulting in swelling and ecchymosis. An x-ray of the ankle is planned to assess for any fractures or further injuries. Discussion Notes Patient Instructions [facility] Medical History Nocturnal hypoxemia Diabetic peripheral neuropathy associated with type 2 diabetes mellitus S/P angiogram of extremity (07/22/24) Bypass graft stenosis NSTEMI (non-ST elevated myocardial infarction) Nicotine dependence, cigarettes, uncomplicated Degenerative disc disease, cervical Cervical spinal stenosis Neuropathy Smoking history Elevated cholesterol Diabetic retinopathy BPH (benign prostatic hyperplasia) Retinal hemorrhage Type 2 diabetes mellitus Hypertension Surgical History Hx of heart bypass surgery Hx of tonsillectomy Family History Father Leukemia Mother No problems noted. Social History Household Members: Family Housing: Apartment Are you a primary intensive care ambulance paramedic to a significant other at home: No Do you presently have visiting nurse or other home services: No Alcohol intake: current Alcohol intake frequency: 0-2 drinks per day Alcohol type: beer and hard liquor Patient Tobacco Use Status: Former Tobacco user Tobacco use type: Cigar Years Smoked: 25 e-Cigarette/Vaping Use: Never Used service: No Current occupational status: unemployed Current occupation: [employer] Current occupational exposures/hazards: Yes Cognitive needs: No Hearing needs: No Vision needs: Yes Questionnaire PHQ-9 Over the last 2 weeks, how often have you been bothered by any of the following problems? 1. Little interest or pleasure in doing things: not at all 2. Feeling down, depressed, or hopeless: not at all 3. Trouble falling or staying asleep, or sleeping too much: not at all 4. Feeling tired or having little energy: not at all 5. Poor appetite or overeating: not at all 6. Feeling bad about yourself - or that you are a failure or have let yourself or your family down: not at all 7. Trouble concentrating on things, such as reading the newspaper or watching television: not at all 8. Moving or speaking so slowly that other people could have noticed. Or the opposite - being so fidgety or restless that you have been moving around a lot more than usual: not at all Depression Screening Interpretation: Negative Depression Screening Done: Yes 83943 - PHQ-9 Billing: Yes Source: Developed by Drs. Solis Moore, Светлана Christy, Anant Romano and colleagues, with an educational kandy from [employer]. Thrive Questionnaire Date Thrive assessed: 06/01/24 I am a: Patient What is your living situation today?: I have a steady place to live Within the past 12 months, did the food you bought not last and you didn't have the money to get more?: Never true Within the past 12 months, did you worry whether your food would run out before you got money to buy more?: Never true Do you have trouble paying for medicines?: No Do you have trouble getting transportation to medical appointments?: No Do you have trouble paying your heating and electricity bill?: No Do you have trouble taking care of your child, family member or friend?: No Do you have trouble with day-to-day activities such as bathing, preparing meals, shopping, managing finances, etc.?: No Are you currently unemployed and looking for a job?: I choose not to answer this question Are you interested in more education?: No Please select the resources that you would like help with: None Currently or been in a relationship where the following occur: No concerns reported THRIVE Score: 0 GIBSON-7 AMB Questionnaire GIBSON-7 Date GIBSON - 7 assessed: 01/26/25 Feeling nervous, anxious, or on edge: 1 = Several days Not being able to stop or control worryin = Several days Worrying too much about different things: 0 = Not at all Trouble relaxin = Not at all Being so restless that it is hard to sit still: 0 = Not at all Becoming easily annoyed or irritable: 0 = Not at all Feeling afraid as if something awful might happen: 0 = Not at all Total GIBSON-7 score (0-4 normal; 5-9 mild; 10-14 moderate; 15-21 severe): 2 Source: Developed by Drs. Solis Moore, Светлана Christy, Anant Romano and colleagues, with an educational kandy from [employer]. GIBSON-7 Assessment Billing GIBSON-7 Assessment Tool: GIBSON-7 Assessment 70624 Physical exam (Primary Care) Vital Signs: Last Vital Signs Pulse 81 01/26/25 13:08 Resp 16 01/26/25 13:08 BP 124/80 01/26/25 13:08 Pulse Ox 95 01/26/25 13:08 Oxygen Delivery Method Room Air 01/26/25 13:08 BMI result Body Mass Index 34.0 Tobacco/Smoking Status: Tobacco use Status Tobacco use date assessed 01/26/25 01/26/25 13:15 Patient Tobacco Use Status Former Tobacco user 01/26/25 13:06 Tobacco use type Cigar 01/26/25 13:06 e-Cigarette/Vaping Use Never Used 01/26/25 13:06 Depression Screening Interpretation: Negative Thrive Assessment: Date of Thrive Assessment Date Thrive assessed 06/01/24 01/26/25 13:06 Currently or been in a relationship where the following occur: No concerns reported Coding Level of Care Code Est Pt Level 3 (46148) Est Pt Prev Care 40-64y(95215) Diagnoses Ankle pain M25.579 Foot pain, left M79.672 Encounter for routine adult physical exam with abnormal findings Z00.01 Additional Codes GIBSON-7 Assessment Billing - GIBSON-7 Assessment Tool: GIBSON-7 Assessment 23900 ([id number]) PHQ-9 - 48776 - PHQ-9 Billing: Yes ([id number]) Assessment & Plan Assessment & Plan (1) Ankle pain: Code(s): M25.579 - Pain in unspecified ankle and joints of unspecified foot Category: Medical (2) Foot pain, left: Code(s): M79.672 - Pain in left foot Category: Medical (3) Encounter for routine adult physical exam with abnormal findings: Code(s): Z00.01 - Encounter for general adult medical examination with abnormal findings Category: Medical Plan . Orders: Orders XR ankle LT 2V Today M25.579 - Pain in unspecified ankle and joints of unspecified foot, M79.672 - Pain in left foot XR foot LT 2V Today M25.579 - Pain in unspecified ankle and joints of unspecified foot, M79.672 - Pain in left foot Referrals Cologuard Test Z12.11 - Encounter for screening for malignant neoplasm of colon, Z12.12 - Encounter for screening for malignant neoplasm of rectum
[2025-01-26 13:08] VITALS: BP 124/80; PULSE 81; RESP 16; O2SAT 95; BMI 34.0
--- OUTSIDE RECORDS SUMMARY | 2025-01-26 14:14 | XMS_ITS | Clinical Summary ---
Author Organization [facility], Address [address] [place] [address] [place] [address] Phone Care Team Providers Care Emergency Room Technician Name Role Phone Kobi Day NP Primary Care Provider [phone] Allergies No known active allergies Medications atorvastatin [...] Visual Foot Exam 06/26/2020 Influenza Vaccine (#1) 2025 Insurance [facility] Plan ([id number]) Care Teams Emergency Room Technician Relationship Specialty Start Date End Date Kobi Day NP 1962 [facility] [place] [address] PCP - General Nurse Practitioner 08/15/22
--- OUTSIDE RECORDS SUMMARY | 2025-01-26 14:14 | XMS_ITS | Encounter Summary ---
Author Organization [facility] Address [address] [place] [address] Phone Care Team Providers Care Chemical Equipment Repairer Name Role Phone Kobi Day NP Primary Care Provider [phone] Encounter Details Date Type Department Care Team (Late st Contact Info) Description 08/15/2022 Documentation Only [facility], [address] [place] [address] Kobi Day NP 1962 [place] [address] Social History Tobacco Use Types Packs/Day Years [...] on filedocumented in this encounter Care Teams Chemical Equipment Repairer Relationship Specialty Start Date End Date Kobi Day NP 1962 [place] [address] PCP - General Nurse Practitioner 08/15/22 documented as of this encounter
== END 2025-01-26 15:16 | disposition home or self-care (01) ==
LOC: HO.HMCC 12:57
PROVIDERS: PCP Nurse Practitioner Family; Visit Provider Nurse Practitioner Family
DX: Z00.01 Encounter for general adult medical examination with abnormal findings (principal); M25.572 Pain in left ankle and joints of left foot; M79.672 Pain in left foot

== ENCOUNTER 2025-01-26 12:56 | Outpatient (REF) | payer OTHER, SELFPAY ==
--- NOTE | ~2025-01-26 | XR_ITS ---
EXAMINATION: XR FOOT, LEFT CLINICAL INFORMATION: M25.579 - Pain in unspecified ankle and joints of unspecified foot COMPARISON: Correlated to the left ankle x-ray. TECHNIQUE: AP, lateral, and oblique views of the left foot. FINDINGS: There is an acute cortical disruption resulting in 5.9 mm gap between the fragments centered the base of the fifth metatarsal. The first second third and fourth metatarsals are intact. The phalanges are intact with normal alignment. There is a plantar calcaneal spur. Small exostosis at the Achilles tendon insertion. No joint effusion, anterior tibiotarsal bursa. XR/XR foot LT min 3V IMPRESSION: Acute displaced Johansen fracture Electronically signed by: Jin Davis MD 01/26/2025 02:25 PM EDT
--- NOTE | ~2025-01-26 | XR_ITS ---
EXAMINATION: XR ANKLE, LEFT CLINICAL INFORMATION: M25.579 - Pain in unspecified ankle and joints of unspecified foot COMPARISON: None available. TECHNIQUE: AP and oblique views of the left ankle. FINDINGS: Soft tissue edema and swelling/contusion, bimalleolar involving mostly the lateral malleolus. No subcutaneous emphysema. There is an acute cortical disruption resulting in 3 mm gap at the fragments at the base of the fifth the tarsal. The distal fibula and tibia are intact. No acute cortical disruption in the medial origin of the lateral malleolus. XR/XR ankle LT 2V IMPRESSION: Soft tissue contusion/edema bimalleolar involving mostly the lateral malleolus. Internal derangement cannot be excluded. Acute displaced fracture at the base of the fifth metatarsal. Asymmetric to the left foot x-ray. Electronically signed by: Jin Davis MD 01/26/2025 02:23 PM EDT
== END 2025-01-26 12:57 | disposition home or self-care (01) ==
LOC: HO.HMGCX 12:56
PROVIDERS: PCP Nurse Practitioner Family; Visit Provider Nurse Practitioner Family
DX: Z00.01 Encounter for general adult medical examination with abnormal findings (principal); M25.572 Pain in left ankle and joints of left foot; M79.672 Pain in left foot; S92.352A Displaced fracture of fifth metatarsal bone, left foot, initial encounter for closed fracture; Z79.82 Long term (current) use of aspirin; Z79.4 Long term (current) use of insulin; Z79.899 Other long term (current) drug therapy
CPT/HCPCS: 73600; 73630; 96127; 99212; 99396

== ENCOUNTER → 2025-01-26 13:49 | Outpatient (BNV) | payer OTHER, SELFPAY | PROVIDERS: PCP Nurse Practitioner Family; Visit Provider Radiology Diagnostic Radiology | DX: S92.352A Displaced fracture of fifth metatarsal bone, left foot, initial encounter for closed fracture (principal); S90.02XA Contusion of left ankle, initial encounter | CPT/HCPCS: 73600; 73630 ==

== ENCOUNTER 2025-01-28 10:46 | Outpatient (AMB) | payer OTHER, SELFPAY ==
--- NOTE | 2025-01-28 10:52 | A.OFFVIS_ITS ---
Intake Visit Reasons: fifth metartsal left foot fracture Intake Note: Solis is a 54 year old male who presents today with a tall walking boot as a new patient for an evaluation of his left foot fracture, DOI 01/21/25. Patient states that he was at the yard and his foot rolled to the side. He states that he was walking on it since the injury, but noticed a bruise on his foot. His PCP advised him to not weightbear but patient is bearing weight without his crutches due to his nuropathy. Accompanied by: Spouse Allergies No Known Allergies Allergy (Verified 01/28/25 10:58) Medication List - Last Reconciled 01/28/25 by Trever Joya DPM aspirin 81 mg PO DAILY atorvastatin 80 mg PO DAILY blood sugar diagnostic ([employer] Ultra Test strips) Use daily As directed to monitor blood glucose blood-glucose sensor ([employer] Kayode 3 Plus Sensor device) Use daily As directed to monitor glucose citalopram 20 mg PO DAILY clopidogrel 75 mg PO DAILY empagliflozin (Jardiance) 25 mg PO QAM ezetimibe 10 mg PO DAILY 90 days fenofibrate 160 mg PO DAILY furosemide 40 mg PO DAILY glucagon 3 mg/actuation 3 mg intranasal ONCE PRN insulin glargine U-300 conc (Toujeo Max U-300 SoloStar) 65 units (0.2167 mL) subcut DAILY insulin lispro 10 units (0.1 mL) subcut TID lancets ([employer] UltraSoft 2 Lancet) use daily As directed to monitor blood sugars losartan 25 mg PO BID metoprolol succinate ER (Toprol XL) 50 mg PO DAILY omega-3 acid ethyl esters 1 cap PO BID 90 days pen needle, diabetic Use QID As directed spironolactone 25 mg PO DAILY tirzepatide (Mounjaro) 5 mg (0.5 mL) subcut QWEEK HPI HPI fifth metartsal left foot fracture: Details: 54-year-old male with past medical history of diabetes mellitus type 2 with peripheral neuropathy, CKD stage 3, PAD s/p left lower extremity angioplasty, presents for initial evaluation of left 5th metatarsal fracture. The patient states he was doing yard work and twisted his ankle. He did not have pain and continued to walk until he noticed bruising to his toes. He went to his primary care physician 3 days later and received an x-ray which showed a left 5th metatarsal fracture. He was recommended nonweightbearing in a Cam boot with crutches. Patient presents today without his crutches, notes feeling unbalanced and has difficulty holding his crutches with his hands. Patient denies any pain to his foot. He denies calf pain, denies N/V/F/C/SOB/CP. [facility] Medical History Nocturnal hypoxemia Diabetic peripheral neuropathy associated with type 2 diabetes mellitus S/P angiogram of extremity (07/22/24) Bypass graft stenosis NSTEMI (non-ST elevated myocardial infarction) Nicotine dependence, cigarettes, uncomplicated Degenerative disc disease, cervical Cervical spinal stenosis Neuropathy Smoking history Elevated cholesterol Diabetic retinopathy BPH (benign prostatic hyperplasia) Retinal hemorrhage Type 2 diabetes mellitus Hypertension Surgical History Hx of heart bypass surgery Hx of tonsillectomy Family History Father Leukemia Mother No problems noted. Social History Household Members: Family Housing: Apartment Are you a primary foster care worker to a significant other at home: No Do you presently have visiting nurse or other home services: No Alcohol intake: current Alcohol intake frequency: 0-2 drinks per day Alcohol type: beer and hard liquor Patient Tobacco Use Status: Former Tobacco user Tobacco use type: Cigar Years Smoked: 25 e-Cigarette/Vaping Use: Never Used service: No Current occupational status: unemployed Current occupation: [employer] Current occupational exposures/hazards: Yes Cognitive needs: No Hearing needs: No Vision needs: Yes Review of Systems Const All systems reviewed & are unremarkable except as noted in HPI and below Musc Reports numbness (Patient describes symptoms of peripheral neuropathy and numbness in his fee) Neuro Reports numbness (Patient describes symptoms of peripheral neuropathy and numbness in his fee) Physical Exam Extrem Other: *Bilateral Lower Extremity Focused Exam Vascular: dp/pt 1/4 b/l, CFT<3s to digits, mild left foot and ankle edema, TG warm to cool Derm: ecchymosis to left 1st, 2nd, 3rd digits Neuro: protective sensation grossly diminished to bilateral lower extremities MSK: no tenderness on palpation of left 5th metatarsal base, no pain to the ankle on range of motion, no calf pain Results Reviewed Results Reviewed: X-ray foot 3 views (AP, MO, Lateral) reviewed which shows displaced (4mm) non- angulated extra-articular 5th metatarsal base avulsion fracture. Normal alignment of the metatarsal parabola. Moderate plantar calcaneal heel spur. Mild left forefoot soft tissue swelling. X-ray ankle 3 views (AP, Mortise, Lateral) reviewed which shows no fractures of the ankle, dislocations, OCD lesions, or gross abnormalities. Anatomic alignment of the tibiotalar joint. Bone density is within normal limits. No evidence of foreign body, or calcifications. Assessment & Plan Assessment & Plan (1) Displaced fracture of fifth metatarsal bone of left foot: Code(s): S92.352A - Displaced fracture of fifth metatarsal bone, left foot, initial encounter for closed fracture Category: Medical Qualifiers: Encounter type: initial encounter Fracture type: closed Qualified Code(s): S92.352A - Displaced fracture of fifth metatarsal bone, left foot, initial encounter for closed fracture Plan: * Discussed the etiology of left 5th metatarsal fracture. * Reviewed left foot x-rays with the patient and his partner. * Discussed treatment options including surgical versus conservative treatment. Explained that he is not a surgical candidate due to his diabetes and peripheral artery disease s/p angioplasty which could put him at risk for wound complications. Recommended conservative treatment and non-weightbearing to the left lower extremity with a splint however patient states he is unable to be non-weightbearing with crutches. recommended physical therapy which patient deferred at this time. Discussed partial weight-bearing to the heel in Cam boot with crutch or cane. * Discussed risks of delayed healing and possible nonunion if the patient is noncompliant with ambulating in his Cam boot. * Recommended even up lift to the right lower extremity for balance. * Rx X-ray left foot to monitor healing of left foot fracture. * Follow up in 1 month with new x-ray prior to visit. (2) Diabetic peripheral neuropathy associated with type 2 diabetes mellitus: Code(s): E11.42 - Type 2 diabetes mellitus with diabetic polyneuropathy Category: Medical Plan: * Reviewed Hg A1C 12/14/24 08:38 Hgb A1c (Clinic) 8.7 H (3) PAD (peripheral artery disease): Comment: 07/22/2024 left distal SFA atherectomy and plasty Code(s): I73.9 - Peripheral vascular disease, unspecified Category: Medical Plan: * will continue to monitor. (4) CKD stage 3 secondary to diabetes: Code(s): E11.22 - Type 2 diabetes mellitus with diabetic chronic kidney disease; N18.30 - Chronic kidney disease, stage 3 unspecified Category: Medical Plan: * Discussed possible vitamin-D deficiency which can impede fracture healing. * Rx Vitamin D 25OH (lab) Orders: Orders Vitamin D 25-OH Total Today E11.22 - Type 2 diabetes mellitus with diabetic chronic kidney disease, N18.30 - Chronic kidney disease, stage 3 unspecified, S92.352A - Displaced fracture of fifth metatarsal bone, left foot, initial enco unter for closed fracture XR foot LT min 3V Today S92.352A - Displaced fracture of fifth metatarsal bone, left foot, initial encounter for closed fracture Coding Level of Care Code New Pt Level 4 (17018) Diagnoses Closed displaced fracture of fifth metatarsal bone of left foot, initial encount er S92.352A Encounter type: initial encounter Fracture type: closed Diabetic peripheral neuropathy associated with type 2 diabetes mellitus E11.42 PAD (peripheral artery disease) I73.9 CKD stage 3 secondary to diabetes E11.22; N18.30 Time Spent (min) 30
--- OUTSIDE RECORDS SUMMARY | 2025-01-28 12:22 | XMS_ITS ---
Author Name Interface, [id number] lity Address [address] [place] [address] [facility] Address [address] [place] [address] Allergies and Adverse Reactions Plan Reason for Visit Encounters Medications Problems Vital Signs
--- OUTSIDE RECORDS SUMMARY | 2025-01-28 12:22 | XMS_ITS | CCD ---
Author Name Interface, [id number] lity Address [address] [place] [address] [facility] Address [address] [place] [address] Care Team Providers Care Packaging Sales Consultant Name Role Phone Cat Kobi CHO Unavailable Allergies and Adverse Reactions Medication/Group Name Reaction Severity Date No known allergies Reason for Visit OV Functional Status Date Name Score 05/16/2021 ECOG performance status - grade 0 0 Medications Date Name Route Dose Frequency Instructions Start Date End Date Status Atorvastatin Oral active Insulin Glargine Subcutaneous 100 unit/mL active Metformin Oral ac tive Lisinopril Oral a ctive Semaglutide Subcutaneous Pen Injector active Problems Diagnosis Status Date of Diagnosis Resolution Date Thrombocytopenia Active 2020 Erythrocytosis Active 2020 Social History Date Name Value 05/03/2021 Sex Male
--- OUTSIDE RECORDS SUMMARY | 2025-01-28 12:22 | XMS_ITS | Clinical Summary ---
Author Organization [facility], Address [address] [place] [address] [place] [address] Phone Care Team Providers Care Crab Steamer Name Role Phone Kobi Day NP Primary Care Provider [phone] Allergies No known active allergies Medications atorvastatin [...] Exam 06/26/2020 Influenza Vaccine (#1) 2025 Insurance [facility] Plan ([id number]) Care Teams Crab Steamer Relationship Specialty Start Date End Date Kobi Day NP [address] [place] [address] PCP - General Nurse Practitioner 08/15/22
--- OUTSIDE RECORDS SUMMARY | 2025-01-28 12:22 | XMS_ITS | Encounter Summary ---
Author Organization [facility] Address [address] [place] [address] Phone Care Team Providers Care Heat And Frost Insulator Name Role Phone Kobi Day NP Primary Care Provider [phone] Encounter Details Date Type Department Care Team (Late st Contact Info) Description 08/15/2022 Documentation Only [facility] [place], [address] [place] [address] Kobi Day NP [address] [place] [address] Social History Tobacco Use Types Packs/Day Years [...] on filedocumented in this encounter Care Teams Heat And Frost Insulator Relationship Specialty Start Date End Date Kobi Day NP [address] [place] [address] PCP - General Nurse Practitioner 08/15/22 documented as of this encounter
== END 2025-01-28 11:29 | disposition home or self-care (01) ==
LOC: HO.HPODS 10:46
PROVIDERS: PCP Nurse Practitioner Family; Visit Provider Student in an Organized Health Care Education/Training Program
DX: S92.352A Displaced fracture of fifth metatarsal bone, left foot, initial encounter for closed fracture (principal); E11.42 Type 2 diabetes mellitus with diabetic polyneuropathy; N18.30 Chronic kidney disease, stage 3 unspecified; E11.22 Type 2 diabetes mellitus with diabetic chronic kidney disease; I73.9 Peripheral vascular disease, unspecified
CPT/HCPCS: 99204

== ENCOUNTER → 2025-01-28 10:46 | Outpatient (BNVA) | payer OTHER, SELFPAY | PROVIDERS: PCP Nurse Practitioner Family; Visit Provider Student in an Organized Health Care Education/Training Program | DX: S92.352A Displaced fracture of fifth metatarsal bone, left foot, initial encounter for closed fracture (principal); E11.22 Type 2 diabetes mellitus with diabetic chronic kidney disease; E11.42 Type 2 diabetes mellitus with diabetic polyneuropathy; N18.30 Chronic kidney disease, stage 3 unspecified; E11.51 Type 2 diabetes mellitus with diabetic peripheral angiopathy without gangrene; X50.1XXA Overexertion from prolonged static or awkward postures, initial encounter; Y93.9 Activity, unspecified; Y92.096 Garden or yard of other non-institutional residence as the place of occurrence of the external cause; Y99.9 Unspecified external cause status; Z98.62 Peripheral vascular angioplasty status | CPT/HCPCS: 99202 ==

== ENCOUNTER 2025-02-01 14:29 | Outpatient (AMB) | payer OTHER, SELFPAY ==
[2025-02-01 14:32] VITALS: BP 120/66; PULSE 82; O2SAT 97
--- NOTE | 2025-02-01 14:32 | A.OFFVIS_ITS ---
Vital Signs 02/01/25 14:32 Height 5 ft 9 in BMI Reason not done Patient refused/unable BP 120/66 Blood Pressure Location Lt brachial Position Sitting Pulse 82 Pulse Source Pulse Oximeter Pulse Oximetry (%) 97 Oxygen Delivery Method Room Air Intake Visit Reasons: Obstructive sleep apnea Intake Note: Pt has no concerns. Doing well on Cpap Tactical Deception Plans Officer Required: No Accompanied by: Spouse Allergies No Known Allergies Allergy (Verified 02/01/25 14:51) Medication List - Last Reconciled 02/01/25 by Timmy Sanchez MD aspirin 81 mg PO DAILY atorvastatin 80 mg PO DAILY blood sugar diagnostic (StartDate LabsTouch Ultra Test strips) Use daily As directed to monitor blood glucose blood-glucose sensor (B2Brevyle Kayode 3 Plus Sensor device) Use daily As directed to monitor glucose citalopram 20 mg PO DAILY clopidogrel 75 mg PO DAILY empagliflozin (Jardiance) 25 mg PO QAM ezetimibe 10 mg PO DAILY 90 days fenofibrate 160 mg PO DAILY furosemide 40 mg PO DAILY glucagon 3 mg/actuation 3 mg intranasal ONCE PRN insulin glargine U-300 conc (Toujeo Max U-300 SoloStar) 65 units (0.2167 mL) subcut DAILY insulin lispro 10 units (0.1 mL) subcut TID lancets (StartDate LabsTouch UltraSoft 2 Lancet) use daily As directed to monitor blood sugars losartan 25 mg PO BID metoprolol succinate ER (Toprol XL) 50 mg PO DAILY omega-3 acid ethyl esters 1 cap PO BID 90 days pen needle, diabetic Use QID As directed spironolactone 25 mg PO DAILY tirzepatide (Mounjaro) 5 mg (0.5 mL) subcut QWEEK Do you need a note to return to daycare/school/sports/work: No HPI HPI Obstructive sleep apnea: Details: THIS 54 YEARS OLD GENTLEMAN WITH SEVERE OBSTRUCTIVE SLEEP APNEA, HAS BEEN STARTED ON BIPAP THERAPY SINCE HIS LAST VISIT 6 WEEKS AGO. HE IS THRILLED WITH THE USE OF BIPAP. .FINDS DIFFERENCE OF DAY AND NIGHT SAY IS THAT HE LOVES THE BIPAP, WAKES UP IN THE MORNING FULL OF ENERGY. THE MASK DOES SLIP DURING THE NIGHT CAUSING SOME AIR LEAK BUT HE IS NOT BOTHERED. BY IT HE HAS NOT BEEN ABLE TO LOSE WEIGHT HE HAS FRACTURED ANKLE AND USES IS KEEP BOOT. [facility] Medical History Nocturnal hypoxemia Diabetic peripheral neuropathy associated with type 2 diabetes mellitus S/P angiogram of extremity (07/22/24) Bypass graft stenosis NSTEMI (non-ST elevated myocardial infarction) Nicotine dependence, cigarettes, uncomplicated Degenerative disc disease, cervical Cervical spinal stenosis Neuropathy Smoking history Elevated cholesterol Diabetic retinopathy BPH (benign prostatic hyperplasia) Retinal hemorrhage Type 2 diabetes mellitus Hypertension Surgical History Hx of heart bypass surgery Hx of tonsillectomy Family History Father Leukemia Mother No problems noted. Social History Household Members: Family Housing: Apartment Are you a primary certified social workers in health care to a significant other at home: No Do you presently have visiting nurse or other home services: No Alcohol intake: current Alcohol intake frequency: 0-2 drinks per day Alcohol type: beer and hard liquor Patient Tobacco Use Status: Former Tobacco user Tobacco use type: Cigar Years Smoked: 25 e-Cigarette/Vaping Use: Never Used service: No Current occupational status: unemployed Current occupation: [employer] Current occupational exposures/hazards: Yes Cognitive needs: No Hearing needs: No Vision needs: Yes Review of Systems Const All systems reviewed & are unremarkable except as noted in HPI and below Reports weakness (Lower extremities) Eyes Reports no additional complaints ENT Reports no additional complaints Card Reports as per HPI Resp Reports as per HPI GI Reports no additional complaints Reports no additional complaints Musc Reports muscle weakness (General especially in lower extremities) Skin/Breast Reports system reviewed and no additional complaints, except as documented Neuro Reports paresthesias (In the lower extremities) and Reports weakness (Lower extremities) Psych Reports no additional complaints Endo Reports other (Diabetes mellitus requiring insulin) Bryce/Lymph Reports no additional complaints Aller/Immun Reports no additional complaints Physical Exam Vital Signs: Last Vital Signs Pulse 82 02/01/25 14:32 BP 120/66 02/01/25 14:32 Pulse Ox 97 02/01/25 14:32 Oxygen Delivery Method Room Air 02/01/25 14:32 Const General: comfortable, no acute distress, alert and awake Orientation/consciousness: patient oriented x3 HEENT Head: Yes normal to inspection General nose exam: No nasal polyps present and No nasal discharge present Face and sinus: Yes sinuses nontender Mouth: oropharynx normal (There is a mild regression of the chin, tongue is placed back, Mallampati s) Teeth and gingiva: dentures (Both upper and lower jaws) Throat: Yes posterior oropharynx normal Eyes General: appearance normal, both eyes and all related structures Neck Neck: Yes normal visual inspection, Yes no lymphadenopathy, Yes trachea midline and Yes no JVD Thyroid: Thyroid normal Chest Chest palpation & inspection: abnormal inspection of the chest (Midline surgical scar well healed with mild keloid formation) and normal palpation of entire chest wall Resp Other: Percussion note is resonant breath sounds are equal on both sides slightly decreased over the basilar areas no wheezes or rhonchi are heard Cardio Palpation: normal PMI Rate: regular rate Rhythm: regular rhythm Heart sounds: no gallops and no murmurs GI Palpation (GI): Soft to palpation, nontender, No hepatosplenomegaly present, no masses and Other GI palpation findings present (Abdomen is moderately obese and protuberant) Auscultation: normal bowel sounds Back/Spine/Pelvis Thoracic/Lumbar Spine: thoracic and lumbar spine normal to inspection Skin Lesions: lesion noted (There are multiple scratches in front of the both legs) Neuro General: patient oriented x3 and no focal motor deficits Cranial nerves: Yes CN's II-XII intact bilaterally Extrem Other: LEFT FOOT IN IS STEWART BOOT , HE HAS A RECENT SPRAIN OF THE LEFT ANKLE WITH FRACTURE OF METATARSAL BONE General: Yes normal to inspection, Yes no clubbing, cyanosis or edema and Yes no calf tenderness Psych Appearance: grossly normal and well kempt Speech and movement: Normal speech and movement present Results Reviewed Results Reviewed: COMPLIANCE REPORT FOR THE LAST 30 NIGHTS REVIEWED. HE HAS USED 30/30 NIGHTS,. 100% AVERAGE USE IT PER NIGHT 8 HOURS 42 MINUTES , HE SAY IS THAT IN THE EVENING IF HE WATCHES TV SOMETIME HE PUTS ON THE BIPAP MASK. THERE IS MODERATE AIR LEAK. RESIDUAL AHI ONLY 2.6 Assessment & Plan Assessment & Plan (1) Severe obstructive sleep apnea: Comment: PATIENT HAS VERY SEVERE OBSTRUCTIVE SLEEP APNEA WITH SEVERE NOCTURNAL HYPOXEMIA. STATUS POST CPAP TITRATION IN THE SLEEP LAB. REQUIRED USE OF BIPAP WITH OXYGEN. THE RESULTS WERE STILL SOMEWHAT SUBOPTIMAL. THERE WAS TREATMENT EMERGENT CENTRAL SLEEP APNEA. Code(s): G47.33 - Obstructive sleep apnea (adult) (pediatric) Category: Medical Plan: THIS GENTLEMAN IS USING BIPAP VERY REGULARLY AND EXPRESSING THAT HE IS SLEEP IS MUCH MUCH BETTER. HE FINDS DIFFERENCE OF DAY AND NIGHT AND SAY IS HE WAKES UP FULL OF ENERGY. COMMENDED FOR EXCELLENT COMPLIANCE AND ADVISED TO KEEP ON USING THE BIPAP REGULARLY EVERY NIGHT, (2) Nocturnal hypoxemia: Comment: MENTIONED ABOVE IN THE HISTORY , PATIENT HAD SEVERE NOCTURNAL HYPOXEMIA AND HE REQUIRED O2 SUPPLEMENTATION ALONG WITH THE BIPAP. Code(s): G47.34 - Idiopathic sleep related nonobstructive alveolar hypoventilation Category: Medical Plan: HE DOES USE O2 ALONG WITH BIPAP , ADVISED TO CONTINUE USING IT AT 2 L/MT . Coding Level of Care Code Est Pt Level 3 (29951) Diagnoses Severe obstructive sleep apnea G47.33 Nocturnal hypoxemia G47.34
--- OUTSIDE RECORDS SUMMARY | 2025-02-01 16:51 | XMS_ITS | Encounter Summary ---
Author Organization [facility] Address [address] [place] [address] Phone Care Team Providers Care Core Machine Operator Name Role Phone oKbi Day NP Primary Care Provider [phone] Encounter Details Date Type Department Care Team (Late st Contact Info) Description 08/15/2022 Documentation Only [facility] [place], [address] [place] [address] Kobi Day NP [address] [place] [address] Social History Tobacco Use Types Packs/Day Years [...] on filedocumented in this encounter Care Teams Core Machine Operator Relationship Specialty Start Date End Date Kobi Day NP [address] [place] [address] PCP - General Nurse Practitioner 08/15/22 documented as of this encounter
--- OUTSIDE RECORDS SUMMARY | 2025-02-01 16:51 | XMS_ITS | Clinical Summary ---
Author Organization [facility], Address [address] [place] [address] [place] [address] Phone Care Team Providers Care Civil Engineering Drafter Name Role Phone Kobi Day NP Primary Care Provider [phone] Allergies No known active allergies Medications atorvastatin [...] Exam 06/26/2020 Influenza Vaccine (#1) 2025 Insurance [facility] Plan ([id number]) Care Teams Civil Engineering Drafter Relationship Specialty Start Date End Date Kobi Day NP [address] [place] [facility] [place] [address] PCP - General Nurse Practitioner 08/15/22
--- OUTSIDE RECORDS SUMMARY | 2025-02-01 16:51 | XMS_ITS | CCD ---
Author Name Interface, [id number] lity Address [address] [facility] [address] [place] [address] [facility] Address [address] [place] [address] Care Team Providers Care Spanish Interpreter Name Role Phone Kobi Shelton MD Unavailable Allergies and Adverse Reactions Reason for Visit Functional Status Medications Problems Social History
--- OUTSIDE RECORDS SUMMARY | 2025-02-01 16:54 | XMS_ITS ---
Author Name Interface, [id number] lity Address [address] [facility] [address] [place] [address] [facility] Address [address] [facility] [address] [place] [address] Allergies and Adverse Reactions Plan Reason for Visit Encounters Medications Problems Vital Signs
== END 2025-02-01 14:55 | disposition home or self-care (01) ==
PROVIDERS: PCP Nurse Practitioner Family; Visit Provider Internal Medicine
DX: G47.33 Obstructive sleep apnea (adult) (pediatric) (principal); G47.34 Idiopathic sleep related nonobstructive alveolar hypoventilation
CPT/HCPCS: 99213

== ENCOUNTER → 2025-02-01 14:29 | Outpatient (BNVA) | payer OTHER, SELFPAY | PROVIDERS: PCP Nurse Practitioner Family; Visit Provider Internal Medicine | DX: G47.33 Obstructive sleep apnea (adult) (pediatric) (principal); G47.34 Idiopathic sleep related nonobstructive alveolar hypoventilation; Z99.89 Dependence on other enabling machines and devices | CPT/HCPCS: 99212 ==

== ENCOUNTER 2025-02-24 06:35 | Outpatient (REF) | payer OTHER, SELFPAY ==
--- NOTE | ~2025-02-24 | XR_ITS ---
CLINICAL HISTORY: S92.352A - Displaced fracture of fifth metatarsal bone, left foot, initi... Left foot three views Comparison: 01/26/2025 Findings: Unchanged fracture base of 5th metatarsal. No new bony abnormalities identified. No radiopaque foreign body noted. Impression: Fifth metatarsal base fracture is unchanged This document has been electronically signed by: Arapn Whitman MD on 02/24/2025 21:00:54
--- OUTSIDE RECORDS SUMMARY | 2025-02-24 06:37 | XMS_ITS | CCD ---
Author Name Interface, [id number] lity Address [address] [facility] [address] [place] [address] [facility] Address [address] [facility] [address] [place] [address] Care Team Providers Care Manager Mining Name Role Phone Kobi Shelton MD Unavailable Allergies and Adverse Reactions Reason for Visit Mental Status Functional Status Medications Problems Social History
--- OUTSIDE RECORDS SUMMARY | 2025-02-24 06:37 | XMS_ITS ---
Author Name Interface, [id number] lity Address [address] [facility] [address] [place] [address] [facility] Address [address] [facility] [address] [place] [address] Allergies and Adverse Reactions Plan Reason for Visit Encounters Medications Problems Vital Signs
[2025-02-24 07:14] LABS: MANUAL DIFF FLAG NO
[2025-02-24 07:40] LABS: Appearance Urine Clear; Glucose Urine UA >=1000 mg/dL (Negative); PH 5.5 (5.0-9.0); Specific Gravity - Urine >= 1.030 (1.005-1.025); UMIC TRIGGER UACC YES
[2025-02-24 07:40] LABS: Hematocrit 39.7 % (42.0-52.0); Hemoglobin 14.2 g/dl (14.0-18.0); Imm Gran Abs Auto 0.04 X10*3/uL (0.00-0.03); Imm Gran Pct Auto 0.8 % (0.0-0.4); Lymphocytes Absolute Auto 1.2 X10*3/uL (1.2-4.9); Mean Corpuscular HGB Conc 35.8 g/dl (31.0-36.0); Mean Corpuscular Hemoglobin 33.0 pg (27.0-33.0); Mean Corpuscular Volume 92.3 fL (80.0-98.0); NRBC Abs Auto 0.000 X10*3/uL (0.0-0.012); NRBC Pct Auto 0.0 /100WBC (0.0-0.2); Red Blood Count 4.30 X10*6/uL (4.60-5.80); White Blood Count 5.2 X10*3/uL (4.8-10.8)
[2025-02-24 07:42] LABS: Platelet Count 69 X10*3/uL (160-400)
[2025-02-24 08:04] LABS: Hemoglobin A1C 190.5384 umol/L; Total Hemoglobin (HGBA1C) 3633.1237 umol/L
[2025-02-24 08:10] LABS: Protein/Creatinine Ratio, Ur 1.22 (<0.2); Total Protein Urine Random 89 mg/dL (<12)
[2025-02-24 08:19] LABS: Alanine Aminotransferase 37 U/L (0-40); Albumin Level 4.5 g/dL (3.5-5.0); Alkaline Phosphatase 115 U/L (39-117); Anion Gap 14 (12-20); Aspartate Amino Transferase 39 U/L (5-37); Blood Urea Nitrogen 20 mg/dL (9-16); Calcium 9.3 mg/dL (8.4-10.2); Carbon Dioxide 28 mmol/L (22-29); Chloride 103 mmol/L (96-108); Cholesterol 148 mg/dL (<200); Estimated Glomerular Filt Rate > 60; HDL Cholesterol 40 mg/dL (>40); Potassium 4.3 mmol/L (3.3-5.1); Sodium 141 mmol/L (135-145); Total Protein 7.2 g/dL (6.5-8.0); Triglycerides 270 mg/dL (<150)
[2025-02-24 08:30] LABS: Microalbum/Creatinine Ratio Ur 883.3 ug/mg cr (<30)
== END 2025-02-24 06:36 | disposition home or self-care (01) ==
LOC: HO.XRAY 06:35
PROVIDERS: Internal Medicine Nephrology; Physician Assistant; PCP Nurse Practitioner Family; Visit Provider Student in an Organized Health Care Education/Training Program
DX: S92.352A Displaced fracture of fifth metatarsal bone, left foot, initial encounter for closed fracture (principal); I12.9 Hypertensive chronic kidney disease with stage 1 through stage 4 chronic kidney disease, or unspecified chronic kidney disease; E11.22 Type 2 diabetes mellitus with diabetic chronic kidney disease; N18.30 Chronic kidney disease, stage 3 unspecified; E11.65 Type 2 diabetes mellitus with hyperglycemia; E11.21 Type 2 diabetes mellitus with diabetic nephropathy
CPT/HCPCS: 36415; 73630; 80053; 80061; 81001; 82043; 82306; 82570; 83036; 84156; 84443; 85025

== ENCOUNTER → 2025-02-24 06:38 | Outpatient (BNV) | payer OTHER, SELFPAY | PROVIDERS: PCP Nurse Practitioner Family; Visit Provider Radiology Diagnostic Radiology | DX: S92.352A Displaced fracture of fifth metatarsal bone, left foot, initial encounter for closed fracture (principal); X58.XXXA Exposure to other specified factors, initial encounter | CPT/HCPCS: 73630 ==

== ENCOUNTER 2025-02-25 09:57 | Outpatient (AMB) | payer OTHER, SELFPAY ==
--- NOTE | 2025-02-25 10:03 | MHC.OFFVIS ---
Vital Signs 02/25/25 10:04 Height 5 ft 9 in Weight 230 lb BMI 34.0 Intake Visit Reasons: Follow Up left foot / Xray Intake Note: Solis is a 54 year old male who presents today for a follow up on his X-ray results. Patient reports his foot is doing well and has has no concerns at this time Impression: Fifth metatarsal base fracture is unchanged Maintenance Worker Required: No Accompanied by: Spouse Allergies No Known Allergies Allergy (Verified 02/25/25 10:04) Medication List - Last Reconciled 02/25/25 by Trever Joya DPM aspirin 81 mg PO DAILY atorvastatin 80 mg PO DAILY blood sugar diagnostic (Front Stream PaymentsTouch Ultra Test strips) Use daily As directed to monitor blood glucose blood-glucose sensor (Devotee Kayode 3 Plus Sensor device) Use daily As directed to monitor glucose citalopram 20 mg PO DAILY clopidogrel 75 mg PO DAILY empagliflozin (Jardiance) 25 mg PO QAM ezetimibe 10 mg PO DAILY 90 days fenofibrate 160 mg PO DAILY furosemide 40 mg PO DAILY glucagon 3 mg/actuation 3 mg intranasal ONCE PRN insulin glargine U-300 conc (Toujeo Max U-300 SoloStar) 65 units (0.2167 mL) subcut DAILY insulin lispro 10 units (0.1 mL) subcut TID lancets (Front Stream PaymentsTouch UltraSoft 2 Lancet) use daily As directed to monitor blood sugars losartan 25 mg PO BID metoprolol succinate ER (Toprol XL) 50 mg PO DAILY omega-3 acid ethyl esters 1 cap PO BID 90 days pen needle, diabetic Use QID As directed spironolactone 25 mg PO DAILY tirzepatide (Mounjaro) 5 mg (0.5 mL) subcut QWEEK Do you need a note to return to daycare/school/sports/work: No HPI HPI Follow Up left foot / Xray: Details: 54-year-old male with past medical history of diabetes mellitus type 2 with peripheral neuropathy, CKD stage 3, PAD s/p left lower extremity angioplasty, presents for 1 month follow up evaluation of left 5th metatarsal fracture. Received x-rays and lab yesterday. He notes he has been weight-bearing in the boot at all times. Denies any calf pain. Denies any falls or injuries. He does note some imbalance due to the boot height, however he has been wearing high top sneakers and shoes on his right side to balance himself out. History: The patient states he was doing yard work and twisted his ankle. He did not have pain and continued to walk until he noticed bruising to his toes. He went to his primary care physician 3 days later and received an x-ray which showed a left 5th metatarsal fracture. He was recommended nonweightbearing in a Cam boot with crutches. notes feeling unbalanced and has difficulty holding his crutches with his hands, so he weightbears in the boot without crutches. [facility] Medical History Nocturnal hypoxemia Diabetic peripheral neuropathy associated with type 2 diabetes mellitus S/P angiogram of extremity (07/22/24) Bypass graft stenosis NSTEMI (non-ST elevated myocardial infarction) Nicotine dependence, cigarettes, uncomplicated Degenerative disc disease, cervical Cervical spinal stenosis Neuropathy Smoking history Elevated cholesterol Diabetic retinopathy BPH (benign prostatic hyperplasia) Retinal hemorrhage Type 2 diabetes mellitus Hypertension Surgical History Hx of heart bypass surgery Hx of tonsillectomy Family History Father Leukemia Mother No problems noted. Social History Household Members: Family Housing: Apartment Are you a primary client care manager to a significant other at home: No Do you presently have visiting nurse or other home services: No Alcohol intake: current Alcohol intake frequency: 0-2 drinks per day Alcohol type: beer and hard liquor Patient Tobacco Use Status: Former Tobacco user Tobacco use type: Cigar Years Smoked: 25 e-Cigarette/Vaping Use: Never Used service: No Current occupational status: unemployed Current occupation: [employer] Current occupational exposures/hazards: Yes Cognitive needs: No Hearing needs: No Vision needs: Yes Review of Systems Const All systems reviewed & are unremarkable except as noted in HPI and below Reports weakness (Lower extremities) Eyes Reports no additional complaints ENT Reports no additional complaints Card Reports as per HPI Resp Reports as per HPI GI Reports no additional complaints Reports no additional complaints Musc Reports muscle weakness (General especially in lower extremities) Skin/Breast Reports system reviewed and no additional complaints, except as documented Neuro Reports paresthesias (In the lower extremities) and Reports weakness (Lower extremities) Psych Reports no additional complaints Endo Reports other (Diabetes mellitus requiring insulin) Bryce/Lymph Reports no additional complaints Aller/Immun Reports no additional complaints Physical Exam Vital Signs: BMI result Body Mass Index 34.0 Extrem Other: *Bilateral Lower Extremity Focused Exam Vascular: dp/pt 1/4 b/l, CFT<3s to digits, mild left foot and ankle edema, TG warm to cool Derm: No ecchymosis to left foot. Neuro: protective sensation grossly diminished to bilateral lower extremities MSK: no tenderness on palpation of left 5th metatarsal base, no pain to the ankle on range of motion, no calf pain Results Reviewed Results Reviewed: Laboratory Tests 02/24/25 07:12 25-OH Vitamin D Total 23.3 L X-ray foot 3 views (AP, MO, Lateral) reviewed which shows displaced (4mm) non-angulated extra-articular 5th metatarsal base avulsion fracture, no bony bridging noted however there is bony resorption of the fracture fragment sites. No sclerotic margins. Normal alignment of the metatarsal parabola. Moderate plantar calcaneal heel spur. Mild left forefoot soft tissue swelling. Assessment & Plan Assessment & Plan (1) Displaced fracture of fifth metatarsal bone of left foot: Code(s): S92.352A - Displaced fracture of fifth metatarsal bone, left foot, initial encounter for closed fracture Category: Medical Qualifiers: Encounter type: initial encounter Fracture type: closed Qualified Code(s): S92.352A - Displaced fracture of fifth metatarsal bone, left foot, initial encounter for closed fracture Plan: Discussed the etiology of left 5th metatarsal fracture. Reviewed new left foot x-rays with the patient and his partner. Previously Discussed treatment options including surgical versus conservative treatment. Explained that he is not a surgical candidate due to his diabetes and peripheral artery disease s/p angioplasty which could put him at risk for wound complications. Recommended conservative treatment and non-weightbearing to the left lower extremity with a splint however patient states he is unable to be non-weightbearing with crutches. recommended physical therapy which patient deferred at this time. Continue partial weight-bearing to the heel in Cam boot with crutch or cane. Discussed risks of delayed healing and possible nonunion if the patient is noncompliant with ambulating in his Cam boot. Recommended even up lift to the right lower extremity for balance. Rx X-ray left foot Follow up in 1 month with new x-ray prior to visit. (2) Vitamin D insufficiency: Code(s): E55.9 - Vitamin D deficiency, unspecified Category: Medical Plan: Recommended vitamin D2/D3 2000 IU daily. Recommend new lab tests in 3 months to evaluate for improvement and calcium levels. (3) Diabetic peripheral neuropathy associated with type 2 diabetes mellitus: Code(s): E11.42 - Type 2 diabetes mellitus with diabetic polyneuropathy Category: Medical Plan: Reviewed Hg A1C 12/14/24 08:38 Hgb A1c (Clinic) 8.7 H (4) PAD (peripheral artery disease): Comment: 07/22/2024 left distal SFA atherectomy and plasty Code(s): I73.9 - Peripheral vascular disease, unspecified Category: Medical Plan: will continue to monitor. (5) CKD stage 3 secondary to diabetes: Code(s): E11.22 - Type 2 diabetes mellitus with diabetic chronic kidney disease; N18.30 - Chronic kidney disease, stage 3 unspecified Category: Medical Plan: Continue to monitor Orders: Orders XR foot LT min 3V 4 Weeks S92.352A - Displaced fracture of fifth metatarsal bone, left foot, initial encounter for closed fracture Coding Level of Care Code Est Pt Level 4 (62250) Diagnoses Closed displaced fracture of fifth metatarsal bone of left foot, initial encounter S92.352A Encounter type: initial encounter Fracture type: closed Vitamin D insufficiency E55.9 Diabetic peripheral neuropathy associated with type 2 diabetes mellitus E11.42 PAD (peripheral artery disease) I73.9 CKD stage 3 secondary to diabetes E11.22; N18.30 Time Spent (min) 35
[2025-02-25 10:04] VITALS: BMI 34.0
--- OUTSIDE RECORDS SUMMARY | 2025-02-25 11:12 | XMS_ITS ---
Author Name Interface, [id number] lity Address [address] [facility] [address] [place] [address] [facility] Address [address] [facility] [address] [place] [address] Allergies and Adverse Reactions Plan Reason for Visit Encounters Medications Problems Vital Signs
--- OUTSIDE RECORDS SUMMARY | 2025-02-25 11:12 | XMS_ITS ---
Author Name Interface, [id number] lity Address [address] [facility] [address] [place] [address] [facility] Address [address] [facility] [address] [place] [address] Allergies and Adverse Reactions Medication/Group Name Reaction Severity Date No known allergies Plan Date Type Value 05/16/2021 APPOINTMENT OV Reason for Visit OV Encounters Date Name 05/16/2021 Erythrocytosis 05/16/2021 Thrombocytopenia Medications Date Name Route Dose Frequency Instructions Start Date End Date Status Fill Status Indication 05/03 Semaglutid e Subcutaneo us Pen Injector active 05/03 Lisinopril Oral active 05/03 Atorvastat in Oral active 05/03 Insulin Glargine Subcutaneo us 100 unit/mL active 05/03 Metformin Oral active Problems Diagnosis Status Date of Diagnosis Resolution Date Thrombocytopenia Active 2020 Erythrocytosis Active 2020 Vital Signs Date Type Value 05/16/2021 Body Temperature 96.80 05/16/2021 Heart Beat 87.00 05/16/2021 Oxygen Saturation 97.00 05/16/2021 Intravascular Systolic 190 05/16/2021 Intravascular Diastolic 117 05/16/2021 BSA 2.11 05/16/2021 Weight 199.80 05/16/2021 Height 70.00 05/16/2021 BMI 28.67 05/16/2021 Pain Scale 0.00
--- OUTSIDE RECORDS SUMMARY | 2025-02-25 11:12 | XMS_ITS | Clinical Summary ---
Author Organization [facility], Address [address] [place] [address] [place] [address] Phone Care Team Providers Care Client Service Associate Name Role Phone oKbi Day NP Primary Care Provider [phone] Allergies No known active allergies Medications atorvastatin [...] Exam 06/26/2020 Influenza Vaccine (#1) 2025 Insurance [facility] Plan (43306) Care Teams Client Service Associate Relationship Specialty Start Date End Date Kobi Day NP 1962 [facility] [place] [address] PCP - General Nurse Practitioner 08/15/22
--- OUTSIDE RECORDS SUMMARY | 2025-02-25 11:12 | XMS_ITS | Encounter Summary ---
Author Organization [facility] Address [address] [place] [address] Phone Care Team Providers Care Sewer Contractor Name Role Phone Kobi Day NP Primary Care Provider [phone] Encounter Details Date Type Department Care Team (Late st Contact Info) Description 08/15/2022 Documentation Only [facility] [place], [address] [place] [address] Kobi Day NP [address] [place] [address] Social History Tobacco Use Types Packs/Day Years [...] on filedocumented in this encounter Care Teams Sewer Contractor Relationship Specialty Start Date End Date Kobi Day NP [address] [place] [address] PCP - General Nurse Practitioner 08/15/22 documented as of this encounter
--- OUTSIDE RECORDS SUMMARY | 2025-02-25 11:13 | XMS_ITS | CCD ---
Author Name Interface, [id number] lity Address [address] [facility] [address] [place] [address] [facility] Address [address] [facility] [address] [place] [address] Care Team Providers Care Facilities Maintenance Supervisor Name Role Phone Cat Kobi CHO Unavailable Allergies and Adverse Reactions Medication/Group Name Reaction Severity Date No known allergies Reason for Visit OV Mental Status Date Value 05/16/2021 Normal concentration 05/16/2021 Memory function norm al 05/16/2021 Mentally alert 05/16/2021 Oriented to person t ezequiel and place Functional Status Date Name/Question Score/Answer 05/16/2021 ECOG performance status - grade 0 0 Medications Date Name Route Dose Frequency Instructions Start Date End Date Status Fill Status Indication 05/03 Semaglutid e Subcutaneo us Pen Injector active 05/03 Lisinopril Oral active 05/03 Atorvastat in Oral active 05/03 Metformin Oral active 05/03 Insulin Glargine Subcutaneo us 100 unit/mL active Problems Diagnosis Status Date of Diagnosis Resolution Date Thrombocytopenia Active 2020 Erythrocytosis Active 2020 Social History Date Name Value 05/03/2021 Sex Male Gender Identity Identifies as erik cuevas
--- OUTSIDE RECORDS SUMMARY | 2025-02-25 11:13 | XMS_ITS | CCD ---
Author Name Interface, [id number] lity Address [address] [facility] [address] [place] [address] [facility] Address [address] [facility] [address] [place] [address] Care Team Providers Care Dining Car Waiter/Waitress Name Role Phone Cat Kobi CHO Unavailable [...]
== END 2025-02-25 10:23 | disposition home or self-care (01) ==
LOC: HO.HPODS 09:58
PROVIDERS: PCP Nurse Practitioner Family; Visit Provider Student in an Organized Health Care Education/Training Program
DX: S92.352A Displaced fracture of fifth metatarsal bone, left foot, initial encounter for closed fracture (principal); E55.9 Vitamin D deficiency, unspecified; E11.42 Type 2 diabetes mellitus with diabetic polyneuropathy; I73.9 Peripheral vascular disease, unspecified; E11.22 Type 2 diabetes mellitus with diabetic chronic kidney disease; N18.30 Chronic kidney disease, stage 3 unspecified
CPT/HCPCS: 99214

== ENCOUNTER → 2025-02-25 09:57 | Outpatient (BNVA) | payer OTHER, SELFPAY | PROVIDERS: PCP Nurse Practitioner Family; Visit Provider Student in an Organized Health Care Education/Training Program | DX: S92.352D Displaced fracture of fifth metatarsal bone, left foot, subsequent encounter for fracture with routine healing (principal); E55.9 Vitamin D deficiency, unspecified; E11.42 Type 2 diabetes mellitus with diabetic polyneuropathy; E11.51 Type 2 diabetes mellitus with diabetic peripheral angiopathy without gangrene; E11.22 Type 2 diabetes mellitus with diabetic chronic kidney disease; N18.30 Chronic kidney disease, stage 3 unspecified; Z98.62 Peripheral vascular angioplasty status | CPT/HCPCS: 99212 ==

== ENCOUNTER 2025-03-03 15:12 | Outpatient (AMB) | payer OTHER, SELFPAY ==
[2025-03-03 15:30] VITALS: BP 120/68; PULSE 86; BMI 34.5
--- NOTE | 2025-03-03 15:30 | MHC.OFFVIS ---
Vital Signs 03/03/25 15:30 Height 5 ft 9 in Weight 233 lb 11.04 oz BMI 34.5 BP 120/68 Blood Pressure Location Lt brachial Position Sitting Pulse 86 Pulse Source Monitor Intake Visit Reasons: 4 mth f/up DC Appeals Manager Required: No Accompanied by: Spouse Allergies No Known Allergies Allergy (Verified 03/03/25 15:34) Medication List - Last Reconciled 03/03/25 by Javier Estevez MD aspirin 81 mg PO DAILY atorvastatin 80 mg PO DAILY blood sugar diagnostic (Taligen TherapeuticsTouch Ultra Test strips) Use daily As directed to monitor blood glucose blood-glucose sensor (AttendifyStyle Kayode 3 Plus Sensor device) Use daily As directed to monitor glucose citalopram 20 mg PO DAILY clopidogrel 75 mg PO DAILY empagliflozin (Jardiance) 25 mg PO QAM ezetimibe 10 mg PO DAILY 90 days fenofibrate 160 mg PO DAILY furosemide 40 mg PO DAILY glucagon 3 mg/actuation 3 mg intranasal ONCE PRN insulin glargine U-300 conc (Toujeo Max U-300 SoloStar) 65 units (0.2167 mL) subcut DAILY insulin lispro 10 units (0.1 mL) subcut TID lancets (Taligen TherapeuticsTouch UltraSoft 2 Lancet) use daily As directed to monitor blood sugars losartan 25 mg PO BID metoprolol succinate ER (Toprol XL) 50 mg PO DAILY omega-3 acid ethyl esters 1 cap PO BID 90 days pen needle, diabetic Use QID As directed spironolactone 25 mg PO DAILY tirzepatide (Mounjaro) 5 mg (0.5 mL) subcut QWEEK HPI Comments Details: [age] year r gentleman who is here for follow-up. He was seen in the hospital when he presented with NSTEMI and heart failure. He was transferred to [facility] and underwent cardiac catheterization which showed severe multivessel disease. He was referred for surgery. Given elevated hemoglobin A1c he was advised to make some lifestyle changes and be compliant with medications and subsequently underwent surgery. He successfully has gone undergone surgery at this point. He has been doing well. No chest pains or any significant shortness of breath. He is starting cardiac rehabilitation soon. Taking medications regularly. 06/01/2024. He returns after 3 months. He is c/o SOB over the last few weeks. No CP. No orthopnea or PND. He has been taken off the oxygen 1 month ago. 03/03/2025: He is here for follow-up. He unfortunately had a fracture of the left foot. He is currently wearing a brace. Denying any chest discomfort or shortness of breath. His main complaint is weight gain and he will to be discussing this with his primary care physician whether his Mounjaro dose should be increased. He is also asking whether he needs to continue both aspirin and Plavix. [facility] Medical History Nocturnal hypoxemia Diabetic peripheral neuropathy associated with type 2 diabetes mellitus S/P angiogram of extremity (07/22/24) Bypass graft stenosis NSTEMI (non-ST elevated myocardial infarction) Nicotine dependence, cigarettes, uncomplicated Degenerative disc disease, cervical Cervical spinal stenosis Neuropathy Smoking history Elevated cholesterol Diabetic retinopathy BPH (benign prostatic hyperplasia) Retinal hemorrhage Type 2 diabetes mellitus Hypertension Surgical History Hx of heart bypass surgery Hx of tonsillectomy Family History Father Leukemia Mother No problems noted. Social History Household Members: Family Housing: Apartment Are you a primary intensive care unit nurse to a significant other at home: No Do you presently have visiting nurse or other home services: No Alcohol intake: current Alcohol intake frequency: 0-2 drinks per day Alcohol type: beer and hard liquor Patient Tobacco Use Status: Former Tobacco user Tobacco use type: Cigar Years Smoked: 25 e-Cigarette/Vaping Use: Never Used service: No Current occupational status: unemployed Current occupation: [employer] Current occupational exposures/hazards: Yes Cognitive needs: No Hearing needs: No Vision needs: Yes Review of Systems Const Denies daytime sleepiness, Denies difficulty sleeping, Denies snoring, Denies stops breathing during sleep and Denies weakness Card Denies chest pain, Denies rapid heart rate, Denies irregular heart rhythm, Denies claudication, Denies leg edema, Denies lightheadedness, Denies palpitations, Denies dyspnea, Denies dyspnea on exertion, Denies orthopnea, Denies paroxysmal nocturnal dyspnea and Denies slow heart rate Resp Denies cough, Denies dyspnea, Denies dyspnea on exertion and Denies snoring GI Reports no additional complaints, Denies hematochezia, Denies change in stool character and Denies dyspepsia Musc Denies abnormal gait, Denies muscle weakness and Denies numbness Neuro Denies abnormal gait, Denies numbness and Denies weakness Endo Denies palpitations Physical Exam Vital Signs: Last Vital Signs Pulse 86 03/03/25 15:30 BP 120/68 03/03/25 15:30 BMI result Body Mass Index 34.5 GENERAL APPEARANCE: in no acute distress, pleasant. NECK: no carotid bruit, no jugular venous distention. SKIN: no suspicious lesions, warm and dry. HEART: no murmurs, regular rate and rhythm. LUNGS: clear to auscultation bilaterally. ABDOMEN: soft, nontender. EXTREMITIES: no edema. Left foot in brace. PERIPHERAL PULSES: equal. NEUROLOGIC: No gross deficits, AAO X 3 Office Procedures EKG Details: Sinus rhythm 86 beats per minute, poor R-wave progression, normal axis, QTC is 485 milliseconds. [id number], Complete Assessment & Plan Assessment & Plan (1) Hypertension: Code(s): I10 - Essential (primary) hypertension Category: Medical Qualifiers: Hypertension type: primary hypertension Qualified Code(s): I10 - Essential (primary) hypertension (2) Ischemic cardiomyopathy: Comment: PER ECHOCARDIOGRAM LV EJECTION FRACTION 40-45 THIS MAY ALL BE PARTLY DUE TO HIS CONSUMPTION OF ALCOHOL. Code(s): I25.5 - Ischemic cardiomyopathy Category: Medical (3) PAD (peripheral artery disease): Comment: 07/22/2024 left distal SFA atherectomy and plasty Code(s): I73.9 - Peripheral vascular disease, unspecified Category: Medical Plan Pleasant 54 year gentleman who is here for follow-up. He has history of ischemic cardiomyopathy status post coronary artery bypass surgery with GARRETT to LAD and vein graft to the PDA. I think he can stop the aspirin and continue Plavix monotherapy from here onwards. Ejection fraction improving and last echocardiography has shown EF of 45% which is improvement compared to his previous LV dysfunction pre bypass. Clinically has improved significantly and has been doing well. I have advised him to continue same medications with the exception of aspirin as mentioned. Thank you for allowing me to participate in the care of your patient. Please feel free to contact me if you have any questions. Coding Level of Care Code Est Pt Level 4 (46533) Diagnoses Primary hypertension I10 Hypertension type: primary hypertension Ischemic cardiomyopathy I25.5 PAD (peripheral artery disease) I73.9 CPT Codes EKG - CPT: 93294-[id number], Complete ([id number])
== END 2025-03-03 15:58 | disposition home or self-care (01) ==
LOC: HO.HCS 15:13
PROVIDERS: PCP Nurse Practitioner Family; Visit Provider Internal Medicine Cardiovascular Disease
DX: I10 Essential (primary) hypertension (principal); I25.5 Ischemic cardiomyopathy; I73.9 Peripheral vascular disease, unspecified
CPT/HCPCS: 93010; 99214

== ENCOUNTER → 2025-03-03 15:12 | Outpatient (BNVA) | payer OTHER, SELFPAY | PROVIDERS: PCP Nurse Practitioner Family; Visit Provider Internal Medicine Cardiovascular Disease | DX: I10 Essential (primary) hypertension (principal); I25.5 Ischemic cardiomyopathy; I73.9 Peripheral vascular disease, unspecified | CPT/HCPCS: 93005; 99212 ==

== ENCOUNTER 2025-03-11 14:24 | Outpatient (AMB) | payer OTHER, SELFPAY ==
--- NOTE | 2025-03-11 15:01 | HO.NEPHOV_ITS ---
Vital Signs 03/11/25 15:03 Height 5 ft 9 in Weight 229 lb 8 oz BMI 33.9 BP 122/80 Blood Pressure Location Lt brachial Position Sitting Pulse 87 Pulse Source Pulse Oximeter Pulse Oximetry (%) 92 Oxygen Delivery Method Room Air Intake Visit Reasons: 4 mo follow up-Conf Dramatic Arts Historian Required: No Accompanied by: Spouse Allergies No Known Allergies Allergy (Verified 03/11/25 15:02) HPI Comments Details: Solis was seen in follow up for CKD with proteinuria. He is a 54-year-old male with H/O uncontrolled diabetes in the past. His hemoglobin A1c was 11.1% which has improved . He experiences severe diabetic neuropathy, also weak/absent pedal pulses in both extremities, as well as a dusky hue to bilateral feet & underwent stenting on LLE. He recently had # of left LE( mechanical).He has H/O retinopathy, CAD needing CABG. He also has hyperlipidemia with elevated trigl ycerides, and depression. The patient is on Farxiga as well as ARB in addition to his regular medications. He denies symptoms such as increased dyspnea, nausea, vomiting, PND, orthopnea, chest pain or syncope. He has H/O alcohol use disorder, He has H/O thrombocytopenia( ? bone marrow suppression from alcohol vs hypersplenism/increased portal pressure- even though he does not carry a diagnosis of cirrhosis). He has H/O microscopic hematuria and has seen Urology. His serum creatinine has been fairly stable [facility] Medical History Nocturnal hypoxemia Diabetic peripheral neuropathy associated with type 2 diabetes mellitus S/P angiogram of extremity (07/22/24) Bypass graft stenosis NSTEMI (non-ST elevated myocardial infarction) Nicotine dependence, cigarettes, uncomplicated Degenerative disc disease, cervical Cervical spinal stenosis Neuropathy Smoking history Elevated cholesterol Diabetic retinopathy BPH (benign prostatic hyperplasia) Retinal hemorrhage Type 2 diabetes mellitus Hypertension Surgical History Hx of heart bypass surgery Hx of tonsillectomy Family History Father Leukemia Mother No problems noted. Social History Household Members: Family Housing: Apartment Are you a primary child caregiver private home to a significant other at home: No Do you presently have visiting nurse or other home services: No Alcohol intake: current Alcohol intake frequency: 0-2 drinks per day Alcohol type: beer and hard liquor Patient Tobacco Use Status: Former Tobacco user Tobacco use type: Cigar Years Smoked: 25 e-Cigarette/Vaping Use: Never Used service: No Current occupational status: unemployed Current occupation: [employer] Current occupational exposures/hazards: Yes Cognitive needs: No Hearing needs: No Vision needs: Yes Review of Systems Const All systems reviewed & are unremarkable except as noted in HPI and below Physical Exam Vital Signs: Last Vital Signs Pulse 87 03/11/25 15:03 BP 122/80 03/11/25 15:03 Pulse Ox 92 03/11/25 15:03 Oxygen Delivery Method Room Air 03/11/25 15:03 BMI result Body Mass Index 33.9 Const General: comfortable and no acute distress Orientation/consciousness: patient oriented x3 HEENT Head: Yes normocephalic Mouth: Normal oral and palatal mucosa present Eyes EOM: EOMs intact bilaterally Neck Neck: Yes supple Resp Auscultation: clear to auscultation bilaterally Cardio Jugular venous distension: no JVD Rate: regular rate GI Palpation (GI): Soft to palpation Auscultation: normal bowel sounds General: Yes no CVA tenderness Back/Spine/Pelvis Back: no CVA tenderness Skin General skin exam: no rashes or lesions noted Neuro General: patient oriented x3 and moves all extremities Extrem General: Yes no pedal edema Results Reviewed Nephrology Results: Hgb, (14.0-18.0) 14.2 g/dl 02/24/25 WBC, (4.8-10.8) 5.2 X10*3/uL 02/24/25 Plt Count, (160-400) 69 X10*3/uL L 02/24/25 Sodium, (135-145) 141 mmol/L 02/24/25 Potassium, (3.3-5.1) 4.3 mmol/L 02/24/25 Chloride, (96-108) 103 mmol/L 02/24/25 Carbon Dioxide, (22-29) 28 mmol/L 02/24/25 BUN, (9-16) 20 mg/dL H 02/24/25 Creatinine, (0.5-1.4) 1.12 mg/dL 02/24/25 Calcium, (8.4-10.2) 9.3 mg/dL 02/24/25 Urine Protein, (Neg-Trace) 100 (2+) mg/dL H 02/24/25 Urine Creatinine 73.36 mg/dL 02/24/25 Protein/Creatinin Ratio, (<0.2) 1.22 H 02/24/25 Renal US 08/06/22 Assessment & Plan Assessment & Plan (1) Hypertension: Code(s): I10 - Essential (primary) hypertension Category: Medical Qualifiers: Hypertension type: primary hypertension Qualified Code(s): I10 - Essential (primary) hypertension (2) CKD stage 3 secondary to diabetes: Code(s): E11.22 - Type 2 diabetes mellitus with diabetic chronic kidney disease; N18.30 - Chronic kidney disease, stage 3 unspecified Category: Medical Plan Solis has Diabetic nephropathy. He has CKD due to DM with likely contribution from vascular disease given H/O CAD needing CABG as well as PAD. He will need Doppler of renal arteries with time . He is on ARB as well as SGLT2i. I increased his ARB today. He needs to keep his blood sugar better. His BP is at goal. All these have been explained in detail. Answered all his and his 's questions. F/U labs ordered Orders: Orders Protein Creatinine Ratio, Ur 4 Months E11.22 - Type 2 diabetes mellitus with diabetic chronic kidney disease, I10 - Essential (primary) hypertension, N18.30 - Chronic kidney disease, stage 3 unspecified Electrolytes 4 Months E11.22 - Type 2 diabetes mellitus with diabetic chronic kidney disease, I10 - Essential (primary) hypertension, N18.30 - Chronic kidney disease, stage 3 unspecified Blood Urea Nitrogen 4 Months E11.22 - Type 2 diabetes mellitus with diabetic chronic kidney disease, I10 - Essential (primary) hypertension, N18.30 - Chronic kidney disease, stage 3 unspecified Creatinine 4 Months E11.22 - Type 2 diabetes mellitus with diabetic chronic kidney disease, I10 - Essential (primary) hypertension, N18.30 - Chronic kidney disease, stage 3 unspecified Medications: Changed From losartan 25 mg PO BID 180 tabs 4RF I25.5 - Ischemic cardiomyopathy To losartan 50 mg PO BID 180 tabs 4RF 90 days I25.5 - Ischemic cardiomyopathy Coding Level of Care Code Est Pt Level 4 (95537) Diagnoses Primary hypertension I10 Hypertension type: primary hypertension CKD stage 3 secondary to diabetes E11.22; N18.30
[2025-03-11 15:03] VITALS: BP 122/80; PULSE 87; O2SAT 92; BMI 33.9
--- OUTSIDE RECORDS SUMMARY | 2025-03-11 18:12 | XMS_ITS ---
Author Name Interface, [id number] lity Address [address] [facility] [address] [place] [address] [facility] Address [address] [facility] [address] [place] [address] Support Name Relationship Address Phone Wanda Casas Spouse Unknown Unavailable Allergies and Adverse Reactions Medication/Group Name Reaction Severity Date No known allergies Plan Date Type Value 05/16/2021 APPOINTMENT OV Reason for Visit OV Encounters Date Name 05/16/2021 Erythrocytosis 05/16/2021 Thrombocytopenia Medications Date Name Route Dose Frequency Instructions Start Date End Date Status Fill Status Indication 05/03 Insulin Glargine Subcutaneo us 100 unit/mL active 05/03 Atorvastat in Oral active 05/03 Lisinopril Oral active 05/03 Semaglutid e Subcutaneo us Pen Injector active 05/03 Metformin Oral active Problems Diagnosis [...]
--- OUTSIDE RECORDS SUMMARY | 2025-03-11 18:12 | XMS_ITS | Clinical Summary ---
Author Organization [facility], Address [address] [place] [address] [place] [address] Phone Care Team Providers Care Registered Client Associate Name Role Phone Kobi Day NP Primary Care Provider [phone] Allergies No known active allergies Medications atorvastatin [...] Exam 06/26/2020 Influenza Vaccine (#1) 2025 Insurance [facility] Plan ([id number]) Care Teams Registered Client Associate Relationship Specialty Start Date End Date Kobi Day NP [address] [place] [address] PCP - General Nurse Practitioner 08/15/22
--- OUTSIDE RECORDS SUMMARY | 2025-03-11 18:12 | XMS_ITS | Encounter Summary ---
Author Organization [facility] Address [address] [place] [address] Phone Care Team Providers Care Financial Compliance Examiner Name Role Phone Kobi Day NP Primary Care Provider [phone] Encounter Details Date Type Department Care Team (Late st Contact Info) Description 08/15/2022 Documentation Only [facility], [address] [place] [address] Kobi Day NP [address] [place] [address] Social History Tobacco Use Types Packs/Day Years [...] on filedocumented in this encounter Care Teams Financial Compliance Examiner Relationship Specialty Start Date End Date Kobi Day NP [address] [place] [address] PCP - General Nurse Practitioner 08/15/22 documented as of this encounter
--- OUTSIDE RECORDS SUMMARY | 2025-03-11 18:12 | XMS_ITS | CCD ---
Author Name Interface, [id number] lity Address [address] [facility] [address] [place] [address] [facility] Address [address] [facility] [address] [place] [address] Care Team Providers Care Car Dryer Name Role Phone Kobi Shelton MD Unavailable Unavailable Allergies and Adverse Reactions Medication/Group Name [...] End Date Status Fill Status Indication 05/03 Metformin Oral active 05/03 Semaglutid e Subcutaneo us Pen Injector active 05/03 Lisinopril Oral active 05/03 Insulin Glargine Subcutaneo us 100 unit/mL active 05/03 Atorvastat in Oral active Problems Diagnosis Status Date of Diagnosis Resolution Date Thrombocytopenia Active 2020 Erythrocytosis Active 2020 Social History Date Name Value 05/03/2021 Sex Male Gender Identity Identifies as erik cuevas
== END 2025-03-11 15:19 | disposition home or self-care (01) ==
LOC: HO.HKAS 14:25
PROVIDERS: PCP Nurse Practitioner Family; Visit Provider Internal Medicine Nephrology
DX: I10 Essential (primary) hypertension (principal); E11.22 Type 2 diabetes mellitus with diabetic chronic kidney disease; N18.30 Chronic kidney disease, stage 3 unspecified
CPT/HCPCS: 99214

== ENCOUNTER → 2025-03-11 14:24 | Outpatient (BNVA) | payer OTHER, SELFPAY | PROVIDERS: PCP Nurse Practitioner Family; Visit Provider Internal Medicine Nephrology | DX: E11.42 Type 2 diabetes mellitus with diabetic polyneuropathy (principal); E11.22 Type 2 diabetes mellitus with diabetic chronic kidney disease; N18.30 Chronic kidney disease, stage 3 unspecified; I10 Essential (primary) hypertension; R80.9 Proteinuria, unspecified | CPT/HCPCS: 99212 ==

== ENCOUNTER 2025-03-22 08:27 | Outpatient (AMB) | payer OTHER, SELFPAY ==
[2025-03-22 08:30] VITALS: BP 136/92; PULSE 82; O2SAT 96; BMI 34.8
--- NOTE | 2025-03-22 08:30 | A.OFFVIS_ITS ---
Vital Signs 03/22/25 08:30 Height 5 ft 9 in Weight 235 lb 10.786 oz BMI 34.8 BP 136/92 H Blood Pressure Location Lt brachial Position Sitting Pulse 82 Pulse Source Pulse Oximeter Pulse Oximetry (%) 96 Oxygen Delivery Method Room Air Intake Visit Reasons: DM Intake Note: Patient present today for Type 2 Diabetes Mellitus Last Diabetic eye exam: Last exam was on 06/12/24 at [facility] eye Last Podiatry Visit: Last visit was on 12/2024 at [facility] Podiatry. Random Glucose: 151 mg/dl HgA1C: 6.9% 02/24/25 Topographic Computator Required: No Accompanied by: Spouse Allergies No Known Allergies Allergy (Verified 03/22/25 08:35) HPI HPI DM: Details: Patient is a 54-year-old male with a significant 9past medical history of chronic kidney disease, peripheral are very disease, ischemic cardiomyopathy, CH F, hypertension, type 2 diabetes, microalbuminuria and retinopathy presenting today For a follow up regarding his diabetes. Endo: He was diagnosed with diabetes 2005. His A1c is 6.9. He is currently managed with Jardiance 25 mg, toujeo 65 units nightly, lispro 10 units 3 times a day with meals and mounjaro 7.5 mg weekly. -Just started the 7.5 mg of mounjaro today. he states that he is tolerating the Jardiance and Mounjaro without difficulty. He is still forgetting to take the lispro as directed In the past he has tried-farxiga (stopped due to insurance), metformin was d/c after [place], trulicity (caused n/v/d), ozempic (nausea then insurance declined), Lantus cause injection site pain CGM- has not been using because it keeps falling off Has a lot of testing supplies from [employer] at home for one touch he follows with Podiatry and Ophthalmology CV: Blood pressure today in the office is 136/92. He is currently on losartan 25 mg twice a day, metoprolol 50 mg daily, spironolactone 25 mg daily, furosemide 40 mg daily. He is on Plavix and aspirin. Cholesterol is controlled with atorvastatin 80 mg, fenofibrate 160 mg and Zetia 10 mg. He follows with cardiology. Nephro: Has CKD and microalbuminuria. Follows with Nephrology. Vasc: utd with visit for PAD. Podiatry: saw podiatry last week. He has been in a boot for a month due to left foot fracture (01/25/25). [facility] Medical History Nocturnal hypoxemia Diabetic peripheral neuropathy associated with type 2 diabetes mellitus S/P angiogram of extremity (07/22/24) Bypass graft stenosis NSTEMI (non-ST elevated myocardial infarction) Nicotine dependence, cigarettes, uncomplicated Degenerative disc disease, cervical Cervical spinal stenosis Neuropathy Smoking history Elevated cholesterol Diabetic retinopathy BPH (benign prostatic hyperplasia) Retinal hemorrhage Type 2 diabetes mellitus Hypertension Surgical History Hx of heart bypass surgery Hx of tonsillectomy Family History Father Leukemia Mother No problems noted. Social History Household Members: Family Housing: Apartment Are you a primary health careers instructor to a significant other at home: No Do you presently have visiting nurse or other home services: No Alcohol intake: current Alcohol intake frequency: 0-2 drinks per day Alcohol type: beer and hard liquor Patient Tobacco Use Status: Former Tobacco user Tobacco use type: Cigar Years Smoked: 25 e-Cigarette/Vaping Use: Never Used service: No Current occupational status: unemployed Current occupation: [employer] Current occupational exposures/hazards: Yes Cognitive needs: No Hearing needs: No Vision needs: Yes Physical Exam Const Orientation/consciousness: patient oriented x3 HEENT Ears: hearing grossly normal bilaterally Neck Thyroid: Thyroid normal Lymphatic: no lymphadenopathy noted Resp Auscultation: clear to auscultation bilaterally Cardio Rate: regular rate Rhythm: regular rhythm Heart sounds: S1 normal heart sound present and S2 normal heart sound present Skin General skin exam: no rashes or lesions noted Neuro General: patient oriented x3, gait normal and no focal motor deficits Results Reviewed Results Reviewed: Laboratory Tests 12/14/24 02/24/25 08:38 07:12 Creatinine 1.12 Estimated GFR > 60 Random Glucose 229 H Hgb A1c (Clinic) 8.7 H Hemoglobin A1c % 6.9 H AST 39 H ALT 37 Triglycerides 270 H Cholesterol 148 LDL Cholesterol, Calc 54 HDL Cholesterol 40 L Assessment & Plan Assessment & Plan (1) Diabetic nephropathy associated with type 2 diabetes mellitus: Code(s): E11.21 - Type 2 diabetes mellitus with diabetic nephropathy Category: Medical Plan: We will continue to monitor. He increased mounjaro today to 7.5 mg weekly reduce Toujeo to 55 units daily Encouraged compliance with the lispro as directed. Continue Jardiance 25 mg daily Return in 3 months. Labs prior. Follow up sooner if needed. Patient understands and agrees with the plan. (2) Hypertension: Code(s): I10 - Essential (primary) hypertension Category: Medical Qualifiers: Hypertension type: primary hypertension Qualified Code(s): I10 - Essential (primary) hypertension Plan: continue current plan (3) Hyperlipidemia: Code(s): E78.5 - Hyperlipidemia, unspecified Category: Medical Plan: Continue current regimen Coding Level of Care Code Est Pt Level 4 (41065) Complex EM visit Add On G2211 Diagnoses Diabetic nephropathy associated with type 2 diabetes mellitus E11.21 Primary hypertension I10 Hypertension type: primary hypertension Hyperlipidemia E78.5
[2025-03-22 08:42] LABS: Glucose, Whole Blood 151 mg/dL (60-115)
--- OUTSIDE RECORDS SUMMARY | 2025-03-22 08:45 | XMS_ITS ---
Author Name Interface, [id number] lity Address [address] [facility] [address] [place] [address] [facility] Address [address] [facility] [address] [place] [address] Support Name Relationship Address Phone Wanda Casas [...]
--- OUTSIDE RECORDS SUMMARY | 2025-03-22 08:45 | XMS_ITS | CCD ---
Author Name Interface, [id number] lity Address [address] [facility] [address] [place] [address] [facility] Address [address] [facility] [address] [place] [address] Care Team Providers Care Combine Inspector Name Role Phone Kobi Shelton MD Unavailable [...]
== END 2025-03-22 10:28 | disposition home or self-care (01) ==
LOC: HO.ENCR 08:28
PROVIDERS: PCP Nurse Practitioner Family; Visit Provider Physician Assistant
DX: E11.21 Type 2 diabetes mellitus with diabetic nephropathy (principal); I10 Essential (primary) hypertension; E78.5 Hyperlipidemia, unspecified

== ENCOUNTER → 2025-03-22 08:27 | Outpatient (BNVA) | payer OTHER, SELFPAY | PROVIDERS: PCP Nurse Practitioner Family; Visit Provider Physician Assistant | DX: E11.22 Type 2 diabetes mellitus with diabetic chronic kidney disease (principal); E11.21 Type 2 diabetes mellitus with diabetic nephropathy; I12.9 Hypertensive chronic kidney disease with stage 1 through stage 4 chronic kidney disease, or unspecified chronic kidney disease; N18.9 Chronic kidney disease, unspecified; Z79.899 Other long term (current) drug therapy | CPT/HCPCS: 82947; 99212 ==

== ENCOUNTER 2025-03-27 12:01 | Outpatient (REF) | payer OTHER, SELFPAY ==
--- NOTE | ~2025-03-27 | XR_ITS ---
EXAMINATION: XR FOOT, LEFT CLINICAL INFORMATION: S92.352A - Displaced fracture of fifth metatarsal bone, left foot, initi... COMPARISON: February 24, 2025. TECHNIQUE: AP, lateral, and oblique views of the left foot. FINDINGS: There is a 9 mm gap between the fragments at the base of the fifth metatarsal. No periosteal bone reaction. No callus formation. No subcutaneous emphysema. No metallic or radiopaque foreign body. Spur in the plantar calcaneus. No joint effusion. XR/XR foot LT min 3V IMPRESSION: Nonunion fracture, base of fifth metatarsal. Plantar calcaneal spur. Electronically signed by: Jin Davis MD 03/29/2025 06:56 AM MICHELLE
== END 2025-03-27 12:02 | disposition home or self-care (01) ==
LOC: HO.HMGCX 12:01
PROVIDERS: PCP Nurse Practitioner Family; Visit Provider Student in an Organized Health Care Education/Training Program
DX: S92.352A Displaced fracture of fifth metatarsal bone, left foot, initial encounter for closed fracture (principal)
CPT/HCPCS: 73630

== ENCOUNTER → 2025-03-27 12:04 | Outpatient (BNV) | payer OTHER, SELFPAY | PROVIDERS: PCP Nurse Practitioner Family; Visit Provider Radiology Diagnostic Radiology | DX: S92.352K Displaced fracture of fifth metatarsal bone, left foot, subsequent encounter for fracture with nonunion (principal); M77.32 Calcaneal spur, left foot | CPT/HCPCS: 73630 ==

== ENCOUNTER 2025-03-29 10:10 | Outpatient (AMB) | payer OTHER, SELFPAY ==
--- NOTE | 2025-03-29 10:25 | A.OFFVIS_ITS ---
Vital Signs 03/29/25 10:26 Height 5 ft 9 in Weight 235 lb BMI 34.7 Intake Visit Reasons: Follow Up left foot / Xray Intake Note: Solis is a 54 year old male who presents today for a follow up on his X ray results. Patient reports he is currently not experiencing any pain at this time and and he continues to use the Cam boot at this time. Foot X ray IMPRESSION: Nonunion fracture, base of fifth metatarsal. Plantar calcaneal spur. Allergies No Known Allergies Allergy (Verified 03/29/25 10:26) HPI HPI Follow Up left foot / Xray: Details: 54-year-old male with past medical history of diabetes mellitus type 2 with peripheral neuropathy, CKD stage 3, PAD s/p left lower extremity angioplasty, presents for 1 month follow up evaluation of left 5th metatarsal fracture. Received x-rays over the weekend and received the x-ray report that noted a nonunion. He notes he has been weight-bearing in the boot at all times. Denies any calf pain. Denies any falls or injuries. He does note some imbalance due to the boot height, however he has been wearing high top sneakers and shoes on his right side to balance himself out. History: The patient states he was doing yard work and twisted his ankle. He did not have pain and continued to walk until he noticed bruising to his toes. He went to his primary care physician 3 days later and received an x-ray which showed a left 5th metatarsal fracture. He was recommended nonweightbearing in a Cam boot with crutches. notes feeling unbalanced and has difficulty holding his crutches with his hands, so he weightbears in the boot without crutches. [facility] Medical History Nocturnal hypoxemia Diabetic peripheral neuropathy associated with type 2 diabetes mellitus S/P angiogram of extremity (07/22/24) Bypass graft stenosis NSTEMI (non-ST elevated myocardial infarction) Nicotine dependence, cigarettes, uncomplicated Degenerative disc disease, cervical Cervical spinal stenosis Neuropathy Smoking history Elevated cholesterol Diabetic retinopathy BPH (benign prostatic hyperplasia) Retinal hemorrhage Type 2 diabetes mellitus Hypertension Surgical History Hx of heart bypass surgery Hx of tonsillectomy Family History Father Leukemia Mother No problems noted. Social History Household Members: Family Housing: Apartment Are you a primary critical care cns to a significant other at home: No Do you presently have visiting nurse or other home services: No Alcohol intake: current Alcohol intake frequency: 0-2 drinks per day Alcohol type: beer and hard liquor Patient Tobacco Use Status: Former Tobacco user Tobacco use type: Cigar Years Smoked: 25 e-Cigarette/Vaping Use: Never Used service: No Current occupational status: unemployed Current occupation: [employer] Current occupational exposures/hazards: Yes Cognitive needs: No Hearing needs: No Vision needs: Yes Review of Systems Const All systems reviewed & are unremarkable except as noted in HPI and below Physical Exam Vital Signs: BMI result Body Mass Index 34.7 Extrem Other: *Bilateral Lower Extremity Focused Exam Vascular: dp/pt 1/4 b/l, CFT<3s to digits, decreased left foot and ankle edema, TG warm to cool. Derm: No ecchymosis to left foot. Neuro: protective sensation grossly diminished to bilateral lower extremities MSK: no tenderness on palpation of left 5th metatarsal base, no pain to the ankle on range of motion, no calf pain Results Reviewed Results Reviewed: Laboratory Tests 02/24/25 07:12 Hemoglobin A1c % 6.9 H 02/24/2025 X-ray foot 3 views (AP, MO, Lateral) reviewed which shows displaced (4mm) non-angulated extra-articular 5th metatarsal base avulsion fracture, no bony bridging noted however there is bony resorption of the fracture fragment sites. No sclerotic margins. Normal alignment of the metatarsal parabola. Moderate plantar calcaneal heel spur. Mild left forefoot soft tissue swelling. 03/27/2025 X-ray left foot 3 views (AP, MO, Lateral) reviewed which shows the 5th metatarsal base fracture fragment with 7mm displacement. No evidence of bridging callus formation is seen. Bone density is within normal limits. Otherwise normal anatomy. I personally reviewed the imaging and my findings are listed above. Assessment & Plan Assessment & Plan (1) Displaced fracture of fifth metatarsal bone of left foot: Code(s): S92.352A - Displaced fracture of fifth metatarsal bone, left foot, initial encounter for closed fracture Category: Medical Qualifiers: Encounter type: initial encounter Fracture type: closed Qualified Code(s): S92.352A - Displaced fracture of fifth metatarsal bone, left foot, initial encounter for closed fracture Plan: * Reviewed new left foot x-rays with the patient and his partner. * Explained that at this point x-rays show no signs of healing to his 5th metatarsal fracture, and the fracture appears to be displacing further. He is however still within range of delayed union as opposed to a non-union. * Rx CT scan left foot without contrast. * If there is minimal signs of growth based on CT results, his best recommendations at this time would be to proceed with left foot ORIF. There is concern for an increased risk of charcot neuroarthropathic formation due to a weakened peroneus brevis/eversion pull if the fracture remains a delayed union/non-union, particularly in the displaced position it is in now. He is tentatively scheduled for left foot ORIF in 1 month. * Continue in CAM boot * Follow up in 2 weeks. (2) PAD (peripheral artery disease): Comment: 07/22/2024 left distal SFA atherectomy and plasty Code(s): I73.9 - Peripheral vascular disease, unspecified Category: Medical Plan: * Referred to vascular surgery for pre-op wound healing evaluation (s/p LLE angioplasty). (3) Vitamin D insufficiency: Code(s): E55.9 - Vitamin D deficiency, unspecified Category: Medical Plan: * Previously recommended vitamin D2/D3 2000 IU daily. (4) Diabetic peripheral neuropathy associated with type 2 diabetes mellitus: Code(s): E11.42 - Type 2 diabetes mellitus with diabetic polyneuropathy Category: Medical Plan: * A1c decreased from 8.7% to 6.9%. He is at lower risk than last evaluation for wound healing complications. (5) Xerosis cutis: Code(s): L85.3 - Xerosis cutis Category: Medical Plan: * Rx Amlactin Orders: Orders CT foot LT wo IV con Today S92.352A - Displaced fracture of fifth metatarsal bone, left foot, initial encounter for closed fracture US arterial duplex LE BI Today I73.9 - Peripheral vascular disease, unspecified Referrals Podiatry Procedure Notification S92.352A - Displaced fracture of fifth metatarsal bone, left foot, initial encounter for closed fracture Vascular Surgery Referral I73.9 - Peripheral vascular disease, unspecified, Z98.890 - Other specified postprocedural states Medications: New ammonium lactate 12% (AmLactin) 1 appl topical DAILY 225 grams 3RF xerosis L85.3 - Xerosis cutis Coding Level of Care Code Est Pt Level 4 (72531) Diagnoses Closed displaced fracture of fifth metatarsal bone of left foot, initial encounter S92.352A Encounter type: initial encounter Fracture type: closed PAD (peripheral artery disease) I73.9 Vitamin D insufficiency E55.9 Diabetic peripheral neuropathy associated with type 2 diabetes mellitus E11.42 Xerosis cutis L85.3 Time Spent (min) 30
[2025-03-29 10:26] VITALS: BMI 34.7
--- OUTSIDE RECORDS SUMMARY | 2025-03-29 12:09 | XMS_ITS | CCD ---
Author Name Interface, [id number] lity Address [address] [facility] [address] [place] [address] [facility] Address [address] [facility] [address] [place] [address] Care Team Providers Care Programmer Analyst Name Role Phone Kobi Shelton MD Unavailable [...]
--- OUTSIDE RECORDS SUMMARY | 2025-03-29 12:09 | XMS_ITS ---
Author Name Interface, [id number] lity Address [address] [facility] [address] [place] [address] [facility] Address [address] [facility] [address] [place] [address] Support Name Relationship Address Phone Wanda Casas [...]
--- OUTSIDE RECORDS SUMMARY | 2025-03-29 12:09 | XMS_ITS ---
Author Name Interface, [id number] lity Address [address] [facility] [address] [place] [address] [facility] Address [address] [facility] [address] [place] [address] Support Name Relationship Address Phone Wanda Casas [...]
--- OUTSIDE RECORDS SUMMARY | 2025-03-29 12:09 | XMS_ITS | CCD ---
Author Name Interface, [id number] lity Address [address] [facility] [address] [place] [address] [facility] Address [address] [facility] [address] [place] [address] Care Team Providers Care Solicitor Patent Name Role Phone Kobi Shelton MD Unavailable [...]
== END 2025-03-29 10:54 | disposition home or self-care (01) ==
LOC: HO.HPODS 10:11
PROVIDERS: PCP Nurse Practitioner Family; Visit Provider Student in an Organized Health Care Education/Training Program
DX: S92.352A Displaced fracture of fifth metatarsal bone, left foot, initial encounter for closed fracture (principal); I73.9 Peripheral vascular disease, unspecified; E55.9 Vitamin D deficiency, unspecified; E11.42 Type 2 diabetes mellitus with diabetic polyneuropathy; L85.3 Xerosis cutis
CPT/HCPCS: 99214

== ENCOUNTER → 2025-03-29 10:10 | Outpatient (BNVA) | payer OTHER, SELFPAY | PROVIDERS: PCP Nurse Practitioner Family; Visit Provider Student in an Organized Health Care Education/Training Program | DX: S92.352D Displaced fracture of fifth metatarsal bone, left foot, subsequent encounter for fracture with routine healing (principal); E11.42 Type 2 diabetes mellitus with diabetic polyneuropathy; E11.51 Type 2 diabetes mellitus with diabetic peripheral angiopathy without gangrene; E55.9 Vitamin D deficiency, unspecified; L85.3 Xerosis cutis; Z98.62 Peripheral vascular angioplasty status | CPT/HCPCS: 99212 ==

== ENCOUNTER 2025-04-01 10:07 | Outpatient (REF) | payer OTHER, SELFPAY ==
--- NOTE | ~2025-04-01 | CT_ITS ---
EXAMINATION: CT left foot CLINICAL INFORMATION: Displaced fracture fifth metatarsal bone. Evaluate fifth metatarsal fracture/nonunion COMPARISON: None TECHNIQUE: Axial imaging. Sagittal and coronal reconstructions. FINDINGS: There is a fracture of the base of the fifth metatarsal. There is a gap of up to 9 mm between the fracture fragments. No periosteal reaction, significant callus formation seen. No osseous bridging is identified. No additional acute fracture is otherwise seen. Ankle mortise is maintained. Plantar and posterior calcaneal spur. Subcutaneous edema. No fluid collections in the subcutaneous soft tissue. No subcutaneous emphysema. Limited evaluation of the tendons on CT. The Achilles tendon is grossly intact. The proximal ankle tendons grossly appear intact. CT/CT foot LT wo IV con IMPRESSION: Fracture of the base of the fifth metatarsal, without significant osseous bridging. Electronically signed by: Ganga Stanley MD 04/01/2025 11:55 AM MICHELLE
--- OUTSIDE RECORDS SUMMARY | 2025-04-01 11:49 | XMS_ITS | CCD ---
Author Name Interface, [id number] lity Address [address] [facility] [address] [place] [address] [facility] Address [address] [facility] [address] [place] [address] Care Team Providers Care Otologist Name Role Phone Kobi Shelton MD Unavailable [...]
--- OUTSIDE RECORDS SUMMARY | 2025-04-01 11:49 | XMS_ITS | Encounter Summary ---
Author Organization [facility] Address [address] [place] [address] Phone Care Team Providers Care Marketing Account Manager Name Role Phone Kobi Day NP Primary Care Provider [phone] Encounter Details Date Type Department Care Team (Late st Contact Info) Description 08/15/2022 Documentation Only [facility], [address] [place] [address] Kobi Day NP [address] [place] [address] Social History Tobacco Use Types Packs/Day Years [...] on filedocumented in this encounter Care Teams Marketing Account Manager Relationship Specialty Start Date End Date Kobi Day NP [address] [place] [address] PCP - General Nurse Practitioner 08/15/22 documented as of this encounter
--- OUTSIDE RECORDS SUMMARY | 2025-04-01 11:49 | XMS_ITS ---
Author Name Interface, [id number] lity Address [address] [facility] [address] [place] [address] [facility] Address [address] [facility] [address] [place] [address] Support Name Relationship Address Phone Wanda Casas [...]
--- OUTSIDE RECORDS SUMMARY | 2025-04-01 11:49 | XMS_ITS ---
Author Name Interface, [id number] lity Address [address] [facility] [address] [place] [address] [facility] Address [address] [facility] [address] [place] [address] Support Name Relationship Address Phone Wanda Casas [...]
--- OUTSIDE RECORDS SUMMARY | 2025-04-01 11:49 | XMS_ITS | CCD ---
Author Name Interface, [id number] lity Address [address] [facility] [address] [place] [address] [facility] Address [address] [facility] [address] [place] [address] Care Team Providers Care Anodiser Name Role Phone Kobi Shelton MD Unavailable [...]
--- OUTSIDE RECORDS SUMMARY | 2025-04-01 11:49 | XMS_ITS | Clinical Summary ---
Author Organization [facility], Address [address] [place] [address] [place] [address] Phone Care Team Providers Care Senior Electronics Design Engineer Name Role Phone Kobi Day NP Primary Care Provider [phone] Allergies No known active allergies Medications atorvastatin [...] Exam 06/26/2020 Influenza Vaccine (#1) 2025 Insurance [facility] Plan (10010) Care Teams Senior Electronics Design Engineer Relationship Specialty Start Date End Date Kobi Day NP [address] [place] [address] PCP - General Nurse Practitioner 08/15/22
== END 2025-04-01 10:08 | disposition home or self-care (01) ==
LOC: HO.CT 10:07
PROVIDERS: PCP Nurse Practitioner Family; Visit Provider Student in an Organized Health Care Education/Training Program
DX: S92.352A Displaced fracture of fifth metatarsal bone, left foot, initial encounter for closed fracture (principal)
CPT/HCPCS: 73700

== ENCOUNTER 2025-04-06 10:24 | Outpatient (AMB) | payer OTHER, SELFPAY ==
--- NOTE | 2025-04-06 10:59 | A.OFFPC_ITS ---
Vital Signs 04/06/25 11:00 Height 5 ft 9 in Weight 231 lb BMI 34.1 BP 128/78 Blood Pressure Location Lt brachial Position Sitting Respiration 16 Pulse 91 Pulse Source Pulse Oximeter Temp 98.5 F Temp Source Oral Pulse Oximetry (%) 97 Oxygen Delivery Method Room Air Intake Visit Reasons: Pre-op Floral Associate Required: No Accompanied by: Self / Same As Patient Allergies No Known Allergies Allergy (Verified 03/29/25 10:26) Tobacco use date assessed: 01/26/25 Dental Screening Dental Screen Date: 01/26/25 HPI Pre-op HPI Details History of Present Illness The patient is a 54 year old male presenting for a pre-operative evaluation for a planned left foot surgery. He reports feeling well and denies any recent infections. The patient has a history of diabetes, and his most recent A1C was 6.9%. Health Maintenance - Diabetes Management: The patient's mos t recent A1c was 6.9%. Social History Review of Systems - Constitutional: Reports feeling well. - Infectious Disease: Denies recent infe ctions or sinus symptoms of infection. - Cardiovascular: Denies chest pain. - Respiratory: Denies shortness of breat h. - Gastrointestinal: Denies abdominal daisy n, blood in stool, constipation, and diarrhea. Physical Exam General: Cooperative, healthy appearing, comfortable, no acute distress and well developed Orientation: Patient oriented x3 Limitations: No limitations Head: Normal to inspection Ears: Hearing grossly normal bilaterally Nose: Normal external nose present Face and sinus: Normal facial exam Eyes: Appearance normal, both eyes and all related structures Neck: Normal visual inspection and Yes full ROM. No lymphadenopathy noted. Respiratory: Normal respiratory effort and able to speak in complete sentences. Lungs were fairly clear, slightly diminished. Cardiovascular: Regular rate and rhythm. Normal S1 and S2 GI: Normal to inspection. Soft to palpation and nontender Neuro: Patient oriented x3 Extremities: Normal to inspection, left foot/ankle boot present Results - Labs: Recent Hemoglobin A1c was 6.9%. Plan 1. Pre-Operative Surgical Clearance The patient is cleared for his upcoming left foot surgery from a primary care standpoint. He requires further clearance from cardiology, and an EKG will be performed during that consultation. Pre-operative labs have been ordered, and he has been instructed to complete them at least two weeks before the surgery date. 2. Type 2 Diabetes Mellitus The patient's diabetes appears to be well-controlled, with a recent A1c of 6.9%. Continue current management. Discussion Notes I advised the patient that while he is cleared for surgery from my perspective, he must still get clearance from his cardiology provider. I informed him that pre-operative labs have been ordered and instructed him to get them done closer to his surgery date, preferably at least two weeks prior. I also mentioned that cardiology will perform his EKG during their clearance evaluation. Patient Instructions - You will need to see your heart doctor (medical record librarians teacher) to get cleared for your surgery. - The heart doctor will perform an EKG w hen you see them. - Please get the pre-operative lab work we ordered done at least two weeks before your surgery. [facility] Medical History Nocturnal hypoxemia Diabetic peripheral neuropathy associated with type 2 diabetes mellitus S/P angiogram of extremity (07/22/24) Bypass graft stenosis NSTEMI (non-ST elevated myocardial infarction) Nicotine dependence, cigarettes, uncomplicated Degenerative disc disease, cervical Cervical spinal stenosis Neuropathy Smoking history Elevated cholesterol Diabetic retinopathy BPH (benign prostatic hyperplasia) Retinal hemorrhage Type 2 diabetes mellitus Hypertension Surgical History Hx of heart bypass surgery Hx of tonsillectomy Family History Father Leukemia Mother No problems noted. Social History Household Members: Family Housing: Apartment Are you a primary professional healthcare representative to a significant other at home: No Do you presently have visiting nurse or other home services: No Alcohol intake: current Alcohol intake frequency: 0-2 drinks per day Alcohol type: beer and hard liquor Patient Tobacco Use Status: Former Tobacco user Tobacco use type: Cigar Years Smoked: 25 e-Cigarette/Vaping Use: Never Used service: No Current occupational status: unemployed Current occupation: [employer] Current occupational exposures/hazards: Yes Cognitive needs: No Hearing needs: No Vision needs: Yes Questionnaire Thrive Questionnaire Date Thrive assessed: 06/01/24 I am a: Patient What is your living situation today?: I have a steady place to live Within the past 12 months, did the food you bought not last and you didn't have the money to get more?: Never true Within the past 12 months, did you worry whether your food would run out before you got money to buy more?: Never true Do you have trouble paying for medicines?: No Do you have trouble getting transportation to medical appointments?: No Do you have trouble paying your heating and electricity bill?: No Do you have trouble taking care of your child, family member or friend?: No Do you have trouble with day-to-day activities such as bathing, preparing meals, shopping, managing finances, etc.?: No Are you currently unemployed and looking for a job?: I choose not to answer this question Are you interested in more education?: No Please select the resources that you would like help with: None Currently or been in a relationship where the following occur: No concerns reported THRIVE Score: 0 GIBSON-7 AMB Questionnaire GIBSON-7 Date GIBSON - 7 assessed: 01/26/25 Source: Developed by Drs. Solis Moore, Светлана Christy, Anant Romano and colleagues, with an educational kandy from [employer]. Physical exam (Primary Care) Vital Signs: Last Vital Signs Temp 98.5 F 04/06/25 11:00 Pulse 91 04/06/25 11:00 Resp 16 04/06/25 11:00 BP 128/78 04/06/25 11:00 Pulse Ox 97 04/06/25 11:00 Oxygen Delivery Method Room Air 04/06/25 11:00 BMI result Body Mass Index 34.1 Tobacco/Smoking Status: Tobacco use Status Tobacco use date assessed 01/26/25 04/06/25 11:04 Patient Tobacco Use Status Former Tobacco user 04/06/25 11:04 Tobacco use type Cigar 04/06/25 11:04 e-Cigarette/Vaping Use Never Used 04/06/25 11:04 Thrive Assessment: Date of Thrive Assessment Date Thrive assessed 06/01/24 04/06/25 11:04 Currently or been in a relationship where the following occur: No concerns reported Coding Level of Care Code Est Pt Prev Care 40-64y(79140) Diagnoses Pre-op evaluation Z01.818 Assessment & Plan Assessment & Plan (1) Pre-op evaluation: Code(s): Z01.818 - Encounter for other preprocedural examination Category: Medical Plan . Orders: Orders Complete Blood Count Auto Diff Today Z01.818 - Encounter for other preprocedural examination Comprehensive Met. Panel Today Z01.818 - Encounter for other preprocedural examination Partial Thromboplastin Time Today Z01.818 - Encounter for other preprocedural examination Prothrombin Time INR Today Z01.818 - Encounter for other preprocedural examination
[2025-04-06 11:00] VITALS: BP 128/78; PULSE 91; RESP 16; TEMP 36.9; O2SAT 97; BMI 34.1
--- OUTSIDE RECORDS SUMMARY | 2025-04-06 11:59 | XMS_ITS ---
Author Name Interface, [id number] lity Address [address] [facility] [address] [place] [address] [facility] Address [address] [facility] [address] [place] [address] Support Name Relationship Address Phone Wanda Casas [...]
--- OUTSIDE RECORDS SUMMARY | 2025-04-06 11:59 | XMS_ITS | CCD ---
Author Name Interface, [id number] lity Address [address] [facility] [address] [place] [address] [facility] Address [address] [facility] [address] [place] [address] Care Team Providers Care Medical Office Manager Name Role Phone Kobi Shelton MD Unavailable [...]
== END 2025-04-06 11:40 | disposition home or self-care (01) ==
LOC: HO.HMCC 10:25
PROVIDERS: PCP Nurse Practitioner Family; Visit Provider Nurse Practitioner Family
DX: Z01.818 Encounter for other preprocedural examination (principal)

== ENCOUNTER → 2025-04-06 10:24 | Outpatient (BNVA) | payer OTHER, SELFPAY | PROVIDERS: PCP Nurse Practitioner Family; Visit Provider Nurse Practitioner Family | DX: Z01.818 Encounter for other preprocedural examination (principal) | CPT/HCPCS: 99212 ==

== ENCOUNTER 2025-04-13 09:23 | Outpatient (REF) | payer OTHER, SELFPAY ==
--- NOTE | ~2025-04-13 | US_ITS ---
EXAMINATION: US NONINVASIVE ASSESSMENT OF THE BILATERAL LOWER EXTREMITY WITH ARTERIAL DUPLEX AND ANKLE BRACHIAL INDICES (ABIS) CLINICAL INFORMATION: Peripheral vascular disease. COMPARISON: Angiogram June 2024 and lower extremity arterial ultrasound October 2024 TECHNIQUE: Duplex Doppler techniques with waveform analysis and measurement of velocities in the common femoral, profunda femoris, superficial femoral, popliteal and tibial arteries were performed. In addition, ankle pulse volume recordings, ankle pressure measurements and ankle brachial indices were obtained of the bilateral lower extremity arterial system. The study was performed only at rest. FINDINGS: NONINVASIVE ASSESSMENT OF THE ARTERIES OF BILATERAL LOWER EXTREMITIES WITH ABIs: RIGHT LEG: Ankle-brachial index: Could not be obtained Ankle PVR: Normal LEFT LEG: Ankle-brachial index: Could not be obtained Left ankle PVR: Normal SAGRARIO Reference: 0.9 - 1.4 = normal - no significant arterial disease 0.7 - 0.89 = mild peripheral arterial disease 0.51 - 0.69 = moderate peripheral arterial disease 0.50 = severe peripheral arterial disease RIGHT LOWER EXTREMITY DUPLEX ULTRASOUND: Diffuse vessel wall calcification. Mild narrowing of the common femoral and proximal superficial femoral arteries Small fluid collection over the lateral ankle measuring 2.7 x 0.7 x 2 cm. This is slightly complex with us thickened wall and internal echoes. Calcifications and thickening of the lesser saphenous vein questionable for chronic thrombophlebitis. Common femoral artery: 185 cm/s. Diastolic flow reversal: Biphasic Profunda femoris artery: 83 cm/s. Diastolic flow reversal: Biphasic Superficial femoral artery (proximal): 111 cm/s. Diastolic flow reversal: Biphasic Superficial femoral artery (mid): 134 cm/s. Diastolic flow reversal: Biphasic Superficial femoral artery (distal): 103 cm/s. Diastolic flow reversal: Biphasic Popliteal artery: 88 cm/s Diastolic flow reversal: Biphasic Posterior tibial artery: 74 cm/s Diastolic flow reversal: Biphasic LEFT LOWER EXTREMITY DUPLEX ULTRASOUND: Diffuse vessel wall calcification. There may be a small left knee joint effusion. Common femoral artery: 114 cm/s. Diastolic flow reversal: Triphasic Profunda femoris artery: 58 cm/s. Diastolic flow reversal: Triphasic Superficial femoral artery (proximal): 121 cm/s. Diastolic flow reversal: Biphasic Superficial femoral artery (mid): 143 cm/s. Diastolic flow reversal: Biphasic Superficial femoral artery (distal): 54 cm/s. Diastolic flow reversal: Biphasic Popliteal artery: 118 cm/s Diastolic flow reversal: Biphasic Posterior tibial artery: 106 cm/s Diastolic flow reversal: Biphasic US/US arterial duplex BI w/ SAGRARIO IMPRESSION: Mild atherosclerotic disease. No evidence of significant stenosis appreciated by duplex Doppler. ABIs could not be determined due to pressures greater than 200. 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 Small 2 x 2.7 cm complex fluid collection over the right ankle. Small left knee joint effusion. Electronically signed by: Brook Cooper MD 04/13/2025 11:28 AM MICHELLE
== END 2025-04-13 09:24 | disposition home or self-care (01) ==
LOC: HO.US 09:23
PROVIDERS: Absent Provider Student in an Organized Health Care Education/Training Program; PCP Nurse Practitioner Family; Visit Provider Surgery Vascular Surgery
DX: I73.9 Peripheral vascular disease, unspecified (principal)
CPT/HCPCS: 93922; 93925

== ENCOUNTER → 2025-04-13 09:27 | Outpatient (BNV) | payer OTHER, SELFPAY | PROVIDERS: Absent Provider Student in an Organized Health Care Education/Training Program; PCP Nurse Practitioner Family; Visit Provider Radiology Diagnostic Radiology | DX: I73.9 Peripheral vascular disease, unspecified (principal) | CPT/HCPCS: 93922; 93925 ==

== ENCOUNTER 2025-04-15 08:53 | Outpatient (AMB) | payer OTHER, SELFPAY ==
[2025-04-15 09:13] VITALS: BMI 34.1
--- NOTE | 2025-04-15 09:13 | A.OFFVIS_ITS ---
Vital Signs 04/15/25 09:13 Height 5 ft 9 in Weight 231 lb BMI 34.1 Intake Visit Reasons: Art US follow up 04/13/25 Intake Note: follow up Arterial US 04/13/25, hx of Left Angio 07/22/24. Has upcoming left foot surgery and podiatry wanted clearance. Dry Cure Worker Required: No Accompanied by: Spouse Allergies No Known Allergies Allergy (Verified 04/15/25 09:19) HPI Comments Details: The patient is a 54 year old individual presenting for evaluation regarding peripheral vascular disease. The patient underwent a left leg procedure in June of this year, and reports that the legs have felt better since. Notably, the patient now experiences sensation of warmth and ticklishness in the lower extremities, whereas previously the patient's feet constantly felt frozen. The patient is scheduled for surgery with a national accounts sales, Dr. Joya, for a potential left foot ORIF. The patient has not felt pain from the fracture but has observed swelling and had black and blue toes. Past medical history includes a myocardial infarction on December 24 of the prior year, after which the patient quit smoking. The patient has a 19-year history of diagnosed diabetes. The patient reports being able to walk okay, with legs feeling generally good aside from the foot pain. He now presents for follow-up with arterial testing [facility] Medical History Nocturnal hypoxemia Diabetic peripheral neuropathy associated with type 2 diabetes mellitus S/P angiogram of extremity (07/22/24) Bypass graft stenosis NSTEMI (non-ST elevated myocardial infarction) Nicotine dependence, cigarettes, uncomplicated Degenerative disc disease, cervical Cervical spinal stenosis Neuropathy Smoking history Elevated cholesterol Diabetic retinopathy BPH (benign prostatic hyperplasia) Retinal hemorrhage Type 2 diabetes mellitus Hypertension Surgical History Hx of heart bypass surgery Hx of tonsillectomy Family History Father Leukemia Mother No problems noted. Social History Household Members: Family Housing: Apartment Are you a primary manager primary care to a significant other at home: No Do you presently have visiting nurse or other home services: No Alcohol intake: current Alcohol intake frequency: 0-2 drinks per day Alcohol type: beer and hard liquor Patient Tobacco Use Status: Former Tobacco user Tobacco use type: Cigar Years Smoked: 25 e-Cigarette/Vaping Use: Never Used service: No Current occupational status: unemployed Current occupation: [employer] Current occupational exposures/hazards: Yes Cognitive needs: No Hearing needs: No Vision needs: Yes Review of Systems Const All systems reviewed & are unremarkable except as noted in HPI and below Reports no additional complaints ENT Reports Normal hearing present Card Denies chest pain, Denies chest pain at rest, Denies chest pain with activity and Denies pedal edema Resp Denies cough GI Denies abdominal pain Musc Denies abnormal gait, Denies muscle cramps and Denies radiating pain into limb Skin/Breast Denies skin ulcer and Denies wounds Neuro Reports Normal hearing present and Denies abnormal gait Psych Reports no additional complaints Physical Exam Vital Signs: BMI result Body Mass Index 34.1 Const General: cooperative, healthy appearing and comfortable Orientation/consciousness: oriented to person, oriented to place and oriented to time HEENT Head: Yes normal to inspection Neck Neck: Yes normal visual inspection Carotids: no bruits Chest Chest palpation & inspection: normal inspection of the chest Resp Effort & Inspection: normal respiratory effort and able to speak in complete sentences Auscultation: clear to auscultation bilaterally, no crackles, no rales, no rhonchi and no wheezes Cardio Other: Bilateral palpable posterior tibial pulses although faint Rate: regular rate Rhythm: regular rhythm Heart sounds: S1 normal heart sound present and S2 normal heart sound present Bruits: no carotid bruits Peripheral pulses: Peripheral pulses 2+ throughout GI Inspection: Yes normal to inspection Skin Wounds: no wounds Hair: normal Neuro General: oriented to person, oriented to place and oriented to time Cranial nerves: Yes CN's II-XII intact bilaterally and Yes Normal hearing present Cognition (Neuro): normal cognition Motor exam (neuro): 5/5 motor strength present throughout Extrem Other: venous exam: No significant superficial varicosities or spider telangiectasias, minimal edema General: No clubbing, No cyanosis and No edema Psych Appearance: grossly normal Mental Status: mental status grossly normal Speech and movement: Normal speech and movement present Results Reviewed Results Reviewed: Arterial testing dated 04/13/[address]25 demonstrates biphasic flow all the way down to the foot. Written report and images were reviewed. Assessment & Plan Assessment & Plan (1) PAD (peripheral artery disease): Comment: 07/22/2024 left distal SFA atherectomy and plasty Code(s): I73.9 - Peripheral vascular disease, unspecified Category: Medical Plan: I reviewed the patient's history since the left leg procedure about nine months ago and noted the reported improvement in sensation. I discussed the results of the recent ultrasound, explaining that it showed good, biphasic blood flow, and I am pleased with the outcome. I informed the patient that from a vascular kristy dpoint, there are no contraindications to proceeding with the planned foot surgery by Dr. Joya. We established a plan for annual follow-up, and I instructed that the hospital will contact the patient in about 10-11 months to arrange for the next surveillance ultrasound, after which the we will schedule a return visit to the clinic. Plan Patient was informed and verbally consented to the use of an ambient scribe for clinic note documentation during this visit. Orders: Orders US arterial duplex LE BI 1 Year I73.9 - Peripheral vascular disease, unspecified Patient Instructions: - You are cleared from a vascular standpoint to proceed with your planned foot surgery with Dr. Joya. - Continue to not smoke. - You will now be on a once-a-year follow-up schedule with our clinic. - The hospital will call you in about 10 or 11 months to schedule an ultrasound for your legs. - After the ultrasound is completed, please call our office to make an appointment to see us. Coding Level of Care Code Est Pt Level 4 (11207) Diagnoses PAD (peripheral artery disease) I73.9
--- OUTSIDE RECORDS SUMMARY | 2025-04-15 10:39 | XMS_ITS | CCD ---
Author Name Interface, [id number] lity Address [address] [place] [address] [facility] Address [address] [facility] [address] [place] [address] Care Team Providers Care Grain Manager Name Role Phone Kobi Shelton MD [...]
--- OUTSIDE RECORDS SUMMARY | 2025-04-15 10:39 | XMS_ITS | CCD ---
Author Name Interface, [id number] lity Address [address] [facility] [place] [address] [facility] Address [address] [facility] [address] [place] [address] Care Team Providers Care Glue Wheel Operator Name Role Phone Kobi Shelton MD Unavailable [...]
--- OUTSIDE RECORDS SUMMARY | 2025-04-15 10:39 | XMS_ITS ---
Author Name Interface, [id number] lity Address [address] [facility] [address] [place] [address] [facility] Address [address] [facility] [address] [place] [address] Support Name Relationship Address Phone Wanda Casas [...]
--- OUTSIDE RECORDS SUMMARY | 2025-04-15 10:39 | XMS_ITS ---
Author Name Interface, [id number] lity Address [address] [facility] [address] [place] [address] [facility] Address [address] [facility] [address] [place] [address] Support Name Relationship Address Phone Wanda Casas [...]
--- OUTSIDE RECORDS SUMMARY | 2025-04-15 10:39 | XMS_ITS ---
Author Name Interface, N5Jjlkicl lity Address [address] [facility] [address] [place] [address] [facility] Address [address] [facility] [address] [place] [address] Support Name Relationship Address Phone Wanda Casas [...]
--- OUTSIDE RECORDS SUMMARY | 2025-04-15 10:40 | XMS_ITS | CCD ---
Author Name Interface, [id number] lity Address [address] [facility] [address] [place] [address] [facility] Address [address] [facility] [address] [place] [address] Care Team Providers Care Under Cutting Machine Operator Name Role Phone Kobi Shelton MD [...]
== END 2025-04-15 09:39 | disposition home or self-care (01) ==
LOC: HO.HVS 08:54
PROVIDERS: PCP Nurse Practitioner Family; Visit Provider Surgery Vascular Surgery
DX: I73.9 Peripheral vascular disease, unspecified (principal)
CPT/HCPCS: 99214

== ENCOUNTER → 2025-04-15 08:53 | Outpatient (BNVA) | payer OTHER, SELFPAY | PROVIDERS: PCP Nurse Practitioner Family; Visit Provider Surgery Vascular Surgery | DX: Z71.2 Person consulting for explanation of examination or test findings (principal); I73.9 Peripheral vascular disease, unspecified | CPT/HCPCS: 99212 ==

== ENCOUNTER 2025-04-16 10:03 | Outpatient (AMB) | payer OTHER, SELFPAY ==
--- NOTE | 2025-04-16 10:18 | A.OFFVIS_ITS ---
Vital Signs 04/16/25 10:19 Height 5 ft 9 in Weight 231 lb BMI 34.1 Intake Visit Reasons: pre-op appointment Intake Note: Solis is a 54 year old male who presents today for a Pre-op Appointment. Patient reports everything is going well and he currently is not experiencing pain. Patient would like to discuss the possibility of weaning off the boot while he is home until surgery. He would also like to discuss obtaining a script after surgery for a rollator walker. Allergies No Known Allergies Allergy (Verified 04/16/25 10:19) HPI HPI pre-op appointment: Details: 54-year-old male with past medical history of diabetes mellitus type 2 with peripheral neuropathy, CKD stage 3, PAD s/p left lower extremity angioplasty, presents for pre-operative evaluation of left 5th metatarsal fracture. He received his CT scan and went to see his PCP and Vascular surgery. He notes he has been weight-bearing in the boot at all times. Denies any calf pain. Denies any falls or injuries. Started applying the amlactin ointment. History: The patient states he was doing yard work and twisted his ankle. He did not have pain and continued to walk until he noticed bruising to his toes. He went to his primary care physician 3 days later and received an x-ray which showed a left 5th metatarsal fracture. He was recommended nonweightbearing in a Cam boot with crutches. notes feeling unbalanced and has difficulty holding his crutches with his hands, so he weightbears in the boot without crutches. [facility] Medical History Nocturnal hypoxemia Diabetic peripheral neuropathy associated with type 2 diabetes mellitus S/P angiogram of extremity (07/22/24) Bypass graft stenosis NSTEMI (non-ST elevated myocardial infarction) Nicotine dependence, cigarettes, uncomplicated Degenerative disc disease, cervical Cervical spinal stenosis Neuropathy Smoking history Elevated cholesterol Diabetic retinopathy BPH (benign prostatic hyperplasia) Retinal hemorrhage Type 2 diabetes mellitus Hypertension Surgical History Hx of heart bypass surgery Hx of tonsillectomy Family History Father Leukemia Mother No problems noted. Social History Household Members: Family Housing: Apartment Are you a primary neonatal intensive care unit nurse to a significant other at home: No Do you presently have visiting nurse or other home services: No Alcohol intake: current Alcohol intake frequency: 0-2 drinks per day Alcohol type: beer and hard liquor Patient Tobacco Use Status: Former Tobacco user Tobacco use type: Cigar Years Smoked: 25 e-Cigarette/Vaping Use: Never Used service: No Current occupational status: unemployed Current occupation: [employer] Current occupational exposures/hazards: Yes Cognitive needs: No Hearing needs: No Vision needs: Yes Review of Systems Const All systems reviewed & are unremarkable except as noted in HPI and below Physical Exam Vital Signs: BMI result Body Mass Index 34.1 Extrem Other: *Bilateral Lower Extremity Focused Exam Vascular: dp/pt 1/4 b/l, CFT<3s to digits, decreased left foot and ankle edema, TG warm to cool. Derm: No ecchymosis to left foot. Skin appears healthy. Neuro: protective sensation grossly diminished to bilateral lower extremities MSK: no tenderness on palpation of left 5th metatarsal base, no pain to the ankle on range of motion, no calf pain Results Reviewed Results Reviewed: Laboratory Tests 02/24/25 07:12 Hemoglobin A1c % 6.9 H 02/24/2025 X-ray foot 3 views (AP, MO, Lateral) reviewed which shows displaced (4mm) non-angulated extra-articular 5th metatarsal base avulsion fracture, no bony bridging noted however there is bony resorption of the fracture fragment sites. No sclerotic margins. Normal alignment of the metatarsal parabola. Moderate plantar calcaneal heel spur. Mild left forefoot soft tissue swelling. 03/27/2025 X-ray left foot 3 views (AP, MO, Lateral) reviewed which shows the 5th metatarsal base fracture fragment with 7mm displacement. No evidence of bridging callus formation is seen. Bone density is within normal limits. Otherwise normal anatomy. I personally reviewed the imaging and my findings are listed above. 04/01/2025 CT scan: IMPRESSION: Fracture of the base of the fifth metatarsal, without significant osseous bridging. Left arterial duplex: Mild atherosclerotic disease. No evidence of significant stenosis appreciated by duplex Doppler. ABIs could not be determined due to pressures greater than 200. Assessment & Plan Assessment & Plan (1) Displaced fracture of fifth metatarsal bone of left foot: Code(s): S92.352A - Displaced fracture of fifth metatarsal bone, left foot, initial encounter for closed fracture Category: Medical Qualifiers: Encounter type: initial encounter Fracture type: closed Qualified Code(s): S92.352A - Displaced fracture of fifth metatarsal bone, left foot, initial encounter for closed fracture Plan: * Reviewed CT scan with the patient and his partner. * He is recommended to proceed with left foot ORIF. There is concern for an increased risk of charcot neuroarthropathic formation due to a weakened peroneus brevis/eversion pull if the fracture remains a delayed union/non- union, particularly in the displaced position it is in now. He is tentatively scheduled for left foot ORIF on 05/07/2025. * Continue in CAM boot until 05/07. * Discussed post-operative protocol. NWB in posterior splint until incisions heal. Will then remain PWB in CAM boot. * Follow up 1 week after surgery (2) PAD (peripheral artery disease): Comment: 07/22/2024 left distal SFA atherectomy and plasty Code(s): I73.9 - Peripheral vascular disease, unspecified Category: Medical Plan: * Referred to vascular surgery for pre-op wound healing evaluation (s/p LLE angioplasty). You are cleared from a vascular standpoint to proceed with your planned foot surgery with Dr. Joya. * Arterial duplex: bi-phasic arterial flow * Stop Plavix 5 days prior to surgery (05/02/2025). (3) Vitamin D insufficiency: Code(s): E55.9 - Vitamin D deficiency, unspecified Category: Medical Plan: * Previously recommended vitamin D2/D3 2000 IU daily. (4) Diabetic peripheral neuropathy associated with type 2 diabetes mellitus: Code(s): E11.42 - Type 2 diabetes mellitus with diabetic polyneuropathy Category: Medical Plan: * A1c decreased from 8.7% to 6.9%. He is at lower risk than last evaluation for wound healing complications. (5) Xerosis cutis: Code(s): L85.3 - Xerosis cutis Category: Medical Plan: * Continue Amlactin Orders: Referrals Podiatry Procedure Notification S92.352A - Displaced fracture of fifth metatarsal bone, left foot, initial encounter for closed fracture, S92.902G - Unspecified fracture of left foot, subsequent encounter for fracture with delayed healing Coding Level of Care Code Est Pt Level 4 (58248) Diagnoses Closed displaced fracture of fifth metatarsal bone of left foot, initial encounter S92.352A Encounter type: initial encounter Fracture type: closed PAD (peripheral artery disease) I73.9 Vitamin D insufficiency E55.9 Diabetic peripheral neuropathy associated with type 2 diabetes mellitus E11.42 Xerosis cutis L85.3 Time Spent (min) 35
[2025-04-16 10:19] VITALS: BMI 34.1
--- OUTSIDE RECORDS SUMMARY | 2025-04-16 10:41 | XMS_ITS | CCD ---
Author Name Interface, [id number] lity Address [address] [place] [address] [facility] Address [address] [facility] [address] [place] [address] Care Team Providers Care Human Resources Leader Name Role Phone Kobi Shelton MD Unavailable [...]
--- OUTSIDE RECORDS SUMMARY | 2025-04-16 10:41 | XMS_ITS | Clinical Summary ---
Author Organization [facility], Address [address] [place] [address] [place] [address] Phone Care Team Providers Care Quality Assurance Coach Name Role Phone Kobi Day NP Primary Care Provider [phone] Allergies No known active allergies Medications atorvastatin [...] Exam 06/26/2020 Influenza Vaccine (#1) 2025 Insurance [facility] Plan (59212) Care Teams Quality Assurance Coach Relationship Specialty Start Date End Date Kobi Day NP [address] [place] [address] PCP - General Nurse Practitioner 08/15/22
--- OUTSIDE RECORDS SUMMARY | 2025-04-16 10:41 | XMS_ITS | Encounter Summary ---
Author Organization [facility] Address [address] [place] [address] Phone Care Team Providers Care Utility Specialist Name Role Phone Kobi Day NP Primary Care Provider [phone] Encounter Details Date Type Department Care Team (Late st Contact Info) Description 08/15/2022 Documentation Only [facility], [address] [place] [address] Kobi Day NP [address] [place] [address] Social History Tobacco Use Types Packs/Day Years [...] on filedocumented in this encounter Care Teams Utility Specialist Relationship Specialty Start Date End Date Kobi Day NP [address] [place] [address] PCP - General Nurse Practitioner 08/15/22 documented as of this encounter
--- OUTSIDE RECORDS SUMMARY | 2025-04-16 10:41 | XMS_ITS ---
Author Name Interface, [id number] lity Address [address] [facility] [address] [place] [address] [facility] Address [address] [facility] [address] [place] [address] Support Name Relationship Address Phone Wanda Casas [...]
== END 2025-04-16 10:46 | disposition home or self-care (01) ==
LOC: HO.HPODS 10:05
PROVIDERS: PCP Nurse Practitioner Family; Visit Provider Student in an Organized Health Care Education/Training Program
DX: S92.352A Displaced fracture of fifth metatarsal bone, left foot, initial encounter for closed fracture (principal); I73.9 Peripheral vascular disease, unspecified; E55.9 Vitamin D deficiency, unspecified; E11.42 Type 2 diabetes mellitus with diabetic polyneuropathy; L85.3 Xerosis cutis
CPT/HCPCS: 99214

== ENCOUNTER → 2025-04-16 10:03 | Outpatient (BNVA) | payer OTHER, SELFPAY | PROVIDERS: PCP Nurse Practitioner Family; Visit Provider Student in an Organized Health Care Education/Training Program | DX: S92.352A Displaced fracture of fifth metatarsal bone, left foot, initial encounter for closed fracture (principal); E11.42 Type 2 diabetes mellitus with diabetic polyneuropathy; I73.9 Peripheral vascular disease, unspecified; L85.3 Xerosis cutis; E55.9 Vitamin D deficiency, unspecified; Y93.H2 Activity, gardening and landscaping; Y92.9 Unspecified place or not applicable; X58.XXXA Exposure to other specified factors, initial encounter | CPT/HCPCS: 99212 ==

== ENCOUNTER 2025-05-14 11:28 | Day surgery (SDC) | payer OTHER, SELFPAY ==
[2025-04-20 14:02] VITALS: BP 156/102; PULSE 86; RESP 16; O2SAT 98; BMI 34.1
--- NOTE | 2025-04-20 14:29 | P.CONAN_ITS ---
Documented by User: Lesley Infante NP 05/18/25 08:23 HPI - Anesthesia Eval Consult details Narrative: 54yo M for Left 5th Metatarsal ORIF, 05/07/25 No recent illness No CP/SOB with stairs multiple times daily Come chest wall pain from healing CABG scar Cardiac optimized. [place] [facility] [place] for CAD. OK'd to hold plavix Vascular optimized. Follows [facility] for PAD s/p plasty 06/2024. CAD, hx [place], s/p CABG 01/2024. Follows [facility] [place]iology. Last office visit 02/2025, stable. Remains on plavix. ASA discontinued. Optimized to proceed per workload. HTN: BP up at PAT 156/102. (~120's/60's at other provider visits.) States white coat syndrome. Will log at home CKD St 3 r/t DM with some contribution likely from vascular disease. Stable at 02/2025 office visit. Creat WNL MANFRED on BiPAP with O2 QHS DM 2: FBS ~ 150, A1C 6.9 Chronic thrombocytopenia dating back to 2022 in [facility] [place]. No etiology defined in chart review and patient unsure. Previous heme eval for erythrocytosis, but no f/u since 2022. Repeat labs with PLT low @ 79. (Renal proposes thrombocytopenia d/t ? bone marrow suppression from previous ETOH vs hypersplenism/increased portal pressure, though no dx of cirrhosis). Surgeon aware and ok'd to proceed at this level. Encouraged woodard trim PMFSH Active Problems Active Problems: All Active Problems Pre-op evaluation (Acute) Xerosis cutis (Acute) Vitamin D insufficiency (Acute) Displaced fracture of fifth metatarsal bone of left foot (Acute) Fracture of base of fifth metatarsal bone of left foot (Acute) Encounter for routine adult physical exam with abnormal findings (Acute) Foot pain, left (Acute) Ankle pain (Acute) Severe obstructive sleep apnea (Acute) Hypersomnia (Acute) Hyperlipidemia (Acute) Coronary atherosclerosis (Acute) CKD stage 3 secondary to diabetes (Acute) High triglycerides (Acute) Diabetic nephropathy associated with type 2 diabetes mellitus (Acute) CKD stage 2 due to type 2 diabetes mellitus (Acute) PAD (peripheral artery disease) (Acute) Overgrown toenails (Acute) Absent pedal pulses (Acute) Dusky feet (Acute) Elevated liver enzymes (Acute) HAYNES (dyspnea on exertion) (Acute) Pericardial effusion (Acute) Otitis media (Acute) Status post coronary artery bypass graft (Acute) Lung nodules (Acute) Ischemic cardiomyopathy (Acute) ACS (acute coronary syndrome) (Acute) Elevated troponin (Acute) Congestive heart failure (Acute) Erythrocytosis (Acute) Thrombopenia (Acute) Lesion of bladder (Acute) BPH (benign prostatic hyperplasia) (Acute) Bladder wall thickening (Acute) Abnormal radiologic findings on diagnostic imaging of renal pelvis, ureter, or bladder (Acute) Abnormal ultrasound of prostate (Acute) Microalbuminuria (Acute) Elevated hemoglobin (Acute) Microhematuria (Acute) Diabetic retinopathy (Acute) Uncontrolled diabetes mellitus (Acute) Screening PSA (prostate specific antigen) (Acute) Nocturnal hypoxemia (Acute) S/P angiogram of extremity (Acute 07/22/24) Diabetic peripheral neuropathy associated with type 2 diabetes mellitus (Acute) Nicotine dependence, cigarettes, uncomplicated (Acute) Hypertension (Acute) Past Medical History Medical History Dry skin CKD (chronic kidney disease), stage III Hx of myocardial infarction MANFRED treated with BiPAP Nocturnal hypoxemia Diabetic peripheral neuropathy associated with type 2 diabetes mellitus S/P angiogram of extremity (07/22/24) Bypass graft stenosis NSTEMI (non-ST elevated myocardial infarction) Nicotine dependence, cigarettes, uncomplicated Degenerative disc disease, cervical Cervical spinal stenosis Neuropathy Smoking history Elevated cholesterol Diabetic retinopathy BPH (benign prostatic hyperplasia) Retinal hemorrhage Type 2 diabetes mellitus Hypertension Family History Family History Father Leukemia Mother No problems noted. Family history of problems with anesthesia: No Surgical History Surgical History History of dental surgery (~2021) S/P aortogram (07/22/24) Hx of cystoscopy (11/13/22) Hx of heart bypass surgery Hx of tonsillectomy History of Problems with Anesthesia: No Social History Social History Household Members: Family Housing: Condominium Are you a primary physician primary care sports medicine to a significant other at home: No Do you presently have visiting nurse or other home services: No 75 years or older and lives alone: No Alcohol intake: current Alcohol intake frequency: 0-2 drinks per day Alcohol type: beer and hard liquor Comment: left foot boot Patient Tobacco Use Status: Former Tobacco user Tobacco use type: Cigar Years Smoked: 25 e-Cigarette/Vaping Use: Never Used service: No Current occupational status: unemployed Current occupation: [employer] Current occupational exposures/hazards: Yes Cognitive needs: No Hearing needs: No Vision needs: Yes Meds Allergies Allergy/AdvReac Type Severity Reaction Status Date / Time No Known Allergies Allergy Verified 05/14/25 12:49 Home Medications ?Medication ?Instructions ?Recorded ?Confirmed ?Last Taken ?Type cholecalciferol (vitamin D3) 50 50 mcg PO DAILY 05/14/25 Unknown History mcg (2,000 unit) capsule ammonium lactate 12 % lotion 1 appl topical DAILY xero sis 04/20/25 05/14/25 Unknown History (AmLactin) atorvastatin 80 mg tablet 80 mg PO BEDTIME 04/20/25 Unknown History clopidogrel 75 mg tablet (Plavix) 75 mg PO DAILY 04/2005/14/25 05/08/25 History insulin glargine U-300 conc 300 55 unit subcut BEDTIME 04/20/25 05/14/25 Unknown History unit/mL (3 mL) subcutaneous pen (Toujeo Max U-300 SoloStar) tirzepatide 7.5 mg/0.5 mL 7.5 mg subcut .QWEEKMONDAY 1 06/20/24 05/14/25 05/03/25 History subcutaneous pen injector (Mounjaro) citalopram 20 mg tablet 20 mg PO BEDTIME 05/14/25 Unknown History Exam Height,Weight and Vital Signs: Height 5 ft 9 in Weight 104.78 kg Last Vital Signs Pulse 86 04/20/25 14:02 Resp 16 04/20/25 14:02 BP 156/102 H 04/20/25 14:02 Pulse Ox 98 04/20/25 14:02 O2 Del Method Room Air 04/20/25 14:02 Pertinent Lab Results Pertinent Lab Results: Lab Results 04/20/25 Range/Units 15:05 WBC 5.5 (4.8-10.8) X10*3/uL RBC 4.77 (4.60-5.80) X10*6/uL Hgb 15.6 (14.0-18.0) g/dl Hct 44.6 (42.0-52.0) % MCV 93.5 (80.0-98.0) fL MCH 32.7 (27.0-33.0) pg MCHC 35.0 (31.0-36.0) g/dl RDW 12.5 (11.0-16.0) % Plt Count 79 L (160-400) X10*3/uL MPV 12.3 (9.4-12.4) fL Absolute Nucleated RBC 0.000 (0.0-0.012) X10*3/uL Nucleated RBC % (auto) 0.0 (0.0-0.2) /100WBC PT 11.6 (11.2-13.5) SEC INR 0.9 (0.9-1.1) APTT 31.3 (26.7-34.1) SEC Sodium 139 (135-145) mmol/L Potassium 4.7 (3.3-5.1) mmol/L Chloride 101 (96-108) mmol/L Carbon Dioxide 29 (22-29) mmol/L Anion Gap 14 (12-20) BUN 17 H (9-16) mg/dL Creatinine 1.17 (0.5-1.4) mg/dL Estim Creat Clear Calc 85.0 Estimated GFR > 60 Random Glucose 155 H (60-115) mg/dL Calcium 9.8 (8.4-10.2) mg/dL Total Bilirubin 0.9 (0.0-1.0) mg/dL AST 40 H (5-37) U/L ALT 45 H (0-40) U/L Alkaline Phosphatase 120 H (39-117) U/L Total Protein 7.6 (6.5-8.0) g/dL Albumin 4.9 (3.5-5.0) g/dL Narrative Narrative: EKG 03/03/25 NSR @ 86 Prolonged QT @ 406 Airway Mallampati Class: III (small mouth opening) TM Dist: >3cm Neck ROM: Limited Denture: Upper and Lower Heart: RRR Lungs: CTAB Assessment and Plan Assessment Anesthesia Assessment: Anesthesia Plan Discussed and PAT Visit Final Anesthetic Review Family History of Problems with Anesthesia: No History of Problems with Anesthesia: No Documented by User: Hafsa Castro MD 05/14/25 14:15 PMFSH Past Medical History Medical History Dry skin CKD (chronic kidney disease), stage III Hx of myocardial infarction MANFRED treated with BiPAP Nocturnal hypoxemia Diabetic peripheral neuropathy associated with type 2 diabetes mellitus S/P angiogram of extremity (07/22/24) Bypass graft stenosis NSTEMI (non-ST elevated myocardial infarction) Nicotine dependence, cigarettes, uncomplicated Degenerative disc disease, cervical Cervical spinal stenosis Neuropathy Smoking history Elevated cholesterol Diabetic retinopathy BPH (benign prostatic hyperplasia) Retinal hemorrhage Type 2 diabetes mellitus Hypertension Family History Family History Father Leukemia Mother No problems noted. Surgical History Surgical History History of dental surgery (~2021) S/P aortogram (07/22/24) Hx of cystoscopy (11/13/22) Hx of heart bypass surgery Hx of tonsillectomy Social History Social History Household Members: Family [facility] Are you a primary physician primary care sports medicine to a significant other at home: No Do you presently have visiting nurse or other home services: No 75 years or older and lives alone: No Alcohol intake: current Alcohol intake frequency: 0-2 drinks per day Alcohol type: beer and hard liquor Comment: left foot boot Patient Tobacco Use Status: Former Tobacco user Tobacco use type: Cigar Years Smoked: 25 e-Cigarette/Vaping Use: Never Used service: No Current occupational status: unemployed Current occupation: [employer] Current occupational exposures/hazards: Yes Cognitive needs: No Hearing needs: No Vision needs: Yes Meds Allergies Allergy/AdvReac Type Severity Reaction Status Date / Time No Known Allergies Allergy Verified 05/14/25 12:49 Home Medications ?Medication ?Instructions ?Recorded ?Confirmed ?Last Taken ?Type cholecalciferol (vitamin D3) 50 50 mcg PO DAILY 05/14/25 Unknown History mcg (2,000 unit) capsule ammonium lactate 12 % lotion 1 appl topical DAILY xero sis 04/20/25 05/14/25 Unknown History (AmLactin) atorvastatin 80 mg tablet 80 mg PO BEDTIME 04/20/25 Unknown History clopidogrel 75 mg tablet (Plavix) 75 mg PO DAILY 04/2005/14/25 05/08/25 History insulin glargine U-300 conc 300 55 unit subcut BEDTIME 04/20/25 05/14/25 Unknown History unit/mL (3 mL) subcutaneous pen (Toujeo Max U-300 SoloStar) tirzepatide 7.5 mg/0.5 mL 7.5 mg subcut .QWEEKMONDAY 1 06/20/24 05/14/25 05/03/25 History subcutaneous pen injector (Ritu) citalopram 20 mg tablet 20 mg PO BEDTIME 05/14/25 Unknown History Assessment and Plan Assessment Anesthesia Assessment: Chart Reviewed Final Anesthetic Review NPO: Yes ASA Class: III Final Preanesthetic Review: No Changes in Pt Med Stat, Meds/Allgs Chart Reviewed, Consent Obtained/Reviewed and Anes Risks/Benef Reviewed Patient Risk: Intermediate Procedure Risk: Intermediate Anesthetic Plan Anesthetic Plan: GA and Agree w/ Assess. and Plan Disposition: Standard PACU
[2025-04-20 15:41] LABS: Hematocrit 44.6 % (42.0-52.0); Hemoglobin 15.6 g/dl (14.0-18.0); Mean Corpuscular HGB Conc 35.0 g/dl (31.0-36.0); Mean Corpuscular Hemoglobin 32.7 pg (27.0-33.0); Mean Corpuscular Volume 93.5 fL (80.0-98.0); NRBC Abs Auto 0.000 X10*3/uL (0.0-0.012); NRBC Pct Auto 0.0 /100WBC (0.0-0.2); Red Blood Count 4.77 X10*6/uL (4.60-5.80); White Blood Count 5.5 X10*3/uL (4.8-10.8)
[2025-04-20 15:42] LABS: Platelet Count 79 X10*3/uL (160-400)
[2025-04-20 16:02] LABS: Alanine Aminotransferase 45 U/L (0-40); Albumin Level 4.9 g/dL (3.5-5.0); Alkaline Phosphatase 120 U/L (39-117); Anion Gap 14 (12-20); Aspartate Amino Transferase 40 U/L (5-37); Blood Urea Nitrogen 17 mg/dL (9-16); Calcium 9.8 mg/dL (8.4-10.2); Carbon Dioxide 29 mmol/L (22-29); Chloride 101 mmol/L (96-108); Creatinine Clr Calc Pharmacy 85.0; Estimated Glomerular Filt Rate > 60; Potassium 4.7 mmol/L (3.3-5.1); Sodium 139 mmol/L (135-145); Total Protein 7.6 g/dL (6.5-8.0)
[2025-04-20 16:42] LABS: INTERNATIONAL NORM RATIO 0.9 (0.9-1.1); Partial Thromboplastin Time 31.3 SEC (26.7-34.1); Prothrombin Time 11.6 SEC (11.2-13.5)
[2025-05-14] VITALS (7 sets, daily range): BP systolic 124–190; BP diastolic 84–99; PULSE 70–85; RESP 16–18; TEMP 36.2–36.4; O2SAT 93–97; BMI 34.2
--- NOTE | ~2025-05-14 | FL_ITS ---
EXAMINATION: FL GUIDANCE ONLY HISTORY: ORIF COMPARISON: Correlation is made to plain films of the left foot dated 03/27/2025. TECHNIQUE: Fluoroscopy time: 165.56 seconds. Cumulative Dose: 3.5020 mGy. DAP: 0.2116 Gycm2 Images: 4. FINDINGS: Fluoroscopic spot films of the left foot demonstrate internal fixation of the previously seen displaced fracture of the base of the 5th metatarsal with a sideplate and multiple orthopedic screws. FL/FL guidance in OR IMPRESSION: Fluoroscopy during procedure. Please see procedure report for additional information. Electronically signed by: Solis García MD 05/17/2025 09:53 AM [facility]
--- NOTE | ~2025-05-14 | XR_ITS ---
CLINICAL HISTORY: s p ORIF left 5th metatarsal fracture 2 view left foot Comparison: CT/SR - CT FOOT LT WO IV CON - 04/01/25 10:19 EST CR - XR FOOT LT MIN 3V - 03/27/25 12:18 EDT Findings: Interval open reduction internal fixation of the base of the 5th metatarsal peroneus brevis avulsion fracture with interval splint placement. No additional fractures of the dislocations. No significant loss of joint space, osteophytes, or erosions. No ankle effusion. No radiopaque foreign body. Calcaneal spur. Enthesopathy at the insertion of the Achilles tendon. IMPRESSION: 1. Status post open reduction internal fixation of 5th metatarsal base fracture. 2. Calcaneal spur. 3. Achilles tendon enthesopathy. 4. No acute osseous injury. This document has been electronically signed by: Husam Hoffman MD on 05/14/2025 18:14:33
[2025-05-14] MEDS: Lactated Ringers 1,000 ML 100 ML IVCONT (12:57)
[2025-05-14 13:35] LABS: Glucose, Whole Blood 153 mg/dL (60-115)
[2025-05-14 14:18] LABS: Hematocrit 39.3 % (42.0-52.0); Hemoglobin 14.0 g/dl (14.0-18.0); Mean Corpuscular HGB Conc 35.6 g/dl (31.0-36.0); Mean Corpuscular Hemoglobin 32.6 pg (27.0-33.0); Mean Corpuscular Volume 91.4 fL (80.0-98.0); NRBC Abs Auto 0.000 X10*3/uL (0.0-0.012); NRBC Pct Auto 0.0 /100WBC (0.0-0.2); Red Blood Count 4.30 X10*6/uL (4.60-5.80); White Blood Count 4.4 X10*3/uL (4.8-10.8)
[2025-05-14 14:24] LABS: Platelet Count 75 X10*3/uL (160-400)
--- NOTE | 2025-05-14 17:48 | P.BOP_ITS ---
Brief Operative Note Date of Service: 05/14/25 Pre-op diagnosis: Left 5th metatarsal fracture with delayed union Procedure: ORIF left 5th metatarsal fracture Implants: Hassan and nephew metatarsal hook plate Surgeon: Trever Joya DPM Was an Visual Merchandising Associate used for this Procedure?: No Estimated blood loss (mL): 30 Pathology: none sent Condition: stable Disposition: PACU
--- NOTE | 2025-05-15 12:57 | W.PM.OPN ---
Operative Note Operative Note Date of Service: 05/14/25 Narrative: Patient Name: Solis Casas : 1970 Date of Surgery: 05/14/2025 Time: 3:00pm Facility: [facility] Surgeon: Dr. Trever Joya DPM Street Cleaner(s): n/a Anesthesiologist / DISK OPERATOR: Nataly Kim MD Anesthesia: MAC Pre-Operative Diagnosis: 1. S92.352G ? Displaced fracture of fifth metatarsal bone, left foot, subsequent encounter for delayed healing 2. E11.42 ? Type 2 diabetes mellitus with diabetic polyneuropathy 3. E11.51 ? Type 2 diabetes mellitus with diabetic peripheral angiopathy without gangrene 4. I73.9 ? Peripheral vascular disease Post-Operative Diagnosis: same Procedure: 1. ORIF left 5th metatarsal [place] - [id number] Antibiotics: Ancef 2g Local anesthetic use: 20cc Hemostasis: n/a EBL: 30cc Drains: none Fluids: IVF Specimens: N/A Implants: medline metatarsal hook plate Indication: 54 y/o male with past medical history of diabetes mellitus type 2 with peripheral neuropathy, CKD, PAD s/p angioplasty, CAD s/p CABG, presented for a left 5th metatarsal fracture that occurred on 01/21/2025. He was treated conservatively until he was noted to have further worsening diastasis of the fracture and a delayed union confirmed on x-rays and CT scan. He was recommended ORIF to prevent any biomechanical deformity from weakning of the peroneus brevis, and subsequent potential for ulceration/infection. Treatment options were discussed and the patient elected surgery. He received primary, cardiac, and vascular evaluation/clearance. Procedure Details: The patient was transferred to the operating room and transferred to operative table. Once the patient underwent anesthesia, a time out was conducted confirming the proper patient, procedure, and surgical site. Ancef was given as prophylactic antibiotic. A well-padded ankle tourniquet was applied but not inflated. Local anesthesia was given to the left foot and ankle using 20 cc of a 1-1 mixture of 0.5% Marcaine plain and 1% lidocaine plain in wheel block fashion. The left lower extremity was then scrubbed, prepped, and draped in the normal aseptic manner. Fluoroscopy was used to jasmina the 5th metatarsal borders and the location of the fracture for incision planning. A 6cm incision was made on the lateral aspect of the 5th metatarsal. The incision was deepened to periosteum and reflected. The fracture was clearly visualized with no bone callus and mild fibrotic tissue. An ostetome and a curette were used to clear the fracture margins. The sclerotic margins were further resected. The site was irrigated with NSS. A drill bit was used to fenestrate both sides of the fracture margin. A clamp was used to reduce the fracture fragment and temporarily pinned. The medline hook plate was applied with its guide onto the metatarsal. The pin was removed and the guide-wire for the home-run screw was inserted and positioning was confirmed on fluoroscopy. Placement of the screw/plate was based on avoiding the peroneus brevis tendon attachment. The hook plate prongs were pre-drilled and tamped into the tuberosity fragment, achieving stable fixation and flush placement of the plate onto the fracture fragment. The home-run screw was drilled and inserted, with mild compression noted. Next, the oblong hole on the metatarsal was drilled and a 3.0mm non-locking screw was inserted, further compressing the fracture gap. Two remaining holes on the distal aspect of the plate were filled similarly using non-locking and locking screws. Fluoroscopy confirmed screws capturing 6 cortices achieved distally, the hook plate prongs attached to the capital fragment, with a lag screw crossing the metatarsal tuberosity and with purchase of the shaft. The site was irrigated with NSS. There remained a fracture gap central and plantarly which was filled with allograft. Periosteum was repaired using 2-0 vicryl, subcutaneous tissue with 3-0 vicryl, and skin with 4-0 nylon. The incision was dressed with betadine-soaked xeroform, 4x4 gauze, abd pad, webril, chuck, and a well padded posterior splint. Once the patient emerged from anesthesia, the patient was transferred to the PACU with airway intact and neurovascular status intact. The patient was monitored until deemed medically stable for discharge. Condition: Stable Disposition: PACU Weight-bearing status: non weight-bearing in posterior splint Complications: bone loss in the fracture gap that was supplemented with bone allograft
== END 2025-05-14 18:24 | disposition home or self-care (01) ==
PROVIDERS: Nurse Practitioner; PCP Nurse Practitioner Family; Visit Provider Student in an Organized Health Care Education/Training Program
PROC: (CPT 28485; principal; 2025-05-14 13:10)
DX: S92.352A Displaced fracture of fifth metatarsal bone, left foot, initial encounter for closed fracture (principal); X50.1XXA Overexertion from prolonged static or awkward postures, initial encounter; Y93.H2 Activity, gardening and landscaping; Y92.017 Garden or yard in single-family (private) house as the place of occurrence of the external cause; Y99.9 Unspecified external cause status; E11.22 Type 2 diabetes mellitus with diabetic chronic kidney disease; I12.9 Hypertensive chronic kidney disease with stage 1 through stage 4 chronic kidney disease, or unspecified chronic kidney disease; N18.30 Chronic kidney disease, stage 3 unspecified; E11.42 Type 2 diabetes mellitus with diabetic polyneuropathy; E11.51 Type 2 diabetes mellitus with diabetic peripheral angiopathy without gangrene; E11.319 Type 2 diabetes mellitus with unspecified diabetic retinopathy without macular edema; I73.9 Peripheral vascular disease, unspecified; E78.00 Pure hypercholesterolemia, unspecified; I25.10 Atherosclerotic heart disease of native coronary artery without angina pectoris; I25.2 Old myocardial infarction; Z95.1 Presence of aortocoronary bypass graft; E55.9 Vitamin D deficiency, unspecified; L85.3 Xerosis cutis; G47.33 Obstructive sleep apnea (adult) (pediatric); G47.36 Sleep related hypoventilation in conditions classified elsewhere; Z79.4 Long term (current) use of insulin; Z79.84 Long term (current) use of oral hypoglycemic drugs; Z79.85 Long-term (current) use of injectable non-insulin antidiabetic drugs; Z98.890 Other specified postprocedural states; Z87.891 Personal history of nicotine dependence; Z56.0 Unemployment, unspecified
CPT/HCPCS: 28485; 36415; 73620; 73630; 80053; 82947; 85027; 85610; 85730; C1713; J0131; J0665; J0690; J2003; J2250; J2704; J3010

== ENCOUNTER → 2025-05-14 11:28 | Outpatient (BNV) | payer OTHER, SELFPAY | PROVIDERS: PCP Nurse Practitioner Family; Visit Provider Student in an Organized Health Care Education/Training Program | DX: S92.352G Displaced fracture of fifth metatarsal bone, left foot, subsequent encounter for fracture with delayed healing (principal); E11.42 Type 2 diabetes mellitus with diabetic polyneuropathy; E11.51 Type 2 diabetes mellitus with diabetic peripheral angiopathy without gangrene; I73.9 Peripheral vascular disease, unspecified | CPT/HCPCS: 28485 ==

== ENCOUNTER → 2025-05-14 17:48 | Outpatient (BNV) | payer OTHER, SELFPAY | PROVIDERS: PCP Nurse Practitioner Family; Visit Provider Radiology Diagnostic Radiology | DX: M77.51 Other enthesopathy of right foot and ankle (principal) | CPT/HCPCS: 73620 ==

== ENCOUNTER 2025-05-21 09:22 | Outpatient (AMB) | payer OTHER, SELFPAY ==
--- OUTSIDE RECORDS SUMMARY | 2025-05-21 09:24 | XMS_ITS | Encounter Summary ---
Author Organization [facility] Address [address] [place] [address] Phone Care Team Providers Care Short Piece Handler Name Role Phone Kobi Day NP Primary Care Provider [phone] Encounter Details Date Type Department Care Team (Late st Contact Info) Description 08/15/2022 Documentation Only [facility], [address] [place] [address] Kobi Day NP [address] [place] [address] Social History Tobacco Use Types Packs/Day Years [...] on filedocumented in this encounter Care Teams Short Piece Handler Relationship Specialty Start Date End Date Kobi Day NP [address] [place] [address] PCP - General Nurse Practitioner 08/15/22 documented as of this encounter
--- OUTSIDE RECORDS SUMMARY | 2025-05-21 09:24 | XMS_ITS ---
Author Name Interface, [id number] lity Address [address] [place] [address] [facility] Address [address] [place] [address] Support Name Relationship Address Phone Wanda Casas [...]
--- OUTSIDE RECORDS SUMMARY | 2025-05-21 09:25 | XMS_ITS | CCD ---
Author Name Interface, [id number] lity Address [address] [place] [address] [facility] Address [address] [place] [address] Care Team Providers Care Truck Driver'S Offsider Name Role Phone Kobi Shelton MD Unavailable [...]
--- OUTSIDE RECORDS SUMMARY | 2025-05-21 09:25 | XMS_ITS | Clinical Summary ---
Author Organization [facility], Address [address] [place] [address] [place] [address] Phone Care Team Providers Care Installment Agent Name Role Phone Kobi Day NP Primary Care Provider [phone] Allergies No known active allergies Medications atorvastatin [...] Exam 06/26/2020 Influenza Vaccine (#1) 2025 Insurance [facility] Plan ([id number]) Care Teams Installment Agent Relationship Specialty Start Date End Date Kobi Day NP 1962 [facility] [place] [address] PCP - General Nurse Practitioner 08/15/22
--- NOTE | 2025-05-21 09:59 | A.OFFVIS_ITS ---
Intake Visit Reasons: post op Intake Note: post op today he has no concerns but is walking on it Allergies No Known Allergies Allergy (Verified 05/14/25 12:49) HPI HPI post op: Details: Date of surgery: 05/14/2025. Procedures: ORIF left 5th metatarsal fracture 54-year-old male with past medical history of diabetes mellitus type 2 with peripheral neuropathy, CKD stage 3, PAD s/p left lower extremity angioplasty, returns postop day 7. He is seen ambulating in his splint with 1 crutch. He denies any pain to his foot at this time. He started taking his antibiotics on Saturday and will complete them by tomorrow. History: The patient states he was doing yard work and twisted his ankle. He did not have pain and continued to walk until he noticed bruising to his toes. He went to his primary care physician 3 days later and received an x-ray which showed a left 5th metatarsal fracture. He was recommended nonweightbearing in a Cam boot with crutches. notes feeling unbalanced and has difficulty holding his crutches with his hands, so he weightbears in the boot without crutches. [facility] Medical History Dry skin CKD (chronic kidney disease), stage III Hx of myocardial infarction MANFRED treated with BiPAP Nocturnal hypoxemia Diabetic peripheral neuropathy associated with type 2 diabetes mellitus S/P angiogram of extremity (07/22/24) Bypass graft stenosis NSTEMI (non-ST elevated myocardial infarction) Nicotine dependence, cigarettes, uncomplicated Degenerative disc disease, cervical Cervical spinal stenosis Neuropathy Smoking history Elevated cholesterol Diabetic retinopathy BPH (benign prostatic hyperplasia) Retinal hemorrhage Type 2 diabetes mellitus Hypertension Surgical History History of dental surgery (~2021) S/P aortogram (07/22/24) Hx of cystoscopy (11/13/22) Hx of heart bypass surgery Hx of tonsillectomy Family History Father Leukemia Mother No problems noted. Social History Household Members: Family Housing: Condominium Are you a primary pediatric care coordinator to a significant other at home: No Do you presently have visiting nurse or other home services: No 75 years or older and lives alone: No Alcohol intake: current Alcohol intake frequency: 0-2 drinks per day Alcohol type: beer and hard liquor Comment: left foot boot Patient Tobacco Use Status: Former Tobacco user Tobacco use type: Cigar Years Smoked: 25 e-Cigarette/Vaping Use: Never Used service: No Current occupational status: unemployed Current occupation: [employer] Current occupational exposures/hazards: Yes Cognitive needs: No Hearing needs: No Vision needs: Yes Review of Systems Const All systems reviewed & are unremarkable except as noted in HPI and below Physical Exam Extrem Other: *Bilateral Lower Extremity Focused Exam Vascular: dp/pt 1/4 b/l, CFT<3s to digits, moderate left lateral foot edema Derm: Incisions well coapted, sutures intact. No drainage, no clinical signs of infection. No wound dehiscence. Neuro: protective sensation grossly diminished to bilateral lower extremities MSK: no tenderness on palpation of left 5th metatarsal surgical site. no pain to the ankle on range of motion, no calf pain Results Reviewed Results Reviewed: X-ray Read: 05/14/2025 X-ray left foot 3 views (AP, MO, Lateral) reviewed which shows intact 5th metatarsal plate and screw at the 5th metatarsal base. I personally reviewed the imaging and my findings are listed above. Assessment & Plan Assessment & Plan (1) Displaced fracture of fifth metatarsal bone of left foot: Code(s): S92.352A - Displaced fracture of fifth metatarsal bone, left foot, initial encounter for closed fracture Category: Medical Qualifiers: Encounter type: initial encounter Fracture type: closed Qualified Code(s): S92.352A - Displaced fracture of fifth metatarsal bone, left foot, initial encounter for closed fracture Plan: * Reviewed post-operative x-rays. Discussed that there is still a gap noted in the fracture from bone loss, which may still lead to a delayed union. However, currently the peroneus brevis tendon is being stabilized to the metatarsal due to internal fixation/hardware, so there is a decreased risk of developing an ulcer from a biomechanical deformity and/or charcot neuroarthropathic foot. * Instructed patient to remain non-weightbearing otherwise at risk of wound dehiscence and failure which may lead to infection and/or revisional surgery. * Rx Knee Scooter * Dressings were changed using betadine-xeroform, 4x4 gauze, webril, chuck, and a well padded posterior splint. * Continue NWB in posterior splint until incisions heal. Will then remain PWB in CAM boot. * Follow up 2 weeks for suture removal (2) PAD (peripheral artery disease): Comment: 07/22/2024 left distal SFA atherectomy and plasty Code(s): I73.9 - Peripheral vascular disease, unspecified Category: Medical Plan: * cleared from a vascular standpoint * Arterial duplex: bi-phasic arterial flow * Restarted plavix on Saturday05/16/2025 (3) Vitamin D insufficiency: Code(s): E55.9 - Vitamin D deficiency, unspecified Category: Medical Plan: * Continue vitamin D2/D3 2000 IU daily. (4) Diabetic peripheral neuropathy associated with type 2 diabetes mellitus: Code(s): E11.42 - Type 2 diabetes mellitus with diabetic polyneuropathy Category: Medical Plan: * A1c 6.9%. * Remains at risk for wound healing complications (5) Xerosis cutis: Code(s): L85.3 - Xerosis cutis Category: Medical Plan: * Continue Amlactin Orders: Orders XR foot LT min 3V 2 Weeks M79.672 - Pain in left foot, S92.352A - Displaced fracture of fifth metatarsal bone, left foot, initial encounter for closed fracture Medications: New [knee scooter] please dispense knee scooter for left lower extremity 1 ea 0RF left 5th metatarsal fracture M79.672 - Pain in left foot, S92.352A - Displaced fracture of fifth metatarsal bone, left foot, initial encounter for closed fracture Coding Level of Care Code Global (58402) Diagnoses Closed displaced fracture of fifth metatarsal bone of left foot, initial encounter S92.352A Encounter type: initial encounter Fracture type: closed PAD (peripheral artery disease) I73.9 Vitamin D insufficiency E55.9 Diabetic peripheral neuropathy associated with type 2 diabetes mellitus E11.42 Xerosis cutis L85.3
== END 2025-05-21 10:24 | disposition home or self-care (01) ==
LOC: HO.HPODS 09:23
PROVIDERS: PCP Nurse Practitioner Family; Visit Provider Student in an Organized Health Care Education/Training Program
DX: S92.352A Displaced fracture of fifth metatarsal bone, left foot, initial encounter for closed fracture (principal); I73.9 Peripheral vascular disease, unspecified; E55.9 Vitamin D deficiency, unspecified; E11.42 Type 2 diabetes mellitus with diabetic polyneuropathy; L85.3 Xerosis cutis
CPT/HCPCS: 99024

== ENCOUNTER → 2025-05-21 09:22 | Outpatient (BNVA) | payer OTHER, SELFPAY | PROVIDERS: PCP Nurse Practitioner Family; Visit Provider Student in an Organized Health Care Education/Training Program | DX: Z47.89 Encounter for other orthopedic aftercare (principal); S92.352A Displaced fracture of fifth metatarsal bone, left foot, initial encounter for closed fracture; I73.9 Peripheral vascular disease, unspecified; E55.9 Vitamin D deficiency, unspecified; E11.42 Type 2 diabetes mellitus with diabetic polyneuropathy; L85.3 Xerosis cutis | CPT/HCPCS: 99212 ==